=== PATIENT | female | born 1930 | race Hispanic/Latino ===

== ENCOUNTER 2016-11-15 12:41 | Inpatient (IN) | payer MEDICARE ==
[2016-11-15] MEDS ORDERED: Sodium Chloride 0.9% 1,000 ML IV STA ×2 (13:02→15:45)
--- NOTE | 2016-11-15 13:20 | RAD ---
HISTORY: Abd pain, syncope COMPARISON: None FINDINGS: LUNGS: The lungs are clear. PLEURA: No significant pleural effusion identified, no pneumothorax apparent. CARDIOVASCULAR: Normal. OSSEOUS STRUCTURES: No significant abnormalities. VISUALIZED UPPER ABDOMEN: Normal. OTHER FINDINGS: None. IMPRESSION: No active pulmonary disease.
[2016-11-15 13:22] LABS: BASO % 0.4 % (0.0-2.0); EOS % 0.1 % (0.0-4.0); HEMATOCRIT 33.5 % (34.0-47.0); LYMPH # 1.9 K/uL (1.0-4.3); LYMPH % 26.3 % (20.0-40.0); MEAN CELL VOLUME 96.3 fl (81.0-99.0); MEAN CORPUSCULAR HEMOGLOBIN 32.6 pg (27.0-31.0); MEAN CORPUSCULAR HGB CONC 33.8 g/dL (33.0-37.0); MEAN PLATELET VOLUME 7.4 fl (7.2-11.7); MONO # 0.1 K/uL (0.0-0.8); MONO % 1.5 % (0.0-10.0); NEUT # 5.3 K/uL (1.8-7.0); NEUT % 71.7 % (50.0-75.0); NRBC % 0.2 % (0.0-0.0); RED CELL DISTRIBUTION WIDTH 18.5 % (11.5-14.5); WHITE BLOOD COUNT 7.3 K/uL (4.8-10.8)
[2016-11-15 13:31] LABS: ALB/GLOB RATIO 1.1 (1.0-2.1); BILIRUBIN,TOTAL 0.8 mg/dl (0.2-1.3); CALCIUM 8.6 mg/dL (8.4-10.2); POTASSIUM 3.5 MMOL/L (3.6-5.0); TOTAL PROTEIN 6.9 G/DL (6.3-8.2)
[2016-11-15 13:33] LABS: PARTIAL THROMBOPLASTIN TIME 22.3 Seconds (25.6-37.1)
[2016-11-15 13:43] LABS: TROPONIN I 0.02 ng/mL (0.00-0.120)
--- NOTE | 2016-11-15 13:43 | ED PDOC ---
HPI: General Adult Time Seen by Provider: 11/15/16 12:51 Chief Complaint (Nursing): Altered Mental Status Chief Complaint (Provider): Weakness, abdominal pain, syncope History Per: Patient Onset/Duration Of Symptoms: Mins Have you had recent travel within the past 21 days to any of the following countries: [place], [place], [place] or [place]?: No Additional History Per: Patient, EMS Additional Complaint(s): The patient is a 86yo female, history of gynecological cancer, brought to the ED by EMS for evaluation of abdominal pain and episodes of syncope. Patient was complaining of abdominal pain earlier today and upon EMS arrival, she was able to ambulate to the ambulance, was AAOx4 and had a syncope episode, lasting approximately 2 minutes. EMS also reports another syncopal episode less than 2 minutes en route to the ED. EMS deny noticing any shaking behaviour. At present , patient is AAOx3 and denies any chest pain, shortness of breath, headache, focal weaknesses now or prior to onset of abdominal pain. No other medical complaints. Past Medical History Reviewed: Historical Data, Nursing Documentation, Vital Signs Vital Signs: Last Vital Signs Temp 99.0 F 11/17/16 12:00 Pulse 129 H 11/17/16 17:00 Resp 26 H 11/17/16 17:00 BP 129/59 L 11/17/16 18:20 Pulse Ox 98 11/17/16 17:00 - Medical History PMH: Malignancy (gynecological) - Surgical History Surgical History: No Surg Hx - Family History Family History: States: No Known Family Hx - Living Arrangements Living Arrangements: With Family - Home Medications Home Medications: Ambulatory Orders Medication Instructions Recorded Aspirin [Ecotrin] 81 mg PO DAILY 11/15/16 Atorvastatin [Lipitor] 20 mg PO DAILY 11/15/16 Cholecalciferol [Vitamin D 1000 IU] 1 tab PO DAILY 11/15/16 Losartan [Cozaar] 25 mg PO DAILY 11/15/16 Magnesium Oxide [Magox 400] 400 mg PO DAILY 11/15/16 Prochlorperazine [Compazine] 10 mg PO Q4H PRN 11/15/16 traMADol [Ultram] 50 mg PO Q6H PRN 11/15/16 - Allergies Allergies/Adverse Reactions: Allergies Allergy/AdvReac Type Severity Reaction Status Date / Time No Known Allergies Allergy Verified 11/16/16 05:57 Review of Systems Constitutional: Negative for: Fever, Chills Cardiovascular: Negative for: Chest Pain Respiratory: Negative for: Shortness of Breath Gastrointestinal: Positive for: Abdominal Pain Neurological: Positive for: Other (2 x syncopal episods). Negative for: Weakness Physical Exam - Reviewed Nursing Documentation Reviewed: Yes Vital Signs Reviewed: Yes - Physical Exam Appears: Positive for: Non-toxic, In Acute Distress (moderate painful distress) Head Exam: Positive for: ATRAUMATIC Skin: Positive for: Warm, Dry Neck: Positive for: Supple Cardiovascular/Chest: Positive for: Regular Rate, Rhythm Respiratory: Positive for: Normal Breath Sounds. Negative for: Respiratory Distress Gastrointestinal/Abdominal: Positive for: Soft, Tenderness (generalized abdominal tenderness) Neurologic/Psych: Positive for: Alert, Oriented (x 3) - Laboratory Results Result Diagrams: 11/17/16 05:30 11/17/16 05:30 - ECG O2 Sat by Pulse Oximetry: 91 Medical Decision Making Medical Decision Making: Time: 1250 Impression: Abdominal pain and syncopal episodes Plan: -- CT Head -- CT Abdomen w/ IV contrast -- IV Fluids -- Labs Reassess Time: 1325 CT Abdomen Impression: 1. Encasement of the duodenum by tumor. proximal gastric distension or fastric outflow obstruction. 2. Abnormalities in the peritoneum and likely omental disease rather than an infection or inflammatory process. 3. Trace right upper quadrant fluid as well as fluid in the pelvis. 4. No evidence of tumor above the diaphragms. Findings consistent with bronchiextasis bilaterally. CT Head Impression: No acute intracranial abnormality. Moderate chronic microangiopathic changes and moderate age-related global parenchymal volume loss. 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 Chest x-ray impression: No active pulmonary disease. Time: 1520 Spoke with patient's daughter, who provided contact information for patient's oncologist. Time: 1530 Case discussed with patient's oncologist Dr. Aviles who is aware of imaging findings today. He states if patient needs to be transferred, provider to call hospitalist at [place]. 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 Time: 1540 Case disucssed with patient's PCP who recommends transfer to [place]. Patient informed of PCP's request to transfer, patient is requesting to stay at this facility for further care. Call placed to Dr. Taylor, medicine semiconductor dies loader. Time: [address] Oro, surgeon semiconductor dies loader. Dr. Oro requesting surgical manager semiconductor dies loader be informed of case as well. Time: 1603 Cased discussed with surgical manager semiconductor dies loader who is aware. Resident to come evaluate patient at bedside. Scribe Attestation: Documented by Ariela Knott acting as a scribe for Oralia Goldstein MD. Provider Attestation: All medical record entries made by the Scribe were at my direction and personally dictated by me. I have reviewed the chart and agree that the record accurately reflects my personal performance of the history, physical exam, medical decision making, and the department course for this patient. I have also personally directed, reviewed, and agree with the discharge instructions and disposition. Disposition - Clinical Impression Clinical Impression: Gastric outlet obstruction, Syncope - Patient ED Disposition Is Patient to be Admitted: Yes - Disposition Disposition Time: 16:03 Condition: GUARDED - Pt Status Changed To: Hospital Disposition Of: Inpatient - Admit Certification Admit to Inpatient:: After my assessment, the patient will require hospitalization for at least two midnights. This is because of the severity of symptoms shown, intensity of services needed, and/or the medical risk in this patient being treated as an outpatient. - POA Present On Arrival: None
[2016-11-15] MEDS ORDERED: Sodium Chloride 0.9% 50 ML IV ONE (13:51)
[2016-11-15] MEDS ORDERED: Iohexol 300 100 ML IJ ONE (13:51)
--- NOTE | 2016-11-15 14:39 | CT ---
PROCEDURE: CT HEAD WITHOUT CONTRAST. HISTORY: Syncope COMPARISON: None available. TECHNIQUE: Axial computed tomography images were obtained through the head/brain without intravenous contrast. Radiation dose: Total exam DLP = 881.73 he MGy-cm. This CT exam was performed using one or more of the following dose reduction techniques: Automated exposure control, adjustment of the mA and/or kV according to patient size, and/or use of iterative reconstruction technique. FINDINGS: HEMORRHAGE: No intracranial hemorrhage. BRAIN: There are moderate chronic microangiopathic changes. There is an old infarction in the left periatrial white matter. There is no mass, mass effect or abnormal extra-axial fluid collection. VENTRICLES: There is moderate age-related global parenchymal volume loss and proportionate enlargement of the ventricles and cortical sulci. CALVARIUM: The skullbase and calvarium are normal. PARANASAL SINUSES: Predominantly clear. MASTOID AIR CELLS: Predominantly clear. OTHER FINDINGS: None. IMPRESSION: No acute intracranial abnormality. Moderate chronic microangiopathic changes and moderate age-related global parenchymal volume loss. 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
--- NOTE | 2016-11-15 15:07 | CT ---
PROCEDURE: CT Chest, Abdomen and Pelvis with intravenous contrast HISTORY: Abd pain, syncope Relevant surgical history: Bilateral oophorectomy. Currently undergoing chemotherapy. Primary tumor is unknown with certainty. COMPARISON: None. TECHNIQUE: IV dose administered: [place] located yes lymph neither is Radiation dose: Total exam DLP = mGy-cm. This CT exam was performed using one or more of the following dose reduction techniques: Automated exposure control, adjustment of the mA and/or kV according to patient size, and/or use of iterative reconstruction technique. FINDINGS: CT CHEST WITH CONTRAST: LUNGS: Bronchiectatic changes bilaterally primarily lower lobe distribution. The upper lobes are involved to lesser degree. Calcified granuloma identified left upper lobe. No suspicious pulmonary nodules or discrete masses. MEDIASTINUM: Unremarkable. Normal caliber aorta and pulmonary arterial trunk. No aortic dissection. Normal size heart. LYMPH NODES: Unremarkable. PLEURA: Unremarkable. No pneumothorax. No pleural fluid. BONES: Thoracolumbar scoliosis, otherwise unremarkable OTHER FINDINGS: None. CT ABDOMEN AND PELVIS: LIVER: Hepatic steatosis. No focal masses. No intrahepatic bile duct dilatation or perihepatic ascites. GALLBLADDER AND BILE DUCTS: Unremarkable. PANCREAS: Unremarkable. No gross lesion or ductal dilatation. SPLEEN: Unremarkable. ADRENALS: Unremarkable. No mass. KIDNEYS AND URETERS: Unremarkable. No hydronephrosis. No solid mass. Incidental finding(s): Bilateral simple renal cysts VASCULATURE: Unremarkable. No aortic aneurysm. BOWEL: Distended stomach and pylorus. Markedly abnormal duodenum including thickening of the wall of the duodenum, contrast enhancement of the wall of the duodenum and fluid in the right upper quadrant. The differential considerations would infiltrative tumor. Less likely would be duodenitis and duodenal stricture. Fourth portion of the duodenum is unremarkable. Diverticulosis without an acute inflammatory component or other associated pathologic process. APPENDIX: No abnormalities to suggest acute appendicitis. No right lower quadrant inflammatory processes identified. PERITONEUM: Trace fluid right upper quadrant primarily about the liver extending to the right flank and lateral to the ascending colon. There is streaking of the omentum and mesenteries in the right eric abdomen. The findings are either infectious/ inflammatory or tumor/omental caking and likely related to the process in the right upper quadrant affecting the duodenum. Trace fluid in the. LYMPH NODES: Unremarkable. No enlarged lymph nodes. BLADDER: Unremarkable. REPRODUCTIVE: Atrophic uterus. BONES: No acute fracture. OTHER FINDINGS: None. IMPRESSION: 1. Encasement of the duodenum by tumor. Proximal gastric distension, of gastric outflow obstruction. 2. Abnormalities in the peritoneum and likely omental disease rather than an infectious or inflammatory process. 3. Trace right upper quadrant fluid as well as fluid in the pelvis. 4. No evidence of tumor above the diaphragms. Findings consistent with bronchiectasis bilaterally. Additional benign and/or incidental findings described above.
[2016-11-15] MEDS ORDERED: Iohexol 240 (10 ml) PO ONE (18:11)
[2016-11-15] MEDS ORDERED: Iohexol 240 (50 ml) ONE (18:14)
[2016-11-15] MEDS ORDERED: Sodium Chloride 0.9% 1,000 ML IV ONE (18:15)
[2016-11-15] MEDS ORDERED: Sodium Chloride 0.9% 1,000 ML IV SCH (18:15)
[2016-11-15] MEDS: Iohexol 240 (50 ml) PO ONE ×2 (18:16→18:29)
--- NOTE | 2016-11-15 18:28 | CP.PCM.CON ---
History of Present Illness - History of Present Illness History of Present Illness: General Surgery note for Dr. Oro Consulted for: abdominal pain Patient is an 86F with PMH of vulvar cancer undergoing chemotherapy and pelvic radiation who presents to the ED with severe abdominal pain that started this AM. Patient states that he pain is cramping in nature, worst in the RUQ but also in the lower abdomen BL not associated with nausea or vomiting. Pain is associated with lower back pain. Patient states that taking deep breaths makes it worse and lying on her right side makes it better. Patient reports some decreased appetite in PO intake for the past several days. Patient also reports heart burn but denies any other chest pain or radiation to her arms or neck. Patient denies fevers, chills, dysuria, hematuria, hematochezia, melena. Last bowel movmenet was yesterday and described as normal color and consistency. Has not passed gas all day. EMT's were called when patient had the abdominal pain and witnessed patient having a syncopal episode. Patient was found to be severely hypotensive but resuscitated after [address] scan showed a very distended stomach and very thickened duodenum wall and duodenal compression.Free fluid in the RUQ and the pelvis. Omental fat streaking PMH: vulvar cancer with chemotherapy and pelvic radiation, HTN, HLD PSH: hysterectomy ALL: NKDA Social: lives with sister, denies any ETOH, tobacco, or drug use Review of Systems - Review of Systems All systems: reviewed and no additional remarkable complaints except (as per HPI ) - Constitutional Constitutional: Anorexia. absent: Chills, Fever - Respiratory Respiratory: absent: Cough, Dyspnea, Chest Congestion - Gastrointestinal Gastrointestinal: As Per HPI, Abdominal Pain. absent: Hematochezia, Melena, Nausea, Vomiting - Genitourinary Genitourinary: Difficulty Urinating. absent: Dysuria, Hematuria - Menstruation Menstruation: absent: Abnormal Vaginal Bleeding, Dysmenorrhea - Musculoskeletal Musculoskeletal: Back Pain. absent: Numbness, Radiating Pain into Limb, Tingling - Neurological Neurological: absent: Confusion, Numbness, Tingling Past Patient History - Past Medical History & Family History Past Medical History?: Yes - Past Social History Smoking Status: Never Smoked - CARDIAC Hx Cardiac Disorders: Yes - PULMONARY Hx Respiratory Disorders: No - NEUROLOGICAL Hx Neurological Disorder: No - HEENT Hx HEENT Problems: No - RENAL Hx Chronic Kidney Disease: No - ENDOCRINE/METABOLIC Hx Endocrine Disorders: No - HEMATOLOGICAL/ONCOLOGICAL Hx Blood Disorders: No - INTEGUMENTARY Hx Dermatological Problems: No - MUSCULOSKELETAL/RHEUMATOLOGICAL Hx Musculoskeletal Disorders: No - GENITOURINARY/GYNECOLOGICAL Hx Genitourinary Disorders: Yes - PSYCHIATRIC Hx Psychophysiologic Disorder: No - SURGICAL HISTORY Hx Surgeries: Yes - ANESTHESIA Hx Anesthesia: Yes Hx Anesthesia Reactions: No Meds Allergies/Adverse Reactions: Allergies Allergy/AdvReac Type Severity Reaction Status Date / Time No Known Allergies Allergy Verified 11/15/16 12:43 - Medications Medications: Current Medications Lactated Ringer's (Lactated Ringer's) 1,000 mls @ 100 mls/hr IV .Q10H MARGE Last Admin: 11/15/16 18:16 Dose: 100 mls/hr Sodium Chloride (Sodium Chloride 0.9%) 1,000 mls @ 1,000 mls/hr IV .Q1H ONE Stop: 11/15/16 19:14 Physical Exam - Constitutional Appears: In Acute Distress - Head Exam Head Exam: ATRAUMATIC, NORMOCEPHALIC - Eye Exam Eye Exam: Normal appearance. absent: Conjunctival injection, Scleral icterus - ENT Exam ENT Exam: Mucous Membranes Dry, Normal Oropharynx - Neck Exam Neck exam: Positive for: Normal Inspection - Respiratory Exam Respiratory Exam: NORMAL BREATHING PATTERN. absent: Accessory Muscle Use, Respiratory Distress - Cardiovascular Exam Cardiovascular Exam: RRR - GI/Abdominal Exam GI & Abdominal Exam: Distended, Soft, Tenderness (RUQ>RLQ=LLQ). absent: Mass, Rebound Additional comments: Tenderness to percussion - Extremities Exam Extremities exam: Positive for: pedal pulses present. Negative for: calf tenderness, pedal edema - Back Exam Back exam: absent: CVA tenderness (L), CVA tenderness (R), rash noted - Neurological Exam Neurological exam: Alert, Oriented x3 - Psychiatric Exam Psychiatric exam: Normal Affect, Normal Mood - Skin Skin Exam: Dry, Intact, Normal Color, Warm Results - Vital Signs Recent Vital Signs: Last Vital Signs Temp 97.6 F 11/15/16 13:05 Pulse 93 H 11/15/16 16:54 Resp 23 11/15/16 16:54 BP 100/66 11/15/16 16:54 Pulse Ox 100 11/15/16 16:27 - Labs Result Diagrams: 11/15/16 13:05 11/15/16 13:05 Labs: Laboratory Results - last 24 hr 11/15/16 11/15/16 11/15/16 13:05 13:05 13:05 WBC 7.3 RBC 3.48 L Hgb 11.3 L Hct 33.5 L MCV 96.3 MCH 32.6 H MCHC 33.8 RDW 18.5 H Plt Count 248 MPV 7.4 Neut % (Auto) 71.7 Lymph % (Auto) 26.3 [place] % (Auto) 1.5 Eos % (Auto) 0.1 Baso % (Auto) 0.4 Neut # 5.3 Lymph # 1.9 [place] # 0.1 Eos # 0.0 Baso # 0.0 PT 10.5 INR 1.0 APTT 22.3 L Sodium 139 Potassium 3.5 L Chloride 101 Carbon Dioxide 23 Anion Gap 19 BUN 27 H Creatinine 1.4 H Est GFR ( Amer) 43 Est GFR (Non-Af Amer) 36 Random Glucose 183 H Calcium 8.6 Total Bilirubin 0.8 AST 29 ALT 24 Alkaline Phosphatase 104 Troponin I 0.0200 Total Protein 6.9 Albumin 3.6 Globulin 3.3 Albumin/Globulin Ratio 1.1 Lipase 390 H Assessment & Plan - Assessment and Plan (Free Text) Assessment: 86F with PMH of vulvar cancer currently receiving chemotherapy and radiation treatment who presents with severe acute abdominal pain. Duodenal mass vs. duodenitis vs. duodenal stricture WBC wnl. lipase 390, t bili and LFT's wnl CT chest/abdomen/pelvis with IV contrast: Grossly distended stomach containing large amount of fluid, thickened duodenal wall, free fluid in the RUQ and pelvis , omental fat stranding Placed and NGT and had immediate >700 cc's of clear dark red-brown with brown particulate fluid output Plan: Repeat CT with PO contrast through the NGT after gastric decompression Follow up serum lactic acid and UA Trend daily CBC/CMP Continue NGT to intermittent continuous wall suction NPO protonix IV zosyn Continue fluid resuscitation PRN pain and nausea regimen Strict I&O's Closely monitor vitals Recommend GI consult for possible endoscopy and elevated lipase Hold DVT prophylaxis at this time Discussed with Dr. Oro, further recs per him Dannielle Mayer, PGY2
[2016-11-15] MEDS ORDERED: Lactated Ringer's 1,000 ML IV SCH (18:30)
[2016-11-15 20:08] LABS: RBC URINE 3 /hpf (0-3); URINE BILIRUBIN NEGATIVE (NEGATIVE); URINE BLOOD NEGATIVE (NEGATIVE); URINE COLOR YELLOW (YELLOW); URINE GLUCOSE (UA) NEG (Normal); URINE KETONE NEGATIVE (NEGATIVE); URINE LEUKOCYTE ESTERASE NEG Leu/uL (Negative); URINE PROTEIN 100 mg/dL (NEGATIVE); URINE UROBILINOGEN 0.2-1.0 mg/dL (0.2-1.0); WBC URINE 1 /hpf (0-5)
[2016-11-15] MEDS ORDERED: Acetaminophen 650mg/20.3ml solution UD PO PRN (20:27)
[2016-11-15] MEDS: Lactated Ringer's 1,000 ML IV SCH (21:48)
[2016-11-15] MEDS: Piperacillin/Tazobact 3.375 GM in Sodium Chloride 0.9% 100 ML IVPB SCH (23:00)
[2016-11-16] MEDS: Piperacillin/Tazobact 3.375 GM in Sodium Chloride 0.9% 100 ML IVPB SCH ×4 (05:21→23:27)
[2016-11-16 05:38] LABS: ALB/GLOB RATIO 0.9 (1.0-2.1); BILIRUBIN,TOTAL 0.8 mg/dl (0.2-1.3); CALCIUM 7.8 mg/dL (8.4-10.2); TOTAL PROTEIN 5.8 G/DL (6.3-8.2)
[2016-11-16 06:05] LABS: THYROID STIMULATING HORMONE 0.48 mIU/ML (0.46-4.68)
[2016-11-16 06:25] LABS: POTASSIUM 5.4 MMOL/L (3.6-5.0)
[2016-11-16 06:26] LABS: BASO % 0.1 % (0.0-2.0); EOS % 1.2 % (0.0-4.0); HEMATOCRIT 33.7 % (34.0-47.0); LYMPH # 0.3 K/uL (1.0-4.3); LYMPH % 31.8 % (20.0-40.0); MEAN CELL VOLUME 97.1 fl (81.0-99.0); MEAN CORPUSCULAR HEMOGLOBIN 32.9 pg (27.0-31.0); MEAN CORPUSCULAR HGB CONC 33.9 g/dL (33.0-37.0); MEAN PLATELET VOLUME 7.7 fl (7.2-11.7); MONO # 0.1 K/uL (0.0-0.8); MONO % 10.6 % (0.0-10.0); NEUT # 0.5 K/uL (1.8-7.0); NEUT % 56.3 % (50.0-75.0); NRBC % 0.9 % (0.0-0.0); RED CELL DISTRIBUTION WIDTH 18.2 % (11.5-14.5)
[2016-11-16] MEDS ORDERED: Benzocaine/Menthol (Cepacol) Lozenge PO PRN (07:55)
--- NOTE | 2016-11-16 08:38 | CARD ---
APPROVED REPORT EKG Measurement Heart [id number] <Conclusion> Normal sinus rhythm Nonspecific ST abnormality Abnormal ECG
--- NOTE | 2016-11-16 08:40 | CARD ---
APPROVED REPORT EKG Measurement Heart [id number] <Conclusion> Sinus rhythm with fusion complexes Otherwise normal ECG
--- NOTE | 2016-11-16 08:44 | CP.PCM.PN ---
Subjective - Date & Time of Evaluation Date of Evaluation: 11/16/16 Time of Evaluation: 07:00 - Subjective Subjective: Patient seen and examined this AM. NAEO. Patient reports persistent but improved abdominal pain, denies nausea, vomiting, fevers, chills, or chest pain. States she passed gas overnight Objective - Vital Signs/Intake and Output Vital Signs (last 24 hours): Temp Pulse Resp BP Pulse Ox 98.2 F 105 H 18 93/62 L 93 L 11/16/16 07:56 11/16/16 07:56 11/16/16 07:56 11/16/16 07:56 11/16/16 07:56 Intake and Output: 11/16/16 11/16/16 06:59 18:59 Intake Total 920 Output Total 1150 Balance -230 - Medications Medications: Current Medications Acetaminophen (Tylenol 650mg/20.3ml Solution Ud) 650 mg PO Q6 PRN PRN Reason: fever >100.4 Benzocaine/Menthol (Cepacol Sore Throat) 1 chantel PO Q2 PRN PRN Reason: Sore Throat Cyanocobalamin (Vitamin B12 1000 Mcg/Ml Inj) 1,000 mcg IM DAILY [facility] Piperacillin Sod/Tazobactam (Sod 3.375 gm/ Sodium Chloride) 100 mls @ 100 mls/ hr IVPB Q6 [facility] Last Admin: 11/16/16 05:21 Dose: 100 mls/hr Lactated Ringer's (Lactated Ringer's) 1,000 mls @ 120 mls/hr IV .Q8H20M [facility] Last Admin: 11/15/16 21:48 Dose: 120 mls/hr Vancomycin HCl 1 gm/ Sodium (Chloride) 250 mls @ 166.667 mls/hr IVPB DAILY [facility] Metoclopramide HCl (Reglan) 10 mg IVP Q6 PRN PRN Reason: Nausea/Vomiting Morphine Sulfate (Morphine) 4 mg IVP Q6 PRN PRN Reason: Pain, severe (8-10) Last Admin: 11/15/16 23:59 Dose: 4 mg Morphine Sulfate (Morphine) 2 mg IVP Q4 PRN PRN Reason: Pain, moderate (4-7) Last Admin: 11/15/16 19:59 Dose: 2 mg Pantoprazole Sodium (Protonix Inj) 40 mg IVP DAILY [facility] Last Admin: 11/16/16 08:41 Dose: 40 mg Silver Sulfadiazine (Silvadene 1% 50 Gm) 1 applic TOP BID MARGE - Labs Labs: 11/16/16 04:15 11/16/16 04:15 PT 10.5 Seconds (9.8-13.1) 11/15/16 13:05 INR 1.0 (0.9-1.2) 11/15/16 13:05 APTT 22.3 Seconds (25.6-37.1) L 11/15/16 13:05 - Constitutional Appears: Non-toxic, No Acute Distress - Head Exam Head Exam: ATRAUMATIC, NORMOCEPHALIC - Eye Exam Eye Exam: Normal appearance. absent: Conjunctival injection, Scleral icterus - ENT Exam ENT Exam: Mucous Membranes Moist, Normal Oropharynx - Respiratory Exam Respiratory Exam: NORMAL BREATHING PATTERN. absent: Accessory Muscle Use, Respiratory Distress - GI/Abdominal Exam GI & Abdominal Exam: Soft, Tenderness (RUQ>RLQ). absent: Distended, Rebound - Exam External exam: Erythema Additional comments: superficial skin excoriation the external labia - Extremities Exam Extremities Exam: absent: Calf Tenderness, Pedal Edema, Tenderness - Neurological Exam Neurological Exam: Alert, Awake, Oriented x3 - Psychiatric Exam Psychiatric exam: Normal Affect, Normal Mood - Skin Skin Exam: Dry, Normal Color, Warm Additional comments: Excoriated skin around the external labia of the vagina and groin Assessment and Plan - Assessment and Plan (Free Text) Assessment: 86F with severe abdominal pain, probable duodenal perforation CT chest/abdomen/pelvis with PO contrast: extravasation of contrast from the duodenum Plan: -OR for exploratory laparotomy to repair duodenal perforation - NPO - IVF - Continue antibiotics, pain medication - Type and cross for 2 units - Hold DVT prophylaxis - Protonix 40mg BID IVP - Transfer patient to the ICU after operation Seen and examined with Dr. Shorty Mayer, PGY2
--- NOTE | 2016-11-16 09:15 | CP.PCM.CON ---
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 Pt states that yesterday she suddenly started having insidious abd pain located in RUQ and lower quad B/L. She states that it peaked to 10 out of 10 pain and she characterized it as crampy. Denies any aggravating or alleviating factors. She states that she then had multiple syncope episodes. EMS and ER noted she had a low BP and received multiple liters of fluid. Upon arrival to the ER, she started experiencing severe nausea and vomiting. An NG tube was place and 700cc was initially suctioned. A CT scan w/o PO contrast revealed possible marked duodenal inflammation and possible obstruction. She was also started on abx of zosyn and vancomycin. She denies any recent travel. Her last dose of chemo was 5 days ago, but does not recall her current regiment. Denies any sick contacts or recent consumption of undercooked meat. Her last BM was 2 days ago and she currently denies flatus. Her NG tube was pulled in the AM and she was started on clear liquid diet. Denies any fever, chills, or diaphoresis. PMH: vulvar cancer with chemotherapy and pelvic radiation, HTN, HLD PSH: hysterectomy ALL: NKDA Social: lives with sister, denies any ETOH, tobacco, or drug use Endoscopy hx: Denies prior EGD and colonoscopy Past Patient History - Past Medical History & Family History Past Medical History?: Yes - Past Social History Smoking Status: Never Smoked - CARDIAC Hx Cardiac Disorders: Yes Hx Hypertension: Yes - PULMONARY Hx Respiratory Disorders: No - NEUROLOGICAL Hx Neurological Disorder: No - HEENT Hx HEENT Problems: No - RENAL Hx Chronic Kidney Disease: No - ENDOCRINE/METABOLIC Hx Endocrine Disorders: No - HEMATOLOGICAL/ONCOLOGICAL Hx Blood Disorders: No - INTEGUMENTARY Hx Dermatological Problems: No - MUSCULOSKELETAL/RHEUMATOLOGICAL Hx Falls: No - GENITOURINARY/GYNECOLOGICAL Hx Genitourinary Disorders: Yes Hx Uterine Cancer: Yes - PSYCHIATRIC Hx Substance Use: No - SURGICAL HISTORY Hx Surgeries: Yes Hx Hysterectomy: Yes - ANESTHESIA Hx Anesthesia: Yes Hx Anesthesia Reactions: No Meds Allergies/Adverse Reactions: Allergies Allergy/AdvReac Type Severity Reaction Status Date / Time No Known Allergies Allergy Verified 11/16/16 05:57 - Medications Medications: Current Medications Acetaminophen (Tylenol 650mg/20.3ml Solution Ud) 650 mg PO Q6 PRN PRN Reason: fever >100.4 Benzocaine/Menthol (Cepacol Sore Throat) 1 chantel PO Q2 PRN PRN Reason: Sore Throat Cyanocobalamin (Vitamin B12 1000 Mcg/Ml Inj) 1,000 mcg IM DAILY [facility] Piperacillin Sod/Tazobactam (Sod 3.375 gm/ Sodium Chloride) 100 mls @ 100 mls/ hr IVPB Q6 [facility] Last Admin: 11/16/16 05:21 Dose: 100 mls/hr Lactated Ringer's (Lactated Ringer's) 1,000 mls @ 120 mls/hr IV .Q8H20M [facility] Last Admin: 11/15/16 21:48 Dose: 120 mls/hr Vancomycin HCl 1 gm/ Sodium (Chloride) 250 mls @ 166.667 mls/hr IVPB DAILY [facility] Metoclopramide HCl (Reglan) 10 mg IVP Q6 PRN PRN Reason: Nausea/Vomiting Morphine Sulfate (Morphine) 4 mg IVP Q6 PRN PRN Reason: Pain, severe (8-10) Last Admin: 11/15/16 23:59 Dose: 4 mg Morphine Sulfate (Morphine) 2 mg IVP Q4 PRN PRN Reason: Pain, moderate (4-7) Last Admin: 11/15/16 19:59 Dose: 2 mg Pantoprazole Sodium (Protonix Inj) 40 mg IVP DAILY [facility] Last Admin: 11/16/16 08:41 Dose: 40 mg Silver Sulfadiazine (Silvadene 1% 50 Gm) 1 applic TOP BID [facility] Physical Exam - Constitutional Appears: Well, No Acute Distress - Head Exam Head Exam: ATRAUMATIC, NORMOCEPHALIC - ENT Exam ENT Exam: Mucous Membranes Moist - Respiratory Exam Respiratory Exam: Clear to Auscultation Bilateral, NORMAL BREATHING PATTERN. absent: Rales, Rhonchi, Wheezes, Respiratory Distress - Cardiovascular Exam Cardiovascular Exam: REGULAR RHYTHM, +S1, +S2 - GI/Abdominal Exam GI & Abdominal Exam: Hypoactive Bowel Sounds, Tenderness. absent: Guarding, Hernia, Organomegaly, Rebound, Rigid Additional comments: diffuse - Extremities Exam Extremities exam: Negative for: joint swelling, pedal edema, tenderness - Neurological Exam Neurological exam: Alert, Oriented x3 - Psychiatric Exam Psychiatric exam: Normal Affect, Normal Mood - Skin Skin Exam: Dry, Intact, Normal Color, Warm Results - Vital Signs Recent Vital Signs: Last Vital Signs Temp 98.2 F 11/16/16 07:56 Pulse 105 H 11/16/16 07:56 Resp 18 11/16/16 07:56 BP 93/62 L 11/16/16 07:56 Pulse Ox 93 L 11/16/16 07:56 - Labs Result Diagrams: 11/16/16 04:15 11/16/16 04:15 Labs: Laboratory Results - last 24 hr 11/15/16 11/15/16 11/15/16 13:05 13:05 13:05 WBC 7.3 RBC 3.48 L Hgb 11.3 L Hct 33.5 L MCV 96.3 MCH 32.6 H MCHC 33.8 RDW 18.5 H Plt Count 248 MPV 7.4 Neut % (Auto) 71.7 Lymph % (Auto) 26.3 [place] % (Auto) 1.5 Eos % (Auto) 0.1 Baso % (Auto) 0.4 Neut # 5.3 Lymph # 1.9 [place] # 0.1 Eos # 0.0 Baso # 0.0 PT 10.5 INR 1.0 APTT 22.3 L Sodium 139 Potassium 3.5 L Chloride 101 Carbon Dioxide 23 Anion Gap 19 BUN 27 H Creatinine 1.4 H Est GFR ( Amer) 43 Est GFR (Non-Af Amer) 36 Random Glucose 183 H Lactic Acid Calcium 8.6 Total Bilirubin 0.8 AST 29 ALT 24 Alkaline Phosphatase 104 Troponin I 0.0200 Total Protein 6.9 Albumin 3.6 Globulin 3.3 Albumin/Globulin Ratio 1.1 Triglycerides Cholesterol LDL Cholesterol Direct HDL Cholesterol Lipase 390 H Vitamin B12 TSH 3rd Generation Urine Color Urine Clarity Urine pH Ur Specific [place] Urine Protein Urine Glucose (UA) Urine Ketones Urine Blood Urine Nitrate Urine Bilirubin Urine Urobilinogen Ur Leukocyte Esterase Urine RBC (Auto) Urine Microscopic WBC 11/15/16 11/15/16 11/16/16 19:39 20:10 04:15 WBC RBC Hgb Hct MCV MCH MCHC RDW Plt Count MPV Neut % (Auto) Lymph % (Auto) [place] % (Auto) Eos % (Auto) Baso % (Auto) Neut # Lymph # [place] # Eos # Baso # PT INR APTT Sodium 140 Potassium 5.4 H Chloride 104 Carbon Dioxide 23 Anion Gap 18 BUN 33 H Creatinine 1.4 H Est GFR ( Amer) 43 Est GFR (Non-Af Amer) 36 Random Glucose 138 H Lactic Acid 5.9 H* Calcium 7.8 L Total Bilirubin 0.8 AST 26 ALT 24 Alkaline Phosphatase 61 Troponin I Total Protein 5.8 L Albumin 2.8 L D Globulin 3.0 Albumin/Globulin Ratio 0.9 L Triglycerides 149 Cholesterol 136 LDL Cholesterol Direct 46 HDL Cholesterol 55 Lipase 73 Vitamin B12 269 TSH 3rd Generation 0.48 Urine Color Yellow Urine Clarity Clear Urine pH 6.0 Ur Specific [place] 1.005 Urine Protein 100 Urine Glucose (UA) Neg Urine Ketones Negative Urine Blood Negative Urine Nitrate Negative Urine Bilirubin Negative Urine Urobilinogen 0.2-1.0 Ur Leukocyte Esterase Neg Urine RBC (Auto) 3 Urine Microscopic WBC 1 11/16/16 11/16/16 04:15 04:15 WBC 1.0 L* D RBC 3.47 L Hgb 11.4 L Hct 33.7 L MCV 97.1 MCH 32.9 H MCHC 33.9 RDW 18.2 H Plt Count 165 MPV 7.7 Neut % (Auto) 56.3 Lymph % (Auto) 31.8 [place] % (Auto) 10.6 H Eos % (Auto) 1.2 Baso % (Auto) 0.1 Neut # 0.5 L Lymph # 0.3 L [place] # 0.1 Eos # 0.0 Baso # 0.0 PT INR APTT Sodium Potassium Chloride Carbon Dioxide Anion Gap BUN Creatinine Est GFR ( Amer) Est GFR (Non-Af Amer) Random Glucose Lactic Acid 3.9 H Calcium Total Bilirubin AST ALT Alkaline Phosphatase Troponin I Total Protein Albumin Globulin Albumin/Globulin Ratio Triglycerides Cholesterol LDL Cholesterol Direct HDL Cholesterol Lipase Vitamin B12 TSH 3rd Generation Urine Color Urine Clarity Urine pH Ur Specific [place] Urine Protein Urine Glucose (UA) Urine Ketones Urine Blood Urine Nitrate Urine Bilirubin Urine Urobilinogen Ur Leukocyte Esterase Urine RBC (Auto) Urine Microscopic WBC Assessment & Plan - Assessment and Plan (Free Text) Assessment: Dia Chinchilla is a 86F w/ 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 DDx: gastroenteritis, transient obstruction, duodenal obstruction due stricture vs malignancy, referred pain from radiation 1. Abd pain, DDx etiology as above 2. Gastric Outlet Obstruction, resolved 3. Duodenal inflammation 4. Neutropenia, on chemo 5. Vulvar Ca Plan: -advance diet as tolerated -denies any diarrhea, doubt active GI infection -continue abx as per primary team -recommend hem/onc consult -will not recommend endoscopy at this time -continue conservative management as per surgery -recommend NG placement if symptomatic DRenéW Dr. Campos <Daniel Campos MD - Last Filed: 11/16/16 14:18> Meds - Medications Medications: Current Medications Acetaminophen (Tylenol 650mg/20.3ml Solution Ud) 650 mg PO Q6 PRN PRN Reason: fever >100.4 Benzocaine/Menthol (Cepacol Sore Throat) 1 chantel PO Q2 PRN PRN Reason: Sore Throat Cyanocobalamin (Vitamin B12 1000 Mcg/Ml Inj) 1,000 mcg IM DAILY [facility] Last Admin: 11/16/16 10:00 Dose: 1,000 mcg Heparin Sodium (Porcine) (Heparin) 5,000 units SC Q12 [facility] PRN Reason: Protocol Piperacillin Sod/Tazobactam (Sod 3.375 gm/ Sodium Chloride) 100 mls @ 100 mls/ hr IVPB Q6 [facility] Last Admin: 11/16/16 10:55 Dose: 100 mls/hr Lactated Ringer's (Lactated Ringer's) 1,000 mls @ 120 mls/hr IV .Q8H20M [facility] Last Admin: 11/15/16 21:48 Dose: 120 mls/hr Vancomycin HCl 1 gm/ Sodium (Chloride) 250 mls @ 166.667 mls/hr IVPB DAILY [facility] Last Admin: 11/16/16 10:00 Dose: 166.667 mls/hr Metoclopramide HCl (Reglan) 10 mg IVP Q6 PRN PRN Reason: Nausea/Vomiting Morphine Sulfate (Morphine) 4 mg IVP Q6 PRN PRN Reason: Pain, severe (8-10) Last Admin: 11/15/16 23:59 Dose: 4 mg Morphine Sulfate (Morphine) 2 mg IVP Q4 PRN PRN Reason: Pain, moderate (4-7) Last Admin: 11/15/16 19:59 Dose: 2 mg Pantoprazole Sodium (Protonix Inj) 40 mg IVP DAILY [facility] Last Admin: 11/16/16 08:41 Dose: 40 mg Silver Sulfadiazine (Silvadene 1% 50 Gm) 1 applic TOP BID [facility] Last Admin: 11/16/16 10:00 Dose: 1 applic Results - Vital Signs Recent Vital Signs: Last Vital Signs Temp 98.2 F 11/16/16 12:00 Pulse 98 H 11/16/16 12:00 Resp 18 11/16/16 12:00 BP 116/72 11/16/16 12:00 Pulse Ox 96 11/16/16 12:00 - Labs Result Diagrams: 11/16/16 04:15 11/16/16 04:15 Labs: Laboratory Results - last 24 hr 11/15/16 11/15/16 11/16/16 19:39 20:10 04:15 WBC RBC Hgb Hct MCV MCH MCHC RDW Plt Count MPV Neut % (Auto) Lymph % (Auto) [place] % (Auto) Eos % (Auto) Baso % (Auto) Neut # Lymph # [place] # Eos # Baso # Sodium 140 Potassium 5.4 H Chloride 104 Carbon Dioxide 23 Anion Gap 18 BUN 33 H Creatinine 1.4 H Est GFR ( Amer) 43 Est GFR (Non-Af Amer) 36 Random Glucose 138 H Lactic Acid 5.9 H* Calcium 7.8 L Total Bilirubin 0.8 AST 26 ALT 24 Alkaline Phosphatase 61 Total Protein 5.8 L Albumin 2.8 L D Globulin 3.0 Albumin/Globulin Ratio 0.9 L Triglycerides 149 Cholesterol 136 LDL Cholesterol Direct 46 HDL Cholesterol 55 Lipase 73 Vitamin B12 269 TSH 3rd Generation 0.48 Urine Color Yellow Urine Clarity Clear Urine pH 6.0 Ur Specific [place] 1.005 Urine Protein 100 Urine Glucose (UA) Neg Urine Ketones Negative Urine Blood Negative Urine Nitrate Negative Urine Bilirubin Negative Urine Urobilinogen 0.2-1.0 Ur Leukocyte Esterase Neg Urine RBC (Auto) 3 Urine Microscopic WBC 1 11/16/16 11/16/16 04:15 04:15 WBC 1.0 L* D RBC 3.47 L Hgb 11.4 L Hct 33.7 L MCV 97.1 MCH 32.9 H MCHC 33.9 RDW 18.2 H Plt Count 165 MPV 7.7 Neut % (Auto) 56.3 Lymph % (Auto) 31.8 [place] % (Auto) 10.6 H Eos % (Auto) 1.2 Baso % (Auto) 0.1 Neut # 0.5 L Lymph # 0.3 L [place] # 0.1 Eos # 0.0 Baso # 0.0 Sodium Potassium Chloride Carbon Dioxide Anion Gap BUN Creatinine Est GFR ( Amer) Est GFR (Non-Af Amer) Random Glucose Lactic Acid 3.9 H Calcium Total Bilirubin AST ALT Alkaline Phosphatase Total Protein Albumin Globulin Albumin/Globulin Ratio Triglycerides Cholesterol LDL Cholesterol Direct HDL Cholesterol Lipase Vitamin B12 TSH 3rd Generation Urine Color Urine Clarity Urine pH Ur Specific [place] Urine Protein Urine Glucose (UA) Urine Ketones Urine Blood Urine Nitrate Urine Bilirubin Urine Urobilinogen Ur Leukocyte Esterase Urine RBC (Auto) Urine Microscopic WBC Attending/Attestation - Attestation I have personally seen and examined this patient.: Yes I have fully participated in the care of the patient.: Yes I have reviewed all pertinent clinical information: Yes Notes (Text): 11/16/16 14:13 Patient seen and examined at bedside with Gi fellow on rounds this am. This is a 86 yr old F with vulvar CA s/p chemo radiation last saturday admitted with obstructive symptoms of nausea, vomiting and abdominal pain. Physical exam demonstrated sluggish bowel sounds without guarding or rigidity. Biochemical evidence of leukopenia. Elevated lactate and FERMIN. On antibiotics. CT abdomen with po contrast shows thickened duodenum with ? pneumoperitoneum. Patient tolerated clear liquid diet this morning. NGT with 700 cc output overnight which was discontinued this morning - Diet as per surgical service - Plan as per surgery - No past EGD/ colonoscopy - Will benefit from neupogen - Trend daily wbc and fever curve - Agree with antibiotics - Oncology consult appreciated - DVT and GI prophylaxis - Monitor s/s of obstruction - Frequent abdominal exam - Will follow patient closely with you
[2016-11-16] MEDS: Silver Sulfadiazine 1% CREAM (50 gm) TOP SCH ×2 (10:00→17:02)
--- NOTE | 2016-11-16 10:06 | CP.PCM.CON ---
History of Present Illness - History of Present Illness History of Present Illness: 86 year old female with a history of HTN, DM, vulvar cancer s/p 6 weeks of chemoradiation, admitted with abdominal pain. The patient reports to her oncologic care and [facility]. She is being treated with chemoradiation. She just received a dose of unknown chemotherapy this week and notes she receives this once weekly. She notes to tolerating her treatments well overall but has been having progressive lower abdominal pain. She denies fevers and chills. A CT C/A/P revealed encasement of the duodenum by tumor and evidence of peritoneal disease. There is a concern for perforated viscus and the patient is to undergo an exploratory laparotomy. Past medical history: HTN, DM, vulvar cancer Past surgical history: Hysterectomy Family history: Denies hematologic and oncologic problems Social history: Denies tobacco, alcohol, and illicit drug use. Allergies: NKA Review of systems: All remaining review of systems including HEENT, cardiovasular, respiratory, gastrointestinal, genitourinary, musculoskeletal, dermatologic, neurologic, and psychiatric are negative unless mentioned in the HPI. Past Patient History - Past Medical History & Family History Past Medical History?: Yes - Past Social History Smoking Status: Never Smoked - CARDIAC Hx Cardiac Disorders: Yes Hx Hypertension: Yes - PULMONARY Hx Respiratory Disorders: No - NEUROLOGICAL Hx Neurological Disorder: No - HEENT Hx HEENT Problems: No - RENAL Hx Chronic Kidney Disease: No - ENDOCRINE/METABOLIC Hx Endocrine Disorders: No - HEMATOLOGICAL/ONCOLOGICAL Hx Blood Disorders: No - INTEGUMENTARY Hx Dermatological Problems: No - MUSCULOSKELETAL/RHEUMATOLOGICAL Hx Falls: No - GENITOURINARY/GYNECOLOGICAL Hx Genitourinary Disorders: Yes Hx Uterine Cancer: Yes - PSYCHIATRIC Hx Substance Use: No - SURGICAL HISTORY Hx Surgeries: Yes Hx Hysterectomy: Yes - ANESTHESIA Hx Anesthesia: Yes Hx Anesthesia Reactions: No Meds Allergies/Adverse Reactions: Allergies Allergy/AdvReac Type Severity Reaction Status Date / Time No Known Allergies Allergy Verified 11/16/16 05:57 - Medications Medications: Current Medications Acetaminophen (Tylenol 650mg/20.3ml Solution Ud) 650 mg PO Q6 PRN PRN Reason: fever >100.4 Benzocaine/Menthol (Cepacol Sore Throat) 1 chantel PO Q2 PRN PRN Reason: Sore Throat Cyanocobalamin (Vitamin B12 1000 Mcg/Ml Inj) 1,000 mcg IM DAILY [facility] Piperacillin Sod/Tazobactam (Sod 3.375 gm/ Sodium Chloride) 100 mls @ 100 mls/ hr IVPB Q6 [facility] Last Admin: 11/16/16 05:21 Dose: 100 mls/hr Lactated Ringer's (Lactated Ringer's) 1,000 mls @ 120 mls/hr IV .Q8H20M [facility] Last Admin: 11/15/16 21:48 Dose: 120 mls/hr Vancomycin HCl 1 gm/ Sodium (Chloride) 250 mls @ 166.667 mls/hr IVPB DAILY [facility] Metoclopramide HCl (Reglan) 10 mg IVP Q6 PRN PRN Reason: Nausea/Vomiting Morphine Sulfate (Morphine) 4 mg IVP Q6 PRN PRN Reason: Pain, severe (8-10) Last Admin: 11/15/16 23:59 Dose: 4 mg Morphine Sulfate (Morphine) 2 mg IVP Q4 PRN PRN Reason: Pain, moderate (4-7) Last Admin: 11/15/16 19:59 Dose: 2 mg Pantoprazole Sodium (Protonix Inj) 40 mg IVP DAILY [facility] Last Admin: 11/16/16 08:41 Dose: 40 mg Silver Sulfadiazine (Silvadene 1% 50 Gm) 1 applic TOP BID [facility] Physical Exam - Head Exam Head Exam: ATRAUMATIC - Eye Exam Eye Exam: Normal appearance - ENT Exam ENT Exam: Mucous Membranes Dry - Respiratory Exam Respiratory Exam: NORMAL BREATHING PATTERN - Cardiovascular Exam Cardiovascular Exam: +S1, +S2 - GI/Abdominal Exam GI & Abdominal Exam: Tenderness - Extremities Exam Extremities exam: Positive for: normal inspection - Neurological Exam Neurological exam: Oriented x3 - Psychiatric Exam Psychiatric exam: Normal Affect, Normal Mood - Skin Skin Exam: Warm Results - Vital Signs Recent Vital Signs: Last Vital Signs Temp 98.2 F 11/16/16 07:56 Pulse 105 H 11/16/16 07:56 Resp 18 11/16/16 07:56 BP 93/62 L 11/16/16 07:56 Pulse Ox 93 L 11/16/16 07:56 - Labs Result Diagrams: 11/18/16 05:30 11/18/16 05:30 Labs: Laboratory Results - last 24 hr 11/15/16 11/15/16 11/15/16 13:05 13:05 13:05 WBC 7.3 RBC 3.48 L Hgb 11.3 L Hct 33.5 L MCV 96.3 MCH 32.6 H MCHC 33.8 RDW 18.5 H Plt Count 248 MPV 7.4 Neut % (Auto) 71.7 Lymph % (Auto) 26.3 [place] % (Auto) 1.5 Eos % (Auto) 0.1 Baso % (Auto) 0.4 Neut # 5.3 Lymph # 1.9 [place] # 0.1 Eos # 0.0 Baso # 0.0 PT 10.5 INR 1.0 APTT 22.3 L Sodium 139 Potassium 3.5 L Chloride 101 Carbon Dioxide 23 Anion Gap 19 BUN 27 H Creatinine 1.4 H Est GFR ( Amer) 43 Est GFR (Non-Af Amer) 36 Random Glucose 183 H Lactic Acid Calcium 8.6 Total Bilirubin 0.8 AST 29 ALT 24 Alkaline Phosphatase 104 Troponin I 0.0200 Total Protein 6.9 Albumin 3.6 Globulin 3.3 Albumin/Globulin Ratio 1.1 Triglycerides Cholesterol LDL Cholesterol Direct HDL Cholesterol Lipase 390 H Vitamin B12 TSH 3rd Generation Urine Color Urine Clarity Urine pH Ur Specific [place] Urine Protein Urine Glucose (UA) Urine Ketones Urine Blood Urine Nitrate Urine Bilirubin Urine Urobilinogen Ur Leukocyte Esterase Urine RBC (Auto) Urine Microscopic WBC 11/15/16 11/15/16 11/16/16 19:39 20:10 04:15 WBC RBC Hgb Hct MCV MCH MCHC RDW Plt Count MPV Neut % (Auto) Lymph % (Auto) [place] % (Auto) Eos % (Auto) Baso % (Auto) Neut # Lymph # [place] # Eos # Baso # PT INR APTT Sodium 140 Potassium 5.4 H Chloride 104 Carbon Dioxide 23 Anion Gap 18 BUN 33 H Creatinine 1.4 H Est GFR ( Amer) 43 Est GFR (Non-Af Amer) 36 Random Glucose 138 H Lactic Acid 5.9 H* Calcium 7.8 L Total Bilirubin 0.8 AST 26 ALT 24 Alkaline Phosphatase 61 Troponin I Total Protein 5.8 L Albumin 2.8 L D Globulin 3.0 Albumin/Globulin Ratio 0.9 L Triglycerides 149 Cholesterol 136 LDL Cholesterol Direct 46 HDL Cholesterol 55 Lipase 73 Vitamin B12 269 TSH 3rd Generation 0.48 Urine Color Yellow Urine Clarity Clear Urine pH 6.0 Ur Specific [place] 1.005 Urine Protein 100 Urine Glucose (UA) Neg Urine Ketones Negative Urine Blood Negative Urine Nitrate Negative Urine Bilirubin Negative Urine Urobilinogen 0.2-1.0 Ur Leukocyte Esterase Neg Urine RBC (Auto) 3 Urine Microscopic WBC 1 11/16/16 11/16/16 04:15 04:15 WBC 1.0 L* D RBC 3.47 L Hgb 11.4 L Hct 33.7 L MCV 97.1 MCH 32.9 H MCHC 33.9 RDW 18.2 H Plt Count 165 MPV 7.7 Neut % (Auto) 56.3 Lymph % (Auto) 31.8 [place] % (Auto) 10.6 H Eos % (Auto) 1.2 Baso % (Auto) 0.1 Neut # 0.5 L Lymph # 0.3 L [place] # 0.1 Eos # 0.0 Baso # 0.0 PT INR APTT Sodium Potassium Chloride Carbon Dioxide Anion Gap BUN Creatinine Est GFR ( Amer) Est GFR (Non-Af Amer) Random Glucose Lactic Acid 3.9 H Calcium Total Bilirubin AST ALT Alkaline Phosphatase Troponin I Total Protein Albumin Globulin Albumin/Globulin Ratio Triglycerides Cholesterol LDL Cholesterol Direct HDL Cholesterol Lipase Vitamin B12 TSH 3rd Generation Urine Color Urine Clarity Urine pH Ur Specific [place] Urine Protein Urine Glucose (UA) Urine Ketones Urine Blood Urine Nitrate Urine Bilirubin Urine Urobilinogen Ur Leukocyte Esterase Urine RBC (Auto) Urine Microscopic WBC Assessment & Plan (1) Neutropenia Assessment and Plan: secondary to recent chemotherapy will add Granix for goal ANC > 500 on empiric antibiotics Status: Acute (2) Anemia Assessment and Plan: secondary to chemotherapy will check iron, b12, folate stores Status: Acute (3) Vulvar cancer Assessment and Plan: on chemoradiation outpatient f/u with her primary oncologic team (Dr. Aviles) Thank you for this interesting consult. Status: Chronic
--- NOTE | 2016-11-16 10:28 | CT ---
PROCEDURE: CT Abdomen and Pelvis without intravenous contrast HISTORY: Possible duodenal mass/stenosis COMPARISON: 11/15/2016 at 2:12 p.m. TECHNIQUE: Without contrast.. Contrast Dose: 0 Radiation dose: Total exam DLP = 883.67 mGy-cm. This CT exam was performed using one or more of the following dose reduction techniques: Automated exposure control, adjustment of the mA and/or kV according to patient size, and/or use of iterative reconstruction technique. FINDINGS: LOWER THORAX: There is consolidation in the right lower lobe with some associated bronchiectasis. This may be due in part to atelectasis but the possibility of a chronic process with associated atelectasis must be considered. There is a small right pleural effusion. There is minimal subsegmental atelectasis at the medial left lung base. Small hiatal hernia noted. Circumferential mural thickening of the distal thoracic esophagus, nonspecific. Possible esophagitis. LIVER: Normal size, contour and attenuation. Smooth contour. No mass. No biliary ductal dilatation. GALLBLADDER AND BILE DUCTS: Gallbladder wall appears grossly thickened. Nonspecific. No calcified gallstones identified. PANCREAS: No mass. There is mild dilatation of the pancreatic duct in the pancreatic head up to 6 mm common nonspecific. There is no generalized pancreatic ductal dilatation appreciated. On earlier examination of the same date, the contrast enhanced study showed mild pancreatic ductal dilatation also in the body of the pancreas at that time. SPLEEN: Unremarkable. ADRENALS: Mild bilateral adrenal hypertrophy. No discrete mass appreciated. KIDNEYS AND URETERS: Multiple bilateral rounded low-density masses likely renal cysts. Largest upper pole left kidney, 2.2 cm. Lower pole cysts, 10 mm and 14 mm. Additional 14 mm cyst upper pole left kidney. Tiny additional cysts bilaterally. No calculus. No hydronephrosis. VASCULATURE: Unremarkable. No aortic aneurysm. BOWEL: Marked mural thickening of the pylorus and 1st and 2nd duodenum. Irregular mural thickening may reflect duodenitis, duodenal ulcer disease or neoplasm such as duodenal adenocarcinoma or lymphoma. There is extensive sigmoid diverticulosis. There is no evidence of diverticulitis. Scattered diverticulae are seen elsewhere throughout the colon. There is mural thickening of the sigmoid colon consistent with chronic muscular hypertrophy. There is no bowel obstruction. APPENDIX: Unremarkable. Normal appendix. PERITONEUM: Mild generalized ascites. Please note that the ascites fluid is of relatively high attenuation compared to the earlier examination of the same date. At that time, the ascites fluid measured approximately 25 Hounsfield units. At this time, the fluid measures approximately 45 Hounsfield units. This is due either to bowel perforation with mixing of oral contrast with ascites fluid or hemorrhage into the peritoneal cavity. Note is also made of minimal pneumoperitoneum. A few bubbles of gas are seen within the fissure for the ligamentum there no some. On earlier examination, there are several bubbles of gas seen free within the peritoneal cavity. These findings indicate likely bowel perforation. The likely candidate is the inflamed duodenum. The duodenum there is streaky increased density in the region of the greater omentum on the right side. This is nonspecific and likely reflecting the generalized ascites and inflammation extending from the right upper quadrant of the abdomen. LYMPH NODES: No retroperitoneal or pelvic lymphadenopathy. BLADDER: Poorly distended. Grossly normal. REPRODUCTIVE: Unremarkable prostate BONES: No acute fracture OTHER FINDINGS: None. IMPRESSION: Trace pneumoperitoneum. Either mixing of oral contrast with ascites fluid to elevate the attenuation of the ascites fluid versus hemoperitoneum. Marked inflammation and mural thickening of the proximal duodenum, nonspecific. See above. Small hiatal hernia. Mural thickening of the distal thoracic esophagus, nonspecific. Mild ascites. Thickening of the gallbladder wall, nonspecific. This may be related to the adjacent inflammation of the duodenum. Cannot rule out cholecystitis on the basis of this examination. No calcified gallstones identified. Bibasilar subsegmental atelectasis with some associated bronchiectasis in the right lower lobe indicating possible chronic atelectasis/fibrosis. Mild dilatation of the pancreatic duct in the body and head of the pancreas, nonspecific. No evidence pancreatitis. Sigmoid diverticulosis without evidence of diverticulitis. Additional minor findings as above. Preliminary interpretation of this examination was reported by [facility] at 8:03 p.m. on 11/15/2016. There is discordance of this report with the preliminary interpretation. The trace pneumoperitoneum was not described in the preliminary report of this examination. The ascites fluid is of increased attenuation as noted in the body of this report. This was not noted in the preliminary report of this examination. No other significant discrepancy with the preliminary report is evident. The findings in report were discussed, by telephone, with Dr. Ramos at 10:25 a.m. on 11/16/2016
--- NOTE | 2016-11-16 10:52 | RAD ---
PROCEDURE: CHEST RADIOGRAPH, 1 VIEW HISTORY: s/p NGT placement COMPARISON: Portable chest 11/07/2016. FINDINGS: LUNGS: No left-sided infiltrate is appreciated limited residual potential airspace disease seen the medial right base with remainder the right chest clear. PLEURA: No pneumothorax or pleural fluid seen. CARDIOVASCULAR: Cardiomegaly remains. No pulmonary vascular derangement. OSSEOUS STRUCTURES: No significant abnormalities. VISUALIZED UPPER ABDOMEN: A nasogastric tube is in place with tip appearing to terminate at the left upper quadrant abdomen. The tube is quite faint. OTHER FINDINGS: None. IMPRESSION: Improved aeration of both bases with no definite residual infiltrate on the left base. Limited residual airspace disease may be present the right medial base. Elevation the right hemidiaphragm is appreciated of uncertain etiology. Cardiomegaly appears stable. Status post nasogastric tube placement as discussed above.
--- NOTE | 2016-11-16 12:34 | CP.PCM.HP ---
<Parminder Ramos - Last Filed: 11/16/16 14:29> History of Present Illness - History of Present Illness History of Present Illness: 86 y/o female with PMHx remarkale for HTN, HLD, and vulvar cancer presented to [facility] ED with a complaint of abrupt onset abdominal pain in the morning and syncopal episode. As per pt, the pain is located in the RUQ, radiates to her lower abdomen. It is crampy in character, constant, 9/10, w/o alleviating factors and exacerbated by movement. Associated with lower back pain but not nausea or vomiting. Pt reports loss of appetite for the past several days. The syncopal episode occurred once EMS arrived. Pt lost consciousness gradually, was out for approx. 2 minutes and gradually came to. The pt then suffered another syncopal episode in the ambulance, same as prior episode. According to EMS, there was no associated shaking or bladder/bowel incontinence. At the present moment, pt has no other complaints. PMD: Dr. Aviles (hem/onc) PMHx: HTN, HLD, Vulvar cancer Meds: as per med rec PsurgHx: hysterectomy ALL: NKDA SocialHx: denies ETOH, tobacco, drug abuse, lives with sister FamilyHx: noncontributory ROS: 12 pts reviewed, found to be negative ED COURSE: Vitals on presentation: T: 96.4, HR 81, BP 58/32, RR 14, POX 99% RA Labs: CBC: 7.3>11.3/33.5<248 CMP: hypokalemia Lactic acid: 5.9 Lipase: 390 Coags: APTT: 22.3, PT/INR WNL UA: neg for infection/dehydration Imaging: EKG CXR Noncontrast Head CT abd/pelvic CT Admitted to tele Present on Admission - Present on Admission Any Indicators Present on Admission: No Past Patient History - Past Medical History & Family History Past Medical History?: Yes - Past Social History Smoking Status: Never Smoked - CARDIAC Hx Cardiac Disorders: Yes Hx Hypertension: Yes - PULMONARY Hx Respiratory Disorders: No - NEUROLOGICAL Hx Neurological Disorder: No - HEENT Hx HEENT Problems: No - RENAL Hx Chronic Kidney Disease: No - ENDOCRINE/METABOLIC Hx Endocrine Disorders: No - HEMATOLOGICAL/ONCOLOGICAL Hx Blood Disorders: No - INTEGUMENTARY Hx Dermatological Problems: No - MUSCULOSKELETAL/RHEUMATOLOGICAL Hx Falls: No - GENITOURINARY/GYNECOLOGICAL Hx Genitourinary Disorders: Yes Hx Uterine Cancer: Yes - PSYCHIATRIC Hx Substance Use: No - SURGICAL HISTORY Hx Surgeries: Yes Hx Hysterectomy: Yes - ANESTHESIA Hx Anesthesia: Yes Hx Anesthesia Reactions: No Meds Allergies/Adverse Reactions: Allergies Allergy/AdvReac Type Severity Reaction Status Date / Time No Known Allergies Allergy Verified 11/16/16 05:57 Results - Vital Signs Recent Vital Signs: Last Vital Signs Temp 98.2 F 11/16/16 12:00 Pulse 98 H 11/16/16 12:00 Resp 18 11/16/16 12:00 BP 116/72 11/16/16 12:00 Pulse Ox 96 11/16/16 12:00 - Labs Result Diagrams: 11/16/16 04:15 11/16/16 04:15 Labs: Laboratory Results - last 24 hr 11/15/16 11/15/16 11/15/16 13:05 13:05 13:05 WBC 7.3 RBC 3.48 L Hgb 11.3 L Hct 33.5 L MCV 96.3 MCH 32.6 H MCHC 33.8 RDW 18.5 H Plt Count 248 MPV 7.4 Neut % (Auto) 71.7 Lymph % (Auto) 26.3 Colbert % (Auto) 1.5 Eos % (Auto) 0.1 Baso % (Auto) 0.4 Neut # 5.3 Lymph # 1.9 Colbert # 0.1 Eos # 0.0 Baso # 0.0 PT 10.5 INR 1.0 APTT 22.3 L Sodium 139 Potassium 3.5 L Chloride 101 Carbon Dioxide 23 Anion Gap 19 BUN 27 H Creatinine 1.4 H Est GFR ( Amer) 43 Est GFR (Non-Af Amer) 36 Random Glucose 183 H Lactic Acid Calcium 8.6 Total Bilirubin 0.8 AST 29 ALT 24 Alkaline Phosphatase 104 Troponin I 0.0200 Total Protein 6.9 Albumin 3.6 Globulin 3.3 Albumin/Globulin Ratio 1.1 Triglycerides Cholesterol LDL Cholesterol Direct HDL Cholesterol Lipase 390 H Vitamin B12 TSH 3rd Generation Urine Color Urine Clarity Urine pH Ur Specific Gilchrist Urine Protein Urine Glucose (UA) Urine Ketones Urine Blood Urine Nitrate Urine Bilirubin Urine Urobilinogen Ur Leukocyte Esterase Urine RBC (Auto) Urine Microscopic WBC 11/15/16 11/15/16 11/16/16 19:39 20:10 04:15 WBC RBC Hgb Hct MCV MCH MCHC RDW Plt Count MPV Neut % (Auto) Lymph % (Auto) Colbert % (Auto) Eos % (Auto) Baso % (Auto) Neut # Lymph # Colbert # Eos # Baso # PT INR APTT Sodium 140 Potassium 5.4 H Chloride 104 Carbon Dioxide 23 Anion Gap 18 BUN 33 H Creatinine 1.4 H Est GFR ( Amer) 43 Est GFR (Non-Af Amer) 36 Random Glucose 138 H Lactic Acid 5.9 H* Calcium 7.8 L Total Bilirubin 0.8 AST 26 ALT 24 Alkaline Phosphatase 61 Troponin I Total Protein 5.8 L Albumin 2.8 L D Globulin 3.0 Albumin/Globulin Ratio 0.9 L Triglycerides 149 Cholesterol 136 LDL Cholesterol Direct 46 HDL Cholesterol 55 Lipase 73 Vitamin B12 269 TSH 3rd Generation 0.48 Urine Color Yellow Urine Clarity Clear Urine pH 6.0 Ur Specific Gilchrist 1.005 Urine Protein 100 Urine Glucose (UA) Neg Urine Ketones Negative Urine Blood Negative Urine Nitrate Negative Urine Bilirubin Negative Urine Urobilinogen 0.2-1.0 Ur Leukocyte Esterase Neg Urine RBC (Auto) 3 Urine Microscopic WBC 1 11/16/16 11/16/16 04:15 04:15 WBC 1.0 L* D RBC 3.47 L Hgb 11.4 L Hct 33.7 L MCV 97.1 MCH 32.9 H MCHC 33.9 RDW 18.2 H Plt Count 165 MPV 7.7 Neut % (Auto) 56.3 Lymph % (Auto) 31.8 Colbert % (Auto) 10.6 H Eos % (Auto) 1.2 Baso % (Auto) 0.1 Neut # 0.5 L Lymph # 0.3 L Colbert # 0.1 Eos # 0.0 Baso # 0.0 PT INR APTT Sodium Potassium Chloride Carbon Dioxide Anion Gap BUN Creatinine Est GFR ( Amer) Est GFR (Non-Af Amer) Random Glucose Lactic Acid 3.9 H Calcium Total Bilirubin AST ALT Alkaline Phosphatase Troponin I Total Protein Albumin Globulin Albumin/Globulin Ratio Triglycerides Cholesterol LDL Cholesterol Direct HDL Cholesterol Lipase Vitamin B12 TSH 3rd Generation Urine Color Urine Clarity Urine pH Ur Specific Gilchrist Urine Protein Urine Glucose (UA) Urine Ketones Urine Blood Urine Nitrate Urine Bilirubin Urine Urobilinogen Ur Leukocyte Esterase Urine RBC (Auto) Urine Microscopic WBC Assessment & Plan (1) Severe sepsis Assessment and Plan: Afebrile currently WBC: 1.0 Lactic acid trending down: 3.9 currently on IV Abx IV fluid hydration Monitor vitals/CBC Status: Acute (2) Gastric out let obstruction Assessment and Plan: as per general surgery team Status: Acute (3) Pneumoperitoneum Assessment and Plan: finding on reported CT, with possible leak of contrast or blood into ascitic fluid general surgery on board, will f/u recommendations Status: Acute (4) Acute kidney failure Assessment and Plan: fei prerenal azotemia from hypovolemia Cr: 1.4, pt denies hx of renal problems Iv fluids hydration f/u CMPs Status: Acute (5) Hyperkalemia Assessment and Plan: monitor CMPs Status: Acute (6) Leukopenia Assessment and Plan: likley secondary to chemotherapy Hem/onc onboard neutropenic precautions monitor serial cbcs Status: Acute (7) Vulvar cancer Status: Chronic (8) Hypertension Assessment and Plan: home meds held as pt was hypotensive Status: Chronic (9) Hyperlipidemia Assessment and Plan: c/w home meds Status: Chronic <Taylor,Russ K - Last Filed: 11/16/16 16:31> Results - Vital Signs Recent Vital Signs: Last Vital Signs Temp 98.3 F 11/16/16 16:11 Pulse 95 H 11/16/16 16:11 Resp 18 11/16/16 16:11 BP 107/66 11/16/16 16:11 Pulse Ox 93 L 11/16/16 16:11 - Labs Result Diagrams: 11/16/16 04:15 11/16/16 04:15 Labs: Laboratory Results - last 24 hr 11/15/16 11/15/16 11/16/16 19:39 20:10 04:15 WBC RBC Hgb Hct MCV MCH MCHC RDW Plt Count MPV Neut % (Auto) Lymph % (Auto) Colbert % (Auto) Eos % (Auto) Baso % (Auto) Neut # Lymph # Colbert # Eos # Baso # Sodium 140 Potassium 5.4 H Chloride 104 Carbon Dioxide 23 Anion Gap 18 BUN 33 H Creatinine 1.4 H Est GFR ( Amer) 43 Est GFR (Non-Af Amer) 36 Random Glucose 138 H Lactic Acid 5.9 H* Calcium 7.8 L Total Bilirubin 0.8 AST 26 ALT 24 Alkaline Phosphatase 61 Total Protein 5.8 L Albumin 2.8 L D Globulin 3.0 Albumin/Globulin Ratio 0.9 L Triglycerides 149 Cholesterol 136 LDL Cholesterol Direct 46 HDL Cholesterol 55 Lipase 73 Vitamin B12 269 TSH 3rd Generation 0.48 Urine Color Yellow Urine Clarity Clear Urine pH 6.0 Ur Specific Gilchrist 1.005 Urine Protein 100 Urine Glucose (UA) Neg Urine Ketones Negative Urine Blood Negative Urine Nitrate Negative Urine Bilirubin Negative Urine Urobilinogen 0.2-1.0 Ur Leukocyte Esterase Neg Urine RBC (Auto) 3 Urine Microscopic WBC 1 Blood Type Blood Type Confirm Antibody Screen Crossmatch BBK History Checked 11/16/16 11/16/16 11/16/16 04:15 04:15 13:45 WBC 1.0 L* D RBC 3.47 L Hgb 11.4 L Hct 33.7 L MCV 97.1 MCH 32.9 H MCHC 33.9 RDW 18.2 H Plt Count 165 MPV 7.7 Neut % (Auto) 56.3 Lymph % (Auto) 31.8 Colbert % (Auto) 10.6 H Eos % (Auto) 1.2 Baso % (Auto) 0.1 Neut # 0.5 L Lymph # 0.3 L Colbert # 0.1 Eos # 0.0 Baso # 0.0 Sodium Potassium Chloride Carbon Dioxide Anion Gap BUN Creatinine Est GFR ( Amer) Est GFR (Non-Af Amer) Random Glucose Lactic Acid 3.9 H Calcium Total Bilirubin AST ALT Alkaline Phosphatase Total Protein Albumin Globulin Albumin/Globulin Ratio Triglycerides Cholesterol LDL Cholesterol Direct HDL Cholesterol Lipase Vitamin B12 TSH 3rd Generation Urine Color Urine Clarity Urine pH Ur Specific Gilchrist Urine Protein Urine Glucose (UA) Urine Ketones Urine Blood Urine Nitrate Urine Bilirubin Urine Urobilinogen Ur Leukocyte Esterase Urine RBC (Auto) Urine Microscopic WBC Blood Type O POSITIVE Blood Type Confirm Antibody Screen Negative Crossmatch See Detail BBK History Checked No verified bt 11/16/16 14:14 WBC RBC Hgb Hct MCV MCH MCHC RDW Plt Count MPV Neut % (Auto) Lymph % (Auto) Colbert % (Auto) Eos % (Auto) Baso % (Auto) Neut # Lymph # Colbert # Eos # Baso # Sodium Potassium Chloride Carbon Dioxide Anion Gap BUN Creatinine Est GFR ( Amer) Est GFR (Non-Af Amer) Random Glucose Lactic Acid Calcium Total Bilirubin AST ALT Alkaline Phosphatase Total Protein Albumin Globulin Albumin/Globulin Ratio Triglycerides Cholesterol LDL Cholesterol Direct HDL Cholesterol Lipase Vitamin B12 TSH 3rd Generation Urine Color Urine Clarity Urine pH Ur Specific Gilchrist Urine Protein Urine Glucose (UA) Urine Ketones Urine Blood Urine Nitrate Urine Bilirubin Urine Urobilinogen Ur Leukocyte Esterase Urine RBC (Auto) Urine Microscopic WBC Blood Type Blood Type Confirm O POSITIVE Antibody Screen Crossmatch BBK History Checked Assessment & Plan - Assessment and Plan (Free Text) Assessment: Patient was personally seen and examined by me in rounds with residents. Available labs and diagnostic data reviewed. Case, Patient's condition and management plan Discussed with residents in rounds. Agree with resident's progress note. Plan: As ordered.
[2016-11-16] MEDS: Lactated Ringer's 1,000 ML IV SCH (15:15)
--- NOTE | 2016-11-16 15:29 | PQF GENQUE ---
Dr. Taylor 4 (four) :queries as follows: Sepsis is documented: 1. Please document suspected or confirmed localized infection 2. Please document suspected or confirmed causative organism: after the work up is completed and if known 3. Please clarify if sepsis is related to a device 4. Please clarify the organ failure: Severe Sepsis is documented and FERMIN is documented: fei prerenal azotemia from hypovolemia OR:Clinically unable to determine OR:Unknown This form is a permanent part of the medical record Clarification of your documentation is requested to better reflect the severity of illness and intensity of treatment of your patient. Indicators present [] Specify: [] [] Specify: [] [] Specify: [] [] Specify: [] Location in the medical record that reflects the above clinical findings: [] Treatment Provided: [] PHYSICIAN'S RESPONSE Based on your medical judgment of the clinical indicators outlined above please clarify the following: [] Practitioner response [] If unable to determine, please check the box, sign and date. Present On Admission (POA) Indicator: [] Present at the time of admission [] Not present at the time of admission [] Clinically Undetermined In responding to this query, please exercise your independent professional judgment. The fact that a question is asked does not imply that any particular answer is desired or expected. Thank you for your clarification on this documentation. If you have any questions please call. * Thank you, Marva López RN ext. [phone]: Milvia Nichols RN MTDD
[2016-11-16] MEDS ORDERED: Etomidate 20 mg/10ml Inj IV ONE (16:35)
[2016-11-16] MEDS ORDERED: Phenylephrine 10 mg/ml Inj ONE (16:37)
[2016-11-16] MEDS ORDERED: Rocuronium 10 mg/ml (5 ml) ONE ×2 (16:38→18:56)
[2016-11-16] MEDS ORDERED: Bupivacaine 0.5% Inj(30mL) ONE (16:57)
[2016-11-16] MEDS ORDERED: Lidocaine 1% Inj (20ml) ONE (16:57)
[2016-11-16] MEDS ORDERED: Ropivacaine 0.5% 30ML IV ONE (16:59)
[2016-11-16] MEDS ORDERED: Piperacillin/Tazobact 3.375 gm Inj IVPB ONE ×2 (17:00→17:53)
[2016-11-16] MEDS ORDERED: Sodium Chloride 0.9% 500 ML IV ONE ×3 (17:08)
[2016-11-16] MEDS ORDERED: Lactated Ringer's 1,000 ML IV ONE (17:08)
[2016-11-16] MEDS ORDERED: Sodium Chloride 0.9% 1,000 ML IV ONE ×2 (17:30→18:40)
[2016-11-16] MEDS ORDERED: Dakin's Topical 0.25%-Half Strength (480 ml) TOP ONE ×2 (17:47→18:00)
[2016-11-16] MEDS ORDERED: Neostigmine Methylsulfate 2 MG/2 ML ML IV ONE (18:42)
[2016-11-16] MEDS ORDERED: ePHEDrine 50 mg/ml Inj ONE (18:54)
--- NOTE | 2016-11-16 19:13 | CP.CCUPN ---
CCU Subjective - Physician Review Subjective (Free Text): Post op ICU admission and consultation: [id number] admitted yesterday with syncopal episode due to severe abdominal pain and found to have possible perforated bowel underwent Ex lap today. Elevated lactate levels to as high as 5.9 noted with a repeat level of 3.9 this AM. After recovery from Syncopal episode, denies any focal weakness, headaches, visual changes, neck pain, nausea/ vomiting, CP or SOB, palpitations, dizziness. Currently pre-op , on LR 125 ml/hr. In ER, recd 3 liters of NSS for hypotension with SBP 58 on presentation. Initial labs showed Neutropenia of 1000WBC and given a dose of GM-CSF, and empiric doses of Zosyn and Vanco. Other vitals and I/O's reviewed. No fever spikes noted since admission. Otherwise besides a sinus tachycardia, systolic BP levels have been near- borderline. ALLERGIES: NKDA Home meds: ASA, Lipitor, Cozaar, Ultram, Compazine, Magoxide, Vit D3 ROS: No other pertinent negs or positives on 10+ system review. 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 All Nursing and physician documentation reviewed to date; no new pertinent info noted relevant to current medical problems. MAJOR PROBLEMS: 1. S/p Ex Lap for perforated Duodenum / Omental Patch Repair 2. Sepsis 2 Bowel perforation 3. Azotemia / Dehydration 4. Vasovagal Syncope 2 severe abd pain. 5. Chemotherapy induced Neutropenia 6. Chronic Disease Anemia PLAN: 1. IVF hydration. 2. Empiric abx coverage, consider add Flagyl. 3. Serial lactates till normalized. 4. Hold Cozaar. 5. Repeat EKG in AM. ECHO for LV Fx. 6. Continue DVT prx with SCDs. 7. May need repeat dosing GM-CSF. Await repeat CBC. 8. MV weans in AM. CCU Objective - Vital Signs / Intake & Output Vital Signs (Last 4 hours): Vital Signs Temp Pulse Resp BP Pulse Ox 11/16/16 16:11 98.3 F 95 H 18 107/66 93 L Intake and Output (Last 8hrs): Intake & Output 11/16/16 11/16/16 11/16/16 06:59 14:59 22:59 Intake Total 920 1500 Output Total 1150 Balance -230 1500 Intake: IV 720 1000 Intake, Piggyback 200 250 Oral 250 Output: Gastric Amount 700 Right Nares 700 Urine 450 Urine, Voided 300 Other: # Voids Urine, Voided 950 - Medications Active Medications: Active Medications Generic Name Dose Route Start Last Admin Trade Name Freq PRN Reason Stop Dose Admin Acetaminophen 650 mg 11/15/16 20:27 Tylenol 650mg/20.3ml Solution Ud PO Q6 PRN fever >100.4 Benzocaine/Menthol 1 chantel 11/16/16 07:55 Cepacol Sore Throat PO Q2 PRN Sore Throat Cyanocobalamin 1,000 mcg 11/16/16 09:00 11/16/16 10:00 Vitamin B12 1000 Mcg/Ml Inj IM 1,000 mcg DAILY [facility] Administration Heparin Sodium (Porcine) 5,000 units 11/16/16 21:00 Heparin SC Q12 [facility] Protocol Hydromorphone HCl 1 mg 11/16/16 18:53 Dilaudid IVP Q4 PRN Pain, severe (8-10) Hydromorphone HCl 0.5 mg 11/16/16 18:53 Dilaudid IVP Q3 PRN Pain, moderate (4-7) Piperacillin Sod/Tazobactam 100 mls @ 100 mls/hr 11/15/16 22:00 11/16/16 16: 58 Sod 3.375 gm/ Sodium Chloride IVPB Not Given Q6 [facility] Lactated Ringer's 1,000 mls @ 120 mls/hr 11/15/16 21:37 11/16/16 15:15 Lactated Ringer's IV Not Given .Q8H20M [facility] Vancomycin HCl 1 gm/ Sodium 250 mls @ 166.667 mls/hr 11/16/16 09:00 11/16/16 10:00 Chloride IVPB 166.667 mls/hr DAILY [facility] Administration Metoclopramide HCl 10 mg 11/15/16 18:50 Reglan IVP Q6 PRN Nausea/Vomiting Pantoprazole Sodium 40 mg 11/17/16 09:00 Protonix Inj IVP BID [facility] Silver Sulfadiazine 1 applic 11/16/16 09:00 11/16/16 17:02 Silvadene 1% 50 Gm TOP Not Given BID [facility] - Patient Studies Lab Studies: Microbiology Studies 11/15/16 13:20 Blood Culture - Preliminary Blood NO GROWTH AFTER 24 HOURS 11/15/16 13:05 Blood Culture - Preliminary Blood NO GROWTH AFTER 24 HOURS Lab Studies 11/16/16 11/16/16 11/16/16 Range/Units 14:14 13:45 04:15 WBC (4.8-10.8) K/uL RBC (3.80-5.20) Mil/uL Hgb (12.0-16.0) g/dL Hct (34.0-47.0) % MCV (81.0-99.0) fl MCH (27.0-31.0) pg MCHC (33.0-37.0) g/dL RDW (11.5-14.5) % Plt Count (130-400) K/uL MPV (7.2-11.7) fl Neut % (Auto) (50.0-75.0) % Lymph % (Auto) (20.0-40.0) % [place] % (Auto) (0.0-10.0) % Eos % (Auto) (0.0-4.0) % Baso % (Auto) (0.0-2.0) % Neut # (1.8-7.0) K/uL Lymph # (1.0-4.3) K/uL [place]ett # (0.0-0.8) K/uL Eos # (0.0-0.7) K/uL Baso # (0.0-0.2) K/uL Sodium (132-148) mmol/l Potassium (3.6-5.0) MMOL/L Chloride (98-107) mmol/L Carbon Dioxide (22-30) mmol/L Anion Gap (10-20) BUN (7-17) mg/dl Creatinine (0.7-1.2) mg/dL Est GFR ( Amer) Est GFR (Non-Af Amer) Random Glucose (65-105) mg/dL Lactic Acid 3.9 H (0.7-2.1) MMOL/L Calcium (8.4-10.2) mg/dL Total Bilirubin (0.2-1.3) mg/dl AST (14-36) U/L ALT (9-52) U/L Alkaline Phosphatase (38-126) U/L Total Protein (6.3-8.2) G/DL Albumin (3.5-5.0) g/dL Globulin (2.2-3.9) gm/dL Albumin/Globulin Ratio (1.0-2.1) Triglycerides (0-149) mg/DL Cholesterol (0-199) mg/dL LDL Cholesterol Direct (0-129) mg/dL HDL Cholesterol (30-70) MG/DL Lipase (23-300) U/L Vitamin B12 (239-931) pg/mL TSH 3rd Generation (0.46-4.68) mIU/ML Urine Color (YELLOW) Urine Clarity (Clear) Urine pH (5.0-8.0) Ur Specific Temple (1.003-1.030) Urine Protein (NEGATIVE) mg/dL Urine Glucose (UA) (Normal) mg/dL Urine Ketones (NEGATIVE) mg/dL Urine Blood (NEGATIVE) Urine Nitrate (NEGATIVE) Urine Bilirubin (NEGATIVE) Urine Urobilinogen (0.2-1.0) mg/dL Ur Leukocyte Esterase (Negative) Emmanuel/uL Urine RBC (Auto) (0-3) /hpf Urine Microscopic WBC (0-5) /hpf Blood Type O POSITIVE Blood Type Confirm O POSITIVE Antibody Screen Negative Crossmatch See Detail BBK History Checked No verified bt 11/16/16 11/16/16 11/15/16 Range/Units 04:15 04:15 20:10 WBC 1.0 L* D (4.8-10.8) K/uL RBC 3.47 L (3.80-5.20) Mil/uL Hgb 11.4 L (12.0-16.0) g/dL Hct 33.7 L (34.0-47.0) % MCV 97.1 (81.0-99.0) fl MCH 32.9 H (27.0-31.0) pg MCHC 33.9 (33.0-37.0) g/dL RDW 18.2 H (11.5-14.5) % Plt Count 165 (130-400) K/uL MPV 7.7 (7.2-11.7) fl Neut % (Auto) 56.3 (50.0-75.0) % Lymph % (Auto) 31.8 (20.0-40.0) % Harnett % (Auto) 10.6 H (0.0-10.0) % Eos % (Auto) 1.2 (0.0-4.0) % Baso % (Auto) 0.1 (0.0-2.0) % Neut # 0.5 L (1.8-7.0) K/uL Lymph # 0.3 L (1.0-4.3) K/uL H[place]ett # 0.1 (0.0-0.8) K/uL Eos # 0.0 (0.0-0.7) K/uL Baso # 0.0 (0.0-0.2) K/uL Sodium 140 (132-148) mmol/l Potassium 5.4 H (3.6-5.0) MMOL/L Chloride 104 (98-107) mmol/L Carbon Dioxide 23 (22-30) mmol/L Anion Gap 18 (10-20) BUN 33 H (7-17) mg/dl Creatinine 1.4 H (0.7-1.2) mg/dL Est GFR ( Amer) 43 Est GFR (Non-Af Amer) 36 Random Glucose 138 H (65-105) mg/dL Lactic Acid 5.9 H* (0.7-2.1) MMOL/L Calcium 7.8 L (8.4-10.2) mg/dL Total Bilirubin 0.8 (0.2-1.3) mg/dl AST 26 (14-36) U/L ALT 24 (9-52) U/L Alkaline Phosphatase 61 (38-126) U/L Total Protein 5.8 L (6.3-8.2) G/DL Albumin 2.8 L D (3.5-5.0) g/dL Globulin 3.0 (2.2-3.9) gm/dL Albumin/Globulin Ratio 0.9 L (1.0-2.1) Triglycerides 149 (0-149) mg/DL Cholesterol 136 (0-199) mg/dL LDL Cholesterol Direct 46 (0-129) mg/dL HDL Cholesterol 55 (30-70) MG/DL Lipase 73 (23-300) U/L Vitamin B12 269 (239-931) pg/mL TSH 3rd Generation 0.48 (0.46-4.68) mIU/ML Urine Color (YELLOW) Urine Clarity (Clear) Urine pH (5.0-8.0) Ur Specific Temple (1.003-1.030) Urine Protein (NEGATIVE) mg/dL Urine Glucose (UA) (Normal) mg/dL Urine Ketones (NEGATIVE) mg/dL Urine Blood (NEGATIVE) Urine Nitrate (NEGATIVE) Urine Bilirubin (NEGATIVE) Urine Urobilinogen (0.2-1.0) mg/dL Ur Leukocyte Esterase (Negative) Emmanuel/uL Urine RBC (Auto) (0-3) /hpf Urine Microscopic WBC (0-5) /hpf Blood Type Blood Type Confirm Antibody Screen Crossmatch BBK History Checked 11/15/16 Range/Units 19:39 WBC (4.8-10.8) K/uL RBC (3.80-5.20) Mil/uL Hgb (12.0-16.0) g/dL Hct (34.0-47.0) % MCV (81.0-99.0) fl MCH (27.0-31.0) pg MCHC (33.0-37.0) g/dL RDW (11.5-14.5) % Plt Count (130-400) K/uL MPV (7.2-11.7) fl Neut % (Auto) (50.0-75.0) % Lymph % (Auto) (20.0-40.0) % H[place]ett % (Auto) (0.0-10.0) % Eos % (Auto) (0.0-4.0) % Baso % (Auto) (0.0-2.0) % Neut # (1.8-7.0) K/uL Lymph # (1.0-4.3) K/uL H[place]ett # (0.0-0.8) K/uL Eos # (0.0-0.7) K/uL Baso # (0.0-0.2) K/uL Sodium (132-148) mmol/l Potassium (3.6-5.0) MMOL/L Chloride (98-107) mmol/L Carbon Dioxide (22-30) mmol/L Anion Gap (10-20) BUN (7-17) mg/dl Creatinine (0.7-1.2) mg/dL Est GFR ( Amer) Est GFR (Non-Af Amer) Random Glucose (65-105) mg/dL Lactic Acid (0.7-2.1) MMOL/L Calcium (8.4-10.2) mg/dL Total Bilirubin (0.2-1.3) mg/dl AST (14-36) U/L ALT (9-52) U/L Alkaline Phosphatase (38-126) U/L Total Protein (6.3-8.2) G/DL Albumin (3.5-5.0) g/dL Globulin (2.2-3.9) gm/dL Albumin/Globulin Ratio (1.0-2.1) Triglycerides (0-149) mg/DL Cholesterol (0-199) mg/dL LDL Cholesterol Direct (0-129) mg/dL HDL Cholesterol (30-70) MG/DL Lipase (23-300) U/L Vitamin B12 (239-931) pg/mL TSH 3rd Generation (0.46-4.68) mIU/ML Urine Color Yellow (YELLOW) Urine Clarity Clear (Clear) Urine pH 6.0 (5.0-8.0) Ur Specific Temple 1.005 (1.003-1.030) Urine Protein 100 (NEGATIVE) mg/dL Urine Glucose (UA) Neg (Normal) mg/dL Urine Ketones Negative (NEGATIVE) mg/dL Urine Blood Negative (NEGATIVE) Urine Nitrate Negative (NEGATIVE) Urine Bilirubin Negative (NEGATIVE) Urine Urobilinogen 0.2-1.0 (0.2-1.0) mg/dL Ur Leukocyte Esterase Neg (Negative) Emmanuel/uL Urine RBC (Auto) 3 (0-3) /hpf Urine Microscopic WBC 1 (0-5) /hpf Blood Type Blood Type Confirm Antibody Screen Crossmatch BBK History Checked Laboratory Results - last 24 hr 11/15/16 11/15/16 11/16/16 19:39 20:10 04:15 WBC RBC Hgb Hct MCV MCH MCHC RDW Plt Count MPV Neut % (Auto) Lymph % (Auto) H[place]ett % (Auto) Eos % (Auto) Baso % (Auto) Neut # Lymph # Harnett # Eos # Baso # Sodium 140 Potassium 5.4 H Chloride 104 Carbon Dioxide 23 Anion Gap 18 BUN 33 H Creatinine 1.4 H Est GFR ( Amer) 43 Est GFR (Non-Af Amer) 36 Random Glucose 138 H Lactic Acid 5.9 H* Calcium 7.8 L Total Bilirubin 0.8 AST 26 ALT 24 Alkaline Phosphatase 61 Total Protein 5.8 L Albumin 2.8 L D Globulin 3.0 Albumin/Globulin Ratio 0.9 L Triglycerides 149 Cholesterol 136 LDL Cholesterol Direct 46 HDL Cholesterol 55 Lipase 73 Vitamin B12 269 TSH 3rd Generation 0.48 Urine Color Yellow Urine Clarity Clear Urine pH 6.0 Ur Specific Temple 1.005 Urine Protein 100 Urine Glucose (UA) Neg Urine Ketones Negative Urine Blood Negative Urine Nitrate Negative Urine Bilirubin Negative Urine Urobilinogen 0.2-1.0 Ur Leukocyte Esterase Neg Urine RBC (Auto) 3 Urine Microscopic WBC 1 Blood Type Blood Type Confirm Antibody Screen Crossmatch BBK History Checked 11/16/16 11/16/16 11/16/16 04:15 04:15 13:45 WBC 1.0 L* D RBC 3.47 L Hgb 11.4 L Hct 33.7 L MCV 97.1 MCH 32.9 H MCHC 33.9 RDW 18.2 H Plt Count 165 MPV 7.7 Neut % (Auto) 56.3 Lymph % (Auto) 31.8 Harnett % (Auto) 10.6 H Eos % (Auto) 1.2 Baso % (Auto) 0.1 Neut # 0.5 L Lymph # 0.3 L Harnett # 0.1 Eos # 0.0 Baso # 0.0 Sodium Potassium Chloride Carbon Dioxide Anion Gap BUN Creatinine Est GFR ( Amer) Est GFR (Non-Af Amer) Random Glucose Lactic Acid 3.9 H Calcium Total Bilirubin AST ALT Alkaline Phosphatase Total Protein Albumin Globulin Albumin/Globulin Ratio Triglycerides Cholesterol LDL Cholesterol Direct HDL Cholesterol Lipase Vitamin B12 TSH 3rd Generation Urine Color Urine Clarity Urine pH Ur Specific Temple Urine Protein Urine Glucose (UA) Urine Ketones Urine Blood Urine Nitrate Urine Bilirubin Urine Urobilinogen Ur Leukocyte Esterase Urine RBC (Auto) Urine Microscopic WBC Blood Type O POSITIVE Blood Type Confirm Antibody Screen Negative Crossmatch See Detail BBK History Checked No verified bt 11/16/16 14:14 WBC RBC Hgb Hct MCV MCH MCHC RDW Plt Count MPV Neut % (Auto) Lymph % (Auto) H[place]ett % (Auto) Eos % (Auto) Baso % (Auto) Neut # Lymph # Harnett # Eos # Baso # Sodium Potassium Chloride Carbon Dioxide Anion Gap BUN Creatinine Est GFR ( Amer) Est GFR (Non-Af Amer) Random Glucose Lactic Acid Calcium Total Bilirubin AST ALT Alkaline Phosphatase Total Protein Albumin Globulin Albumin/Globulin Ratio Triglycerides Cholesterol LDL Cholesterol Direct HDL Cholesterol Lipase Vitamin B12 TSH 3rd Generation Urine Color Urine Clarity Urine pH Ur Specific Temple Urine Protein Urine Glucose (UA) Urine Ketones Urine Blood Urine Nitrate Urine Bilirubin Urine Urobilinogen Ur Leukocyte Esterase Urine RBC (Auto) Urine Microscopic WBC Blood Type Blood Type Confirm O POSITIVE Antibody Screen Crossmatch BBK History Checked Fingerstick Blood Sugar Results: 203 Review of Systems - Review of Systems Systems not reviewed;Unavailable: Intubated Critical Care Progress Note - Ventilator Checklist Head of Bed 30 Degrees: Yes Daily Sedation Vacation: Yes Daily Assessment of Readiness to Wean: Yes Daily Spontaneous Breathing Trial: Yes PUD Prophalyxis: Yes Oral Care with Chlorhexidine Gluconate {CHG}: Yes - Vent Settings MODE:: ASSIST CONTROL TIDAL VOLUME:: 400 RESP RATE:: 121 FIO2:: 100 PEEP:: 5 - Extremities/Vascular Does the Patient have a Central Venous Catheter?: Yes Insertion Site: Internal Jugular Vein Does the Patient need a Central Venous Catheter?: Yes Does the Patient have a [place] Catheter?: Yes Does the Patient need a [place] Catheter?: Yes Catheter Insertion Criteria: Need for accurate measurement of output in critically ill patient - Prophylaxis GI Prophylaxis GI: PPI - Prophylaxis DVT Prophylaxis DVT: SCDs - Nutrition Nutrition: Nutrition Category Date Time Status NPO Diet [DIET] Diets 11/16/16 Lunch Active
--- NOTE | 2016-11-16 19:34 | PCM.SURG1 ---
Surgeon's Initial Post Op Note - Surgeon's Notes Surgeon: Dr. Oro [employer] Engineer: Dr. Alonso PGY3, Dr. Mayer PGY2, Dr. Greenwood PGY1 Type of Anesthesia: General Endo Pre-Operative Diagnosis: duodenal perforation, sepsis Operative Findings: perforated duodenum, fibrinous exudate, gastric/biliary fluid content extravasation , ascites, healthy omentum. central line insertion : dark venous blood Post-Operative Diagnosis: same Operation Performed: exploratory laparotomy, Mak Patch. Central line insertion Right IJ, Bar[place] catheter insertion Specimen/Specimens Removed: fluid culture Estimated Blood Loss: EBL {In ML}: 50 Blood Products Given: N/A Drains Used: Maisha Dumont Post-Op Condition: Other (gaurded) Date of Surgery/Procedure: 11/16/16 Time of Surgery/Procedure: 19:35
[2016-11-16] MEDS ORDERED: Fentanyl Citrate 2,500 MCG in Dextrose 5% In Water 200 ML IV SCH (20:30)
[2016-11-16] MEDS: HYDROmorphone 0.5 mg/0.5 ml ISec IVP PRN (20:37)
[2016-11-16 22:07] LABS: ABG ALLEN TEST YES; ABG MECHANICAL RATE 12; ARTERIAL BLOOD GAS HCO3 21.8 mmol/L (21-28); ARTERIAL BLOOD GAS MODE PRVC(AC; ARTERIAL BLOOD GAS O2 CAPACITY 13.2 mL/dL (16-24); ARTERIAL BLOOD GAS PH 7.37 (7.35-7.45); ARTERIAL BLOOD GAS PO2 114 mm/Hg (80-100); ARTERIAL BLOOD HGB O2 SAT 96.4 % (95.0-98.0); ATERIAL BLOOD GAS PEEP 5; CARBOXYHEMOGLOBIN 0.6 % (0.5-1.5); HHB 1.7 % (0.0-5.0); METHEMOGLOBIN 1.3 % (0.0-3.0)
[2016-11-16] MEDS ORDERED: Propofol 10 mg/ml 1,000 MG/100 ML VIAL ONE (23:57)
[2016-11-17] MEDS: HYDROmorphone 0.5 mg/0.5 ml ISec IVP PRN ×4 (00:03→20:01)
[2016-11-17] MEDS ORDERED: Propofol 10 mg/ml 1,000 MG/100 ML VIAL IV SCH (00:15)
[2016-11-17] MEDS: Sodium Chloride 0.9% 1,000 ML IV SCH ×3 (01:00→20:00)
[2016-11-17] MEDS ORDERED: Sodium Chloride 0.9% 500 ML IV ONE (03:55)
[2016-11-17] MEDS: Piperacillin/Tazobact 3.375 GM in Sodium Chloride 0.9% 100 ML IVPB SCH ×2 (04:28→10:53)
[2016-11-17 05:34] LABS: ABG ALLEN TEST YES; ABG MECHANICAL RATE 12; ARTERIAL BLOOD GAS HCO3 21.5 mmol/L (21-28); ARTERIAL BLOOD GAS O2 CAPACITY 12.3 mL/dL (16-24); ARTERIAL BLOOD GAS O2 CONTENT 12.2 ML/dL (15-23); ARTERIAL BLOOD GAS PH 7.41 (7.35-7.45); ARTERIAL BLOOD GAS PO2 143 mm/Hg (80-100); ARTERIAL BLOOD HGB O2 SAT 96.9 % (95.0-98.0); ATERIAL BLOOD GAS PEEP 5; CARBOXYHEMOGLOBIN 0.3 % (0.5-1.5); HHB 1.2 % (0.0-5.0); METHEMOGLOBIN 1.6 % (0.0-3.0)
[2016-11-17 06:17] LABS: EOS % 2.9 % (0.0-4.0); HEMATOCRIT 24.7 % (34.0-47.0); LYMPH # 0.2 K/uL (1.0-4.3); LYMPH % 46.3 % (20.0-40.0); MEAN CELL VOLUME 95.9 fl (81.0-99.0); MEAN CORPUSCULAR HEMOGLOBIN 32.6 pg (27.0-31.0); MEAN PLATELET VOLUME 7.6 fl (7.2-11.7); NEUT # 0.1 K/uL (1.8-7.0); NEUT % 37.8 % (50.0-75.0); RED CELL DISTRIBUTION WIDTH 18.8 % (11.5-14.5)
[2016-11-17 06:22] LABS: ALB/GLOB RATIO 0.8 (1.0-2.1); BILIRUBIN,TOTAL 0.7 mg/dl (0.2-1.3); CALCIUM 7.1 mg/dL (8.4-10.2); POTASSIUM 4.3 MMOL/L (3.6-5.0); TOTAL PROTEIN 4.9 G/DL (6.3-8.2)
[2016-11-17 07:02] LABS: WHITE BLOOD COUNT 0.4 K/uL (4.8-10.8)
[2016-11-17] MEDS: Silver Sulfadiazine 1% CREAM (50 gm) TOP SCH ×2 (08:26→16:26)
--- NOTE | 2016-11-17 10:00 | RAD ---
PROCEDURE: CHEST RADIOGRAPH, 1 VIEW HISTORY: Central line placement COMPARISON: Portable chest 11/07/2016. FINDINGS: In the interval, right internal jugular central venous lines and placed entering the right atrium. Endotracheal tube is in place terminating at the inferior trachea just below the level of clavicles with nasogastric tube placed terminating at the right upper quadrant abdomen. LUNGS: Limited left perihilar and right infrahilar airspace disease is questioned but not definite. PLEURA: No pneumothorax or pleural fluid seen. CARDIOVASCULAR: Mild cardiomegaly. No pulmonary derangement. OSSEOUS STRUCTURES: No significant abnormalities. VISUALIZED UPPER ABDOMEN: Normal. OTHER FINDINGS: None. IMPRESSION: 1. Limited left perihilar right infrahilar airspace disease is questioned in the interval. 2. See above regarding tubes and catheter deployment.
--- NOTE | 2016-11-17 10:47 | RAD ---
HISTORY: intubated COMPARISON: Portable chest 11/16/2016. FINDINGS: Endotracheal tube, nasogastric tube and right central venous line are unchanged in position. LUNGS: Medial left basilar airspace disease now identified and is rather small with right infrahilar patchy density not excluded. PLEURA: Trace left pleural effusions now present. None is clearly evident on the right. CARDIOVASCULAR: Prominent cardiac silhouette is unchanged. No definite pulmonary vascular derangement. OSSEOUS STRUCTURES: No significant abnormalities. VISUALIZED UPPER ABDOMEN: Normal. OTHER FINDINGS: None. IMPRESSION: Trace of pleural effusion now present with medial left basilar airspace disease and minimal right infrahilar patchy density again evident. Stable cardiomegaly.
--- NOTE | 2016-11-17 12:37 | CP.PCM.CON ---
History of Present Illness - History of Present Illness History of Present Illness: Infectious Disease Consult Note- Asked to see this patient at the request of for sepsis. HPI- patient is a 86 year old female with PMH of HTN, HLD, vulvar cancer undergoing chemo and radiation , last chemo was few days ago who developed sharp sudden abdominal pain yesterday along with nausea and on admission was found to have high lactate level and underwent ex lap and as found to have ? perforated ulcer as per instructor adjunct surgical technician and per family's report and omental patch was placed and samy drain was plced and pt. is now in ICU. Pt. is awake adn alert and her family is at her bedisde. She denies any fever or chills adn denies anyh cough or sob, denies any nausea or vomiting, denies any diarrhea, states she always has dysurea ever since her radiation and is not new symptom. as per pt's daughter she has completed the first 6 weeks of hre chemo cycle and few days ago she had the granix patch by her oncologist. pt. is now leukopenic and i'm asked to evaluate and herlp with abx management. PMD: Dr. Aviles (hem/onc) PMHx: HTN, HLD, Vulvar cancer Meds: as per med rec PsurgHx: hysterectomy ALL: NKDA SocialHx: denies ETOH, tobacco, drug abuse, lives with sister FamilyHx: noncontributory Review of Systems - Review of Systems Review of Systems: ROS- denies any fever or chills, denies any cough, denies any sob, denies any chest pain, denies any GOULD, had severe abd pain yesterday but denies any pain now, denies any nausea or vomiting, denies any diarrhea, chronic dysurea s/p radiation does not have a port and she states she gets her chemo through peripheral IVL each time. Past Patient History - Past Medical History & Family History Past Medical History?: Yes - Past Social History Smoking Status: Never Smoked - CARDIAC Hx Cardiac Disorders: Yes Hx Hypertension: Yes - PULMONARY Hx Respiratory Disorders: No - NEUROLOGICAL Hx Neurological Disorder: No - HEENT Hx HEENT Problems: No - RENAL Hx Chronic Kidney Disease: No - ENDOCRINE/METABOLIC Hx Endocrine Disorders: No - HEMATOLOGICAL/ONCOLOGICAL Hx Blood Disorders: No - INTEGUMENTARY Hx Dermatological Problems: No - MUSCULOSKELETAL/RHEUMATOLOGICAL Hx Falls: No - GENITOURINARY/GYNECOLOGICAL Hx Genitourinary Disorders: Yes Hx Uterine Cancer: Yes - PSYCHIATRIC Hx Substance Use: No - SURGICAL HISTORY Hx Surgeries: Yes Hx Hysterectomy: Yes - ANESTHESIA Hx Anesthesia: Yes Hx Anesthesia Reactions: No Meds Allergies/Adverse Reactions: Allergies Allergy/AdvReac Type Severity Reaction Status Date / Time No Known Allergies Allergy Verified 11/16/16 05:57 - Medications Medications: Current Medications Acetaminophen (Tylenol 650mg/20.3ml Solution Ud) 650 mg PO Q6 PRN PRN Reason: fever >100.4 Benzocaine/Menthol (Cepacol Sore Throat) 1 chantel PO Q2 PRN PRN Reason: Sore Throat Cyanocobalamin (Vitamin B12 1000 Mcg/Ml Inj) 1,000 mcg IM DAILY MARGE Last Admin: 11/17/16 08:25 Dose: 1,000 mcg Heparin Sodium (Porcine) (Heparin) 5,000 units SC Q12 MARGE PRN Reason: Protocol Last Admin: 11/17/16 08:23 Dose: 5,000 units Hydromorphone HCl (Dilaudid) 1 mg IVP Q4 PRN PRN Reason: Pain, severe (8-10) Last Admin: 11/16/16 20:37 Dose: 1 mg Hydromorphone HCl (Dilaudid) 0.5 mg IVP Q3 PRN PRN Reason: Pain, moderate (4-7) Last Admin: 11/17/16 11:40 Dose: 0.5 mg Piperacillin Sod/Tazobactam (Sod 3.375 gm/ Sodium Chloride) 100 mls @ 100 mls/ hr IVPB Q6 MARGE Last Admin: 11/17/16 10:53 Dose: 100 mls/hr Vancomycin HCl 1 gm/ Sodium (Chloride) 250 mls @ 166.667 mls/hr IVPB DAILY MARGE Last Admin: 11/17/16 08:24 Dose: 166.667 mls/hr Propofol (Diprivan) 1,000 mg in 100 mls @ 2.041 mls/hr IV .Q24H MARGE; 5 MCG/KG/ MIN PRN Reason: Protocol Stop: 11/18/16 00:10 Last Titration: 11/17/16 01:35 Dose: 5 mcg/kg/min, 2.041 mls/hr Sodium Chloride (Sodium Chloride 0.9%) 1,000 mls @ 150 mls/hr IV .Q6H40M MARGE Stop: 11/18/16 00:50 Last Admin: 11/17/16 10:54 Dose: 150 mls/hr Norepinephrine Bitartrate 4 mg (/ Dextrose) 254 mls @ 38.1 mls/hr IV .Q6H40M MARGE; 10 MCG/MIN PRN Reason: Protocol Last Titration: 11/17/16 10:55 Dose: 2.5 mcg/min, 9.52 mls/hr Metoclopramide HCl (Reglan) 10 mg IVP Q6 PRN PRN Reason: Nausea/Vomiting Pantoprazole Sodium (Protonix Inj) 40 mg IVP BID [facility] Last Admin: 11/17/16 08:24 Dose: 40 mg Silver Sulfadiazine (Silvadene 1% 50 Gm) 1 applic TOP BID [facility] Last Admin: 11/17/16 08:26 Dose: 1 applic Physical Exam - Constitutional Appears: No Acute Distress - Head Exam Head Exam: ATRAUMATIC - Eye Exam Eye Exam: EOMI, PERRL - ENT Exam ENT Exam: Normal Oropharynx - Neck Exam Neck exam: Positive for: Full Rom - Respiratory Exam Respiratory Exam: Clear to Auscultation Bilateral, NORMAL BREATHING PATTERN - Cardiovascular Exam Cardiovascular Exam: RRR, +S1, +S2 - GI/Abdominal Exam Additional comments: mid-abdominal surgical site in post-surgical gauze and dressing soft surrounding region, NT no erythema samy drain in place draining bilious fluid Results - Vital Signs Recent Vital Signs: Last Vital Signs Temp 98.7 F 11/17/16 08:00 Pulse 91 H 11/17/16 08:00 Resp 21 11/17/16 08:00 BP 107/64 11/17/16 08:00 Pulse Ox 100 11/17/16 08:00 - Labs Result Diagrams: 11/17/16 05:30 11/17/16 05:30 Labs: Laboratory Results - last 24 hr 11/15/16 11/16/16 11/16/16 12:51 13:45 14:14 WBC RBC Hgb Hct MCV MCH MCHC RDW Plt Count MPV Neut % (Auto) Lymph % (Auto) [place] % (Auto) Eos % (Auto) Baso % (Auto) Neut # Lymph # [place] # Eos # Baso # pCO2 pO2 HCO3 ABG pH ABG Total CO2 ABG O2 Saturation ABG O2 Content ABG Base Excess ABG Hemoglobin ABG Carboxyhemoglobin POC ABG HHb (Measured) ABG Methemoglobin ABG O2 Capacity [place] Test A-a O2 Difference Hgb O2 Saturation Vent Mode Mechanical Rate FiO2 Tidal Volume PEEP Sodium Potassium Chloride Carbon Dioxide Anion Gap BUN Creatinine Est GFR ( Amer) Est GFR (Non-Af Amer) POC Glucose (mg/dL) 203 H Random Glucose Lactic Acid Calcium Total Bilirubin AST ALT Alkaline Phosphatase Total Protein Albumin Globulin Albumin/Globulin Ratio Blood Type O POSITIVE Blood Type Confirm O POSITIVE Antibody Screen Negative Crossmatch See Detail BBK History Checked No verified bt 11/16/16 11/17/16 11/17/16 22:04 05:00 05:30 WBC 0.4 L* D RBC 2.57 L Hgb 8.4 L D Hct 24.7 L MCV 95.9 MCH 32.6 H MCHC 34.0 RDW 18.8 H Plt Count 112 L D MPV 7.6 Neut % (Auto) 37.8 L Lymph % (Auto) 46.3 H [place] % (Auto) 13.0 H Eos % (Auto) 2.9 Baso % (Auto) 0.0 Neut # 0.1 L Lymph # 0.2 L [place] # 0.0 Eos # 0.0 Baso # 0.0 pCO2 36 31 L pO2 114 H 143 H HCO3 21.8 21.5 ABG pH 7.37 7.41 ABG Total CO2 21.9 L 20.6 L ABG O2 Saturation 98.3 H 98.8 H ABG O2 Content 13.0 L 12.2 L ABG Base Excess -4.0 L -4.4 L ABG Hemoglobin 9.4 L 8.7 L ABG Carboxyhemoglobin 0.6 0.3 L POC ABG HHb (Measured) 1.7 1.2 ABG Methemoglobin 1.3 1.6 ABG O2 Capacity 13.2 L 12.3 L Heriberto Test Yes Yes A-a O2 Difference 554.0 531.0 Hgb O2 Saturation 96.4 96.9 Vent Mode Prvc(ac Mechanical Rate 12 12 FiO2 100.0 100.0 Tidal Volume 400 400 PEEP 5 5 Sodium Potassium Chloride Carbon Dioxide Anion Gap BUN Creatinine Est GFR ( Amer) Est GFR (Non-Af Amer) POC Glucose (mg/dL) Random Glucose Lactic Acid Calcium Total Bilirubin AST ALT Alkaline Phosphatase Total Protein Albumin Globulin Albumin/Globulin Ratio Blood Type Blood Type Confirm Antibody Screen Crossmatch BBK History Checked 11/17/16 11/17/16 05:30 08:30 WBC RBC Hgb Hct MCV MCH MCHC RDW Plt Count MPV Neut % (Auto) Lymph % (Auto) [place] % (Auto) Eos % (Auto) Baso % (Auto) Neut # Lymph # [place] # Eos # Baso # pCO2 pO2 HCO3 ABG pH ABG Total CO2 ABG O2 Saturation ABG O2 Content ABG Base Excess ABG Hemoglobin ABG Carboxyhemoglobin POC ABG HHb (Measured) ABG Methemoglobin ABG O2 Capacity Her[place] Test A-a O2 Difference Hgb O2 Saturation Vent Mode Mechanical Rate FiO2 Tidal Volume PEEP Sodium 139 Potassium 4.3 Chloride 109 H Carbon Dioxide 20 L Anion Gap 14 BUN 29 H Creatinine 1.6 H Est GFR ( Amer) 37 Est GFR (Non-Af Amer) 31 POC Glucose (mg/dL) Random Glucose 126 H Lactic Acid 1.4 Calcium 7.1 L Total Bilirubin 0.7 AST 56 H D ALT 46 Alkaline Phosphatase 49 Total Protein 4.9 L Albumin 2.1 L D Globulin 2.7 Albumin/Globulin Ratio 0.8 L Blood Type Blood Type Confirm Antibody Screen Crossmatch BBK History Checked Laboratory Results - last 72 hr 11/15/16 11/15/16 11/15/16 12:51 13:05 13:05 WBC 7.3 RBC 3.48 L Hgb 11.3 L Hct 33.5 L MCV 96.3 MCH 32.6 H MCHC 33.8 RDW 18.5 H Plt Count 248 MPV 7.4 Neut % (Auto) 71.7 Lymph % (Auto) 26.3 [place] % (Auto) 1.5 Eos % (Auto) 0.1 Baso % (Auto) 0.4 Neut # 5.3 Lymph # 1.9 [place] # 0.1 Eos # 0.0 Baso # 0.0 PT INR APTT pCO2 pO2 HCO3 ABG pH ABG Total CO2 ABG O2 Saturation ABG O2 Content ABG Base Excess ABG Hemoglobin ABG Carboxyhemoglobin POC ABG HHb (Measured) ABG Methemoglobin ABG O2 Capacity Her[place] Test A-a O2 Difference Hgb O2 Saturation Vent Mode Mechanical Rate FiO2 Tidal Volume PEEP Sodium 139 Potassium 3.5 L Chloride 101 Carbon Dioxide 23 Anion Gap 19 BUN 27 H Creatinine 1.4 H Est GFR ( Amer) 43 Est GFR (Non-Af Amer) 36 POC Glucose (mg/dL) 203 H Random Glucose 183 H Lactic Acid Calcium 8.6 Total Bilirubin 0.8 AST 29 ALT 24 Alkaline Phosphatase 104 Troponin I 0.0200 Total Protein 6.9 Albumin 3.6 Globulin 3.3 Albumin/Globulin Ratio 1.1 Triglycerides Cholesterol LDL Cholesterol Direct HDL Cholesterol Lipase 390 H Vitamin B12 TSH 3rd Generation Urine Color Urine Clarity Urine pH Ur Specific [place] Urine Protein Urine Glucose (UA) Urine Ketones Urine Blood Urine Nitrate Urine Bilirubin Urine Urobilinogen Ur Leukocyte Esterase Urine RBC (Auto) Urine Microscopic WBC Blood Type Blood Type Confirm Antibody Screen Crossmatch BBK History Checked 11/15/16 11/15/16 11/15/16 13:05 19:39 20:10 WBC RBC Hgb Hct MCV MCH MCHC RDW Plt Count MPV Neut % (Auto) Lymph % (Auto) [place] % (Auto) Eos % (Auto) Baso % (Auto) Neut # Lymph # [place] # Eos # Baso # PT 10.5 INR 1.0 APTT 22.3 L pCO2 pO2 HCO3 ABG pH ABG Total CO2 ABG O2 Saturation ABG O2 Content ABG Base Excess ABG Hemoglobin ABG Carboxyhemoglobin POC ABG HHb (Measured) ABG Methemoglobin ABG O2 Capacity Her[place] Test A-a O2 Difference Hgb O2 Saturation Vent Mode Mechanical Rate FiO2 Tidal Volume PEEP Sodium Potassium Chloride Carbon Dioxide Anion Gap BUN Creatinine Est GFR ( Amer) Est GFR (Non-Af Amer) POC Glucose (mg/dL) Random Glucose Lactic Acid 5.9 H* Calcium Total Bilirubin AST ALT Alkaline Phosphatase Troponin I Total Protein Albumin Globulin Albumin/Globulin Ratio Triglycerides Cholesterol LDL Cholesterol Direct HDL Cholesterol Lipase Vitamin B12 TSH 3rd Generation Urine Color Yellow Urine Clarity Clear Urine pH 6.0 Ur Specific [place] 1.005 Urine Protein 100 Urine Glucose (UA) Neg Urine Ketones Negative Urine Blood Negative Urine Nitrate Negative Urine Bilirubin Negative Urine Urobilinogen 0.2-1.0 Ur Leukocyte Esterase Neg Urine RBC (Auto) 3 Urine Microscopic WBC 1 Blood Type Blood Type Confirm Antibody Screen Crossmatch BBK History Checked 11/16/16 11/16/16 11/16/16 04:15 04:15 04:15 WBC 1.0 L* D RBC 3.47 L Hgb 11.4 L Hct 33.7 L MCV 97.1 MCH 32.9 H MCHC 33.9 RDW 18.2 H Plt Count 165 MPV 7.7 Neut % (Auto) 56.3 Lymph % (Auto) 31.8 [place] % (Auto) 10.6 H Eos % (Auto) 1.2 Baso % (Auto) 0.1 Neut # 0.5 L Lymph # 0.3 L [place] # 0.1 Eos # 0.0 Baso # 0.0 PT INR APTT pCO2 pO2 HCO3 ABG pH ABG Total CO2 ABG O2 Saturation ABG O2 Content ABG Base Excess ABG Hemoglobin ABG Carboxyhemoglobin POC ABG HHb (Measured) ABG Methemoglobin ABG O2 Capacity Her[place] Test A-a O2 Difference Hgb O2 Saturation Vent Mode Mechanical Rate FiO2 Tidal Volume PEEP Sodium 140 Potassium 5.4 H Chloride 104 Carbon Dioxide 23 Anion Gap 18 BUN 33 H Creatinine 1.4 H Est GFR ( Amer) 43 Est GFR (Non-Af Amer) 36 POC Glucose (mg/dL) Random Glucose 138 H Lactic Acid 3.9 H Calcium 7.8 L Total Bilirubin 0.8 AST 26 ALT 24 Alkaline Phosphatase 61 Troponin I Total Protein 5.8 L Albumin 2.8 L D Globulin 3.0 Albumin/Globulin Ratio 0.9 L Triglycerides 149 Cholesterol 136 LDL Cholesterol Direct 46 HDL Cholesterol 55 Lipase 73 Vitamin B12 269 TSH 3rd Generation 0.48 Urine Color Urine Clarity Urine pH Ur Specific [place] Urine Protein Urine Glucose (UA) Urine Ketones Urine Blood Urine Nitrate Urine Bilirubin Urine Urobilinogen Ur Leukocyte Esterase Urine RBC (Auto) Urine Microscopic WBC Blood Type Blood Type Confirm Antibody Screen Crossmatch BBK History Checked 11/16/16 11/16/16 11/16/16 13:45 14:14 22:04 WBC RBC Hgb Hct MCV MCH MCHC RDW Plt Count MPV Neut % (Auto) Lymph % (Auto) [place] % (Auto) Eos % (Auto) Baso % (Auto) Neut # Lymph # [place] # Eos # Baso # PT INR APTT pCO2 36 pO2 114 H HCO3 21.8 ABG pH 7.37 ABG Total CO2 21.9 L ABG O2 Saturation 98.3 H ABG O2 Content 13.0 L ABG Base Excess -4.0 L ABG Hemoglobin 9.4 L ABG Carboxyhemoglobin 0.6 POC ABG HHb (Measured) 1.7 ABG Methemoglobin 1.3 ABG O2 Capacity 13.2 L Heriberto Test Yes A-a O2 Difference 554.0 Hgb O2 Saturation 96.4 Vent Mode Prvc(ac Mechanical Rate 12 FiO2 100.0 Tidal Volume 400 PEEP 5 Sodium Potassium Chloride Carbon Dioxide Anion Gap BUN Creatinine Est GFR ( Amer) Est GFR (Non-Af Amer) POC Glucose (mg/dL) Random Glucose Lactic Acid Calcium Total Bilirubin AST ALT Alkaline Phosphatase Troponin I Total Protein Albumin Globulin Albumin/Globulin Ratio Triglycerides Cholesterol LDL Cholesterol Direct HDL Cholesterol Lipase Vitamin B12 TSH 3rd Generation Urine Color Urine Clarity Urine pH Ur Specific [place] Urine Protein Urine Glucose (UA) Urine Ketones Urine Blood Urine Nitrate Urine Bilirubin Urine Urobilinogen Ur Leukocyte Esterase Urine RBC (Auto) Urine Microscopic WBC Blood Type O POSITIVE Blood Type Confirm O POSITIVE Antibody Screen Negative Crossmatch See Detail BBK History Checked No verified bt 11/17/16 11/17/16 11/17/16 05:00 05:30 05:30 WBC 0.4 L* D RBC 2.57 L Hgb 8.4 L D Hct 24.7 L MCV 95.9 MCH 32.6 H MCHC 34.0 RDW 18.8 H Plt Count 112 L D MPV 7.6 Neut % (Auto) 37.8 L Lymph % (Auto) 46.3 H [place] % (Auto) 13.0 H Eos % (Auto) 2.9 Baso % (Auto) 0.0 Neut # 0.1 L Lymph # 0.2 L [place] # 0.0 Eos # 0.0 Baso # 0.0 PT INR APTT pCO2 31 L pO2 143 H HCO3 21.5 ABG pH 7.41 ABG Total CO2 20.6 L ABG O2 Saturation 98.8 H ABG O2 Content 12.2 L ABG Base Excess -4.4 L ABG Hemoglobin 8.7 L ABG Carboxyhemoglobin 0.3 L POC ABG HHb (Measured) 1.2 ABG Methemoglobin 1.6 ABG O2 Capacity 12.3 L Heriberto Test Yes A-a O2 Difference 531.0 Hgb O2 Saturation 96.9 Vent Mode Mechanical Rate 12 FiO2 100.0 Tidal Volume 400 PEEP 5 Sodium 139 Potassium 4.3 Chloride 109 H Carbon Dioxide 20 L Anion Gap 14 BUN 29 H Creatinine 1.6 H Est GFR ( Amer) 37 Est GFR (Non-Af Amer) 31 POC Glucose (mg/dL) Random Glucose 126 H Lactic Acid Calcium 7.1 L Total Bilirubin 0.7 AST 56 H D ALT 46 Alkaline Phosphatase 49 Troponin I Total Protein 4.9 L Albumin 2.1 L D Globulin 2.7 Albumin/Globulin Ratio 0.8 L Triglycerides Cholesterol LDL Cholesterol Direct HDL Cholesterol Lipase Vitamin B12 TSH 3rd Generation Urine Color Urine Clarity Urine pH Ur Specific [place] Urine Protein Urine Glucose (UA) Urine Ketones Urine Blood Urine Nitrate Urine Bilirubin Urine Urobilinogen Ur Leukocyte Esterase Urine RBC (Auto) Urine Microscopic WBC Blood Type Blood Type Confirm Antibody Screen Crossmatch BBK History Checked 11/17/16 08:30 WBC RBC Hgb Hct MCV MCH MCHC RDW Plt Count MPV Neut % (Auto) Lymph % (Auto) [place] % (Auto) Eos % (Auto) Baso % (Auto) Neut # Lymph # [place] # Eos # Baso # PT INR APTT pCO2 pO2 HCO3 ABG pH ABG Total CO2 ABG O2 Saturation ABG O2 Content ABG Base Excess ABG Hemoglobin ABG Carboxyhemoglobin POC ABG HHb (Measured) ABG Methemoglobin ABG O2 Capacity [place] Test A-a O2 Difference Hgb O2 Saturation Vent Mode Mechanical Rate FiO2 Tidal Volume PEEP Sodium Potassium Chloride Carbon Dioxide Anion Gap BUN Creatinine Est GFR ( Amer) Est GFR (Non-Af Amer) POC Glucose (mg/dL) Random Glucose Lactic Acid 1.4 Calcium Total Bilirubin AST ALT Alkaline Phosphatase Troponin I Total Protein Albumin Globulin Albumin/Globulin Ratio Triglycerides Cholesterol LDL Cholesterol Direct HDL Cholesterol Lipase Vitamin B12 TSH 3rd Generation Urine Color Urine Clarity Urine pH Ur Specific [place] Urine Protein Urine Glucose (UA) Urine Ketones Urine Blood Urine Nitrate Urine Bilirubin Urine Urobilinogen Ur Leukocyte Esterase Urine RBC (Auto) Urine Microscopic WBC Blood Type Blood Type Confirm Antibody Screen Crossmatch BBK History Checked Microbiology 11/15/16 13:20 Blood Blood Culture - Preliminary NO GROWTH AFTER 48 HOURS 11/15/16 13:05 Blood Blood Culture - Preliminary NO GROWTH AFTER 48 HOURS ccession No. : [id number] Patient Name / ID : MYLENE BRENNAN / [id number] Exam Date : 11/17/2016 06:57:35 ( Approved ) Study Comment : Sex / Age : F / [id number] Creator : Emanuel Armijo MD Dictator : Emanuel Armijo MD Pipe Fitter Helper : Production Pattern Maker : Emanuel Armijo MD Approver2 : Report Date : 11/17/2016 10:41:33 My Comment : HISTORY: intubated COMPARISON: Portable chest 11/16/2016. FINDINGS: Endotracheal tube, nasogastric tube and right central venous line are unchanged in position. LUNGS: Medial left basilar airspace disease now identified and is rather small with right infrahilar patchy density not excluded. PLEURA: Trace left pleural effusions now present. None is clearly evident on the right. CARDIOVASCULAR: Prominent cardiac silhouette is unchanged. No definite pulmonary vascular derangement. OSSEOUS STRUCTURES: No significant abnormalities. VISUALIZED UPPER ABDOMEN: Normal. OTHER FINDINGS: None. IMPRESSION: Trace of pleural effusion now present with medial left basilar airspace disease and minimal right infrahilar patchy density again evident. Stable cardiomegaly. Assessment & Plan (1) Gastric out let obstruction Status: Acute (2) Leukopenia Status: Acute (3) Pneumoperitoneum Status: Acute (4) Severe sepsis Status: Acute (5) Vulvar cancer Status: Chronic - Assessment and Plan (Free Text) Assessment: A/P- 86 year old female with vulcar cancer undergoing chemo and radiation was admitted with sudden sharp abdominal pain , found to have high lactate underwent ex-lap and found to have perforated duodenal ulcer is s/p duodenal patch and samy drain in ICU. pt. is netrtopenic most likely from the recent chemo. she must be on neutropenic precautions and will place on broad-spectrum antibiotics for gram neg/anerobes nad gram positives aand antifungal specially in light of perforation and her immunesuppressed status. plan- check blood cx x 2 check UA adn urine cx. advise to d/c zosyn. start pt. on IV meropenem for broader gram neg /anerobic coverage. advise to also continue with IV vancomyin for staph coverage. advise to start antifungals empirically. monitor wbc closely. advise to get heme /onc consult here . may need another granix injection. All the imaging and labs work and chart was reviewed. all above d/w patient and her family at length and all their questions were answered. thank you for allowing me to take part in the care oft his patient. ICU time 75 minutes. All above also d/w Fuel Distribution System Operator .
--- NOTE | 2016-11-17 12:54 | PCM.PROC ---
Procedures Attestation:: I certify that I have explained the specified Operation(s) or Procedure(s), risks, benefits and reasonable alternatives to the Patient and/or other person responsible. The opportunity was given to ask questions and all questions answered - Extubation RSBI Score: 56 Clinical Parameters: Hemodynamically Stable, Intact Cough/Gag Reflex, Spontaneous Respirations, Acceptable Vent Settings (FIO2<50%, PEEP<8, PaO2>75, pH>7.25) Weaning Criteria Met: Yes General Weaning Approaches: Pressure Support Ventilation (PSV) Weaning Patient Condition: Patient has been successfully extubated and assessed Oxygen Therapy: O2 via Venti Mask Patient Tolerated Procedure: Well
--- NOTE | 2016-11-17 12:58 | CP.CCUPN ---
CCU Subjective - Physician Review Subjective (Free Text): Overnight sedation and present MV support events reviewed. Despite low dose Sedation with Propofol, she is awake and alert, and appropriately responsive, and following commands, after an appropriate SBT with excellent tolerance, she was extubated and placed onto 50% VM with SPo2 at 98%. Levophed has been weaned off as well almost immediately after extubation. NGT kept in place. She denies any increase in abd discomfort, nausea, dizziness, headaches, diaphoresis, chills fevers/incr warmth, CP or palpitations. Other vitals and I/O's reviewed. No fever spikes noted since admission. ROS: No other pertinent negs or positives on 10+ system review. 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 All Nursing and physician documentation reviewed to date; no new pertinent info noted relevant to current medical problems. MAJOR PROBLEMS: 1. S/p Ex Lap for Duodenal ef and Omental Patch Repair. 2. Neutropenic Sepsis 2 Bowel perforation 3. Azotemia / Dehydration 4. Vasovagal Syncope 2 severe abd pain. 5. Thromobocytopenia 6. Chemotherapy induced Neutropenia 7. Chronic Disease Anemia, r/o Acute anemia 2 dilutional volume effects versus GI loss. PLAN: 1. IVF hydration. 2. Incentive Spirometry post-extubation, try to get OOB if OK with GenSurg. 3. Empiric abx coverage noted, ID to change or choose further coverage. 4. Serial lactates have normalized. 5. Watch platelets post-surgery, doubt DIC, Coags normal. 6. Repeat EKG in AM. ECHO for LV Fx. 7. Continue DVT prx with SCDs. 8. May need repeat dosing of GM-CSF, notify Tile Mason of new WBC. CCU Objective - Vital Signs / Intake & Output Intake and Output (Last 8hrs): Intake & Output 11/16/16 11/17/16 11/17/16 22:59 06:59 14:59 Intake Total 4500 1744 0 Output Total 600 675 Balance 3900 1069 0 Intake: IV 4000 810 0 Intake, Piggyback 250 934 Oral 250 Output: Gastric Amount 275 Right Stomach 275 Drainage 100 Urine 500 400 Urethral (Barakat) 400 Other: # Voids Urine, Voided 950 - Physical Exam Head: Positive for: Normocephalic Pupils: Positive for: PERRL Extroacular Muscles: Positive for: EOMI Conjunctiva: Positive for: Normal. Negative for: Icteric Mouth: Positive for: Moist Mucous Membranes Neck: Positive for: Normal Range of Motion. Negative for: Meningeal Signs, JVD Respiratory/Chest: Positive for: Clear to Auscultation, Rhonchi (few). Negative for: Accessory Muscle Use, Rales Cardiovascular: Positive for: Regular Rate and Rhythm. Negative for: Murmurs, Rub Abdomen: Positive for: Distention. Negative for: Tenderness, Normal Bowel Sounds (not audible) Neurological: Positive for: GCS=15, CN II-XII Intact, Motor Func Grossly Intact , Normal Sensory Function Skin: Positive for: Warm. Negative for: Rashes Psychiatric: Positive for: Alert, Oriented x 3, Normal Concentration, Normal Affect - Medications Active Medications: Active Medications Generic Name Dose Route Start Last Admin Trade Name Freq PRN Reason Stop Dose Admin Acetaminophen 650 mg 11/15/16 20:27 Tylenol 650mg/20.3ml Solution Ud PO Q6 PRN fever >100.4 Benzocaine/Menthol 1 chantel 11/16/16 07:55 Cepacol Sore Throat PO Q2 PRN Sore Throat Cyanocobalamin 1,000 mcg 11/16/16 09:00 11/17/16 08:25 Vitamin B12 1000 Mcg/Ml Inj IM 1,000 mcg DAILY MARGE Administration Heparin Sodium (Porcine) 5,000 units 11/16/16 21:00 11/17/16 08:23 Heparin SC 5,000 units Q12 MARGE Administration Protocol Hydromorphone HCl 1 mg 11/16/16 18:53 11/16/16 20:37 Dilaudid IVP 1 mg Q4 PRN Administration Pain, severe (8-10) Hydromorphone HCl 0.5 mg 11/16/16 18:53 11/17/16 11:40 Dilaudid IVP 0.5 mg Q3 PRN Administration Pain, moderate (4-7) Piperacillin Sod/Tazobactam 100 mls @ 100 mls/hr 11/15/16 22:00 11/17/16 10: 53 Sod 3.375 gm/ Sodium Chloride IVPB 100 mls/hr Q6 MARGE Administration Vancomycin HCl 1 gm/ Sodium 250 mls @ 166.667 mls/hr 11/16/16 09:00 11/17/16 08:24 Chloride IVPB 166.667 mls/hr DAILY MARGE Administration Sodium Chloride 1,000 mls @ 150 mls/hr 11/17/16 01:00 11/17/16 10:54 Sodium Chloride 0.9% IV 11/18/16 00:50 150 mls/hr .[id number] MARGE Administration Metoclopramide HCl 10 mg 11/15/16 18:50 Reglan IVP Q6 PRN Nausea/Vomiting Pantoprazole Sodium 40 mg 11/17/16 09:00 11/17/16 08:24 Protonix Inj IVP 40 mg BID MARGE Administration Silver Sulfadiazine 1 applic 11/16/16 09:00 11/17/16 08:26 Silvadene 1% 50 Gm TOP 1 applic BID MARGE Administration - Patient Studies Lab Studies: Microbiology Studies 11/15/16 13:20 Blood Culture - Preliminary Blood NO GROWTH AFTER 24 HOURS 11/15/16 13:05 Blood Culture - Preliminary Blood NO GROWTH AFTER 24 HOURS Lab Studies 11/17/16 11/17/16 11/17/16 Range/Units 08:30 05:30 05:30 WBC 0.4 L* D (4.8-10.8) K/uL RBC 2.57 L (3.80-5.20) Mil/uL Hgb 8.4 L D (12.0-16.0) g/dL Hct 24.7 L (34.0-47.0) % MCV 95.9 (81.0-99.0) fl MCH 32.6 H (27.0-31.0) pg MCHC 34.0 (33.0-37.0) g/dL RDW 18.8 H (11.5-14.5) % Plt Count 112 L D (130-400) K/uL MPV 7.6 (7.2-11.7) fl Neut % (Auto) 37.8 L (50.0-75.0) % Lymph % (Auto) 46.3 H (20.0-40.0) % Kay % (Auto) 13.0 H (0.0-10.0) % Eos % (Auto) 2.9 (0.0-4.0) % Baso % (Auto) 0.0 (0.0-2.0) % Neut # 0.1 L (1.8-7.0) K/uL Lymph # 0.2 L (1.0-4.3) K/uL Kay # 0.0 (0.0-0.8) K/uL Eos # 0.0 (0.0-0.7) K/uL Baso # 0.0 (0.0-0.2) K/uL pCO2 (35-45) mm/Hg pO2 (80-100) mm/Hg HCO3 (21-28) mmol/L ABG pH (7.35-7.45) ABG Total CO2 (22-28) mmol/L ABG O2 Saturation (95-98) % ABG O2 Content (15-23) ML/dL ABG Base Excess (-2.0-3.0) mmol/L ABG Hemoglobin (11.7-17.4) g/dL ABG Carboxyhemoglobin (0.5-1.5) % POC ABG HHb (Measured) (0.0-5.0) % ABG Methemoglobin (0.0-3.0) % ABG O2 Capacity (16-24) mL/dL Heriberto Test A-a O2 Difference mm/Hg Hgb O2 Saturation (95.0-98.0) % Vent Mode Mechanical Rate FiO2 % Tidal Volume PEEP Sodium 139 (132-148) mmol/l Potassium 4.3 (3.6-5.0) MMOL/L Chloride 109 H (98-107) mmol/L Carbon Dioxide 20 L (22-30) mmol/L Anion Gap 14 (10-20) BUN 29 H (7-17) mg/dl Creatinine 1.6 H (0.7-1.2) mg/dL Est GFR ( Amer) 37 Est GFR (Non-Af Amer) 31 POC Glucose (mg/dL) (65-110) mg/dL Random Glucose 126 H (65-105) mg/dL Lactic Acid 1.4 (0.7-2.1) MMOL/L Calcium 7.1 L (8.4-10.2) mg/dL Total Bilirubin 0.7 (0.2-1.3) mg/dl AST 56 H D (14-36) U/L ALT 46 (9-52) U/L Alkaline Phosphatase 49 (38-126) U/L Total Protein 4.9 L (6.3-8.2) G/DL Albumin 2.1 L D (3.5-5.0) g/dL Globulin 2.7 (2.2-3.9) gm/dL Albumin/Globulin Ratio 0.8 L (1.0-2.1) Blood Type Blood Type Confirm Antibody Screen Crossmatch BBK History Checked 11/17/16 11/16/16 11/16/16 Range/Units 05:00 22:04 14:14 WBC (4.8-10.8) K/uL RBC (3.80-5.20) Mil/uL Hgb (12.0-16.0) g/dL Hct (34.0-47.0) % MCV (81.0-99.0) fl MCH (27.0-31.0) pg MCHC (33.0-37.0) g/dL RDW (11.5-14.5) % Plt Count (130-400) K/uL MPV (7.2-11.7) fl Neut % (Auto) (50.0-75.0) % Lymph % (Auto) (20.0-40.0) % Kay % (Auto) (0.0-10.0) % Eos % (Auto) (0.0-4.0) % Baso % (Auto) (0.0-2.0) % Neut # (1.8-7.0) K/uL Lymph # (1.0-4.3) K/uL Kay # (0.0-0.8) K/uL Eos # (0.0-0.7) K/uL Baso # (0.0-0.2) K/uL pCO2 31 L 36 (35-45) mm/Hg pO2 143 H 114 H (80-100) mm/Hg HCO3 21.5 21.8 (21-28) mmol/L ABG pH 7.41 7.37 (7.35-7.45) ABG Total CO2 20.6 L 21.9 L (22-28) mmol/L ABG O2 Saturation 98.8 H 98.3 H (95-98) % ABG O2 Content 12.2 L 13.0 L (15-23) ML/dL ABG Base Excess -4.4 L -4.0 L (-2.0-3.0) mmol/L ABG Hemoglobin 8.7 L 9.4 L (11.7-17.4) g/dL ABG Carboxyhemoglobin 0.3 L 0.6 (0.5-1.5) % POC ABG HHb (Measured) 1.2 1.7 (0.0-5.0) % ABG Methemoglobin 1.6 1.3 (0.0-3.0) % ABG O2 Capacity 12.3 L 13.2 L (16-24) mL/dL Heriberto Test Yes Yes A-a O2 Difference 531.0 554.0 mm/Hg Hgb O2 Saturation 96.9 96.4 (95.0-98.0) % Vent Mode Prvc(ac Mechanical Rate 12 12 FiO2 100.0 100.0 % Tidal Volume 400 400 PEEP 5 5 Sodium (132-148) mmol/l Potassium (3.6-5.0) MMOL/L Chloride (98-107) mmol/L Carbon Dioxide (22-30) mmol/L Anion Gap (10-20) BUN (7-17) mg/dl Creatinine (0.7-1.2) mg/dL Est GFR ( Amer) Est GFR (Non-Af Amer) POC Glucose (mg/dL) (65-110) mg/dL Random Glucose (65-105) mg/dL Lactic Acid (0.7-2.1) MMOL/L Calcium (8.4-10.2) mg/dL Total Bilirubin (0.2-1.3) mg/dl AST (14-36) U/L ALT (9-52) U/L Alkaline Phosphatase (38-126) U/L Total Protein (6.3-8.2) G/DL Albumin (3.5-5.0) g/dL Globulin (2.2-3.9) gm/dL Albumin/Globulin Ratio (1.0-2.1) Blood Type Blood Type Confirm O POSITIVE Antibody Screen Crossmatch BBK History Checked 11/16/16 11/15/16 Range/Units 13:45 12:51 WBC (4.8-10.8) K/uL RBC (3.80-5.20) Mil/uL Hgb (12.0-16.0) g/dL Hct (34.0-47.0) % MCV (81.0-99.0) fl MCH (27.0-31.0) pg MCHC (33.0-37.0) g/dL RDW (11.5-14.5) % Plt Count (130-400) K/uL MPV (7.2-11.7) fl Neut % (Auto) (50.0-75.0) % Lymph % (Auto) (20.0-40.0) % Kay % (Auto) (0.0-10.0) % Eos % (Auto) (0.0-4.0) % Baso % (Auto) (0.0-2.0) % Neut # (1.8-7.0) K/uL Lymph # (1.0-4.3) K/uL Kay # (0.0-0.8) K/uL Eos # (0.0-0.7) K/uL Baso # (0.0-0.2) K/uL pCO2 (35-45) mm/Hg pO2 (80-100) mm/Hg HCO3 (21-28) mmol/L ABG pH (7.35-7.45) ABG Total CO2 (22-28) mmol/L ABG O2 Saturation (95-98) % ABG O2 Content (15-23) ML/dL ABG Base Excess (-2.0-3.0) mmol/L ABG Hemoglobin (11.7-17.4) g/dL ABG Carboxyhemoglobin (0.5-1.5) % POC ABG HHb (Measured) (0.0-5.0) % ABG Methemoglobin (0.0-3.0) % ABG O2 Capacity (16-24) mL/dL Heriberto Test A-a O2 Difference mm/Hg Hgb O2 Saturation (95.0-98.0) % Vent Mode Mechanical Rate FiO2 % Tidal Volume PEEP Sodium (132-148) mmol/l Potassium (3.6-5.0) MMOL/L Chloride (98-107) mmol/L Carbon Dioxide (22-30) mmol/L Anion Gap (10-20) BUN (7-17) mg/dl Creatinine (0.7-1.2) mg/dL Est GFR ( Amer) Est GFR (Non-Af Amer) POC Glucose (mg/dL) 203 H (65-110) mg/dL Random Glucose (65-105) mg/dL Lactic Acid (0.7-2.1) MMOL/L Calcium (8.4-10.2) mg/dL Total Bilirubin (0.2-1.3) mg/dl AST (14-36) U/L ALT (9-52) U/L Alkaline Phosphatase (38-126) U/L Total Protein (6.3-8.2) G/DL Albumin (3.5-5.0) g/dL Globulin (2.2-3.9) gm/dL Albumin/Globulin Ratio (1.0-2.1) Blood Type O POSITIVE Blood Type Confirm Antibody Screen Negative Crossmatch See Detail BBK History Checked No verified bt Laboratory Results - last 24 hr 11/15/16 11/16/16 11/16/16 12:51 13:45 14:14 WBC RBC Hgb Hct MCV MCH MCHC RDW Plt Count MPV Neut % (Auto) Lymph % (Auto) Kay % (Auto) Eos % (Auto) Baso % (Auto) Neut # Lymph # Kay # Eos # Baso # pCO2 pO2 HCO3 ABG pH ABG Total CO2 ABG O2 Saturation ABG O2 Content ABG Base Excess ABG Hemoglobin ABG Carboxyhemoglobin POC ABG HHb (Measured) ABG Methemoglobin ABG O2 Capacity Heriberto Test A-a O2 Difference Hgb O2 Saturation Vent Mode Mechanical Rate FiO2 Tidal Volume PEEP Sodium Potassium Chloride Carbon Dioxide Anion Gap BUN Creatinine Est GFR ( Amer) Est GFR (Non-Af Amer) POC Glucose (mg/dL) 203 H Random Glucose Lactic Acid Calcium Total Bilirubin AST ALT Alkaline Phosphatase Total Protein Albumin Globulin Albumin/Globulin Ratio Blood Type O POSITIVE Blood Type Confirm O POSITIVE Antibody Screen Negative Crossmatch See Detail BBK History Checked No verified bt 11/16/16 11/17/16 11/17/16 22:04 05:00 05:30 WBC 0.4 L* D RBC 2.57 L Hgb 8.4 L D Hct 24.7 L MCV 95.9 MCH 32.6 H MCHC 34.0 RDW 18.8 H Plt Count 112 L D MPV 7.6 Neut % (Auto) 37.8 L Lymph % (Auto) 46.3 H Kay % (Auto) 13.0 H Eos % (Auto) 2.9 Baso % (Auto) 0.0 Neut # 0.1 L Lymph # 0.2 L Kay # 0.0 Eos # 0.0 Baso # 0.0 pCO2 36 31 L pO2 114 H 143 H HCO3 21.8 21.5 ABG pH 7.37 7.41 ABG Total CO2 21.9 L 20.6 L ABG O2 Saturation 98.3 H 98.8 H ABG O2 Content 13.0 L 12.2 L ABG Base Excess -4.0 L -4.4 L ABG Hemoglobin 9.4 L 8.7 L ABG Carboxyhemoglobin 0.6 0.3 L POC ABG HHb (Measured) 1.7 1.2 ABG Methemoglobin 1.3 1.6 ABG O2 Capacity 13.2 L 12.3 L Heriberto Test Yes Yes A-a O2 Difference 554.0 531.0 Hgb O2 Saturation 96.4 96.9 Vent Mode Prvc(ac Mechanical Rate 12 12 FiO2 100.0 100.0 Tidal Volume 400 400 PEEP 5 5 Sodium Potassium Chloride Carbon Dioxide Anion Gap BUN Creatinine Est GFR ( Amer) Est GFR (Non-Af Amer) POC Glucose (mg/dL) Random Glucose Lactic Acid Calcium Total Bilirubin AST ALT Alkaline Phosphatase Total Protein Albumin Globulin Albumin/Globulin Ratio Blood Type Blood Type Confirm Antibody Screen Crossmatch BBK History Checked 11/17/16 11/17/16 05:30 08:30 WBC RBC Hgb Hct MCV MCH MCHC RDW Plt Count MPV Neut % (Auto) Lymph % (Auto) Kay % (Auto) Eos % (Auto) Baso % (Auto) Neut # Lymph # Kay # Eos # Baso # pCO2 pO2 HCO3 ABG pH ABG Total CO2 ABG O2 Saturation ABG O2 Content ABG Base Excess ABG Hemoglobin ABG Carboxyhemoglobin POC ABG HHb (Measured) ABG Methemoglobin ABG O2 Capacity Heriberto Test A-a O2 Difference Hgb O2 Saturation Vent Mode Mechanical Rate FiO2 Tidal Volume PEEP Sodium 139 Potassium 4.3 Chloride 109 H Carbon Dioxide 20 L Anion Gap 14 BUN 29 H Creatinine 1.6 H Est GFR ( Amer) 37 Est GFR (Non-Af Amer) 31 POC Glucose (mg/dL) Random Glucose 126 H Lactic Acid 1.4 Calcium 7.1 L Total Bilirubin 0.7 AST 56 H D ALT 46 Alkaline Phosphatase 49 Total Protein 4.9 L Albumin 2.1 L D Globulin 2.7 Albumin/Globulin Ratio 0.8 L Blood Type Blood Type Confirm Antibody Screen Crossmatch BBK History Checked Fingerstick Blood Sugar Results: 203 Review of Systems - Review of Systems All systems: reviewed and no additional remarkable complaints except (as above) Critical Care Progress Note - Ventilator Checklist Head of Bed 30 Degrees: Yes Daily Sedation Vacation: Yes Daily Assessment of Readiness to Wean: Yes Daily Spontaneous Breathing Trial: Yes PUD Prophalyxis: Yes DVT Prophylaxis: Yes Oral Care with Chlorhexidine Gluconate {CHG}: Yes - Vent Settings MODE:: ASSIST CONTROL TIDAL VOLUME:: 400 RESP RATE:: 12 FIO2:: 100 PEEP:: 5 - Extremities/Vascular Does the Patient have a Central Venous Catheter?: Yes Does the Patient need a Central Venous Catheter?: Yes Does the Patient have a [place] Catheter?: Yes Does the Patient need a [place] Catheter?: Yes Catheter Insertion Criteria: Need for accurate measurement of output in critically ill patient - Prophylaxis GI Prophylaxis GI: PPI - Prophylaxis DVT Prophylaxis DVT: SCDs - Nutrition Nutrition: Nutrition Category Date Time Status NPO Diet [DIET] Diets 11/16/16 Lunch Active
--- NOTE | 2016-11-17 14:18 | CP.PCM.PN ---
Subjective - Date & Time of Evaluation Date of Evaluation: 11/17/16 Time of Evaluation: 06:15 - Subjective Subjective: General Surgery- Dr. Oro Pt S&E at bedside this AM. Pt intubated, on 7.5mu of norepi, and on propofol drip. Pt agitated overnight. Currently responds to verbal stimuli. Tim drain serosang&bilious output. NGT in place on suction. Objective - Vital Signs/Intake and Output Vital Signs (last 24 hours): Temp Pulse Resp BP Pulse Ox 99.0 F 101 H 22 103/59 L 95 11/17/16 12:00 11/17/16 12:00 11/17/16 12:00 11/17/16 12:00 11/17/16 12:00 Intake and Output: 11/17/16 11/17/16 06:59 18:59 Intake Total 1744 0 Output Total 775 Balance 969 0 - Medications Medications: Current Medications Acetaminophen (Tylenol 650mg/20.3ml Solution Ud) 650 mg PO Q6 PRN PRN Reason: fever >100.4 Benzocaine/Menthol (Cepacol Sore Throat) 1 chantel PO Q2 PRN PRN Reason: Sore Throat Cyanocobalamin (Vitamin B12 1000 Mcg/Ml Inj) 1,000 mcg IM DAILY [facility] Last Admin: 11/17/16 08:25 Dose: 1,000 mcg Heparin Sodium (Porcine) (Heparin) 5,000 units SC Q12 MARGE PRN Reason: Protocol Last Admin: 11/17/16 08:23 Dose: 5,000 units Hydromorphone HCl (Dilaudid) 1 mg IVP Q4 PRN PRN Reason: Pain, severe (8-10) Last Admin: 11/16/16 20:37 Dose: 1 mg Hydromorphone HCl (Dilaudid) 0.5 mg IVP Q3 PRN PRN Reason: Pain, moderate (4-7) Last Admin: 11/17/16 11:40 Dose: 0.5 mg Piperacillin Sod/Tazobactam (Sod 3.375 gm/ Sodium Chloride) 100 mls @ 100 mls/ hr IVPB Q6 [facility] Last Admin: 11/17/16 10:53 Dose: 100 mls/hr Vancomycin HCl 1 gm/ Sodium (Chloride) 250 mls @ 166.667 mls/hr IVPB DAILY [facility] Last Admin: 11/17/16 08:24 Dose: 166.667 mls/hr Sodium Chloride (Sodium Chloride 0.9%) 1,000 mls @ 150 mls/hr IV .Q6H40M [facility] Stop: 11/18/16 00:50 Last Admin: 11/17/16 10:54 Dose: 150 mls/hr Metoclopramide HCl (Reglan) 10 mg IVP Q6 PRN PRN Reason: Nausea/Vomiting Pantoprazole Sodium (Protonix Inj) 40 mg IVP BID [facility] Last Admin: 11/17/16 08:24 Dose: 40 mg Silver Sulfadiazine (Silvadene 1% 50 Gm) 1 applic TOP BID [facility] Last Admin: 11/17/16 08:26 Dose: 1 applic - Labs Labs: 11/17/16 05:30 11/17/16 05:30 PT 10.5 Seconds (9.8-13.1) 11/15/16 13:05 INR 1.0 (0.9-1.2) 11/15/16 13:05 APTT 22.3 Seconds (25.6-37.1) L 11/15/16 13:05 - Constitutional Appears: No Acute Distress - Head Exam Head Exam: ATRAUMATIC - Eye Exam Eye Exam: absent: Scleral icterus - ENT Exam ENT Exam: Mucous Membranes Moist - Respiratory Exam Additional comments: Intubated on Vent - Cardiovascular Exam Cardiovascular Exam: +S1, +S2. absent: Bradycardia - GI/Abdominal Exam GI & Abdominal Exam: Soft. absent: Guarding, Rigid, Tenderness Additional comments: Dressing C/D/I Tim Drain- bilious output - Neurological Exam Neurological Exam: Alert, Awake - Skin Skin Exam: Normal Color Assessment and Plan - Assessment and Plan (Free Text) Assessment: 84F perforated duodenal ulcer s/p ex-lap w/ Mak Patch POD#1 Plan: - Keep NGT in place on low continuous suction - monitor drain output - strict I/O - plan for extubation today - medical management per ICU team - Abx recommendations per ID D/W Surgical attending Jose Greenwood PGY1
--- NOTE | 2016-11-17 14:35 | OP ---
PROCEDURE DATE: 11/16/2016 PREOPERATIVE DIAGNOSIS: Perforated duodenal ulcer. POSTOPERATIVE DIAGNOSIS: Perforated duodenal ulcer. OPERATION PERFORMED: Exploratory laparotomy, omental flap and Mak closure. SURGEON: Leodan Oro MD MARKER ASSEMBLER: Dr. Alonso. DRAINS: One large Tim. SPECIMEN: C and S and some vegetable fiber. ESTIMATED BLOOD LOSS: Minimal. COMPLICATIONS: Hypotension. DESCRIPTION OF PROCEDURE: In the operating room, the patient was identified by name, name of the procedure, laterality, my name, her name, number on wristband and my consent. An NG tube and Barakat were placed and the operation proceeded after intubation. The abdomen being prepped and draped, an upper midline incision was made through the skin and subcutaneous tissues, the abdomen entered. There was free fluid and a lot of muddy fluid in the right upper quadrant. Laps were placed and these were debrided as much as possible. The free perforation was found in the duodenum, second portion looks like superolateral. The area was cleaned, irrigated with Dakin solution half-strength and dried very nicely. The omental flap was then generated by stripping and off the omentum, placing it into the tube and eventually putting it into the right upper quadrant by the hole. The hole was cleaned. Vegetable material was removed from the duodenum. It was then approximated with silk, the hole was between a quarter and a dime; it was large and friable; would not take sutures really. The wounds were irrigated and dried. Approximately, 6 sutures of silk were placed. The omentum was placed over it and these sutures were tied to give a good seal. A Tim was placed laterally and sutured in place. It was trimmed and the tip was placed in the right upper quadrant. There was nothing else untoward; the liver was unremarkable. The pelvis was unremarkable. I could not feel adenopathy. There was stool in the colon. Incision was closed with running #1 PDS above and below and tied in the middle. The midline was closed over a [place] drain with arvind. At the end of the procedure, it was noted that the blood pressure was about 50, bolus of fluid and pressors were begun. Plan was to take the patient to the ICU if they would accept the patient, otherwise to recovery. Leodan Oro MD [facility] # [id number]
--- NOTE | 2016-11-17 14:49 | CP.PCM.PN ---
<Esperanza Lu - Last Filed: 11/17/16 14:47> Subjective - Date & Time of Evaluation Date of Evaluation: 11/17/16 Time of Evaluation: 12:00 - Subjective Subjective: Patient seen and examined bedside. Denies any new complaints. Labs and diagnostics reviewed. 10 point ROS negative Objective - Vital Signs/Intake and Output Vital Signs (last 24 hours): Temp Pulse Resp BP Pulse Ox 99.0 F 101 H 22 103/59 L 95 11/17/16 12:00 11/17/16 12:00 11/17/16 12:00 11/17/16 12:00 11/17/16 12:00 Intake and Output: 11/17/16 11/17/16 06:59 18:59 Intake Total 1744 0 Output Total 775 Balance 969 0 - Medications Medications: Current Medications Acetaminophen (Tylenol 650mg/20.3ml Solution Ud) 650 mg PO Q6 PRN PRN Reason: fever >100.4 Benzocaine/Menthol (Cepacol Sore Throat) 1 chantel PO Q2 PRN PRN Reason: Sore Throat Cyanocobalamin (Vitamin B12 1000 Mcg/Ml Inj) 1,000 mcg IM DAILY [facility] Last Admin: 11/17/16 08:25 Dose: 1,000 mcg Heparin Sodium (Porcine) (Heparin) 5,000 units SC Q12 [facility]GE PRN Reason: Protocol Last Admin: 11/17/16 08:23 Dose: 5,000 units Hydromorphone HCl (Dilaudid) 1 mg IVP Q4 PRN PRN Reason: Pain, severe (8-10) Last Admin: 11/16/16 20:37 Dose: 1 mg Hydromorphone HCl (Dilaudid) 0.5 mg IVP Q3 PRN PRN Reason: Pain, moderate (4-7) Last Admin: 11/17/16 11:40 Dose: 0.5 mg Vancomycin HCl 1 gm/ Sodium (Chloride) 250 mls @ 166.667 mls/hr IVPB DAILY [facility] Last Admin: 11/17/16 08:24 Dose: 166.667 mls/hr Sodium Chloride (Sodium Chloride 0.9%) 1,000 mls @ 150 mls/hr IV .Q6H40M [facility] Stop: 11/18/16 00:50 Last Admin: 11/17/16 10:54 Dose: 150 mls/hr Fluconazole (Diflucan Iv 100 Mg/50 Ml Ns) 50 mls @ 50 mls/hr IVPB DAILY [facility] Meropenem 500 mg/ Sodium (Chloride) 100 mls @ 100 mls/hr IVPB Q8 [facility] Metoclopramide HCl (Reglan) 10 mg IVP Q6 PRN PRN Reason: Nausea/Vomiting Pantoprazole Sodium (Protonix Inj) 40 mg IVP BID [facility] Last Admin: 11/17/16 08:24 Dose: 40 mg Silver Sulfadiazine (Silvadene 1% 50 Gm) 1 applic TOP BID [facility] Last Admin: 11/17/16 08:26 Dose: 1 applic - Labs Labs: 11/17/16 05:30 11/17/16 05:30 PT 10.5 Seconds (9.8-13.1) 11/15/16 13:05 INR 1.0 (0.9-1.2) 11/15/16 13:05 APTT 22.3 Seconds (25.6-37.1) L 11/15/16 13:05 - Constitutional Appears: Well, No Acute Distress - Head Exam Head Exam: ATRAUMATIC, NORMOCEPHALIC - Eye Exam Eye Exam: Normal appearance - ENT Exam ENT Exam: Mucous Membranes Moist, Normal Exam - Respiratory Exam Respiratory Exam: Clear to Ausculation Bilateral, NORMAL BREATHING PATTERN. absent: Rales, Rhonchi, Wheezes, Respiratory Distress - Cardiovascular Exam Cardiovascular Exam: REGULAR RHYTHM, +S1, +S2 - GI/Abdominal Exam GI & Abdominal Exam: Soft, Normal Bowel Sounds. 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 Patient found to have duodenal perforation s/p ex lap with wendy patch 1. Duodenal perforation s/p ex lap with wendy patch 2. Gastric Outlet Obstruction, resolved 3. Duodenal inflammation 4. Neutropenia, on chemo 5. Vulvar Ca Plan: -advance diet as tolerated as per surgery -continue abx as per primary team -hem/onc consulted -will not recommend endoscopy at this time -continue management as per surgery -will sign off for now -reconsult if needed Augusta Campos <Beth CEDEÑO,Daniel - Last Filed: 11/17/16 18:00> Objective - Vital Signs/Intake and Output Vital Signs (last 24 hours): Temp Pulse Resp BP Pulse Ox 99.0 F 129 H 26 H 126/75 98 11/17/16 12:00 11/17/16 17:00 11/17/16 17:00 11/17/16 17:00 11/17/16 17:00 Intake and Output: 11/17/16 11/17/16 06:59 18:59 Intake Total 1744 650 Output Total 775 850 Balance 969 -200 - Medications Medications: Current Medications Acetaminophen (Tylenol 650mg/20.3ml Solution Ud) 650 mg PO Q6 PRN PRN Reason: fever >100.4 Benzocaine/Menthol (Cepacol Sore Throat) 1 chantel PO Q2 PRN PRN Reason: Sore Throat Cyanocobalamin (Vitamin B12 1000 Mcg/Ml Inj) 1,000 mcg IM DAILY [facility] Last Admin: 11/17/16 08:25 Dose: 1,000 mcg Heparin Sodium (Porcine) (Heparin) 5,000 units SC Q12 [facility]GE PRN Reason: Protocol Last Admin: 11/17/16 08:23 Dose: 5,000 units Hydromorphone HCl (Dilaudid) 1 mg IVP Q4 PRN PRN Reason: Pain, severe (8-10) Last Admin: 11/16/16 20:37 Dose: 1 mg Hydromorphone HCl (Dilaudid) 0.5 mg IVP Q3 PRN PRN Reason: Pain, moderate (4-7) Last Admin: 11/17/16 14:51 Dose: 0.5 mg Vancomycin HCl 1 gm/ Sodium (Chloride) 250 mls @ 166.667 mls/hr IVPB DAILY [facility] Last Admin: 11/17/16 08:24 Dose: 166.667 mls/hr Sodium Chloride (Sodium Chloride 0.9%) 1,000 mls @ 150 mls/hr IV .Q6H40M [facility] Stop: 11/18/16 00:50 Last Admin: 11/17/16 10:54 Dose: 150 mls/hr Fluconazole (Diflucan Iv 100 Mg/50 Ml Ns) 50 mls @ 50 mls/hr IVPB DAILY [facility] Last Admin: 11/17/16 16:35 Dose: 50 mls/hr Meropenem 500 mg/ Sodium (Chloride) 100 mls @ 100 mls/hr IVPB Q8 [facility] Last Admin: 11/17/16 16:34 Dose: 100 mls/hr Metoclopramide HCl (Reglan) 10 mg IVP Q6 PRN PRN Reason: Nausea/Vomiting Pantoprazole Sodium (Protonix Inj) 40 mg IVP BID [facility] Last Admin: 11/17/16 16:38 Dose: 40 mg Silver Sulfadiazine (Silvadene 1% 50 Gm) 1 applic TOP BID [facility] Last Admin: 11/17/16 16:26 Dose: 1 applic - Labs Labs: 11/17/16 05:30 11/17/16 05:30 PT 10.5 Seconds (9.8-13.1) 11/15/16 13:05 INR 1.0 (0.9-1.2) 11/15/16 13:05 APTT 22.3 Seconds (25.6-37.1) L 11/15/16 13:05 Attending/Attestation - Attestation I have personally seen and examined this patient.: Yes I have fully participated in the care of the patient.: Yes I have reviewed all pertinent clinical information, including history, physical exam and plan: Yes Notes (Text): 11/17/16 17:58 Patient seen and examined with GI fellow on rounds. 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 Neutropenia on precautions and neupogen. Diet as per surgery. No further GI work up required. Continue antibiotics. Will sign off for now. Thank you for letting us participate in the care of your patient
--- NOTE | 2016-11-17 15:21 | PN ---
DATE: 11/17/2016 SUBJECTIVE: The patient is seen and examined. Interim events noted. Consults noted and appreciated. Surgery and gastroenterology followup and intervention noted and appreciated. Case was discussed with executive pastry chef yesterday. The patient underwent exploratory laparotomy. The patient remains in intensive care unit, on mechanical ventilation, in SIRS isolation. The patient is awake and responsive. The patient complains of abdominal pain and discomfort from ventilator and restraints, but no chest pain, no shortness of breath. REVIEW OF SYSTEMS: Otherwise is unremarkable. PHYSICAL EXAMINATION: GENERAL: The patient is orally intubated, on mechanical ventilation via endotracheal tube, tolerating current vent setting without any acute respiratory distress. VITAL SIGNS: Temperature 98, pulse 102, respiration 18, blood pressure 127/71, saturations 100%. HEENT: Endotracheal tube is in good position. HEART: S1, S2, normal and regular. LUNGS: Good bilateral air exchange. Occasional transmitted ventilator sound. ABDOMEN: Status post surgery. No sign of acute complication. EXTREMITIES: No edema, no calf swelling, no tenderness, no acute ischemia. HUMAN SERVICES MANAGER: Essentially unchanged. LABORATORY DATA: Available diagnostic data reviewed. Telemetry shows occasional sinus tachycardia. WBC 0.4, hemoglobin 8.4., hematocrit 24.7, platelet 112. ABG shows pH 7.41, pCO2 of 20.6, pO2 of 98, saturation 98%, 143. Sodium 139, potassium 4.3, chloride 109, bicarbonate 20, BUN 29, creatinine 0.6. SMA-12 is unremarkable except for albumin of 2.1. Blood cultures remain negative. Chest x-ray today morning, official report is pending, poor AP view. ET tube seems to be in good position. No active infiltrates identified. ASSESSMENT AND PLAN: Overall, the patient's general medical condition is critically sick, but hemodynamically stable. Plan as ordered. Case and plan discussed with the patient. Russ Taylor MD
[2016-11-17] MEDS: Meropenem 500 MG in Sodium Chloride 0.9% 100 ML IVPB SCH (16:34)
[2016-11-17] MEDS: Fluconazole IV 100mg/50 ml NS 50 ML IVPB SCH (16:35)
[2016-11-18] MEDS: Meropenem 500 MG in Sodium Chloride 0.9% 100 ML IVPB SCH ×3 (01:44→16:56)
[2016-11-18] MEDS: HYDROmorphone 0.5 mg/0.5 ml ISec IVP PRN (06:00)
[2016-11-18 06:52] LABS: BASO % 0.2 % (0.0-2.0); EOS % 1.2 % (0.0-4.0); HEMATOCRIT 23.3 % (34.0-47.0); LYMPH # 0.2 K/uL (1.0-4.3); LYMPH % 35.3 % (20.0-40.0); MEAN CELL VOLUME 96.5 fl (81.0-99.0); MEAN CORPUSCULAR HEMOGLOBIN 31.9 pg (27.0-31.0); MEAN CORPUSCULAR HGB CONC 33.1 g/dL (33.0-37.0); MEAN PLATELET VOLUME 8.3 fl (7.2-11.7); MONO # 0.1 K/uL (0.0-0.8); MONO % 17.4 % (0.0-10.0); NEUT # 0.2 K/uL (1.8-7.0); NEUT % 45.9 % (50.0-75.0); NRBC % 0.1 % (0.0-0.0); RED CELL DISTRIBUTION WIDTH 19.5 % (11.5-14.5)
[2016-11-18 07:08] LABS: ALB/GLOB RATIO 0.8 (1.0-2.1); BILIRUBIN,TOTAL 0.6 mg/dl (0.2-1.3); CALCIUM 7.4 mg/dL (8.4-10.2); POTASSIUM 3.8 MMOL/L (3.6-5.0); TOTAL PROTEIN 5.4 G/DL (6.3-8.2)
[2016-11-18 08:01] LABS: WHITE BLOOD COUNT 0.5 K/uL (4.8-10.8)
--- NOTE | 2016-11-18 08:24 | CP.CCUPN ---
CCU Subjective - Physician Review Events Since Last Encounter (Free Text): 11/18/16 08:17 Patient awake, on O2 supplement, no distress, no fever, follow commands, events reviewed CCU Objective - Vital Signs / Intake & Output Vital Signs (Last 4 hours): Vital Signs Pulse Resp BP Pulse Ox 11/18/16 06:00 111 H 14 138/79 97 Intake and Output (Last 8hrs): Intake & Output 11/17/16 11/18/16 11/18/16 22:59 06:59 14:59 Intake Total 150 100 Output Total 925 1880 Balance -775 -1780 Intake: IV 150 Intake, Piggyback 100 Output: Gastric Amount 50 Right Nares 50 Drainage 75 30 Right Upper Abdomen 75 30 Urine 850 1800 Urethral ([place]) 850 1800 - Physical Exam Head: Positive for: Normocephalic Pupils: Positive for: PERRL Extroacular Muscles: Positive for: EOMI Conjunctiva: Positive for: Normal. Negative for: Icteric Mouth: Positive for: Moist Mucous Membranes Neck: Positive for: Normal Range of Motion. Negative for: Meningeal Signs, JVD Respiratory/Chest: Positive for: Clear to Auscultation, Rhonchi (few). Negative for: Accessory Muscle Use, Rales Cardiovascular: Positive for: Regular Rate and Rhythm. Negative for: Murmurs, Rub Abdomen: Positive for: Distention. Negative for: Tenderness, Normal Bowel Sounds (not audible) Neurological: Positive for: GCS=15, CN II-XII Intact, Motor Func Grossly Intact , Normal Sensory Function Skin: Positive for: Warm. Negative for: Rashes Psychiatric: Positive for: Alert, Oriented x 3, Normal Concentration, Normal Affect - Medications Active Medications: Active Medications Generic Name Dose Route Start Last Admin Trade Name Freq PRN Reason Stop Dose Admin Acetaminophen 650 mg 11/15/16 20:27 Tylenol 650mg/20.3ml Solution Ud PO Q6 PRN fever >100.4 Benzocaine/Menthol 1 chantel 11/16/16 07:55 Cepacol Sore Throat PO Q2 PRN Sore Throat Cyanocobalamin 1,000 mcg 11/16/16 09:00 11/17/16 08:25 Vitamin B12 1000 Mcg/Ml Inj IM 1,000 mcg DAILY [facility] Administration Heparin Sodium (Porcine) 5,000 units 11/16/16 21:00 11/17/16 20:01 Heparin SC 5,000 units Q12 MARGE Administration Protocol Hydromorphone HCl 0.5 mg 11/16/16 18:53 11/17/16 14:51 Dilaudid IVP 0.5 mg Q3 PRN Administration Pain, moderate (4-7) Hydromorphone HCl 1 mg 11/18/16 06:00 Dilaudid IVP Q4 PRN Pain, severe (8-10) Vancomycin HCl 1 gm/ Sodium 250 mls @ 166.667 mls/hr 11/16/16 09:00 11/17/16 08:24 Chloride IVPB 166.667 mls/hr DAILY [facility] Administration Fluconazole 50 mls @ 50 mls/hr 11/17/16 14:30 11/17/16 16:35 Diflucan Iv 100 Mg/50 Ml Ns IVPB 50 mls/hr DAILY [facility] Administration Meropenem 500 mg/ Sodium 100 mls @ 100 mls/hr 11/17/16 17:00 11/18/16 01:44 Chloride IVPB 100 mls/hr Q8 [facility] Administration Metoclopramide HCl 10 mg 11/15/16 18:50 Reglan IVP Q6 PRN Nausea/Vomiting Pantoprazole Sodium 40 mg 11/17/16 09:00 11/17/16 16:38 Protonix Inj IVP 40 mg BID [facility] Administration Silver Sulfadiazine 1 applic 11/16/16 09:00 11/17/16 16:26 Silvadene 1% 50 Gm TOP 1 applic BID [facility]GE Administration - Patient Studies Lab Studies: Microbiology Studies 11/16/16 20:00 Gram Stain - Final Other: Please Indicate Wound Culture - Preliminary Gram Negative Alvin 11/16/16 20:00 Gram Stain - Final Other: Please Indicate Wound Culture - Preliminary Gram Negative Alvin 11/15/16 23:30 Urine Culture - Final Urine,Catheterized No Growth (<1,000 CFU/ML) 11/15/16 13:20 Blood Culture - Preliminary Blood NO GROWTH AFTER 48 HOURS 11/15/16 13:05 Blood Culture - Preliminary Blood NO GROWTH AFTER 48 HOURS Lab Studies 11/18/16 11/18/16 11/17/16 Range/Units 05:30 05:30 08:30 WBC 0.5 L* (4.8-10.8) K/uL RBC 2.41 L (3.80-5.20) Mil/uL Hgb 7.7 L (12.0-16.0) g/dL Hct 23.3 L (34.0-47.0) % MCV 96.5 (81.0-99.0) fl MCH 31.9 H (27.0-31.0) pg MCHC 33.1 (33.0-37.0) g/dL RDW 19.5 H (11.5-14.5) % Plt Count 87 L D (130-400) K/uL MPV 8.3 (7.2-11.7) fl Neut % (Auto) 45.9 L (50.0-75.0) % Lymph % (Auto) 35.3 (20.0-40.0) % Rusk % (Auto) 17.4 H (0.0-10.0) % Eos % (Auto) 1.2 (0.0-4.0) % Baso % (Auto) 0.2 (0.0-2.0) % Neut # 0.2 L (1.8-7.0) K/uL Lymph # 0.2 L (1.0-4.3) K/uL Rusk # 0.1 (0.0-0.8) K/uL Eos # 0.0 (0.0-0.7) K/uL Baso # 0.0 (0.0-0.2) K/uL Sodium 145 (132-148) mmol/l Potassium 3.8 (3.6-5.0) MMOL/L Chloride 111 H (98-107) mmol/L Carbon Dioxide 20 L (22-30) mmol/L Anion Gap 18 (10-20) BUN 26 H (7-17) mg/dl Creatinine 1.7 H (0.7-1.2) mg/dL Est GFR ( Amer) 35 Est GFR (Non-Af Amer) 29 Random Glucose 88 (65-105) mg/dL Lactic Acid 1.4 (0.7-2.1) MMOL/L Calcium 7.4 L (8.4-10.2) mg/dL Total Bilirubin 0.6 (0.2-1.3) mg/dl AST 32 (14-36) U/L ALT 44 (9-52) U/L Alkaline Phosphatase 66 (38-126) U/L Total Protein 5.4 L (6.3-8.2) G/DL Albumin 2.4 L (3.5-5.0) g/dL Globulin 3.0 (2.2-3.9) gm/dL Albumin/Globulin Ratio 0.8 L (1.0-2.1) Laboratory Results - last 24 hr 11/17/16 11/18/16 11/18/16 08:30 05:30 05:30 WBC 0.5 L* RBC 2.41 L Hgb 7.7 L Hct 23.3 L MCV 96.5 MCH 31.9 H MCHC 33.1 RDW 19.5 H Plt Count 87 L D MPV 8.3 Neut % (Auto) 45.9 L Lymph % (Auto) 35.3 Rusk % (Auto) 17.4 H Eos % (Auto) 1.2 Baso % (Auto) 0.2 Neut # 0.2 L Lymph # 0.2 L Rusk # 0.1 Eos # 0.0 Baso # 0.0 Sodium 145 Potassium 3.8 Chloride 111 H Carbon Dioxide 20 L Anion Gap 18 BUN 26 H Creatinine 1.7 H Est GFR ( Amer) 35 Est GFR (Non-Af Amer) 29 Random Glucose 88 Lactic Acid 1.4 Calcium 7.4 L Total Bilirubin 0.6 AST 32 ALT 44 Alkaline Phosphatase 66 Total Protein 5.4 L Albumin 2.4 L Globulin 3.0 Albumin/Globulin Ratio 0.8 L Fingerstick Blood Sugar Results: 203 Critical Care Progress Note - Nutrition Nutrition: Nutrition Category Date Time Status NPO Diet [DIET] Diets 11/16/16 Lunch Active Assessment/Plan - Assessment and Plan (Free Text) Assessment: A/P S/P ex lap, perforated ulcer, neutropenic sepsis, ?vasovagal syncopy, vulvular ca s/p chemotherapy/radiation, throbocytopenia, anemia, FERMIN - Continue meds - surgery follow up - Hematology follow up - Follow up cultures - O2 supplement
[2016-11-18] MEDS: Silver Sulfadiazine 1% CREAM (50 gm) TOP SCH ×2 (08:50→16:54)
[2016-11-18] MEDS: Fluconazole IV 100mg/50 ml NS 50 ML IVPB SCH (09:33)
--- NOTE | 2016-11-18 09:57 | CP.PCM.PN ---
Subjective - Date & Time of Evaluation Date of Evaluation: 11/17/16 Time of Evaluation: 20:00 - Subjective Subjective: Vented s/p ex lap, found to have duodenal ulcer perforation s/p Mak closure Objective - Vital Signs/Intake and Output Vital Signs (last 24 hours): Temp Pulse Resp BP Pulse Ox 97.7 F 103 H 12 137/69 97 11/18/16 08:00 11/18/16 08:00 11/18/16 08:00 11/18/16 08:00 11/18/16 08:00 Intake and Output: 11/18/16 11/18/16 06:59 18:59 Intake Total 100 Output Total 1955 Balance -1855 - Medications Medications: Current Medications Acetaminophen (Tylenol 650mg/20.3ml Solution Ud) 650 mg PO Q6 PRN PRN Reason: fever >100.4 Benzocaine/Menthol (Cepacol Sore Throat) 1 chantel PO Q2 PRN PRN Reason: Sore Throat Cyanocobalamin (Vitamin B12 1000 Mcg/Ml Inj) 1,000 mcg IM DAILY [facility] Last Admin: 11/18/16 08:46 Dose: 1,000 mcg Heparin Sodium (Porcine) (Heparin) 5,000 units SC Q12 MARGE PRN Reason: Protocol Last Admin: 11/18/16 08:43 Dose: 5,000 units Hydromorphone HCl (Dilaudid) 0.5 mg IVP Q3 PRN PRN Reason: Pain, moderate (4-7) Last Admin: 11/17/16 14:51 Dose: 0.5 mg Hydromorphone HCl (Dilaudid) 1 mg IVP Q4 PRN PRN Reason: Pain, severe (8-10) Vancomycin HCl 1 gm/ Sodium (Chloride) 250 mls @ 166.667 mls/hr IVPB DAILY [facility] Last Admin: 11/17/16 08:24 Dose: 166.667 mls/hr Fluconazole (Diflucan Iv 100 Mg/50 Ml Ns) 50 mls @ 50 mls/hr IVPB DAILY [facility] Last Admin: 11/18/16 09:33 Dose: 50 mls/hr Meropenem 500 mg/ Sodium (Chloride) 100 mls @ 100 mls/hr IVPB Q8 [facility] Last Admin: 11/18/16 08:41 Dose: 100 mls/hr Metoclopramide HCl (Reglan) 10 mg IVP Q6 PRN PRN Reason: Nausea/Vomiting Pantoprazole Sodium (Protonix Inj) 40 mg IVP BID [facility] Last Admin: 11/18/16 08:40 Dose: 40 mg Silver Sulfadiazine (Silvadene 1% 50 Gm) 1 applic TOP BID [facility] Last Admin: 11/18/16 08:50 Dose: 1 applic - Labs Labs: 11/18/16 05:30 11/18/16 05:30 PT 10.5 Seconds (9.8-13.1) 11/15/16 13:05 INR 1.0 (0.9-1.2) 11/15/16 13:05 APTT 22.3 Seconds (25.6-37.1) L 11/15/16 13:05 - Head Exam Head Exam: ATRAUMATIC - Eye Exam Eye Exam: Normal appearance - ENT Exam ENT Exam: Mucous Membranes Dry - Respiratory Exam Respiratory Exam: NORMAL BREATHING PATTERN - Cardiovascular Exam Cardiovascular Exam: +S1, +S2 - GI/Abdominal Exam GI & Abdominal Exam: Normal Bowel Sounds Assessment and Plan (1) Pancytopenia Assessment & Plan: secondary to chemotherapy on daily Granix for severe neutropenia; goal ANC > 500 transfusion support PRN antibiotics per ID Status: Acute (2) Vulvar cancer Assessment & Plan: outpatient treatment with primary oncologic team Status: Chronic
--- NOTE | 2016-11-18 13:02 | CP.PCM.PN ---
Subjective - Date & Time of Evaluation Date of Evaluation: 11/18/16 Time of Evaluation: 11:00 - Subjective Subjective: General Surgery- Dr. Oro Pt S&E at bedside. No acute events overnight. Pt extubated yesterday. NGT in place on suction, minimal output. On sips & chips. AAO to person and place. Tim drain bilious and serous fluid. Denies N/V/D F/C and pt is hungry. Objective - Vital Signs/Intake and Output Vital Signs (last 24 hours): Temp Pulse Resp BP Pulse Ox 97.5 F L 88 19 169/87 H 99 11/18/16 12:00 11/18/16 12:00 11/18/16 12:00 11/18/16 12:00 11/18/16 12:00 Intake and Output: 11/18/16 11/18/16 06:59 18:59 Intake Total 100 350 Output Total 1955 Balance -1855 350 - Medications Medications: Current Medications Acetaminophen (Tylenol 650mg/20.3ml Solution Ud) 650 mg PO Q6 PRN PRN Reason: fever >100.4 Benzocaine/Menthol (Cepacol Sore Throat) 1 chantel PO Q2 PRN PRN Reason: Sore Throat Cyanocobalamin (Vitamin B12 1000 Mcg/Ml Inj) 1,000 mcg IM DAILY [facility] Last Admin: 11/18/16 08:46 Dose: 1,000 mcg Heparin Sodium (Porcine) (Heparin) 5,000 units SC Q12 [facility] PRN Reason: Protocol Last Admin: 11/18/16 08:43 Dose: 5,000 units Hydromorphone HCl (Dilaudid) 0.5 mg IVP Q3 PRN PRN Reason: Pain, moderate (4-7) Last Admin: 11/17/16 14:51 Dose: 0.5 mg Hydromorphone HCl (Dilaudid) 1 mg IVP Q4 PRN PRN Reason: Pain, severe (8-10) Vancomycin HCl 1 gm/ Sodium (Chloride) 250 mls @ 166.667 mls/hr IVPB DAILY [facility] Last Admin: 11/18/16 11:30 Dose: 166.667 mls/hr Fluconazole (Diflucan Iv 100 Mg/50 Ml Ns) 50 mls @ 50 mls/hr IVPB DAILY [facility] Last Admin: 11/18/16 09:33 Dose: 50 mls/hr Meropenem 500 mg/ Sodium (Chloride) 100 mls @ 100 mls/hr IVPB Q8 [facility] Last Admin: 11/18/16 08:41 Dose: 100 mls/hr Metoclopramide HCl (Reglan) 10 mg IVP Q6 PRN PRN Reason: Nausea/Vomiting Pantoprazole Sodium (Protonix Inj) 40 mg IVP BID [facility] Last Admin: 11/18/16 08:40 Dose: 40 mg Silver Sulfadiazine (Silvadene 1% 50 Gm) 1 applic TOP BID [facility] Last Admin: 11/18/16 08:50 Dose: 1 applic - Labs Labs: 11/18/16 05:30 11/18/16 05:30 PT 10.5 Seconds (9.8-13.1) 11/15/16 13:05 INR 1.0 (0.9-1.2) 11/15/16 13:05 APTT 22.3 Seconds (25.6-37.1) L 11/15/16 13:05 - Constitutional Appears: Non-toxic, No Acute Distress - Head Exam Additional comments: resting head tyrese - Eye Exam Eye Exam: EOMI. absent: Scleral icterus - Respiratory Exam Respiratory Exam: NORMAL BREATHING PATTERN. absent: Accessory Muscle Use, Respiratory Distress - Cardiovascular Exam Cardiovascular Exam: absent: Bradycardia, Tachycardia - GI/Abdominal Exam GI & Abdominal Exam: Soft, Tenderness Additional comments: dressing changed at bedside. Incision and dressing C/D/I - Neurological Exam Neurological Exam: Alert, Awake - Skin Skin Exam: Normal Color, Warm Assessment and Plan - Assessment and Plan (Free Text) Assessment: 86F perforated duodenal ulcer s/p ex-lap w/ Mak Patch POD#2 Plan: - NGT in place on low continuous suction - monitor drain output - strict I/O - medical management per ICU team - Abx recommendations per ID D/W Surgical attending Jose Greenwood PGY1
--- NOTE | 2016-11-18 18:40 | PN ---
DATE: 11/18/2016 SUBJECTIVE: The patient is seen and examined. Interim events noted. Consults noted and appreciated. The patient remains in intensive care unit, now extubated, tolerating without any problems. Denies any specific complaint of chest pain or shortness of breath. Complains of much better than the abdominal pain on admission. PHYSICAL EXAMINATION GENERAL: The patient remains in intensive care unit on Ventimask, tolerating current setting without any acute respiratory distress. VITAL SIGNS: Stable. HEART: S1, S2, normal, regular. Occasional extra beat. LUNGS: Good bilateral air exchange. ABDOMEN: Soft, nontender. There is no sign of acute complication on abdomen. No guarding. No rigidity. No rebound. EXTREMITIES: No edema. No calf swelling or tenderness. No acute ischemia. CENTRAL NERVOUS SYSTEM: Essentially unchanged. DIAGNOSTIC DATA: Available diagnostic data reviewed. Telemetry monitoring shows occasional periods of trigeminy and bigeminy. IMPRESSION: Overall, the patient's general medical condition is slowly improving, tolerated extubation very well. PLAN: As ordered. Russ Taylor MD
[2016-11-19] MEDS: Meropenem 500 MG in Sodium Chloride 0.9% 100 ML IVPB SCH ×3 (02:15→17:16)
[2016-11-19 05:13] LABS: BASO % 0.2 % (0.0-2.0); EOS % 1.3 % (0.0-4.0); HEMATOCRIT 21.8 % (34.0-47.0); LYMPH # 0.2 K/uL (1.0-4.3); LYMPH % 21.8 % (20.0-40.0); MEAN CELL VOLUME 95.2 fl (81.0-99.0); MEAN CORPUSCULAR HEMOGLOBIN 31.8 pg (27.0-31.0); MEAN CORPUSCULAR HGB CONC 33.4 g/dL (33.0-37.0); MEAN PLATELET VOLUME 8.3 fl (7.2-11.7); MONO # 0.1 K/uL (0.0-0.8); MONO % 16.2 % (0.0-10.0); NEUT # 0.5 K/uL (1.8-7.0); NEUT % 60.5 % (50.0-75.0); NRBC % 0.1 % (0.0-0.0); RED CELL DISTRIBUTION WIDTH 18.9 % (11.5-14.5)
[2016-11-19 05:20] LABS: WHITE BLOOD COUNT 0.8 K/uL (4.8-10.8)
[2016-11-19 05:27] LABS: ALB/GLOB RATIO 0.9 (1.0-2.1); BILIRUBIN,TOTAL 0.6 mg/dl (0.2-1.3); CALCIUM 7.8 mg/dL (8.4-10.2); POTASSIUM 3.4 MMOL/L (3.6-5.0); TOTAL PROTEIN 5.3 G/DL (6.3-8.2)
[2016-11-19] MEDS: Silver Sulfadiazine 1% CREAM (50 gm) TOP SCH ×2 (08:16→16:23)
--- NOTE | 2016-11-19 09:11 | CP.PCM.PN ---
Subjective - Date & Time of Evaluation Date of Evaluation: 11/19/16 Time of Evaluation: 09:08 - Subjective Subjective: Surgery: Dr. Oro Patient remains in ICU. Appears better today. She is conversant. Denies pain in her abdomen. She reports being OOB to chair yesterday. Per nursing no acute events overnight. Objective - Vital Signs/Intake and Output Vital Signs (last 24 hours): Temp Pulse Resp BP Pulse Ox 97.5 F L 88 18 137/75 97 11/19/16 08:00 11/19/16 08:00 11/19/16 08:00 11/19/16 08:00 11/19/16 08:00 Intake and Output: 11/19/16 11/19/16 06:59 18:59 Intake Total 100 Output Total 860 Balance -760 - Medications Medications: Current Medications Acetaminophen (Tylenol 650mg/20.3ml Solution Ud) 650 mg PO Q6 PRN PRN Reason: fever >100.4 Benzocaine/Menthol (Cepacol Sore Throat) 1 chantel PO Q2 PRN PRN Reason: Sore Throat Cyanocobalamin (Vitamin B12 1000 Mcg/Ml Inj) 1,000 mcg IM DAILY [facility] Last Admin: 11/19/16 08:15 Dose: 1,000 mcg Heparin Sodium (Porcine) (Heparin) 5,000 units SC Q12 [facility] PRN Reason: Protocol Last Admin: 11/18/16 22:17 Dose: 5,000 units Hydromorphone HCl (Dilaudid) 0.5 mg IVP Q3 PRN PRN Reason: Pain, moderate (4-7) Last Admin: 11/17/16 14:51 Dose: 0.5 mg Hydromorphone HCl (Dilaudid) 1 mg IVP Q4 PRN PRN Reason: Pain, severe (8-10) Vancomycin HCl 1 gm/ Sodium (Chloride) 250 mls @ 166.667 mls/hr IVPB DAILY [facility] Last Admin: 11/18/16 11:30 Dose: 166.667 mls/hr Fluconazole (Diflucan Iv 100 Mg/50 Ml Ns) 50 mls @ 50 mls/hr IVPB DAILY [facility] Last Admin: 11/18/16 09:33 Dose: 50 mls/hr Meropenem 500 mg/ Sodium (Chloride) 100 mls @ 100 mls/hr IVPB Q8 [facility] Last Admin: 11/19/16 08:16 Dose: 100 mls/hr Potassium Chloride/Dextrose/Sod Cl (Potassium Chl 20 Meq In D5-1/2ns) 1,000 mls @ 75 mls/hr IV .[id number] [facility] Stop: 11/20/16 07:30 Metoclopramide HCl (Reglan) 10 mg IVP Q6 PRN PRN Reason: Nausea/Vomiting Pantoprazole Sodium (Protonix Inj) 40 mg IVP BID [facility] Last Admin: 11/18/16 16:54 Dose: 40 mg Silver Sulfadiazine (Silvadene 1% 50 Gm) 1 applic TOP BID [facility] Last Admin: 11/19/16 08:16 Dose: 1 applic - Labs Labs: 11/19/16 04:20 11/19/16 04:20 PT 10.5 Seconds (9.8-13.1) 11/15/16 13:05 INR 1.0 (0.9-1.2) 11/15/16 13:05 APTT 22.3 Seconds (25.6-37.1) L 11/15/16 13:05 - Constitutional Appears: Non-toxic, No Acute Distress - Head Exam Head Exam: ATRAUMATIC, NORMOCEPHALIC - Eye Exam Eye Exam: EOMI, Normal appearance - ENT Exam ENT Exam: Mucous Membranes Moist Additional comments: NGT w/ 150cc bilious output overnight - Respiratory Exam Respiratory Exam: NORMAL BREATHING PATTERN. absent: Respiratory Distress - Cardiovascular Exam Cardiovascular Exam: REGULAR RHYTHM. absent: Tachycardia - GI/Abdominal Exam GI & Abdominal Exam: Soft, Tenderness (diffusely mildly tender). absent: Guarding, Rebound Additional comments: midline incision CDI w/ staple closure and samy drain in place Tim drain with bilious output - Neurological Exam Neurological Exam: Alert, Awake - Psychiatric Exam Psychiatric exam: Normal Affect, Normal Mood - Skin Skin Exam: Dry, Normal Color, Warm Assessment and Plan - Assessment and Plan (Free Text) Assessment: 86 y/o male w/ perforated duodenum s/p ex lap w/ Mak patch POD3 Plan: -cont NGT on suction -monitor drain output, if output no longer bilious will consider NGT removal -cont IVFs, rec D51/2NS w/ 20K+ -NPO -pending progression w/ pancytopenia, may consider parental nutrition -encourage OOB and IS use - d/w Dr. Oro and ICU team AKWhite PGY3
--- NOTE | 2016-11-19 09:49 | CP.PCM.PN ---
Subjective - Date & Time of Evaluation Date of Evaluation: 11/19/16 Time of Evaluation: 09:25 - Subjective Subjective: Feeling better on neutropenic precautions Objective - Vital Signs/Intake and Output Vital Signs (last 24 hours): Temp Pulse Resp BP Pulse Ox 97.5 F L 88 18 137/75 97 11/19/16 08:00 11/19/16 08:00 11/19/16 08:00 11/19/16 08:00 11/19/16 08:00 Intake and Output: 11/19/16 11/19/16 06:59 18:59 Intake Total 100 Output Total 860 Balance -760 - Medications Medications: Current Medications Acetaminophen (Tylenol 650mg/20.3ml Solution Ud) 650 mg PO Q6 PRN PRN Reason: fever >100.4 Benzocaine/Menthol (Cepacol Sore Throat) 1 chantel PO Q2 PRN PRN Reason: Sore Throat Cyanocobalamin (Vitamin B12 1000 Mcg/Ml Inj) 1,000 mcg IM DAILY [facility] Last Admin: 11/19/16 08:15 Dose: 1,000 mcg Heparin Sodium (Porcine) (Heparin) 5,000 units SC Q12 [facility] PRN Reason: Protocol Last Admin: 11/18/16 22:17 Dose: 5,000 units Hydromorphone HCl (Dilaudid) 0.5 mg IVP Q3 PRN PRN Reason: Pain, moderate (4-7) Last Admin: 11/17/16 14:51 Dose: 0.5 mg Hydromorphone HCl (Dilaudid) 1 mg IVP Q4 PRN PRN Reason: Pain, severe (8-10) Vancomycin HCl 1 gm/ Sodium (Chloride) 250 mls @ 166.667 mls/hr IVPB DAILY [facility] Last Admin: 11/18/16 11:30 Dose: 166.667 mls/hr Fluconazole (Diflucan Iv 100 Mg/50 Ml Ns) 50 mls @ 50 mls/hr IVPB DAILY [facility] Last Admin: 11/18/16 09:33 Dose: 50 mls/hr Meropenem 500 mg/ Sodium (Chloride) 100 mls @ 100 mls/hr IVPB Q8 [facility] Last Admin: 11/19/16 08:16 Dose: 100 mls/hr Potassium Chloride/Dextrose/Sod Cl (Potassium Chl 20 Meq In D5-1/2ns) 1,000 mls @ 75 mls/hr IV .[id number] [facility] Stop: 11/20/16 07:30 Metoclopramide HCl (Reglan) 10 mg IVP Q6 PRN PRN Reason: Nausea/Vomiting Pantoprazole Sodium (Protonix Inj) 40 mg IVP BID [facility] Last Admin: 11/18/16 16:54 Dose: 40 mg Silver Sulfadiazine (Silvadene 1% 50 Gm) 1 applic TOP BID [facility] Last Admin: 11/19/16 08:16 Dose: 1 applic - Labs Labs: 11/19/16 04:20 11/19/16 04:20 PT 10.5 Seconds (9.8-13.1) 11/15/16 13:05 INR 1.0 (0.9-1.2) 11/15/16 13:05 APTT 22.3 Seconds (25.6-37.1) L 11/15/16 13:05 - Head Exam Head Exam: ATRAUMATIC - Eye Exam Eye Exam: Normal appearance - ENT Exam ENT Exam: Mucous Membranes Dry - Respiratory Exam Respiratory Exam: NORMAL BREATHING PATTERN - Cardiovascular Exam Cardiovascular Exam: +S1, +S2 - GI/Abdominal Exam GI & Abdominal Exam: Normal Bowel Sounds Assessment and Plan (1) Pancytopenia Assessment & Plan: secondary to chemotherapy neutropenia improving with growth factor neutropenic precautions transfusion support PRN Status: Acute (2) Vulvar cancer Assessment & Plan: outpatient tx with primary oncologic team Status: Chronic
[2016-11-19] MEDS: Potassium Ch 20mEq in D5-1/2NS 1,000 ML IV SCH ×2 (10:15→20:50)
[2016-11-19] MEDS: Fluconazole IV 100mg/50 ml NS 50 ML IVPB SCH (10:16)
[2016-11-19] MEDS ORDERED: Magnesium Sulfate 1 gm in D5W 1 GM/100 ML BAG IVPB ONE (10:56)
--- NOTE | 2016-11-19 11:50 | CP.CCUPN ---
CCU Subjective - Physician Review Events Since Last Encounter (Free Text): 11/19/16 The patient was Seen/interviewed and examined by me at the bedside during ICU round, Medical records reviewed and Management issues were discussed and formulated with the house staff. Events reviewed Patient awake, oriented, follow commands. Sitting comfortable in chair No fever/chills, no distress. Pain controlled Adequate saturation on 2L nasal canula Afebrile. Last 24H I&O 450/1700 Remains NPO Barakat discontinued today AM Labs with improved renal function 26/1.726/1.4 and WBC trending up, Plat down to 75 CCU Objective - Vital Signs / Intake & Output Vital Signs (Last 4 hours): Vital Signs Temp Pulse Resp BP Pulse Ox 11/19/16 10:00 85 20 126/73 99 11/19/16 08:00 97.5 F L 88 18 137/75 97 Intake and Output (Last 8hrs): Intake & Output 11/18/16 11/19/16 11/19/16 22:59 06:59 14:59 Intake Total 100 0 460 Output Total 840 860 80 Balance -740 -860 380 Intake: IV 0 Intake, Piggyback 100 460 Output: Gastric Amount 0 150 Right Nares 0 150 Right Stomach 0 Drainage 90 60 80 Right Upper Abdomen 90 60 80 Urine 750 650 Urethral (Barakat) 750 650 Other: # Bowel Movements 0 0 - Physical Exam Head: Positive for: Normocephalic Pupils: Positive for: PERRL Extroacular Muscles: Positive for: EOMI Conjunctiva: Positive for: Normal. Negative for: Icteric Mouth: Positive for: Moist Mucous Membranes Neck: Positive for: Normal Range of Motion. Negative for: Meningeal Signs, JVD Respiratory/Chest: Positive for: Clear to Auscultation, Rhonchi (few). Negative for: Accessory Muscle Use, Rales Cardiovascular: Positive for: Regular Rate and Rhythm. Negative for: Murmurs, Rub Abdomen: Positive for: Distention. Negative for: Tenderness, Normal Bowel Sounds (not audible) Neurological: Positive for: GCS=15, CN II-XII Intact, Motor Func Grossly Intact , Normal Sensory Function Skin: Positive for: Warm. Negative for: Rashes Psychiatric: Positive for: Alert, Oriented x 3, Normal Concentration, Normal Affect - Medications Active Medications: Active Medications Generic Name Dose Route Start Last Admin Trade Name Freq PRN Reason Stop Dose Admin Acetaminophen 650 mg 11/15/16 20:27 Tylenol 650mg/20.3ml Solution Ud PO Q6 PRN fever >100.4 Benzocaine/Menthol 1 chantel 11/16/16 07:55 Cepacol Sore Throat PO Q2 PRN Sore Throat Cyanocobalamin 1,000 mcg 11/16/16 09:00 11/19/16 08:15 Vitamin B12 1000 Mcg/Ml Inj IM 1,000 mcg DAILY [facility] Administration Heparin Sodium (Porcine) 5,000 units 11/16/16 21:00 11/19/16 10:17 Heparin SC Not Given Q12 [facility] Protocol Hydromorphone HCl 0.5 mg 11/16/16 18:53 11/17/16 14:51 Dilaudid IVP 0.5 mg Q3 PRN Administration Pain, moderate (4-7) Hydromorphone HCl 1 mg 11/18/16 06:00 Dilaudid IVP Q4 PRN Pain, severe (8-10) Vancomycin HCl 1 gm/ Sodium 250 mls @ 166.667 mls/hr 11/16/16 09:00 11/19/16 11:27 Chloride IVPB 166.667 mls/hr DAILY [facility] Administration Fluconazole 50 mls @ 50 mls/hr 11/17/16 14:30 11/19/16 10:16 Diflucan Iv 100 Mg/50 Ml Ns IVPB 50 mls/hr DAILY [facility] Administration Meropenem 500 mg/ Sodium 100 mls @ 100 mls/hr 11/17/16 17:00 11/19/16 08:16 Chloride IVPB 100 mls/hr Q8 [facility] Administration Potassium Chloride/Dextrose/Sod Cl 1,000 mls @ 75 mls/hr 11/19/16 07:30 11/19 10:15 Potassium Chl 20 Meq In D5-1/2ns IV 11/20/16 07:30 75 mls/hr .[id number] [facility] Administration Potassium Chloride 50 mls @ 50 mls/hr 11/19/16 11:00 Potassium Cl 10meq/50ml Sterile Water IVPB 11/19/16 13:59 Q1 [facility] Magnesium Sulfate/Dextrose 1 gm in 100 mls @ 100 mls/hr 11/19/16 10:56 Magnesium Sulfate 1 Gm/100 Ml D5w IVPB 11/19/16 11:55 ONCE ONE 1 GM/HR Metoclopramide HCl 10 mg 11/15/16 18:50 Reglan IVP Q6 PRN Nausea/Vomiting Pantoprazole Sodium 40 mg 11/17/16 09:00 11/19/16 10:14 Protonix Inj IVP 40 mg BID [facility] Administration Silver Sulfadiazine 1 applic 11/16/16 09:00 11/19/16 08:16 Silvadene 1% 50 Gm TOP 1 applic BID [facility] Administration - Patient Studies Lab Studies: Microbiology Studies 11/16/16 20:00 Gram Stain - Final Other: Please Indicate Wound Culture - Final Escherichia Coli 11/16/16 20:00 Gram Stain - Final Other: Please Indicate Wound Culture - Final Escherichia Coli 11/16/16 09:40 MRSA Culture (Admit) - Final Naris MRSA NOT DETECTED 11/17/16 17:00 Blood Culture - Preliminary Blood-Venous NO GROWTH AFTER 24 HOURS 11/17/16 17:30 Blood Culture - Preliminary Blood-Venous NO GROWTH AFTER 24 HOURS 11/15/16 13:20 Blood Culture - Preliminary Blood NO GROWTH AFTER 3 DAYS 11/15/16 13:05 Blood Culture - Preliminary Blood NO GROWTH AFTER 3 DAYS Lab Studies 11/19/16 11/19/16 Range/Units 04:20 04:20 WBC 0.8 L* D (4.8-10.8) K/uL RBC 2.29 L (3.80-5.20) Mil/uL Hgb 7.3 L (12.0-16.0) g/dL Hct 21.8 L (34.0-47.0) % MCV 95.2 (81.0-99.0) fl MCH 31.8 H (27.0-31.0) pg MCHC 33.4 (33.0-37.0) g/dL RDW 18.9 H (11.5-14.5) % Plt Count 75 L (130-400) K/uL MPV 8.3 (7.2-11.7) fl Neut % (Auto) 60.5 (50.0-75.0) % Lymph % (Auto) 21.8 (20.0-40.0) % York % (Auto) 16.2 H (0.0-10.0) % Eos % (Auto) 1.3 (0.0-4.0) % Baso % (Auto) 0.2 (0.0-2.0) % Neut # 0.5 L (1.8-7.0) K/uL Lymph # 0.2 L (1.0-4.3) K/uL York # 0.1 (0.0-0.8) K/uL Eos # 0.0 (0.0-0.7) K/uL Baso # 0.0 (0.0-0.2) K/uL Sodium 148 (132-148) mmol/l Potassium 3.4 L (3.6-5.0) MMOL/L Chloride 114 H (98-107) mmol/L Carbon Dioxide 21 L (22-30) mmol/L Anion Gap 16 (10-20) BUN 26 H (7-17) mg/dl Creatinine 1.4 H (0.7-1.2) mg/dL Est GFR ( Amer) 43 Est GFR (Non-Af Amer) 36 Random Glucose 72 (65-105) mg/dL Calcium 7.8 L (8.4-10.2) mg/dL Total Bilirubin 0.6 (0.2-1.3) mg/dl AST 26 (14-36) U/L ALT 33 (9-52) U/L Alkaline Phosphatase 71 (38-126) U/L Total Protein 5.3 L (6.3-8.2) G/DL Albumin 2.5 L (3.5-5.0) g/dL Globulin 2.9 (2.2-3.9) gm/dL Albumin/Globulin Ratio 0.9 L (1.0-2.1) Laboratory Results - last 24 hr 11/19/16 11/19/16 04:20 04:20 WBC 0.8 L* D RBC 2.29 L Hgb 7.3 L Hct 21.8 L MCV 95.2 MCH 31.8 H MCHC 33.4 RDW 18.9 H Plt Count 75 L MPV 8.3 Neut % (Auto) 60.5 Lymph % (Auto) 21.8 York % (Auto) 16.2 H Eos % (Auto) 1.3 Baso % (Auto) 0.2 Neut # 0.5 L Lymph # 0.2 L York # 0.1 Eos # 0.0 Baso # 0.0 Sodium 148 Potassium 3.4 L Chloride 114 H Carbon Dioxide 21 L Anion Gap 16 BUN 26 H Creatinine 1.4 H Est GFR ( Amer) 43 Est GFR (Non-Af Amer) 36 Random Glucose 72 Calcium 7.8 L Total Bilirubin 0.6 AST 26 ALT 33 Alkaline Phosphatase 71 Total Protein 5.3 L Albumin 2.5 L Globulin 2.9 Albumin/Globulin Ratio 0.9 L Fingerstick Blood Sugar Results: 203 Review of Systems - Cardiovascular Cardiovascular: absent: As Per HPI, Acrocyanosis, Chest Pain, Chest Pain at Rest , Chest Pain with Activity, Claudication, Diaphoresis, Dyspnea, Dyspnea on Exertion, Edema, Irregular Heart Rhythm, Pain Radiating to Arm/Neck/Jaw, Leg Edema, Leg Ulcers, Lightheadedness, Orthopnea, Palpitations, Paroxysmal Nocturnal Dyspnea, Pedal Edema, Radiating Pain, Rapid Heart Rate, Slow Heart Rate, Syncope, Other, UNREMARKABLE - Respiratory Respiratory: absent: As Per HPI, Cough, Dyspnea, Hemoptysis, Dyspnea on Exertion , Wheezing, Snoring, Stridor, Pain on Inspiration, Chest Congestion, Excessive Mucous Production, Change in Mucous Color, Pain with Coughing, Other, UNREMARKABLE Critical Care Progress Note - Extremities/Vascular Does the Patient have a Central Venous Catheter?: Yes Does the Patient need a Central Venous Catheter?: Yes Does the Patient have a Barakat Catheter?: Yes Does the Patient need a Barakat Catheter?: No (Barakat discontinued today) - Nutrition Nutrition: Nutrition Category Date Time Status NPO Diet [DIET] Diets 11/16/16 Lunch Active Assessment/Plan (1) Perforated duodenal ulcer Current Visit: Yes Status: Acute Comment: POD #3 S/p Ex lap with Mak patch (2) Pancytopenia Current Visit: Yes Status: Acute (3) Vulvar cancer Current Visit: Yes Status: Chronic - Assessment and Plan (Free Text) Assessment: Continue with SICU care for hemodynamic monitoring Monitor Respiratory status PRN Naloxone for RR<8 IV Hydration with D5 1/2 NS with 20 KCL Antibiotics with IV Meropenem and Diflucan Pain control with MORPHIN IV Q4H PRN NPO NG tube to suction PT/OT OOB chair, fall precautions, aspiration precaution Monitor urine output Barakat to be removed today Restart outpatient meds PRN Ondansetron Wound care Incentive spirometry Aggressive pulmonary toilet GI/DVT PPX with SCDs, PPI, SQ Heparin
--- NOTE | 2016-11-19 13:20 | PN ---
DATE: 11/19/2016 SUBJECTIVE: The patient is seen and examined. Interim events noted. Consults noted and appreciated. Duct Layer Helper, Infectious Disease, Rheumatology, Oncology consults and interventions noted and appreciated. The patient remains in the intensive care unit, placed on NG tube and nasal cannula oxygen. Awake, responsive. Feels okay. Pain is decreasing. No chest pain. No shortness of breath. Tolerating sips of ice chips. No bowel movement or gas passing yet. PHYSICAL EXAMINATION: GENERAL: The patient is in the intensive care unit, in no acute distress. VITAL SIGNS: Stable. HEART: S1 and S2, normal and regular. LUNGS: Good bilateral air exchange. ABDOMEN: The patient is status post surgery. No sign of acute complication. EXTREMITIES: No edema. No calf swelling. No tenderness. No acute ischemia. CENTRAL NERVOUS SYSTEM: Essentially unchanged. DIAGNOSTIC DATA: Available diagnostic data reviewed. Telemetry monitoring does not reveal significant arrhythmias. White count is . ASSESSMENT AND PLAN: Overall, the patient's general medical condition is stable and improving. Plan as ordered. Russ Taylor MD
[2016-11-19] MEDS: Potassium CL 10 MEQ/50 ML 50 ML IVPB SCH ×3 (13:34→15:40)
--- NOTE | 2016-11-19 18:49 | CP.PCM.PN ---
Subjective - Date & Time of Evaluation Date of Evaluation: 11/19/16 Time of Evaluation: 18:49 - Subjective Subjective: ID note- Pt. seen and examined today. pt. good spirit and states she feels much better. denies any fever or chills. Objective - Vital Signs/Intake and Output Vital Signs (last 24 hours): Temp Pulse Resp BP Pulse Ox 98 F 77 22 124/54 L 93 L 11/19/16 16:00 11/19/16 18:00 11/19/16 18:00 11/19/16 18:00 11/19/16 18:00 Intake and Output: 11/19/16 11/19/16 06:59 18:59 Intake Total 100 930 Output Total 860 160 Balance -760 770 - Medications Medications: Current Medications Acetaminophen (Tylenol 650mg/20.3ml Solution Ud) 650 mg PO Q6 PRN PRN Reason: fever >100.4 Benzocaine/Menthol (Cepacol Sore Throat) 1 chantel PO Q2 PRN PRN Reason: Sore Throat Cyanocobalamin (Vitamin B12 1000 Mcg/Ml Inj) 1,000 mcg IM DAILY [facility] Last Admin: 11/19/16 08:15 Dose: 1,000 mcg Heparin Sodium (Porcine) (Heparin) 5,000 units SC Q12 [facility] PRN Reason: Protocol Last Admin: 11/19/16 10:17 Dose: Not Given Hydromorphone HCl (Dilaudid) 1 mg IVP Q4 PRN PRN Reason: Pain, severe (8-10) Hydromorphone HCl (Dilaudid) 0.5 mg IVP Q3 PRN PRN Reason: Pain, moderate (4-7) Last Admin: 11/19/16 17:11 Dose: 0.5 mg Vancomycin HCl 1 gm/ Sodium (Chloride) 250 mls @ 166.667 mls/hr IVPB DAILY [facility] Last Admin: 11/19/16 11:27 Dose: 166.667 mls/hr Fluconazole (Diflucan Iv 100 Mg/50 Ml Ns) 50 mls @ 50 mls/hr IVPB DAILY [facility] Last Admin: 11/19/16 10:16 Dose: 50 mls/hr Meropenem 500 mg/ Sodium (Chloride) 100 mls @ 100 mls/hr IVPB Q8 [facility] Last Admin: 11/19/16 17:16 Dose: 100 mls/hr Potassium Chloride/Dextrose/Sod Cl (Potassium Chl 20 Meq In D5-1/2ns) 1,000 mls @ 75 mls/hr IV .[id number] [facility] Stop: 11/20/16 07:30 Last Admin: 11/19/16 10:15 Dose: 75 mls/hr Metoclopramide HCl (Reglan) 10 mg IVP Q6 PRN PRN Reason: Nausea/Vomiting Pantoprazole Sodium (Protonix Inj) 40 mg IVP BID [facility] Last Admin: 11/19/16 16:23 Dose: 40 mg Silver Sulfadiazine (Silvadene 1% 50 Gm) 1 applic TOP BID [facility] Last Admin: 11/19/16 16:23 Dose: 1 applic - Labs Labs: 1 - Constitutional Appears: No Acute Distress - Head Exam Head Exam: ATRAUMATIC - Eye Exam Eye Exam: EOMI - ENT Exam ENT Exam: Normal Oropharynx - Neck Exam Neck Exam: Full ROM - Respiratory Exam Respiratory Exam: NORMAL BREATHING PATTERN Additional comments: good breath sounds b/l - Cardiovascular Exam Cardiovascular Exam: RRR, +S1, +S2 - GI/Abdominal Exam GI & Abdominal Exam: Soft, Normal Bowel Sounds Additional comments: mid-abdominal surgical site clean, no erythema Drain still in place, draining bilious fluid - Extremities Exam Extremities Exam: Normal Inspection - Neurological Exam Neurological Exam: Alert, Awake, Oriented x3 - Additional Findings Additional findings: Laboratory Results - last 72 hr 11/15/16 11/16/16 11/16/16 12:51 13:45 22:04 WBC RBC Hgb Hct MCV MCH MCHC RDW Plt Count MPV Neut % (Auto) Lymph % (Auto) [place] % (Auto) Eos % (Auto) Baso % (Auto) Neut # Lymph # [place] # Eos # Baso # pCO2 36 pO2 114 H HCO3 21.8 ABG pH 7.37 ABG Total CO2 21.9 L ABG O2 Saturation 98.3 H ABG O2 Content 13.0 L ABG Base Excess -4.0 L ABG Hemoglobin 9.4 L ABG Carboxyhemoglobin 0.6 POC ABG HHb (Measured) 1.7 ABG Methemoglobin 1.3 ABG O2 Capacity 13.2 L Heriberto Test Yes A-a O2 Difference 554.0 Hgb O2 Saturation 96.4 Vent Mode Prvc(ac Mechanical Rate 12 FiO2 100.0 Tidal Volume 400 PEEP 5 Sodium Potassium Chloride Carbon Dioxide Anion Gap BUN Creatinine Est GFR ( Amer) Est GFR (Non-Af Amer) POC Glucose (mg/dL) 203 H Random Glucose Lactic Acid Calcium Total Bilirubin AST ALT Alkaline Phosphatase Total Protein Albumin Globulin Albumin/Globulin Ratio Crossmatch See Detail 11/17/16 11/17/16 11/17/16 05:00 05:30 05:30 WBC 0.4 L* D RBC 2.57 L Hgb 8.4 L D Hct 24.7 L MCV 95.9 MCH 32.6 H MCHC 34.0 RDW 18.8 H Plt Count 112 L D MPV 7.6 Neut % (Auto) 37.8 L Lymph % (Auto) 46.3 H [place] % (Auto) 13.0 H Eos % (Auto) 2.9 Baso % (Auto) 0.0 Neut # 0.1 L Lymph # 0.2 L [place] # 0.0 Eos # 0.0 Baso # 0.0 pCO2 31 L pO2 143 H HCO3 21.5 ABG pH 7.41 ABG Total CO2 20.6 L ABG O2 Saturation 98.8 H ABG O2 Content 12.2 L ABG Base Excess -4.4 L ABG Hemoglobin 8.7 L ABG Carboxyhemoglobin 0.3 L POC ABG HHb (Measured) 1.2 ABG Methemoglobin 1.6 ABG O2 Capacity 12.3 L Heriberto Test Yes A-a O2 Difference 531.0 Hgb O2 Saturation 96.9 Vent Mode Mechanical Rate 12 FiO2 100.0 Tidal Volume 400 PEEP 5 Sodium 139 Potassium 4.3 Chloride 109 H Carbon Dioxide 20 L Anion Gap 14 BUN 29 H Creatinine 1.6 H Est GFR ( Amer) 37 Est GFR (Non-Af Amer) 31 POC Glucose (mg/dL) Random Glucose 126 H Lactic Acid Calcium 7.1 L Total Bilirubin 0.7 AST 56 H D ALT 46 Alkaline Phosphatase 49 Total Protein 4.9 L Albumin 2.1 L D Globulin 2.7 Albumin/Globulin Ratio 0.8 L Crossmatch 11/17/16 11/18/16 11/18/16 08:30 05:30 05:30 WBC 0.5 L* RBC 2.41 L Hgb 7.7 L Hct 23.3 L MCV 96.5 MCH 31.9 H MCHC 33.1 RDW 19.5 H Plt Count 87 L D MPV 8.3 Neut % (Auto) 45.9 L Lymph % (Auto) 35.3 [place] % (Auto) 17.4 H Eos % (Auto) 1.2 Baso % (Auto) 0.2 Neut # 0.2 L Lymph # 0.2 L [place] # 0.1 Eos # 0.0 Baso # 0.0 pCO2 pO2 HCO3 ABG pH ABG Total CO2 ABG O2 Saturation ABG O2 Content ABG Base Excess ABG Hemoglobin ABG Carboxyhemoglobin POC ABG HHb (Measured) ABG Methemoglobin ABG O2 Capacity Heriberto Test A-a O2 Difference Hgb O2 Saturation Vent Mode Mechanical Rate FiO2 Tidal Volume PEEP Sodium 145 Potassium 3.8 Chloride 111 H Carbon Dioxide 20 L Anion Gap 18 BUN 26 H Creatinine 1.7 H Est GFR ( Amer) 35 Est GFR (Non-Af Amer) 29 POC Glucose (mg/dL) Random Glucose 88 Lactic Acid 1.4 Calcium 7.4 L Total Bilirubin 0.6 AST 32 ALT 44 Alkaline Phosphatase 66 Total Protein 5.4 L Albumin 2.4 L Globulin 3.0 Albumin/Globulin Ratio 0.8 L Crossmatch 11/19/16 11/19/16 04:20 04:20 WBC 0.8 L* D RBC 2.29 L Hgb 7.3 L Hct 21.8 L MCV 95.2 MCH 31.8 H MCHC 33.4 RDW 18.9 H Plt Count 75 L MPV 8.3 Neut % (Auto) 60.5 Lymph % (Auto) 21.8 [place] % (Auto) 16.2 H Eos % (Auto) 1.3 Baso % (Auto) 0.2 Neut # 0.5 L Lymph # 0.2 L [place] # 0.1 Eos # 0.0 Baso # 0.0 pCO2 pO2 HCO3 ABG pH ABG Total CO2 ABG O2 Saturation ABG O2 Content ABG Base Excess ABG Hemoglobin ABG Carboxyhemoglobin POC ABG HHb (Measured) ABG Methemoglobin ABG O2 Capacity Heriberot Test A-a O2 Difference Hgb O2 Saturation Vent Mode Mechanical Rate FiO2 Tidal Volume PEEP Sodium 148 Potassium 3.4 L Chloride 114 H Carbon Dioxide 21 L Anion Gap 16 BUN 26 H Creatinine 1.4 H Est GFR ( Amer) 43 Est GFR (Non-Af Amer) 36 POC Glucose (mg/dL) Random Glucose 72 Lactic Acid Calcium 7.8 L Total Bilirubin 0.6 AST 26 ALT 33 Alkaline Phosphatase 71 Total Protein 5.3 L Albumin 2.5 L Globulin 2.9 Albumin/Globulin Ratio 0.9 L Crossmatch Microbiology 11/17/16 17:00 Blood-Venous Blood Culture - Preliminary NO GROWTH AFTER 48 HOURS 11/17/16 17:30 Blood-Venous Blood Culture - Preliminary NO GROWTH AFTER 48 HOURS 11/15/16 13:20 Blood Blood Culture - Preliminary NO GROWTH AFTER 4 DAYS 11/15/16 13:05 Blood Blood Culture - Preliminary NO GROWTH AFTER 4 DAYS 11/16/16 20:00 Other: Please Indicate Gram Stain - Final 11/16/16 20:00 Other: Please Indicate Wound Culture - Final Escherichia Coli 11/16/16 20:00 Other: Please Indicate Gram Stain - Final 11/16/16 20:00 Other: Please Indicate Wound Culture - Final Escherichia Coli 11/16/16 09:40 Naris MRSA Culture (Admit) - Final MRSA NOT DETECTED 11/15/16 23:30 Urine,Catheterized Urine Culture - Final No Growth (<1,000 CFU/ML) Accession No. : [id number] Patient Name / ID : MYLENE BRENNAN I / [id number] Exam Date : 11/17/2016 06:57:35 ( Approved ) Study Comment : Sex / Age : F / 86Y Creator : Emanuel Armijo MD Dictator : Emanuel Armijo MD Manager People : Health Care Recruiter : Emanuel Armijo MD Approver2 : Report Date : 11/17/2016 10:41:33 My Comment : HISTORY: intubated COMPARISON: Portable chest 11/16/2016. FINDINGS: Endotracheal tube, nasogastric tube and right central venous line are unchanged in position. LUNGS: Medial left basilar airspace disease now identified and is rather small with right infrahilar patchy density not excluded. PLEURA: Trace left pleural effusions now present. None is clearly evident on the right. CARDIOVASCULAR: Prominent cardiac silhouette is unchanged. No definite pulmonary vascular derangement. OSSEOUS STRUCTURES: No significant abnormalities. VISUALIZED UPPER ABDOMEN: Normal. OTHER FINDINGS: None. IMPRESSION: Trace of pleural effusion now present with medial left basilar airspace disease and minimal right infrahilar patchy density again evident. Stable cardiomegaly. Assessment and Plan (1) Gastric out let obstruction Status: Acute (2) Leukopenia Status: Acute (3) Pneumoperitoneum Status: Acute (4) Severe sepsis Status: Acute (5) Vulvar cancer Status: Chronic - Assessment and Plan (Free Text) Assessment: A/P- 86 year old female with vulcar cancer undergoing chemo and radiation was admitted with sudden sharp abdominal pain , found to have high lactate underwent ex-lap and found to have perforated duodenal ulcer is s/p duodenal patch and samy drain in ICU. clinically better POD #3 afebrile remains pancytopenic wound cx- E.Coli x 2 (pansensitive) Blood cx- neg x 4 plan- advise to continue with IV meropenem day #3. advise to also continue with IV vancomyin for staph coverage as well. advise to also continue with antifungal day #3 drain management as per surgical team. pancytopenia management as per heme/onc. for now continue with broad spectrum abx and neutropenic precations till wbc increases. ICU time 45 minutes.
[2016-11-20] MEDS: Meropenem 500 MG in Sodium Chloride 0.9% 100 ML IVPB SCH ×3 (01:31→16:37)
[2016-11-20 05:20] LABS: HEMATOCRIT 21.6 % (34.0-47.0); MEAN CELL VOLUME 97.2 fl (81.0-99.0); MEAN CORPUSCULAR HEMOGLOBIN 32.4 pg (27.0-31.0); MEAN CORPUSCULAR HGB CONC 33.3 g/dL (33.0-37.0); RED CELL DISTRIBUTION WIDTH 18.9 % (11.5-14.5); WHITE BLOOD COUNT 2.4 K/uL (4.8-10.8)
[2016-11-20 05:25] LABS: PLATELET COUNT 66 K/uL (130-400)
[2016-11-20 05:28] LABS: ALB/GLOB RATIO 0.8 (1.0-2.1); BILIRUBIN,TOTAL 0.5 mg/dl (0.2-1.3); POTASSIUM 3.6 MMOL/L (3.6-5.0); TOTAL PROTEIN 5.3 G/DL (6.3-8.2)
[2016-11-20] MEDS: Potassium Ch 20mEq in D5-1/2NS 1,000 ML IV SCH (08:49)
[2016-11-20] MEDS: Fluconazole IV 100mg/50 ml NS 50 ML IVPB SCH (08:51)
--- NOTE | 2016-11-20 08:51 | CP.PCM.PN ---
Subjective - Date & Time of Evaluation Date of Evaluation: 11/20/16 Time of Evaluation: 08:49 - Subjective Subjective: Surgery: Dr. Oro Patient feeling much better today. She reports being OOB to chair. She denies abdominal pain, n/v/f/c. Per nursing no acute events overnight. NGT output was scant, tim drain put out 460cc/24hr of bilious, and ortiz 800cc/24hrs. Objective - Vital Signs/Intake and Output Vital Signs (last 24 hours): Temp Pulse Resp BP Pulse Ox 93.3 F L 91 H 19 91/56 L 84 L 11/20/16 08:00 11/20/16 08:00 11/20/16 08:00 11/20/16 08:00 11/20/16 08:00 Intake and Output: 11/20/16 11/20/16 06:59 18:59 Intake Total 925 Output Total 1100 Balance -175 - Medications Medications: Current Medications Acetaminophen (Tylenol 650mg/20.3ml Solution Ud) 650 mg PO Q6 PRN PRN Reason: fever >100.4 Benzocaine/Menthol (Cepacol Sore Throat) 1 chantel PO Q2 PRN PRN Reason: Sore Throat Cyanocobalamin (Vitamin B12 1000 Mcg/Ml Inj) 1,000 mcg IM DAILY [facility] Last Admin: 11/19/16 08:15 Dose: 1,000 mcg Hydromorphone HCl (Dilaudid) 1 mg IVP Q4 PRN PRN Reason: Pain, severe (8-10) Hydromorphone HCl (Dilaudid) 0.5 mg IVP Q3 PRN PRN Reason: Pain, moderate (4-7) Last Admin: 11/19/16 17:11 Dose: 0.5 mg Vancomycin HCl 1 gm/ Sodium (Chloride) 250 mls @ 166.667 mls/hr IVPB DAILY [facility] Last Admin: 11/19/16 11:27 Dose: 166.667 mls/hr Fluconazole (Diflucan Iv 100 Mg/50 Ml Ns) 50 mls @ 50 mls/hr IVPB DAILY [facility] Last Admin: 11/19/16 10:16 Dose: 50 mls/hr Meropenem 500 mg/ Sodium (Chloride) 100 mls @ 100 mls/hr IVPB Q8 [facility] Last Admin: 11/20/16 01:31 Dose: 100 mls/hr Potassium Chloride/Dextrose/Sod Cl (Potassium Chl 20 Meq In D5-1/2ns) 1,000 mls @ 80 mls/hr IV .[id number] [facility] Stop: 11/23/16 08:22 Metoclopramide HCl (Reglan) 10 mg IVP Q6 PRN PRN Reason: Nausea/Vomiting Pantoprazole Sodium (Protonix Inj) 40 mg IVP BID [facility] Last Admin: 11/19/16 16:23 Dose: 40 mg Silver Sulfadiazine (Silvadene 1% 50 Gm) 1 applic TOP BID [facility] Last Admin: 11/19/16 16:23 Dose: 1 applic - Labs Labs: 11/20/16 04:15 11/20/16 04:15 PT 10.5 Seconds (9.8-13.1) 11/15/16 13:05 INR 1.0 (0.9-1.2) 11/15/16 13:05 APTT 22.3 Seconds (25.6-37.1) L 11/15/16 13:05 - Constitutional Appears: Non-toxic, No Acute Distress - Head Exam Head Exam: ATRAUMATIC, NORMOCEPHALIC - Eye Exam Eye Exam: EOMI, Normal appearance - ENT Exam ENT Exam: Mucous Membranes Dry Additional comments: NGT in place - Respiratory Exam Respiratory Exam: absent: Respiratory Distress - Cardiovascular Exam Cardiovascular Exam: REGULAR RHYTHM. absent: Tachycardia - GI/Abdominal Exam GI & Abdominal Exam: Soft. absent: Distended, Guarding, Rigid, Tenderness, Rebound Additional comments: midline incision CDI w/ staple closure, samy removed. Tim in RUQ w/ bilious /serous fluid output. - Extremities Exam Extremities Exam: absent: Calf Tenderness - Neurological Exam Neurological Exam: Alert, Awake - Psychiatric Exam Psychiatric exam: Normal Affect, Normal Mood - Skin Skin Exam: Dry, Normal Color, Warm Assessment and Plan - Assessment and Plan (Free Text) Assessment: 86 y/o female w/ perforated duodenum s/p ex lap w/ Mak patch POD4 Plan: -cont NGT to suction -monitor tim output -cont NPO until drain output decreases -consider PPN/TPN for nutrition -OOB -IS use -cont abx per ID -daily labs -d/w Dr. Shorty APARICIOanival PGY3
[2016-11-20] MEDS: Silver Sulfadiazine 1% CREAM (50 gm) TOP SCH ×2 (08:54→16:50)
--- NOTE | 2016-11-20 09:58 | CP.PCM.PN ---
Subjective - Date & Time of Evaluation Date of Evaluation: 11/20/16 Time of Evaluation: 09:00 - Subjective Subjective: Feeling better WBC improving, awaiting diff Objective - Vital Signs/Intake and Output Vital Signs (last 24 hours): Temp Pulse Resp BP Pulse Ox 97.6 F 91 H 19 91/56 L 84 L 11/20/16 08:00 11/20/16 08:00 11/20/16 08:00 11/20/16 08:00 11/20/16 08:00 Intake and Output: 11/20/16 11/20/16 06:59 18:59 Intake Total 925 Output Total 1100 0 Balance -175 0 - Medications Medications: Current Medications Acetaminophen (Tylenol 650mg/20.3ml Solution Ud) 650 mg PO Q6 PRN PRN Reason: fever >100.4 Benzocaine/Menthol (Cepacol Sore Throat) 1 chantel PO Q2 PRN PRN Reason: Sore Throat Cyanocobalamin (Vitamin B12 1000 Mcg/Ml Inj) 1,000 mcg IM DAILY [facility] Last Admin: 11/20/16 08:52 Dose: 1,000 mcg Hydromorphone HCl (Dilaudid) 1 mg IVP Q4 PRN PRN Reason: Pain, severe (8-10) Hydromorphone HCl (Dilaudid) 0.5 mg IVP Q3 PRN PRN Reason: Pain, moderate (4-7) Last Admin: 11/19/16 17:11 Dose: 0.5 mg Vancomycin HCl 1 gm/ Sodium (Chloride) 250 mls @ 166.667 mls/hr IVPB DAILY [facility] Last Admin: 11/20/16 08:53 Dose: 166.667 mls/hr Fluconazole (Diflucan Iv 100 Mg/50 Ml Ns) 50 mls @ 50 mls/hr IVPB DAILY [facility] Last Admin: 11/20/16 08:51 Dose: 50 mls/hr Meropenem 500 mg/ Sodium (Chloride) 100 mls @ 100 mls/hr IVPB Q8 [facility] Last Admin: 11/20/16 08:50 Dose: 100 mls/hr Potassium Chloride/Dextrose/Sod Cl (Potassium Chl 20 Meq In D5-1/2ns) 1,000 mls @ 80 mls/hr IV .[id number] [facility] Stop: 11/23/16 08:22 Last Admin: 11/20/16 08:49 Dose: 80 mls/hr Metoclopramide HCl (Reglan) 10 mg IVP Q6 PRN PRN Reason: Nausea/Vomiting Pantoprazole Sodium (Protonix Inj) 40 mg IVP BID [facility] Last Admin: 11/20/16 08:57 Dose: 40 mg Silver Sulfadiazine (Silvadene 1% 50 Gm) 1 applic TOP BID [facility] Last Admin: 11/20/16 08:54 Dose: 1 applic - Labs Labs: 11/20/16 04:15 11/20/16 04:15 PT 10.5 Seconds (9.8-13.1) 11/15/16 13:05 INR 1.0 (0.9-1.2) 11/15/16 13:05 APTT 22.3 Seconds (25.6-37.1) L 11/15/16 13:05 - Head Exam Head Exam: ATRAUMATIC - Eye Exam Eye Exam: Normal appearance - ENT Exam ENT Exam: Mucous Membranes Dry - Respiratory Exam Respiratory Exam: NORMAL BREATHING PATTERN - Cardiovascular Exam Cardiovascular Exam: +S1, +S2 - GI/Abdominal Exam GI & Abdominal Exam: Normal Bowel Sounds Assessment and Plan (1) Pancytopenia Assessment & Plan: secondary to chemotherapy WBC improving with growth factor; awaiting todays diff transfusion support PRN Status: Acute (2) Vulvar cancer Assessment & Plan: per primary oncologic team Status: Chronic
--- NOTE | 2016-11-20 10:13 | CP.CCUPN ---
<Julius Dixon - Last Filed: 11/20/16 11:27> CCU Subjective - Physician Review Events Since Last Encounter (Free Text): 11/20/16 10:08 Patient seen this morning. No acute distress, sitting in bed comfortably, AAOx3 , supplemental O2 via nasal cannula. Patient is POD #4 s/p ex lap and repair for perforated duodenal ulcer. Patient remains NPO due to continuous drainage from Tim drain. Patient is OOB to chair and uses incentive spirometer as directed. Patient reports bowel movement this morning. Patient's ortiz MS'ed yesterday and is voiding freely. Critical Care Time Spent (in minutes): 35 CCU Objective - Vital Signs / Intake & Output Vital Signs (Last 4 hours): Vital Signs Temp Pulse Resp BP Pulse Ox 11/20/16 08:00 97.6 F 91 H 19 91/56 L 84 L Intake and Output (Last 8hrs): Intake & Output 11/19/16 11/20/16 11/20/16 22:59 06:59 14:59 Intake Total 720 625 480 Output Total 200 980 0 Balance 520 -355 480 Intake: IV 570 525 80 Intake, Piggyback 150 100 400 Output: Gastric Amount 0 0 Right Nares 0 Right Stomach 0 Drainage 200 180 Right Upper Abdomen 200 180 Urine 800 Urine, Voided 800 Other: # Voids Urine, Voided 1 1 # Bowel Movements 0 1 - Physical Exam Head: Positive for: Normocephalic Pupils: Positive for: PERRL Extroacular Muscles: Positive for: EOMI Conjunctiva: Positive for: Normal. Negative for: Icteric Mouth: Positive for: Moist Mucous Membranes Neck: Positive for: Normal Range of Motion. Negative for: Meningeal Signs, JVD Respiratory/Chest: Positive for: Clear to Auscultation, Rhonchi (few). Negative for: Accessory Muscle Use, Rales Cardiovascular: Positive for: Regular Rate and Rhythm. Negative for: Murmurs, Rub Abdomen: Positive for: Distention. Negative for: Tenderness, Normal Bowel Sounds (not audible) Neurological: Positive for: GCS=15, CN II-XII Intact, Motor Func Grossly Intact , Normal Sensory Function Skin: Positive for: Warm. Negative for: Rashes Psychiatric: Positive for: Alert, Oriented x 3, Normal Concentration, Normal Affect - Medications Active Medications: Active Medications Generic Name Dose Route Start Last Admin Trade Name Freq PRN Reason Stop Dose Admin Acetaminophen 650 mg 11/15/16 20:27 Tylenol 650mg/20.3ml Solution Ud PO Q6 PRN fever >100.4 Benzocaine/Menthol 1 chantel 11/16/16 07:55 Cepacol Sore Throat PO Q2 PRN Sore Throat Cyanocobalamin 1,000 mcg 11/16/16 09:00 11/20/16 08:52 Vitamin B12 1000 Mcg/Ml Inj IM 1,000 mcg DAILY [facility] Administration Hydromorphone HCl 1 mg 11/18/16 06:00 Dilaudid IVP Q4 PRN Pain, severe (8-10) Hydromorphone HCl 0.5 mg 11/19/16 17:00 11/19/16 17:11 Dilaudid IVP 0.5 mg Q3 PRN Administration Pain, moderate (4-7) Vancomycin HCl 1 gm/ Sodium 250 mls @ 166.667 mls/hr 11/16/16 09:00 11/20/16 08:53 Chloride IVPB 166.667 mls/hr DAILY [facility] Administration Fluconazole 50 mls @ 50 mls/hr 11/17/16 14:30 11/20/16 08:51 Diflucan Iv 100 Mg/50 Ml Ns IVPB 50 mls/hr DAILY [facility] Administration Meropenem 500 mg/ Sodium 100 mls @ 100 mls/hr 11/17/16 17:00 11/20/16 08:50 Chloride IVPB 100 mls/hr Q8 [facility] Administration Potassium Chloride/Dextrose/Sod Cl 1,000 mls @ 80 mls/hr 11/20/16 08:30 11/20 08:49 Potassium Chl 20 Meq In D5-1/2ns IV 11/23/16 08:22 80 mls/hr .[id number] [facility] Administration Metoclopramide HCl 10 mg 11/15/16 18:50 Reglan IVP Q6 PRN Nausea/Vomiting Pantoprazole Sodium 40 mg 11/17/16 09:00 11/20/16 08:57 Protonix Inj IVP 40 mg BID [facility] Administration Silver Sulfadiazine 1 applic 11/16/16 09:00 11/20/16 08:54 Silvadene 1% 50 Gm TOP 1 applic BID [facility] Administration - Patient Studies Lab Studies: Microbiology Studies 11/17/16 17:00 Blood Culture - Preliminary Blood-Venous NO GROWTH AFTER 48 HOURS 11/17/16 17:30 Blood Culture - Preliminary Blood-Venous NO GROWTH AFTER 48 HOURS 11/15/16 13:20 Blood Culture - Preliminary Blood NO GROWTH AFTER 4 DAYS 11/15/16 13:05 Blood Culture - Preliminary Blood NO GROWTH AFTER 4 DAYS 11/16/16 20:00 Gram Stain - Final Other: Please Indicate Wound Culture - Final Escherichia Coli 11/16/16 20:00 Gram Stain - Final Other: Please Indicate Wound Culture - Final Escherichia Coli Lab Studies 11/20/16 11/20/16 11/20/16 Range/Units 04:15 04:15 04:15 WBC 2.4 L D (4.8-10.8) K/uL RBC 2.22 L (3.80-5.20) Mil/uL Hgb 7.2 L (12.0-16.0) g/dL Hct 21.6 L (34.0-47.0) % MCV 97.2 D (81.0-99.0) fl MCH 32.4 H (27.0-31.0) pg MCHC 33.3 (33.0-37.0) g/dL RDW 18.9 H (11.5-14.5) % Plt Count 66 L (130-400) K/uL Sodium 151 H (132-148) mmol/l Potassium 3.6 (3.6-5.0) MMOL/L Chloride 118 H (98-107) mmol/L Carbon Dioxide 22 (22-30) mmol/L Anion Gap 15 (10-20) BUN 24 H (7-17) mg/dl Creatinine 1.3 H (0.7-1.2) mg/dL Est GFR ( Amer) 47 Est GFR (Non-Af Amer) 39 Random Glucose 93 (65-105) mg/dL Calcium 8.0 L (8.4-10.2) mg/dL Total Bilirubin 0.5 (0.2-1.3) mg/dl AST 25 (14-36) U/L ALT 23 (9-52) U/L Alkaline Phosphatase 74 (38-126) U/L Total Protein 5.3 L (6.3-8.2) G/DL Albumin 2.4 L (3.5-5.0) g/dL Globulin 2.9 (2.2-3.9) gm/dL Albumin/Globulin Ratio 0.8 L (1.0-2.1) Vancomycin Trough 13.7 H (5.0-10.0) ug/mL Crossmatch 11/16/16 Range/Units 13:45 WBC (4.8-10.8) K/uL RBC (3.80-5.20) Mil/uL Hgb (12.0-16.0) g/dL Hct (34.0-47.0) % MCV (81.0-99.0) fl MCH (27.0-31.0) pg MCHC (33.0-37.0) g/dL RDW (11.5-14.5) % Plt Count (130-400) K/uL Sodium (132-148) mmol/l Potassium (3.6-5.0) MMOL/L Chloride (98-107) mmol/L Carbon Dioxide (22-30) mmol/L Anion Gap (10-20) BUN (7-17) mg/dl Creatinine (0.7-1.2) mg/dL Est GFR ( Amer) Est GFR (Non-Af Amer) Random Glucose (65-105) mg/dL Calcium (8.4-10.2) mg/dL Total Bilirubin (0.2-1.3) mg/dl AST (14-36) U/L ALT (9-52) U/L Alkaline Phosphatase (38-126) U/L Total Protein (6.3-8.2) G/DL Albumin (3.5-5.0) g/dL Globulin (2.2-3.9) gm/dL Albumin/Globulin Ratio (1.0-2.1) Vancomycin Trough (5.0-10.0) ug/mL Crossmatch See Detail Laboratory Results - last 24 hr 11/16/16 11/20/16 11/20/16 13:45 04:15 04:15 WBC 2.4 L D RBC 2.22 L Hgb 7.2 L Hct 21.6 L MCV 97.2 D MCH 32.4 H MCHC 33.3 RDW 18.9 H Plt Count 66 L Sodium 151 H Potassium 3.6 Chloride 118 H Carbon Dioxide 22 Anion Gap 15 BUN 24 H Creatinine 1.3 H Est GFR ( Amer) 47 Est GFR (Non-Af Amer) 39 Random Glucose 93 Calcium 8.0 L Total Bilirubin 0.5 AST 25 ALT 23 Alkaline Phosphatase 74 Total Protein 5.3 L Albumin 2.4 L Globulin 2.9 Albumin/Globulin Ratio 0.8 L Vancomycin Trough Crossmatch See Detail 11/20/16 04:15 WBC RBC Hgb Hct MCV MCH MCHC RDW Plt Count Sodium Potassium Chloride Carbon Dioxide Anion Gap BUN Creatinine Est GFR ( Amer) Est GFR (Non-Af Amer) Random Glucose Calcium Total Bilirubin AST ALT Alkaline Phosphatase Total Protein Albumin Globulin Albumin/Globulin Ratio Vancomycin Trough 13.7 H Crossmatch Fingerstick Blood Sugar Results: 203 Review of Systems - Review of Systems All systems: reviewed and no additional remarkable complaints except - Constitutional Constitutional: absent: Fever, Chills - Cardiovascular Cardiovascular: absent: Chest Pain, Dyspnea, Palpitations - Respiratory Respiratory: absent: Dyspnea, Wheezing, Stridor - Gastrointestinal Gastrointestinal: absent: Nausea, Vomiting Critical Care Progress Note - Nutrition Nutrition: Nutrition Category Date Time Status NPO Diet [DIET] Diets 11/16/16 Lunch Active Assessment/Plan - Assessment and Plan (Free Text) Assessment: 86 y/o woman w/ pmh of HTN, HLD, and vulvar cancer in ICU s/p exploratory laparatomy and repair for perforated duodenal ulcer. Plan: Perforated duodenal ulcer - POD #4 S/p Ex lap with Mak patch - incentive spirometer use as directed - OOB to chair - c/w IV meropenem 500 mg Q8h (day 4) - c/w IV vancomycin 1 g daily (day 5), vanc trough 13.7 - c/w IV fluconazole 100 mg daily - c/w IVF D5 1/2 NS, KCl 20 meq @ 80 mL/hr - c/w tylenol for fever prn - c/w reglan for nausea/vomiting prn - NPO due to continued drainage in Tim drain - surgery recommendations appreciated Pancytopenia - secondary to chemoradiation treatment for vulvar cancer - CBC this morning, 2.4>7.2/21.6<66 - WBC increased from 0.8 to 2.4 - Hb stable - platelets decreased from 75 to 66 - on neutropenic precautions - Heme/onc recommendations appreciated Pain management - IV hydormorphone 0.5 mg Q3h for moderate pain - IV hydormorphone 1.0 mg Q4h for severe pain Vulvar cancer - managed by primary heme/onc Dr. Aviles - was on chemoradiation treatment prior to admission Prophylactic measure - IV protonix 40 mg BID - SCDs - OOB to chair <Maury Zaragoza V - Last Filed: 11/20/16 11:37> CCU Subjective - Physician Review Subjective (Free Text): 11/20/16 11:36 patient is seen and examined at bedside. case discusseed in am ICU rounds, management plans were formulated. Agree with plan of care as detailed in Resident's note. CCU Objective - Vital Signs / Intake & Output Vital Signs (Last 4 hours): Vital Signs Temp Pulse Resp BP Pulse Ox 11/20/16 10:00 76 23 161/82 H 95 11/20/16 08:00 97.6 F 91 H 19 91/56 L 84 L Intake and Output (Last 8hrs): Intake & Output 11/19/16 11/20/16 11/20/16 22:59 06:59 14:59 Intake Total 720 625 480 Output Total 200 980 100 Balance 520 -355 380 Intake: IV 570 525 80 Intake, Piggyback 150 100 400 Output: Gastric Amount 0 0 Right Nares 0 Right Stomach 0 Drainage 200 180 100 Right Upper Abdomen 200 180 100 Urine 800 Urine, Voided 800 Other: # Voids Urine, Voided 1 1 # Bowel Movements 0 1 - Medications Active Medications: Active Medications Generic Name Dose Route Start Last Admin Trade Name Freq PRN Reason Stop Dose Admin Acetaminophen 650 mg 11/15/16 20:27 Tylenol 650mg/20.3ml Solution Ud PO Q6 PRN fever >100.4 Benzocaine/Menthol 1 chantel 11/16/16 07:55 Cepacol Sore Throat PO Q2 PRN Sore Throat Cyanocobalamin 1,000 mcg 11/16/16 09:00 11/20/16 08:52 Vitamin B12 1000 Mcg/Ml Inj IM 1,000 mcg DAILY [facility] Administration Hydromorphone HCl 1 mg 11/18/16 06:00 Dilaudid IVP Q4 PRN Pain, severe (8-10) Hydromorphone HCl 0.5 mg 11/19/16 17:00 11/19/16 17:11 Dilaudid IVP 0.5 mg Q3 PRN Administration Pain, moderate (4-7) Vancomycin HCl 1 gm/ Sodium 250 mls @ 166.667 mls/hr 11/16/16 09:00 11/20/16 08:53 Chloride IVPB 166.667 mls/hr DAILY [facility] Administration Fluconazole 50 mls @ 50 mls/hr 11/17/16 14:30 11/20/16 08:51 Diflucan Iv 100 Mg/50 Ml Ns IVPB 50 mls/hr DAILY [facility] Administration Meropenem 500 mg/ Sodium 100 mls @ 100 mls/hr 11/17/16 17:00 11/20/16 08:50 Chloride IVPB 100 mls/hr Q8 [facility] Administration Potassium Chloride/Dextrose/Sod Cl 1,000 mls @ 80 mls/hr 11/20/16 08:30 11/20 08:49 Potassium Chl 20 Meq In D5-1/2ns IV 11/23/16 08:22 80 mls/hr .[id number] [facility] Administration Metoclopramide HCl 10 mg 11/15/16 18:50 Reglan IVP Q6 PRN Nausea/Vomiting Pantoprazole Sodium 40 mg 11/17/16 09:00 11/20/16 08:57 Protonix Inj IVP 40 mg BID [facility] Administration Silver Sulfadiazine 1 applic 11/16/16 09:00 11/20/16 08:54 Silvadene 1% 50 Gm TOP 1 applic BID [facility] Administration - Patient Studies Lab Studies: Microbiology Studies 11/17/16 17:00 Blood Culture - Preliminary Blood-Venous NO GROWTH AFTER 48 HOURS 11/17/16 17:30 Blood Culture - Preliminary Blood-Venous NO GROWTH AFTER 48 HOURS 11/15/16 13:20 Blood Culture - Preliminary Blood NO GROWTH AFTER 4 DAYS 11/15/16 13:05 Blood Culture - Preliminary Blood NO GROWTH AFTER 4 DAYS 11/16/16 20:00 Gram Stain - Final Other: Please Indicate Wound Culture - Final Escherichia Coli 11/16/16 20:00 Gram Stain - Final Other: Please Indicate Wound Culture - Final Escherichia Coli Lab Studies 11/20/16 11/20/16 11/20/16 Range/Units 04:15 04:15 04:15 WBC 2.4 L D (4.8-10.8) K/uL RBC 2.22 L (3.80-5.20) Mil/uL Hgb 7.2 L (12.0-16.0) g/dL Hct 21.6 L (34.0-47.0) % MCV 97.2 D (81.0-99.0) fl MCH 32.4 H (27.0-31.0) pg MCHC 33.3 (33.0-37.0) g/dL RDW 18.9 H (11.5-14.5) % Plt Count 66 L (130-400) K/uL Neutrophils % (Manual) 74 (42-75) % Lymphocytes % (Manual) 16 L (20-50) % Monocytes % (Manual) 8 (0-10) % Eosinophils % (Manual) 2 (0-7) % Toxic Granulation Present Platelet Estimate Decreased L (NORMAL) Large Platelets Present Hypochromasia (manual) Slight Anisocytosis (manual) Slight Ovalocytes Slight Sodium 151 H (132-148) mmol/l Potassium 3.6 (3.6-5.0) MMOL/L Chloride 118 H (98-107) mmol/L Carbon Dioxide 22 (22-30) mmol/L Anion Gap 15 (10-20) BUN 24 H (7-17) mg/dl Creatinine 1.3 H (0.7-1.2) mg/dL Est GFR ( Amer) 47 Est GFR (Non-Af Amer) 39 Random Glucose 93 (65-105) mg/dL Calcium 8.0 L (8.4-10.2) mg/dL Total Bilirubin 0.5 (0.2-1.3) mg/dl AST 25 (14-36) U/L ALT 23 (9-52) U/L Alkaline Phosphatase 74 (38-126) U/L Total Protein 5.3 L (6.3-8.2) G/DL Albumin 2.4 L (3.5-5.0) g/dL Globulin 2.9 (2.2-3.9) gm/dL Albumin/Globulin Ratio 0.8 L (1.0-2.1) Vancomycin Trough 13.7 H (5.0-10.0) ug/mL Crossmatch 11/16/16 Range/Units 13:45 WBC (4.8-10.8) K/uL RBC (3.80-5.20) Mil/uL Hgb (12.0-16.0) g/dL Hct (34.0-47.0) % MCV (81.0-99.0) fl MCH (27.0-31.0) pg MCHC (33.0-37.0) g/dL RDW (11.5-14.5) % Plt Count (130-400) K/uL Neutrophils % (Manual) (42-75) % Lymphocytes % (Manual) (20-50) % Monocytes % (Manual) (0-10) % Eosinophils % (Manual) (0-7) % Toxic Granulation Platelet Estimate (NORMAL) Large Platelets Hypochromasia (manual) Anisocytosis (manual) Ovalocytes Sodium (132-148) mmol/l Potassium (3.6-5.0) MMOL/L Chloride (98-107) mmol/L Carbon Dioxide (22-30) mmol/L Anion Gap (10-20) BUN (7-17) mg/dl Creatinine (0.7-1.2) mg/dL Est GFR ( Amer) Est GFR (Non-Af Amer) Random Glucose (65-105) mg/dL Calcium (8.4-10.2) mg/dL Total Bilirubin (0.2-1.3) mg/dl AST (14-36) U/L ALT (9-52) U/L Alkaline Phosphatase (38-126) U/L Total Protein (6.3-8.2) G/DL Albumin (3.5-5.0) g/dL Globulin (2.2-3.9) gm/dL Albumin/Globulin Ratio (1.0-2.1) Vancomycin Trough (5.0-10.0) ug/mL Crossmatch See Detail Laboratory Results - last 24 hr 11/16/16 11/20/16 11/20/16 13:45 04:15 04:15 WBC 2.4 L D RBC 2.22 L Hgb 7.2 L Hct 21.6 L MCV 97.2 D MCH 32.4 H MCHC 33.3 RDW 18.9 H Plt Count 66 L Neutrophils % (Manual) 74 Lymphocytes % (Manual) 16 L Monocytes % (Manual) 8 Eosinophils % (Manual) 2 Toxic Granulation Present Platelet Estimate Decreased L Large Platelets Present Hypochromasia (manual) Slight Anisocytosis (manual) Slight Ovalocytes Slight Sodium 151 H Potassium 3.6 Chloride 118 H Carbon Dioxide 22 Anion Gap 15 BUN 24 H Creatinine 1.3 H Est GFR ( Amer) 47 Est GFR (Non-Af Amer) 39 Random Glucose 93 Calcium 8.0 L Total Bilirubin 0.5 AST 25 ALT 23 Alkaline Phosphatase 74 Total Protein 5.3 L Albumin 2.4 L Globulin 2.9 Albumin/Globulin Ratio 0.8 L Vancomycin Trough Crossmatch See Detail 11/20/16 04:15 WBC RBC Hgb Hct MCV MCH MCHC RDW Plt Count Neutrophils % (Manual) Lymphocytes % (Manual) Monocytes % (Manual) Eosinophils % (Manual) Toxic Granulation Platelet Estimate Large Platelets Hypochromasia (manual) Anisocytosis (manual) Ovalocytes Sodium Potassium Chloride Carbon Dioxide Anion Gap BUN Creatinine Est GFR ( Amer) Est GFR (Non-Af Amer) Random Glucose Calcium Total Bilirubin AST ALT Alkaline Phosphatase Total Protein Albumin Globulin Albumin/Globulin Ratio Vancomycin Trough 13.7 H Crossmatch Critical Care Progress Note - Nutrition Nutrition: Nutrition Category Date Time Status NPO Diet [DIET] Diets 11/16/16 Lunch Active
[2016-11-20 11:26] LABS: EOSINOPHIL 2 % (0-7); NEUTROPHIL 74 % (42-75); TOTAL CELLS COUNTED 100
[2016-11-20 11:27] LABS: LARGE PLATELETS PRESENT
--- NOTE | 2016-11-20 11:57 | PCM.PROC ---
Procedures Attestation:: I certify that I have explained the specified Operation(s) or Procedure(s), risks, benefits and reasonable alternatives to the Patient and/or other person responsible. The opportunity was given to ask questions and all questions answered - Extubation Clinical Parameters: Hemodynamically Stable, Intact Cough/Gag Reflex, Spontaneous Respirations, Acceptable Vent Settings (FIO2<50%, PEEP<8, PaO2>75, pH>7.25) Weaning Criteria Met: Yes General Weaning Approaches: Pressure Support Ventilation (PSV) Weaning Patient Condition: Patient has been successfully extubated and assessed Oxygen Therapy: O2 via Venti Mask Patient Tolerated Procedure: Well, No Complications
--- NOTE | 2016-11-20 17:21 | CP.PCM.PN ---
<Anirudh Diggs - Last Filed: 11/20/16 17:30> Subjective - Date & Time of Evaluation Date of Evaluation: 11/20/16 Time of Evaluation: 08:25 - Subjective Subjective: Pt seen and examined at bedside with Dr. Taylor. Patient is in NAD. Denies any overnight events. - POD #4 s/p ex lap and repair for duodenal ulcer - Patient has been encouraged to ambulate and sit in chair and use insentive spirometer Objective - Vital Signs/Intake and Output Vital Signs (last 24 hours): Temp Pulse Resp BP Pulse Ox 97.6 F 79 15 132/60 95 11/20/16 16:00 11/20/16 16:00 11/20/16 16:00 11/20/16 16:00 11/20/16 16:00 Intake and Output: 11/20/16 11/20/16 06:59 18:59 Intake Total 925 960 Output Total 1100 515 Balance -175 445 - Medications Medications: Current Medications Acetaminophen (Tylenol 650mg/20.3ml Solution Ud) 650 mg PO Q6 PRN PRN Reason: fever >100.4 Benzocaine/Menthol (Cepacol Sore Throat) 1 chantel PO Q2 PRN PRN Reason: Sore Throat Cyanocobalamin (Vitamin B12 1000 Mcg/Ml Inj) 1,000 mcg IM DAILY [facility] Last Admin: 11/20/16 08:52 Dose: 1,000 mcg Hydromorphone HCl (Dilaudid) 0.5 mg IVP Q3 PRN PRN Reason: Pain, moderate (4-7) Last Admin: 11/20/16 14:45 Dose: 0.5 mg Vancomycin HCl 1 gm/ Sodium (Chloride) 250 mls @ 166.667 mls/hr IVPB DAILY [facility] Last Admin: 11/20/16 08:53 Dose: 166.667 mls/hr Fluconazole (Diflucan Iv 100 Mg/50 Ml Ns) 50 mls @ 50 mls/hr IVPB DAILY [facility] Last Admin: 11/20/16 08:51 Dose: 50 mls/hr Meropenem 500 mg/ Sodium (Chloride) 100 mls @ 100 mls/hr IVPB Q8 [facility] Last Admin: 11/20/16 16:37 Dose: 100 mls/hr Potassium Chloride/Dextrose/Sod Cl (Potassium Chl 20 Meq In D5-1/2ns) 1,000 mls @ 80 mls/hr IV .[id number] [facility] Stop: 11/23/16 08:22 Last Admin: 11/20/16 08:49 Dose: 80 mls/hr Metoclopramide HCl (Reglan) 10 mg IVP Q6 PRN PRN Reason: Nausea/Vomiting Pantoprazole Sodium (Protonix Inj) 40 mg IVP BID [facility] Last Admin: 11/20/16 16:50 Dose: 40 mg Silver Sulfadiazine (Silvadene 1% 50 Gm) 1 applic TOP BID [facility] Last Admin: 11/20/16 16:50 Dose: 1 applic - Labs Labs: 11/20/16 04:15 11/20/16 04:15 PT 10.5 Seconds (9.8-13.1) 11/15/16 13:05 INR 1.0 (0.9-1.2) 11/15/16 13:05 APTT 22.3 Seconds (25.6-37.1) L 11/15/16 13:05 - Constitutional Appears: No Acute Distress - Head Exam Head Exam: ATRAUMATIC - Eye Exam Eye Exam: EOMI - Neck Exam Neck Exam: Full ROM - Respiratory Exam Respiratory Exam: Clear to Ausculation Bilateral - Cardiovascular Exam Cardiovascular Exam: REGULAR RHYTHM, +S1, +S2 - GI/Abdominal Exam GI & Abdominal Exam: Distended. absent: Normal Bowel Sounds Assessment and Plan - Assessment and Plan (Free Text) Assessment: 1) Perforated duodenal ulcer POD #4 s/p ex lap NPO Continue IV fluids encouraged ambulation and sitting in yudy Continue with Meropenem, vancomycin and fluconazole pain is controlled with hydromorphone 2) Pancytopenia - secondary to chemo for vulvar cancer - CBC this morning, 2.4>7.2/21.6<66 - WBC increased from 0.8 to 2.4 - heme onc on board 3)Prophylactic measures IV protonix SCD Encourage ambulation <Russ Taylor K - Last Filed: 11/22/16 16:38> Objective - Vital Signs/Intake and Output Vital Signs (last 24 hours): Temp Pulse Resp BP Pulse Ox 97.9 F 73 14 136/91 H 99 11/22/16 16:00 11/22/16 16:00 11/22/16 16:00 11/22/16 16:00 11/22/16 16:00 Intake and Output: 11/22/16 11/22/16 06:59 18:59 Intake Total 1030 1230 Output Total 1090 750 Balance -60 480 - Medications Medications: Current Medications Acetaminophen (Tylenol 650mg/20.3ml Solution Ud) 650 mg PO Q6 PRN PRN Reason: fever >100.4 Benzocaine/Menthol (Cepacol Sore Throat) 1 chantel PO Q2 PRN PRN Reason: Sore Throat Cyanocobalamin (Vitamin B12 1000 Mcg/Ml Inj) 1,000 mcg IM DAILY [facility] Last Admin: 11/22/16 10:24 Dose: 1,000 mcg Hydromorphone HCl (Dilaudid) 0.5 mg IVP Q3 PRN PRN Reason: Pain, moderate (4-7) Last Admin: 11/20/16 14:45 Dose: 0.5 mg Vancomycin HCl 1 gm/ Sodium (Chloride) 250 mls @ 166.667 mls/hr IVPB DAILY [facility] Last Admin: 11/22/16 10:05 Dose: 166.667 mls/hr Fluconazole (Diflucan Iv 100 Mg/50 Ml Ns) 50 mls @ 50 mls/hr IVPB DAILY [facility] Last Admin: 11/22/16 10:04 Dose: 50 mls/hr Meropenem 500 mg/ Sodium (Chloride) 100 mls @ 100 mls/hr IVPB Q8 [facility] Last Admin: 11/22/16 10:04 Dose: 100 mls/hr Potassium Chloride/Dextrose (Potassium Chl 20 Meq In D5w) 1,000 mls @ 50 mls/ hr IV .Q20H [facility] Stop: 11/23/16 07:36 Last Admin: 11/22/16 10:36 Dose: 50 mls/hr Multivitamins/Vitamin C 10 ml/Chromium/Copper/Manganese/Zinc 3 ml/ Amino Acids/ Electrolytes/Dextrose 1,013 mls @ 42 mls/hr IV .Q24H ONE Stop: 11/23/16 08:44 Last Admin: 11/22/16 10:06 Dose: 42 mls/hr Pantoprazole Sodium (Protonix Inj) 40 mg IVP BID [facility] Last Admin: 11/22/16 10:03 Dose: 40 mg Silver Sulfadiazine (Silvadene 1% 50 Gm) 1 applic TOP BID [facility] Last Admin: 11/22/16 10:24 Dose: 1 applic - Labs Labs: 11/22/16 04:15 11/22/16 04:15 PT 10.5 Seconds (9.8-13.1) 11/15/16 13:05 INR 1.0 (0.9-1.2) 11/15/16 13:05 APTT 22.3 Seconds (25.6-37.1) L 11/15/16 13:05 Assessment and Plan - Assessment and Plan (Free Text) Assessment: Patient was personally seen and examined by me in rounds with residents. Available labs and diagnostic data reviewed. Case, Patient's condition and management plan Discussed with residents in rounds. Agree with resident's progress note. Plan: As ordered.
[2016-11-21] MEDS: Potassium Ch 20mEq in D5-1/2NS 1,000 ML IV SCH (00:04)
[2016-11-21] MEDS: Meropenem 500 MG in Sodium Chloride 0.9% 100 ML IVPB SCH ×3 (00:05→16:12)
[2016-11-21 05:26] LABS: ALB/GLOB RATIO 0.8 (1.0-2.1); BILIRUBIN,TOTAL 0.4 mg/dl (0.2-1.3); CALCIUM 8.1 mg/dL (8.4-10.2); POTASSIUM 3.4 MMOL/L (3.6-5.0); TOTAL PROTEIN 5.6 G/DL (6.3-8.2)
[2016-11-21 06:26] LABS: BASO % 0.3 % (0.0-2.0); EOS % 0.2 % (0.0-4.0); HEMATOCRIT 23.5 % (34.0-47.0); LYMPH % 12.5 % (20.0-40.0); MEAN CELL VOLUME 96.3 fl (81.0-99.0); MEAN CORPUSCULAR HEMOGLOBIN 32.5 pg (27.0-31.0); MEAN CORPUSCULAR HGB CONC 33.7 g/dL (33.0-37.0); MEAN PLATELET VOLUME 9.5 fl (7.2-11.7); MONO # 0.4 K/uL (0.0-0.8); NEUT # 6.3 K/uL (1.8-7.0); NRBC % 0.7 % (0.0-0.0); RED CELL DISTRIBUTION WIDTH 19.2 % (11.5-14.5); WHITE BLOOD COUNT 7.6 K/uL (4.8-10.8)
[2016-11-21] MEDS: Silver Sulfadiazine 1% CREAM (50 gm) TOP SCH ×2 (08:40→16:13)
[2016-11-21] MEDS: Fluconazole IV 100mg/50 ml NS 50 ML IVPB SCH (08:58)
--- NOTE | 2016-11-21 09:33 | CP.PCM.PN ---
Subjective - Date & Time of Evaluation Date of Evaluation: 11/21/16 Time of Evaluation: 09:31 - Subjective Subjective: Surgery: Dr. Oro Patient doing well today. Denies pain to the abdomen, n/v/f/c. Per nursing patient removed NGT last night. Barakat removed yesterday and patient voiding freely. + BM yesterday. Patient had some confusion overnight but was easily redirected. Objective - Vital Signs/Intake and Output Vital Signs (last 24 hours): Temp Pulse Resp BP Pulse Ox 98.1 F 77 20 146/90 96 11/21/16 08:00 11/21/16 08:00 11/21/16 08:00 11/21/16 08:00 11/21/16 08:00 Intake and Output: 11/21/16 11/21/16 06:59 18:59 Intake Total 900 80 Output Total 670 100 Balance 230 -20 - Medications Medications: Current Medications Acetaminophen (Tylenol 650mg/20.3ml Solution Ud) 650 mg PO Q6 PRN PRN Reason: fever >100.4 Benzocaine/Menthol (Cepacol Sore Throat) 1 chantel PO Q2 PRN PRN Reason: Sore Throat Cyanocobalamin (Vitamin B12 1000 Mcg/Ml Inj) 1,000 mcg IM DAILY [facility] Last Admin: 11/21/16 08:58 Dose: 1,000 mcg Hydromorphone HCl (Dilaudid) 0.5 mg IVP Q3 PRN PRN Reason: Pain, moderate (4-7) Last Admin: 11/20/16 14:45 Dose: 0.5 mg Vancomycin HCl 1 gm/ Sodium (Chloride) 250 mls @ 166.667 mls/hr IVPB DAILY [facility] Last Admin: 11/21/16 08:59 Dose: 166.667 mls/hr Fluconazole (Diflucan Iv 100 Mg/50 Ml Ns) 50 mls @ 50 mls/hr IVPB DAILY [facility] Last Admin: 11/21/16 08:58 Dose: 50 mls/hr Meropenem 500 mg/ Sodium (Chloride) 100 mls @ 100 mls/hr IVPB Q8 [facility] Last Admin: 11/21/16 08:59 Dose: 100 mls/hr Pantoprazole Sodium (Protonix Inj) 40 mg IVP BID [facility] Last Admin: 11/21/16 08:58 Dose: 40 mg Silver Sulfadiazine (Silvadene 1% 50 Gm) 1 applic TOP BID [facility] Last Admin: 11/20/16 16:50 Dose: 1 applic - Labs Labs: 11/21/16 04:30 11/21/16 04:30 PT 10.5 Seconds (9.8-13.1) 11/15/16 13:05 INR 1.0 (0.9-1.2) 11/15/16 13:05 APTT 22.3 Seconds (25.6-37.1) L 11/15/16 13:05 - Constitutional Appears: Non-toxic - Eye Exam Eye Exam: EOMI, Normal appearance - ENT Exam ENT Exam: Mucous Membranes Moist - Respiratory Exam Respiratory Exam: NORMAL BREATHING PATTERN. absent: Respiratory Distress - Cardiovascular Exam Cardiovascular Exam: REGULAR RHYTHM. absent: Tachycardia - GI/Abdominal Exam GI & Abdominal Exam: Soft. absent: Distended, Guarding, Tenderness, Rebound Additional comments: incisions CDI w/ staple closure. R side herbert drain w/ 135cc/12hr of bilious fluid. - Neurological Exam Neurological Exam: Alert - Psychiatric Exam Psychiatric exam: Normal Affect, Normal Mood - Skin Skin Exam: Dry, Normal Color, Warm Assessment and Plan - Assessment and Plan (Free Text) Assessment: 86 y/o female w/ perforated duodenum s/p ex lap w/ Mak patch POD5 Plan: -do not replace NGT -monitor herbert output -cont NPO until drain output decreases or becomes less bilious -consider PPN/TPN for nutrition -OOB, IS use, and PT -cont abx per ID -daily labs -d/w Dr. Shorty Arenas PGY3
--- NOTE | 2016-11-21 10:48 | CP.CCUPN ---
<Julius Dixon - Last Filed: 11/21/16 13:20> CCU Subjective - Physician Review Events Since Last Encounter (Free Text): 11/21/16 10:46 Patient seen this morning. No acute distress, sitting in bed comfortably, AAOx3 , supplemental O2 via nasal cannula. Patient is POD #5 s/p ex lap and repair for perforated duodenal ulcer. Patient reports gas and able to belch. Patient reports momentary confusion upon moving to another room last night but was reoriented and is at baseline. Patient remains NPO due to continuous drainage from Tim drain. Patient is OOB to chair and uses incentive spirometer as directed. Patient reports bowel movement this morning. Patient's ortiz GA'ed 11/19/2016 and is voiding freely. Critical Care Time Spent (in minutes): 35 CCU Objective - Vital Signs / Intake & Output Vital Signs (Last 4 hours): Vital Signs Temp Pulse Resp BP Pulse Ox 11/21/16 08:00 98.1 F 77 20 146/90 96 Intake and Output (Last 8hrs): Intake & Output 11/20/16 11/21/16 11/21/16 22:59 06:59 14:59 Intake Total 660 660 480 Output Total 375 620 350 Balance 285 40 130 Intake: IV 560 560 80 Intake, Piggyback 100 100 400 Oral 0 Output: Gastric Amount 275 50 Right Stomach 275 50 Drainage 100 70 100 Right Upper Abdomen 100 70 100 Urine 500 250 Urine, Voided 500 250 Other: # Voids Urine, Voided 1 1 # Bowel Movements 1 - Physical Exam Head: Positive for: Normocephalic Pupils: Positive for: PERRL Extroacular Muscles: Positive for: EOMI Conjunctiva: Positive for: Normal. Negative for: Icteric Mouth: Positive for: Moist Mucous Membranes Neck: Positive for: Normal Range of Motion. Negative for: Meningeal Signs, JVD Respiratory/Chest: Positive for: Clear to Auscultation, Rhonchi (few). Negative for: Accessory Muscle Use, Rales Cardiovascular: Positive for: Regular Rate and Rhythm. Negative for: Murmurs, Rub Abdomen: Positive for: Distention. Negative for: Tenderness, Normal Bowel Sounds (not audible) Neurological: Positive for: GCS=15, CN II-XII Intact, Motor Func Grossly Intact , Normal Sensory Function Skin: Positive for: Warm. Negative for: Rashes Psychiatric: Positive for: Alert, Oriented x 3, Normal Concentration, Normal Affect - Medications Active Medications: Active Medications Generic Name Dose Route Start Last Admin Trade Name Freq PRN Reason Stop Dose Admin Acetaminophen 650 mg 11/15/16 20:27 Tylenol 650mg/20.3ml Solution Ud PO Q6 PRN fever >100.4 Benzocaine/Menthol 1 chantel 11/16/16 07:55 Cepacol Sore Throat PO Q2 PRN Sore Throat Cyanocobalamin 1,000 mcg 11/16/16 09:00 11/21/16 08:58 Vitamin B12 1000 Mcg/Ml Inj IM 1,000 mcg DAILY [facility] Administration Hydromorphone HCl 0.5 mg 11/19/16 17:00 11/20/16 14:45 Dilaudid IVP 0.5 mg Q3 PRN Administration Pain, moderate (4-7) Vancomycin HCl 1 gm/ Sodium 250 mls @ 166.667 mls/hr 11/16/16 09:00 11/21/16 08:59 Chloride IVPB 166.667 mls/hr DAILY [facility] Administration Fluconazole 50 mls @ 50 mls/hr 11/17/16 14:30 11/21/16 08:58 Diflucan Iv 100 Mg/50 Ml Ns IVPB 50 mls/hr DAILY [facility] Administration Meropenem 500 mg/ Sodium 100 mls @ 100 mls/hr 11/17/16 17:00 11/21/16 08:59 Chloride IVPB 100 mls/hr Q8 [facility] Administration Pantoprazole Sodium 40 mg 11/17/16 09:00 11/21/16 08:58 Protonix Inj IVP 40 mg BID [facility] Administration Silver Sulfadiazine 1 applic 11/16/16 09:00 11/20/16 16:50 Silvadene 1% 50 Gm TOP 1 applic BID [facility] Administration - Patient Studies Lab Studies: Microbiology Studies 11/17/16 17:00 Blood Culture - Preliminary Blood-Venous NO GROWTH AFTER 3 DAYS 11/17/16 17:30 Blood Culture - Preliminary Blood-Venous NO GROWTH AFTER 3 DAYS 11/15/16 13:20 Blood Culture - Final Blood NO GROWTH AFTER 5 DAYS Gram Stain - Final TEST NOT PERFORMED 11/15/16 13:05 Blood Culture - Final Blood NO GROWTH AFTER 5 DAYS Gram Stain - Final TEST NOT PERFORMED Lab Studies 11/21/16 11/21/16 11/20/16 Range/Units 04:30 04:30 04:15 WBC 7.6 D (4.8-10.8) K/uL RBC 2.44 L (3.80-5.20) Mil/uL Hgb 7.9 L (12.0-16.0) g/dL Hct 23.5 L (34.0-47.0) % MCV 96.3 (81.0-99.0) fl MCH 32.5 H (27.0-31.0) pg MCHC 33.7 (33.0-37.0) g/dL RDW 19.2 H (11.5-14.5) % Plt Count 67 L (130-400) K/uL MPV 9.5 (7.2-11.7) fl Neut % (Auto) 82.0 H (50.0-75.0) % Lymph % (Auto) 12.5 L (20.0-40.0) % [place] % (Auto) 5.0 (0.0-10.0) % Eos % (Auto) 0.2 (0.0-4.0) % Baso % (Auto) 0.3 (0.0-2.0) % Neut # 6.3 (1.8-7.0) K/uL Lymph # 1.0 (1.0-4.3) K/uL [place] # 0.4 (0.0-0.8) K/uL Eos # 0.0 (0.0-0.7) K/uL Baso # 0.0 (0.0-0.2) K/uL Neutrophils % (Manual) 74 (42-75) % Lymphocytes % (Manual) 16 L (20-50) % Monocytes % (Manual) 8 (0-10) % Eosinophils % (Manual) 2 (0-7) % Toxic Granulation Present Platelet Estimate Decreased L (NORMAL) Large Platelets Present Hypochromasia (manual) Slight Anisocytosis (manual) Slight Ovalocytes Slight Sodium 153 H (132-148) mmol/l Potassium 3.4 L (3.6-5.0) MMOL/L Chloride 119 H (98-107) mmol/L Carbon Dioxide 22 (22-30) mmol/L Anion Gap 15 (10-20) BUN 20 H (7-17) mg/dl Creatinine 1.2 (0.7-1.2) mg/dL Est GFR ( Amer) 52 Est GFR (Non-Af Amer) 43 Random Glucose 111 H (65-105) mg/dL Calcium 8.1 L (8.4-10.2) mg/dL Total Bilirubin 0.4 (0.2-1.3) mg/dl AST 27 (14-36) U/L ALT 28 (9-52) U/L Alkaline Phosphatase 102 (38-126) U/L Total Protein 5.6 L (6.3-8.2) G/DL Albumin 2.6 L (3.5-5.0) g/dL Globulin 3.1 (2.2-3.9) gm/dL Albumin/Globulin Ratio 0.8 L (1.0-2.1) Laboratory Results - last 24 hr 11/20/16 11/21/16 11/21/16 04:15 04:30 04:30 WBC 7.6 D RBC 2.44 L Hgb 7.9 L Hct 23.5 L MCV 96.3 MCH 32.5 H MCHC 33.7 RDW 19.2 H Plt Count 67 L MPV 9.5 Neut % (Auto) 82.0 H Lymph % (Auto) 12.5 L [place] % (Auto) 5.0 Eos % (Auto) 0.2 Baso % (Auto) 0.3 Neut # 6.3 Lymph # 1.0 [place] # 0.4 Eos # 0.0 Baso # 0.0 Neutrophils % (Manual) 74 Lymphocytes % (Manual) 16 L Monocytes % (Manual) 8 Eosinophils % (Manual) 2 Toxic Granulation Present Platelet Estimate Decreased L Large Platelets Present Hypochromasia (manual) Slight Anisocytosis (manual) Slight Ovalocytes Slight Sodium 153 H Potassium 3.4 L Chloride 119 H Carbon Dioxide 22 Anion Gap 15 BUN 20 H Creatinine 1.2 Est GFR ( Amer) 52 Est GFR (Non-Af Amer) 43 Random Glucose 111 H Calcium 8.1 L Total Bilirubin 0.4 AST 27 ALT 28 Alkaline Phosphatase 102 Total Protein 5.6 L Albumin 2.6 L Globulin 3.1 Albumin/Globulin Ratio 0.8 L Fingerstick Blood Sugar Results: 203 Review of Systems - Review of Systems All systems: reviewed and no additional remarkable complaints except - Constitutional Constitutional: absent: Fever, Chills - Cardiovascular Cardiovascular: absent: Chest Pain - Respiratory Respiratory: absent: Dyspnea - Gastrointestinal Gastrointestinal: absent: Nausea, Vomiting - Genitourinary Genitourinary: absent: Dysuria - Neurological Neurological: absent: Headaches Critical Care Progress Note - Nutrition Nutrition: Nutrition Category Date Time Status NPO Diet [DIET] Diets 11/16/16 Lunch Active Assessment/Plan - Assessment and Plan (Free Text) Assessment: 86 y/o woman w/ pmh of HTN, HLD, and vulvar cancer in ICU s/p exploratory laparatomy and repair for perforated duodenal ulcer. Plan: Perforated duodenal ulcer - POD #5 S/p Ex lap with Mak patch - incentive spirometer use as directed - OOB to chair - c/w IV meropenem 500 mg Q8h (day 5) - c/w IV vancomycin 1 g daily (day 6), vanc trough 13.7 - c/w IV fluconazole 100 mg daily (day 5) - DC'ed IVF D5 1/2 NS, KCl 20 meq @ 80 mL/hr - c/w tylenol for fever prn - c/w reglan for nausea/vomiting prn - NPO due to continued drainage in Tim drain - TPN via central line at surgery's discretion - surgery recommendations appreciated Pancytopenia - secondary to chemoradiation treatment for vulvar cancer - CBC this morning, 7.6>7.9/23.5<67 - WBC increased from 2.4 to 7.6 - Hb stable - platelets increased from 66 to 67 - DC'ed neutropenic precautions - Heme/onc recommendations appreciated Pain management - IV hydormorphone 0.5 mg Q3h for moderate pain - IV hydormorphone 1.0 mg Q4h for severe pain Vulvar cancer - managed by primary heme/onc Dr. Aviles - was on chemoradiation treatment prior to admission Prophylactic measure - IV protonix 40 mg BID - incentrive spirometer use - SCDs - OOB to chair <Samson Rader - Last Filed: 11/21/16 13:37> Assessment/Plan - Assessment and Plan (Free Text) Plan: Attestation: Patient seen and examined at the bedside with Resident Dr. Tawny Dixon; and I agree with his outline of plans and management documented below as discussed on AM rounds reflecting my review of all applicable clinical data, and participation in the care of the patient throughout the day in ICU; today, November 21, 2016.
--- NOTE | 2016-11-21 11:48 | CP.PCM.PN ---
Subjective - Date & Time of Evaluation Date of Evaluation: 11/21/16 Time of Evaluation: 12:20 - Subjective Subjective: ID Note- pt. seen and examined today in ICU. pt. awake and in good spirits. she just had BM , not diarrhea. she denies any fever or chills, denies any cough. Objective - Vital Signs/Intake and Output Vital Signs (last 24 hours): Temp Pulse Resp BP Pulse Ox 98.1 F 77 20 146/90 96 11/21/16 08:00 11/21/16 08:00 11/21/16 08:00 11/21/16 08:00 11/21/16 08:00 Intake and Output: 11/21/16 11/21/16 06:59 18:59 Intake Total 900 480 Output Total 670 350 Balance 230 130 - Medications Medications: Current Medications Acetaminophen (Tylenol 650mg/20.3ml Solution Ud) 650 mg PO Q6 PRN PRN Reason: fever >100.4 Benzocaine/Menthol (Cepacol Sore Throat) 1 chantel PO Q2 PRN PRN Reason: Sore Throat Cyanocobalamin (Vitamin B12 1000 Mcg/Ml Inj) 1,000 mcg IM DAILY [facility] Last Admin: 11/21/16 08:58 Dose: 1,000 mcg Hydromorphone HCl (Dilaudid) 0.5 mg IVP Q3 PRN PRN Reason: Pain, moderate (4-7) Last Admin: 11/20/16 14:45 Dose: 0.5 mg Vancomycin HCl 1 gm/ Sodium (Chloride) 250 mls @ 166.667 mls/hr IVPB DAILY [facility] Last Admin: 11/21/16 08:59 Dose: 166.667 mls/hr Fluconazole (Diflucan Iv 100 Mg/50 Ml Ns) 50 mls @ 50 mls/hr IVPB DAILY [facility] Last Admin: 11/21/16 08:58 Dose: 50 mls/hr Meropenem 500 mg/ Sodium (Chloride) 100 mls @ 100 mls/hr IVPB Q8 [facility] Last Admin: 11/21/16 08:59 Dose: 100 mls/hr Pantoprazole Sodium (Protonix Inj) 40 mg IVP BID [facility] Last Admin: 11/21/16 08:58 Dose: 40 mg Silver Sulfadiazine (Silvadene 1% 50 Gm) 1 applic TOP BID [facility] Last Admin: 11/20/16 16:50 Dose: 1 applic - Labs Labs: - Additional Findings Additional findings: - Constitutional Appears: No Acute Distress - Head Exam Head Exam: ATRAUMATIC - Eye Exam Eye Exam: EOMI - ENT Exam ENT Exam: Normal Oropharynx - Neck Exam Neck Exam: Full ROM - Respiratory Exam Respiratory Exam: NORMAL BREATHING PATTERN Additional comments: good breath sounds b/l - Cardiovascular Exam Cardiovascular Exam: RRR, +S1, +S2 - GI/Abdominal Exam GI & Abdominal Exam: Soft, Normal Bowel Sounds Additional comments: mid-abdominal surgical site clean, no erythema Drain still in place, draining slightly less bilious and more brownish fluid - Extremities Exam Extremities Exam: Normal Inspection - Neurological Exam Neurological Exam: Alert, Awake, Oriented x 3 Laboratory Results - last 72 hr 11/16/16 11/19/16 11/19/16 13:45 04:20 04:20 WBC 0.8 L* D RBC 2.29 L Hgb 7.3 L Hct 21.8 L MCV 95.2 MCH 31.8 H MCHC 33.4 RDW 18.9 H Plt Count 75 L MPV 8.3 Neut % (Auto) 60.5 Lymph % (Auto) 21.8 [place] % (Auto) 16.2 H Eos % (Auto) 1.3 Baso % (Auto) 0.2 Neut # 0.5 L Lymph # 0.2 L [place] # 0.1 Eos # 0.0 Baso # 0.0 Neutrophils % (Manual) Lymphocytes % (Manual) Monocytes % (Manual) Eosinophils % (Manual) Toxic Granulation Platelet Estimate Large Platelets Hypochromasia (manual) Anisocytosis (manual) Ovalocytes Sodium 148 Potassium 3.4 L Chloride 114 H Carbon Dioxide 21 L Anion Gap 16 BUN 26 H Creatinine 1.4 H Est GFR ( Amer) 43 Est GFR (Non-Af Amer) 36 Random Glucose 72 Calcium 7.8 L Total Bilirubin 0.6 AST 26 ALT 33 Alkaline Phosphatase 71 Total Protein 5.3 L Albumin 2.5 L Globulin 2.9 Albumin/Globulin Ratio 0.9 L Vancomycin Trough Crossmatch See Detail 11/20/16 11/20/16 11/20/16 04:15 04:15 04:15 WBC 2.4 L D RBC 2.22 L Hgb 7.2 L Hct 21.6 L MCV 97.2 D MCH 32.4 H MCHC 33.3 RDW 18.9 H Plt Count 66 L MPV Neut % (Auto) Lymph % (Auto) [place] % (Auto) Eos % (Auto) Baso % (Auto) Neut # Lymph # [place] # Eos # Baso # Neutrophils % (Manual) 74 Lymphocytes % (Manual) 16 L Monocytes % (Manual) 8 Eosinophils % (Manual) 2 Toxic Granulation Present Platelet Estimate Decreased L Large Platelets Present Hypochromasia (manual) Slight Anisocytosis (manual) Slight Ovalocytes Slight Sodium 151 H Potassium 3.6 Chloride 118 H Carbon Dioxide 22 Anion Gap 15 BUN 24 H Creatinine 1.3 H Est GFR ( Amer) 47 Est GFR (Non-Af Amer) 39 Random Glucose 93 Calcium 8.0 L Total Bilirubin 0.5 AST 25 ALT 23 Alkaline Phosphatase 74 Total Protein 5.3 L Albumin 2.4 L Globulin 2.9 Albumin/Globulin Ratio 0.8 L Vancomycin Trough 13.7 H Crossmatch 11/21/16 11/21/16 04:30 04:30 WBC 7.6 D RBC 2.44 L Hgb 7.9 L Hct 23.5 L MCV 96.3 MCH 32.5 H MCHC 33.7 RDW 19.2 H Plt Count 67 L MPV 9.5 Neut % (Auto) 82.0 H Lymph % (Auto) 12.5 L [place] % (Auto) 5.0 Eos % (Auto) 0.2 Baso % (Auto) 0.3 Neut # 6.3 Lymph # 1.0 [place] # 0.4 Eos # 0.0 Baso # 0.0 Neutrophils % (Manual) Lymphocytes % (Manual) Monocytes % (Manual) Eosinophils % (Manual) Toxic Granulation Platelet Estimate Large Platelets Hypochromasia (manual) Anisocytosis (manual) Ovalocytes Sodium 153 H Potassium 3.4 L Chloride 119 H Carbon Dioxide 22 Anion Gap 15 BUN 20 H Creatinine 1.2 Est GFR ( Amer) 52 Est GFR (Non-Af Amer) 43 Random Glucose 111 H Calcium 8.1 L Total Bilirubin 0.4 AST 27 ALT 28 Alkaline Phosphatase 102 Total Protein 5.6 L Albumin 2.6 L Globulin 3.1 Albumin/Globulin Ratio 0.8 L Vancomycin Trough Crossmatch Microbiology 11/17/16 17:00 Blood-Venous Blood Culture - Preliminary NO GROWTH AFTER 3 DAYS 11/17/16 17:30 Blood-Venous Blood Culture - Preliminary NO GROWTH AFTER 3 DAYS 11/15/16 13:20 Blood Blood Culture - Final NO GROWTH AFTER 5 DAYS 11/15/16 13:20 Blood Gram Stain - Final TEST NOT PERFORMED 11/15/16 13:05 Blood Blood Culture - Final NO GROWTH AFTER 5 DAYS 11/15/16 13:05 Blood Gram Stain - Final TEST NOT PERFORMED 11/16/16 20:00 Other: Please Indicate Gram Stain - Final 11/16/16 20:00 Other: Please Indicate Wound Culture - Final Escherichia Coli 11/16/16 20:00 Other: Please Indicate Gram Stain - Final 11/16/16 20:00 Other: Please Indicate Wound Culture - Final Escherichia Coli 11/16/16 09:40 Naris MRSA Culture (Admit) - Final MRSA NOT DETECTED 11/15/16 23:30 Urine,Catheterized Urine Culture - Final No Growth (<1,000 CFU/ML) Assessment and Plan (1) Gastric out let obstruction Status: Acute (2) Leukopenia Status: Acute (3) Pneumoperitoneum Status: Acute (4) Severe sepsis Status: Acute (5) Vulvar cancer Status: Chronic - Assessment and Plan (Free Text) Assessment: A/P- 86 year old female with vulcar cancer undergoing chemo and radiation was admitted with sudden sharp abdominal pain , found to have high lactate underwent ex-lap and found to have perforated duodenal ulcer is s/p duodenal patch and samy drain in ICU. clinically better POD #5 afebrile no longer neutropenic wound cx- E.Coli x 2 (pansensitive) Blood cx- neg x 4 plan- advise to continue with IV meropenem day #5. advise to also continue with IV vancomyin for staph coverage as well. day #5. keep trough <15. advise to also continue with antifungal day #5. drain management as per surgical team. all above d/w [employer] ICU time 45 minutes.
--- NOTE | 2016-11-21 16:41 | CP.PCM.PN ---
<Anirudh Diggs - Last Filed: 11/21/16 16:47> Subjective - Date & Time of Evaluation Date of Evaluation: 11/21/16 Time of Evaluation: 08:00 - Subjective Subjective: POD # 5 - Patient seen and examined with Dr. Taylor at bedside. Patient appears under no acute distress. - Patient appeared confused this morning since she had moved out of neutropenic precausions. - Patient had a bowl movement this morning and is voiding freely Objective - Vital Signs/Intake and Output Vital Signs (last 24 hours): Temp Pulse Resp BP Pulse Ox 97.5 F L 73 19 137/67 96 11/21/16 16:00 11/21/16 16:00 11/21/16 16:00 11/21/16 16:00 11/21/16 14:00 Intake and Output: 11/21/16 11/21/16 06:59 18:59 Intake Total 900 800 Output Total 670 351 Balance 230 449 - Medications Medications: Current Medications Acetaminophen (Tylenol 650mg/20.3ml Solution Ud) 650 mg PO Q6 PRN PRN Reason: fever >100.4 Benzocaine/Menthol (Cepacol Sore Throat) 1 chantel PO Q2 PRN PRN Reason: Sore Throat Cyanocobalamin (Vitamin B12 1000 Mcg/Ml Inj) 1,000 mcg IM DAILY [facility] Last Admin: 11/21/16 08:58 Dose: 1,000 mcg Hydromorphone HCl (Dilaudid) 0.5 mg IVP Q3 PRN PRN Reason: Pain, moderate (4-7) Last Admin: 11/20/16 14:45 Dose: 0.5 mg Vancomycin HCl 1 gm/ Sodium (Chloride) 250 mls @ 166.667 mls/hr IVPB DAILY [facility] Last Admin: 11/21/16 08:59 Dose: 166.667 mls/hr Fluconazole (Diflucan Iv 100 Mg/50 Ml Ns) 50 mls @ 50 mls/hr IVPB DAILY [facility] Last Admin: 11/21/16 08:58 Dose: 50 mls/hr Meropenem 500 mg/ Sodium (Chloride) 100 mls @ 100 mls/hr IVPB Q8 [facility] Last Admin: 11/21/16 16:12 Dose: 100 mls/hr Pantoprazole Sodium (Protonix Inj) 40 mg IVP BID [facility] Last Admin: 11/21/16 16:13 Dose: 40 mg Silver Sulfadiazine (Silvadene 1% 50 Gm) 1 applic TOP BID [facility] Last Admin: 11/21/16 16:13 Dose: 1 applic - Labs Labs: 11/21/16 04:30 11/21/16 04:30 PT 10.5 Seconds (9.8-13.1) 11/15/16 13:05 INR 1.0 (0.9-1.2) 11/15/16 13:05 APTT 22.3 Seconds (25.6-37.1) L 11/15/16 13:05 - Constitutional Appears: No Acute Distress (Slightly confused since switching rooms but is reoriented easily) - Head Exam Head Exam: NORMAL INSPECTION - Eye Exam Eye Exam: Normal appearance Pupil Exam: NORMAL ACCOMODATION - Respiratory Exam Respiratory Exam: Clear to Ausculation Bilateral - Cardiovascular Exam Cardiovascular Exam: REGULAR RHYTHM, +S1, +S2 - Rectal Exam Additional comments: Wound appears C/D/I . Randolph visualized. No discharge noted - Extremities Exam Extremities Exam: absent: Tenderness - Neurological Exam Neurological Exam: Alert, Awake, CN II-XII Intact Assessment and Plan - Assessment and Plan (Free Text) Assessment: 1) Perforated duodenal ulcer POD #5 s/p ex lap w/ Mak patch NPO Continue IV fluids encouraged ambulation and sitting in yudy Continue with Meropenem, vancomycin and fluconazole pain is controlled with hydromorphone - TPN may possibly started as per surg 2) Pancytopenia - secondary to chemo for vulvar cancer - CBC this morning, 7.6>7.9/23.5<67 - WBC increased from 2.4 to 7.6 - Patient is no longer under neutropenic precautions - heme onc on board - ID on board : Follow recommendations and continue antibiotics 3)Prophylactic measures IV protonix SCD Encourage patient to get out of bed to chair with assistance <Russ Taylor - Last Filed: 11/22/16 16:42> Objective - Vital Signs/Intake and Output Vital Signs (last 24 hours): Temp Pulse Resp BP Pulse Ox 97.9 F 73 14 136/91 H 99 11/22/16 16:00 11/22/16 16:00 11/22/16 16:00 11/22/16 16:00 11/22/16 16:00 Intake and Output: 11/22/16 11/22/16 06:59 18:59 Intake Total 1030 1230 Output Total 1090 750 Balance -60 480 - Medications Medications: Current Medications Acetaminophen (Tylenol 650mg/20.3ml Solution Ud) 650 mg PO Q6 PRN PRN Reason: fever >100.4 Benzocaine/Menthol (Cepacol Sore Throat) 1 chantel PO Q2 PRN PRN Reason: Sore Throat Cyanocobalamin (Vitamin B12 1000 Mcg/Ml Inj) 1,000 mcg IM DAILY [facility] Last Admin: 11/22/16 10:24 Dose: 1,000 mcg Hydromorphone HCl (Dilaudid) 0.5 mg IVP Q3 PRN PRN Reason: Pain, moderate (4-7) Last Admin: 11/20/16 14:45 Dose: 0.5 mg Vancomycin HCl 1 gm/ Sodium (Chloride) 250 mls @ 166.667 mls/hr IVPB DAILY [facility] Last Admin: 11/22/16 10:05 Dose: 166.667 mls/hr Fluconazole (Diflucan Iv 100 Mg/50 Ml Ns) 50 mls @ 50 mls/hr IVPB DAILY [facility] Last Admin: 11/22/16 10:04 Dose: 50 mls/hr Meropenem 500 mg/ Sodium (Chloride) 100 mls @ 100 mls/hr IVPB Q8 [facility] Last Admin: 11/22/16 10:04 Dose: 100 mls/hr Potassium Chloride/Dextrose (Potassium Chl 20 Meq In D5w) 1,000 mls @ 50 mls/ hr IV .Q20H [facility] Stop: 11/23/16 07:36 Last Admin: 11/22/16 10:36 Dose: 50 mls/hr Multivitamins/Vitamin C 10 ml/Chromium/Copper/Manganese/Zinc 3 ml/ Amino Acids/ Electrolytes/Dextrose 1,013 mls @ 42 mls/hr IV .Q24H [facility] Stop: 11/23/16 08:44 Last Admin: 11/22/16 10:06 Dose: 42 mls/hr Pantoprazole Sodium (Protonix Inj) 40 mg IVP BID [facility] Last Admin: 11/22/16 10:03 Dose: 40 mg Silver Sulfadiazine (Silvadene 1% 50 Gm) 1 applic TOP BID [facility] Last Admin: 11/22/16 10:24 Dose: 1 applic - Labs Labs: 11/22/16 04:15 11/22/16 04:15 PT 10.5 Seconds (9.8-13.1) 11/15/16 13:05 INR 1.0 (0.9-1.2) 11/15/16 13:05 APTT 22.3 Seconds (25.6-37.1) L 11/15/16 13:05 Assessment and Plan - Assessment and Plan (Free Text) Assessment: Patient was personally seen and examined by me in rounds with residents. Available labs and diagnostic data reviewed. Case, Patient's condition and management plan Discussed with residents in rounds. Agree with resident's progress note. Plan: As ordered.
[2016-11-22] MEDS ORDERED: Potassium Ch 20mEq in D5-1/2NS 1,000 ML IV SCH (00:15)
[2016-11-22] MEDS: Meropenem 500 MG in Sodium Chloride 0.9% 100 ML IVPB SCH ×3 (00:17→16:44)
[2016-11-22 05:37] LABS: ALB/GLOB RATIO 0.8 (1.0-2.1); BILIRUBIN,TOTAL 0.5 mg/dl (0.2-1.3); CALCIUM 7.5 mg/dL (8.4-10.2); POTASSIUM 3.4 MMOL/L (3.6-5.0); TOTAL PROTEIN 5.1 G/DL (6.3-8.2)
[2016-11-22 06:26] LABS: BASO % 0.2 % (0.0-2.0); EOS % 0.3 % (0.0-4.0); HEMATOCRIT 22.2 % (34.0-47.0); LYMPH # 0.6 K/uL (1.0-4.3); LYMPH % 6.4 % (20.0-40.0); MEAN CELL VOLUME 96.6 fl (81.0-99.0); MEAN CORPUSCULAR HEMOGLOBIN 32.2 pg (27.0-31.0); MEAN CORPUSCULAR HGB CONC 33.3 g/dL (33.0-37.0); MEAN PLATELET VOLUME 9.5 fl (7.2-11.7); MONO # 0.5 K/uL (0.0-0.8); MONO % 5.3 % (0.0-10.0); NEUT # 8.9 K/uL (1.8-7.0); NEUT % 87.8 % (50.0-75.0); NRBC % 0.3 % (0.0-0.0); RED CELL DISTRIBUTION WIDTH 19.8 % (11.5-14.5); WHITE BLOOD COUNT 10.1 K/uL (4.8-10.8)
--- NOTE | 2016-11-22 07:39 | CP.CCUPN ---
<Julius Dixon - Last Filed: 11/22/16 10:33> CCU Subjective - Physician Review Events Since Last Encounter (Free Text): 11/22/16 07:37 Patient seen this morning. No acute distress, sitting in bed comfortably, AAOx3 , supplemental O2 via nasal cannula. Patient is POD #6 s/p ex lap and repair for perforated duodenal ulcer. Patient reports gas and able to belch. Patient remains NPO due to continuous drainage from Tim drain but will have TPN started today. Patient seen by physical therapy yesterday, patient tolerated therapy. Patient is OOB to chair and uses incentive spirometer as directed. Patient reports 2 soft bowel movement this morning. Patient's ortiz MN'ed 11/19 and is voiding freely. Patient has no complaints, denies headaches, chest pain, SOB, nausea, vomiting, and dysuria. Critical Care Time Spent (in minutes): 35 CCU Objective - Vital Signs / Intake & Output Vital Signs (Last 4 hours): Vital Signs Temp Pulse Resp BP Pulse Ox 11/22/16 06:00 69 18 147/78 97 11/22/16 04:00 98.1 F 71 16 148/72 97 Intake and Output (Last 8hrs): Intake & Output 11/21/16 11/22/16 11/22/16 22:59 06:59 14:59 Intake Total 650 720 Output Total 700 810 Balance -50 -90 Intake: IV 500 720 Intake, Piggyback 100 Oral 50 0 Output: Drainage 250 110 Right Upper Abdomen 250 110 Urine 450 700 Urine, Voided 450 700 Other: # Voids Urine, Voided 1 1 # Bowel Movements 1 1 - Physical Exam Head: Positive for: Normocephalic Pupils: Positive for: PERRL Extroacular Muscles: Positive for: EOMI Conjunctiva: Positive for: Normal. Negative for: Icteric Mouth: Positive for: Moist Mucous Membranes Neck: Positive for: Normal Range of Motion. Negative for: Meningeal Signs, JVD Respiratory/Chest: Positive for: Clear to Auscultation, Rhonchi (few). Negative for: Accessory Muscle Use, Rales Cardiovascular: Positive for: Regular Rate and Rhythm. Negative for: Murmurs, Rub Abdomen: Positive for: Distention. Negative for: Tenderness, Normal Bowel Sounds (not audible) Neurological: Positive for: GCS=15, CN II-XII Intact, Motor Func Grossly Intact , Normal Sensory Function Skin: Positive for: Warm. Negative for: Rashes Psychiatric: Positive for: Alert, Oriented x 3, Normal Concentration, Normal Affect - Medications Active Medications: Active Medications Generic Name Dose Route Start Last Admin Trade Name Freq PRN Reason Stop Dose Admin Acetaminophen 650 mg 11/15/16 20:27 Tylenol 650mg/20.3ml Solution Ud PO Q6 PRN fever >100.4 Benzocaine/Menthol 1 chantel 11/16/16 07:55 Cepacol Sore Throat PO Q2 PRN Sore Throat Cyanocobalamin 1,000 mcg 11/16/16 09:00 11/21/16 08:58 Vitamin B12 1000 Mcg/Ml Inj IM 1,000 mcg DAILY [facility] Administration Hydromorphone HCl 0.5 mg 11/19/16 17:00 11/20/16 14:45 Dilaudid IVP 0.5 mg Q3 PRN Administration Pain, moderate (4-7) Vancomycin HCl 1 gm/ Sodium 250 mls @ 166.667 mls/hr 11/16/16 09:00 11/21/16 08:59 Chloride IVPB 166.667 mls/hr DAILY [facility] Administration Fluconazole 50 mls @ 50 mls/hr 11/17/16 14:30 11/21/16 08:58 Diflucan Iv 100 Mg/50 Ml Ns IVPB 50 mls/hr DAILY [facility] Administration Meropenem 500 mg/ Sodium 100 mls @ 100 mls/hr 11/17/16 17:00 11/22/16 00:17 Chloride IVPB 100 mls/hr Q8 [facility] Administration Pantoprazole Sodium 40 mg 11/17/16 09:00 11/21/16 16:13 Protonix Inj IVP 40 mg BID [facility] Administration Silver Sulfadiazine 1 applic 11/16/16 09:00 11/21/16 16:13 Silvadene 1% 50 Gm TOP 1 applic BID [facility] Administration - Patient Studies Lab Studies: Microbiology Studies 11/17/16 17:00 Blood Culture - Preliminary Blood-Venous NO GROWTH AFTER 4 DAYS 11/17/16 17:30 Blood Culture - Preliminary Blood-Venous NO GROWTH AFTER 4 DAYS Lab Studies 11/22/16 11/22/16 Range/Units 04:15 04:15 WBC 10.1 (4.8-10.8) K/uL RBC 2.30 L (3.80-5.20) Mil/uL Hgb 7.4 L (12.0-16.0) g/dL Hct 22.2 L (34.0-47.0) % MCV 96.6 (81.0-99.0) fl MCH 32.2 H (27.0-31.0) pg MCHC 33.3 (33.0-37.0) g/dL RDW 19.8 H (11.5-14.5) % Plt Count 55 L (130-400) K/uL MPV 9.5 (7.2-11.7) fl Neut % (Auto) 87.8 H (50.0-75.0) % Lymph % (Auto) 6.4 L (20.0-40.0) % Camas % (Auto) 5.3 (0.0-10.0) % Eos % (Auto) 0.3 (0.0-4.0) % Baso % (Auto) 0.2 (0.0-2.0) % Neut # 8.9 H (1.8-7.0) K/uL Lymph # 0.6 L (1.0-4.3) K/uL Camas # 0.5 (0.0-0.8) K/uL Eos # 0.0 (0.0-0.7) K/uL Baso # 0.0 (0.0-0.2) K/uL Sodium 151 H (132-148) mmol/l Potassium 3.4 L (3.6-5.0) MMOL/L Chloride 120 H (98-107) mmol/L Carbon Dioxide 21 L (22-30) mmol/L Anion Gap 13 (10-20) BUN 15 (7-17) mg/dl Creatinine 1.1 (0.7-1.2) mg/dL Est GFR ( Amer) 57 Est GFR (Non-Af Amer) 47 Random Glucose 89 (65-105) mg/dL Calcium 7.5 L (8.4-10.2) mg/dL Total Bilirubin 0.5 (0.2-1.3) mg/dl AST 30 (14-36) U/L ALT 31 (9-52) U/L Alkaline Phosphatase 116 (38-126) U/L Total Protein 5.1 L (6.3-8.2) G/DL Albumin 2.3 L (3.5-5.0) g/dL Globulin 2.9 (2.2-3.9) gm/dL Albumin/Globulin Ratio 0.8 L (1.0-2.1) Laboratory Results - last 24 hr 11/22/16 11/22/16 04:15 04:15 WBC 10.1 RBC 2.30 L Hgb 7.4 L Hct 22.2 L MCV 96.6 MCH 32.2 H MCHC 33.3 RDW 19.8 H Plt Count 55 L MPV 9.5 Neut % (Auto) 87.8 H Lymph % (Auto) 6.4 L Camas % (Auto) 5.3 Eos % (Auto) 0.3 Baso % (Auto) 0.2 Neut # 8.9 H Lymph # 0.6 L Camas # 0.5 Eos # 0.0 Baso # 0.0 Sodium 151 H Potassium 3.4 L Chloride 120 H Carbon Dioxide 21 L Anion Gap 13 BUN 15 Creatinine 1.1 Est GFR ( Amer) 57 Est GFR (Non-Af Amer) 47 Random Glucose 89 Calcium 7.5 L Total Bilirubin 0.5 AST 30 ALT 31 Alkaline Phosphatase 116 Total Protein 5.1 L Albumin 2.3 L Globulin 2.9 Albumin/Globulin Ratio 0.8 L Fingerstick Blood Sugar Results: 203 Review of Systems - Review of Systems All systems: reviewed and no additional remarkable complaints except - Constitutional Constitutional: absent: Fever, Chills, Sweats - Cardiovascular Cardiovascular: absent: Chest Pain, Dyspnea - Respiratory Respiratory: absent: Dyspnea, Wheezing - Gastrointestinal Gastrointestinal: absent: Diarrhea, Nausea, Vomiting - Genitourinary Genitourinary: absent: Dysuria - Neurological Neurological: absent: Dizziness, Headaches Critical Care Progress Note - Nutrition Nutrition: Nutrition Category Date Time Status NPO Diet [DIET] Diets 11/16/16 Lunch Active Assessment/Plan - Assessment and Plan (Free Text) Assessment: 86 y/o woman w/ pmh of HTN, HLD, and vulvar cancer in ICU s/p exploratory laparatomy and repair for perforated duodenal ulcer. Plan: Perforated duodenal ulcer - POD #6 S/p Ex lap with Mak patch - incentive spirometer use as directed - OOB to chair - c/w IV meropenem 500 mg Q8h (day 6) - c/w IV vancomycin 1 g daily (day 7), vanc trough 13.7 - vanc trough ordered for tomorrow - c/w IV fluconazole 100 mg daily (day 6) - DC'ed IVF D5 1/2 NS, KCl 20 meq @ 80 mL/hr - start D5 w/ K+ 20 hazel @ 50 mL/hr - c/w tylenol for fever prn - c/w reglan for nausea/vomiting prn - NPO due to continued drainage in Tim drain - TPN via central line to be started today - surgery recommendations appreciated - [facility] ordered Pancytopenia - secondary to chemoradiation treatment for vulvar cancer - CBC this morning, 10.1>7.4/22.2<55 - WBC increased from 7.6 to 10.1 - Hb stable - platelets decreased from 67 to 55 - DC'ed neutropenic precautions - Heme/onc recommendations appreciated Pain management - IV hydormorphone 0.5 mg Q3h for moderate pain - IV hydormorphone 1.0 mg Q4h for severe pain Vulvar cancer - managed by primary heme/onc Dr. Aviles - was on chemoradiation treatment prior to admission Prophylactic measure - IV protonix 40 mg BID - incentrive spirometer use - SCDs - OOB to chair <Samson Rader - Last Filed: 11/22/16 23:19> CCU Objective - Medications Active Medications: Active Medications Generic Name Dose Route Start Last Admin Trade Name Freq PRN Reason Stop Dose Admin Acetaminophen 650 mg 11/15/16 20:27 Tylenol 650mg/20.3ml Solution Ud PO Q6 PRN fever >100.4 Benzocaine/Menthol 1 chantel 11/16/16 07:55 Cepacol Sore Throat PO Q2 PRN Sore Throat Cyanocobalamin 1,000 mcg 11/16/16 09:00 11/22/16 10:24 Vitamin B12 1000 Mcg/Ml Inj IM 1,000 mcg DAILY [facility] Administration Hydromorphone HCl 0.5 mg 11/19/16 17:00 11/20/16 14:45 Dilaudid IVP 0.5 mg Q3 PRN Administration Pain, moderate (4-7) Vancomycin HCl 1 gm/ Sodium 250 mls @ 166.667 mls/hr 11/16/16 09:00 11/22/16 10:05 Chloride IVPB 166.667 mls/hr DAILY [facility] Administration Fluconazole 50 mls @ 50 mls/hr 11/17/16 14:30 11/22/16 10:04 Diflucan Iv 100 Mg/50 Ml Ns IVPB 50 mls/hr DAILY [facility] Administration Potassium Chloride/Dextrose 1,000 mls @ 50 mls/hr 11/22/16 07:45 11/22/16 10: 36 Potassium Chl 20 Meq In D5w IV 11/23/16 07:36 50 mls/hr .Q20H [facility] Administration Multivitamins/Vitamin C 10 ml/ 1,013 mls @ 42 mls/hr 11/22/16 08:45 11/22/16 10:06 Chromium/Copper/Manganese/ IV 11/23/16 08:44 42 mls/hr Zinc 3 ml/ Amino Acids/ .Q24H ONE Administration Electrolytes/Dextrose Pantoprazole Sodium 40 mg 11/17/16 09:00 11/22/16 16:43 Protonix Inj IVP 40 mg BID [facility] Administration Silver Sulfadiazine 1 applic 11/16/16 09:00 11/22/16 10:24 Silvadene 1% 50 Gm TOP 1 applic BID [facility] Administration - Patient Studies Lab Studies: Microbiology Studies 11/17/16 17:00 Blood Culture - Final Blood-Venous NO GROWTH AFTER 5 DAYS Gram Stain - Final TEST NOT PERFORMED 11/17/16 17:30 Blood Culture - Final Blood-Venous NO GROWTH AFTER 5 DAYS Gram Stain - Final TEST NOT PERFORMED Lab Studies 11/22/16 11/22/16 11/22/16 Range/Units 19:24 16:07 11:39 WBC (4.8-10.8) K/uL RBC (3.80-5.20) Mil/uL Hgb (12.0-16.0) g/dL Hct (34.0-47.0) % MCV (81.0-99.0) fl MCH (27.0-31.0) pg MCHC (33.0-37.0) g/dL RDW (11.5-14.5) % Plt Count (130-400) K/uL MPV (7.2-11.7) fl Neut % (Auto) (50.0-75.0) % Lymph % (Auto) (20.0-40.0) % Camas % (Auto) (0.0-10.0) % Eos % (Auto) (0.0-4.0) % Baso % (Auto) (0.0-2.0) % Neut # (1.8-7.0) K/uL Lymph # (1.0-4.3) K/uL Camas # (0.0-0.8) K/uL Eos # (0.0-0.7) K/uL Baso # (0.0-0.2) K/uL Sodium (132-148) mmol/l Potassium (3.6-5.0) MMOL/L Chloride (98-107) mmol/L Carbon Dioxide (22-30) mmol/L Anion Gap (10-20) BUN (7-17) mg/dl Creatinine (0.7-1.2) mg/dL Est GFR ( Amer) Est GFR (Non-Af Amer) POC Glucose (mg/dL) 126 H 128 H 154 H (65-110) mg/dL Random Glucose (65-105) mg/dL Calcium (8.4-10.2) mg/dL Total Bilirubin (0.2-1.3) mg/dl AST (14-36) U/L ALT (9-52) U/L Alkaline Phosphatase (38-126) U/L Total Protein (6.3-8.2) G/DL Albumin (3.5-5.0) g/dL Globulin (2.2-3.9) gm/dL Albumin/Globulin Ratio (1.0-2.1) 11/22/16 11/22/16 Range/Units 04:15 04:15 WBC 10.1 (4.8-10.8) K/uL RBC 2.30 L (3.80-5.20) Mil/uL Hgb 7.4 L (12.0-16.0) g/dL Hct 22.2 L (34.0-47.0) % MCV 96.6 (81.0-99.0) fl MCH 32.2 H (27.0-31.0) pg MCHC 33.3 (33.0-37.0) g/dL RDW 19.8 H (11.5-14.5) % Plt Count 55 L (130-400) K/uL MPV 9.5 (7.2-11.7) fl Neut % (Auto) 87.8 H (50.0-75.0) % Lymph % (Auto) 6.4 L (20.0-40.0) % Cam[place] % (Auto) 5.3 (0.0-10.0) % Eos % (Auto) 0.3 (0.0-4.0) % Baso % (Auto) 0.2 (0.0-2.0) % Neut # 8.9 H (1.8-7.0) K/uL Lymph # 0.6 L (1.0-4.3) K/uL Camas # 0.5 (0.0-0.8) K/uL Eos # 0.0 (0.0-0.7) K/uL Baso # 0.0 (0.0-0.2) K/uL Sodium 151 H (132-148) mmol/l Potassium 3.4 L (3.6-5.0) MMOL/L Chloride 120 H (98-107) mmol/L Carbon Dioxide 21 L (22-30) mmol/L Anion Gap 13 (10-20) BUN 15 (7-17) mg/dl Creatinine 1.1 (0.7-1.2) mg/dL Est GFR ( Amer) 57 Est GFR (Non-Af Amer) 47 POC Glucose (mg/dL) (65-110) mg/dL Random Glucose 89 (65-105) mg/dL Calcium 7.5 L (8.4-10.2) mg/dL Total Bilirubin 0.5 (0.2-1.3) mg/dl AST 30 (14-36) U/L ALT 31 (9-52) U/L Alkaline Phosphatase 116 (38-126) U/L Total Protein 5.1 L (6.3-8.2) G/DL Albumin 2.3 L (3.5-5.0) g/dL Globulin 2.9 (2.2-3.9) gm/dL Albumin/Globulin Ratio 0.8 L (1.0-2.1) Laboratory Results - last 24 hr 1011/22/16 11/22/16 04:15 04:15 11:39 WBC 10.1 RBC 2.30 L Hgb 7.4 L Hct 22.2 L MCV 96.6 MCH 32.2 H MCHC 33.3 RDW 19.8 H Plt Count 55 L MPV 9.5 Neut % (Auto) 87.8 H Lymph % (Auto) 6.4 L Cam[place] % (Auto) 5.3 Eos % (Auto) 0.3 Baso % (Auto) 0.2 Neut # 8.9 H Lymph # 0.6 L Camas # 0.5 Eos # 0.0 Baso # 0.0 Sodium 151 H Potassium 3.4 L Chloride 120 H Carbon Dioxide 21 L Anion Gap 13 BUN 15 Creatinine 1.1 Est GFR ( Amer) 57 Est GFR (Non-Af Amer) 47 POC Glucose (mg/dL) 154 H Random Glucose 89 Calcium 7.5 L Total Bilirubin 0.5 AST 30 ALT 31 Alkaline Phosphatase 116 Total Protein 5.1 L Albumin 2.3 L Globulin 2.9 Albumin/Globulin Ratio 0.8 L 11/22/16 11/22/16 16:07 19:24 WBC RBC Hgb Hct MCV MCH MCHC RDW Plt Count MPV Neut % (Auto) Lymph % (Auto) Camas % (Auto) Eos % (Auto) Baso % (Auto) Neut # Lymph # Camas # Eos # Baso # Sodium Potassium Chloride Carbon Dioxide Anion Gap BUN Creatinine Est GFR ( Amer) Est GFR (Non-Af Amer) POC Glucose (mg/dL) 128 H 126 H Random Glucose Calcium Total Bilirubin AST ALT Alkaline Phosphatase Total Protein Albumin Globulin Albumin/Globulin Ratio Assessment/Plan - Assessment and Plan (Free Text) Plan: Attestation: Patient seen and examined at the bedside with Resident Dr. Tawny Dixon; and I agree with his outline of plans and management documented below as discussed on AM rounds reflecting my review of all applicable clinical data, and participation in the care of the patient throughout the day in ICU; today, November 22, 2016.
[2016-11-22] MEDS ORDERED: AMINO IV ONE (08:30)
[2016-11-22] MEDS ORDERED: DEX E IV ONE (08:30)
[2016-11-22] MEDS ORDERED: Multivitamin (MVI) 10 ML, Chromium/Copper/Manganese/Zinc 3 ML in Amino/Dex E 4.25/25 10... IV ONE (08:45)
[2016-11-22] MEDS: Fluconazole IV 100mg/50 ml NS 50 ML IVPB SCH (10:04)
[2016-11-22] MEDS: Silver Sulfadiazine 1% CREAM (50 gm) TOP SCH (10:24)
[2016-11-22] MEDS: Potassium Chl 20mEq & D5W 1,000 ML IV SCH (10:36)
--- NOTE | 2016-11-22 11:43 | CP.PCM.PN ---
Subjective - Date & Time of Evaluation Date of Evaluation: 11/22/16 Time of Evaluation: 09:50 - Subjective Subjective: General Surgery Pt S&E, NAEO. Denies abd pain, n/v/f/c. + BM. Drain output becoming more serous. No complaints. Objective - Vital Signs/Intake and Output Vital Signs (last 24 hours): Temp Pulse Resp BP Pulse Ox 97.8 F 71 23 140/70 97 11/22/16 08:00 11/22/16 08:00 11/22/16 08:00 11/22/16 08:00 11/22/16 08:00 Intake and Output: 11/22/16 11/22/16 06:59 18:59 Intake Total 1030 80 Output Total 1090 280 Balance -60 -200 - Medications Medications: Current Medications Acetaminophen (Tylenol 650mg/20.3ml Solution Ud) 650 mg PO Q6 PRN PRN Reason: fever >100.4 Benzocaine/Menthol (Cepacol Sore Throat) 1 chantel PO Q2 PRN PRN Reason: Sore Throat Cyanocobalamin (Vitamin B12 1000 Mcg/Ml Inj) 1,000 mcg IM DAILY [facility] Last Admin: 11/22/16 10:24 Dose: 1,000 mcg Hydromorphone HCl (Dilaudid) 0.5 mg IVP Q3 PRN PRN Reason: Pain, moderate (4-7) Last Admin: 11/20/16 14:45 Dose: 0.5 mg Vancomycin HCl 1 gm/ Sodium (Chloride) 250 mls @ 166.667 mls/hr IVPB DAILY [facility] Last Admin: 11/22/16 10:05 Dose: 166.667 mls/hr Fluconazole (Diflucan Iv 100 Mg/50 Ml Ns) 50 mls @ 50 mls/hr IVPB DAILY [facility] Last Admin: 11/22/16 10:04 Dose: 50 mls/hr Meropenem 500 mg/ Sodium (Chloride) 100 mls @ 100 mls/hr IVPB Q8 [facility] Last Admin: 11/22/16 10:04 Dose: 100 mls/hr Potassium Chloride/Dextrose (Potassium Chl 20 Meq In D5w) 1,000 mls @ 50 mls/ hr IV .Q20H [facility] Stop: 11/23/16 07:36 Last Admin: 10/05/17 10:36 Dose: 50 mls/hr Multivitamins/Vitamin C 10 ml/Chromium/Copper/Manganese/Zinc 3 ml/ Amino Acids/ Electrolytes/Dextrose 1,013 mls @ 42 mls/hr IV .Q24H [facility] Stop: 11/23/16 08:44 Last Admin: 11/22/16 10:06 Dose: 42 mls/hr Pantoprazole Sodium (Protonix Inj) 40 mg IVP BID [facility] Last Admin: 11/22/16 10:03 Dose: 40 mg Silver Sulfadiazine (Silvadene 1% 50 Gm) 1 applic TOP BID [facility] Last Admin: 11/22/16 10:24 Dose: 1 applic - Labs Labs: 11/22/16 04:15 11/22/16 04:15 PT 10.5 Seconds (9.8-13.1) 11/15/16 13:05 INR 1.0 (0.9-1.2) 11/15/16 13:05 APTT 22.3 Seconds (25.6-37.1) L 11/15/16 13:05 - Constitutional Appears: Non-toxic, No Acute Distress - Head Exam Head Exam: ATRAUMATIC, NORMOCEPHALIC - Eye Exam Eye Exam: EOMI. absent: Scleral icterus - Respiratory Exam Respiratory Exam: NORMAL BREATHING PATTERN. absent: Respiratory Distress - Cardiovascular Exam Cardiovascular Exam: RRR, +S1, +S2 - GI/Abdominal Exam GI & Abdominal Exam: Soft. absent: Distended, Tenderness Additional comments: drain in place. Incision C/D/I, arvind in place - Neurological Exam Neurological Exam: Alert, Awake - Skin Skin Exam: Dry, Warm Assessment and Plan - Assessment and Plan (Free Text) Assessment: 86F w/ perforated duodenum s/p ex lap w/ Mak patch POD#6 Plan: Monitor herbert output, cont NPO until drain output decreases and becomes less bilious TPN for nutrition ordered OOB, IS use, and PT Cont abx per ID Ok for transfusion if needed CT with PO contrast to re-evaluate abdomen D/W Dr. Shorty Monroe [id number]
[2016-11-22] MEDS ORDERED: Iohexol 240 (50 ml) PO ONE (12:21)
--- NOTE | 2016-11-22 14:10 | CP.PCM.PN ---
<Anirudh Diggs - Last Filed: 11/22/16 14:14> Subjective - Date & Time of Evaluation Date of Evaluation: 11/22/16 Time of Evaluation: 07:00 - Subjective Subjective: Patient seen and examined w/ Dr. Taylor at bedside POD # 6 . Patient seen doing, well sitting on the chair in the morning. No acute distress. EDUARDO are draining bilious fluid. Denies any overnight events. - TPN is being started today. - Patient has been tolerating physiotherapy. - Patient had a bowl movement this morning. Voiding freely Objective - Vital Signs/Intake and Output Vital Signs (last 24 hours): Temp Pulse Resp BP Pulse Ox 97.8 F 71 19 117/83 100 11/22/16 12:00 11/22/16 12:00 11/22/16 12:00 11/22/16 12:00 11/22/16 12:00 Intake and Output: 11/22/16 11/22/16 06:59 18:59 Intake Total 1030 80 Output Total 1090 280 Balance -60 -200 - Medications Medications: Current Medications Acetaminophen (Tylenol 650mg/20.3ml Solution Ud) 650 mg PO Q6 PRN PRN Reason: fever >100.4 Benzocaine/Menthol (Cepacol Sore Throat) 1 chantel PO Q2 PRN PRN Reason: Sore Throat Cyanocobalamin (Vitamin B12 1000 Mcg/Ml Inj) 1,000 mcg IM DAILY [facility] Last Admin: 11/22/16 10:24 Dose: 1,000 mcg Hydromorphone HCl (Dilaudid) 0.5 mg IVP Q3 PRN PRN Reason: Pain, moderate (4-7) Last Admin: 11/20/16 14:45 Dose: 0.5 mg Vancomycin HCl 1 gm/ Sodium (Chloride) 250 mls @ 166.667 mls/hr IVPB DAILY [facility] Last Admin: 11/22/16 10:05 Dose: 166.667 mls/hr Fluconazole (Diflucan Iv 100 Mg/50 Ml Ns) 50 mls @ 50 mls/hr IVPB DAILY [facility] Last Admin: 11/22/16 10:04 Dose: 50 mls/hr Meropenem 500 mg/ Sodium (Chloride) 100 mls @ 100 mls/hr IVPB Q8 [facility] Last Admin: 10/05/17 10:04 Dose: 100 mls/hr Potassium Chloride/Dextrose (Potassium Chl 20 Meq In D5w) 1,000 mls @ 50 mls/ hr IV .Q20H [facility] Stop: 11/23/16 07:36 Last Admin: 11/22/16 10:36 Dose: 50 mls/hr Multivitamins/Vitamin C 10 ml/Chromium/Copper/Manganese/Zinc 3 ml/ Amino Acids/ Electrolytes/Dextrose 1,013 mls @ 42 mls/hr IV .Q24H ONE Stop: 11/23/16 08:44 Last Admin: 11/22/16 10:06 Dose: 42 mls/hr Pantoprazole Sodium (Protonix Inj) 40 mg IVP BID [facility] Last Admin: 11/22/16 10:03 Dose: 40 mg Silver Sulfadiazine (Silvadene 1% 50 Gm) 1 applic TOP BID [facility] Last Admin: 11/22/16 10:24 Dose: 1 applic - Labs Labs: 11/22/16 04:15 11/22/16 04:15 PT 10.5 Seconds (9.8-13.1) 11/15/16 13:05 INR 1.0 (0.9-1.2) 11/15/16 13:05 APTT 22.3 Seconds (25.6-37.1) L 11/15/16 13:05 - Constitutional Appears: No Acute Distress - Head Exam Head Exam: NORMAL INSPECTION - Eye Exam Eye Exam: EOMI - Neck Exam Neck Exam: Full ROM - Respiratory Exam Respiratory Exam: Clear to Ausculation Bilateral, NORMAL BREATHING PATTERN - Cardiovascular Exam Cardiovascular Exam: REGULAR RHYTHM, +S1, +S2 - GI/Abdominal Exam GI & Abdominal Exam: Distended - Extremities Exam Extremities Exam: Normal Inspection. absent: Calf Tenderness - Neurological Exam Neurological Exam: Alert, Awake, CN II-XII Intact - Skin Skin Exam: Normal Color, Warm Assessment and Plan - Assessment and Plan (Free Text) Assessment: 1) Perforated duodenal ulcer POD #6 s/p ex lap w/ Mak patch TPN started today Continue IV fluids encouraged ambulation and sitting in yudy Continue with Meropenem, vancomycin and fluconazole pain is controlled with hydromorphone - TPN may possibly started as per surg 2) Pancytopenia - secondary to chemo for vulvar cancer - CBC this morning, 10.1>7.4/22.2<55 - WBC increased from 7.6 to 10.1 - Patient is no longer under neutropenic precautions - heme onc on board - ID on board : Follow recommendations and continue antibiotics 3)Prophylactic measures IV protonix SCD Encourage patient to get out of bed to chair with assistance - Patient is being transferd to Med Surg today <Russ Taylor - Last Filed: 11/22/16 16:49> Objective - Vital Signs/Intake and Output Vital Signs (last 24 hours): Temp Pulse Resp BP Pulse Ox 97.9 F 73 14 136/91 H 99 11/22/16 16:00 11/22/16 16:00 11/22/16 16:00 11/22/16 16:00 11/22/16 16:00 Intake and Output: 11/22/16 11/22/16 06:59 18:59 Intake Total 1030 1230 Output Total 1090 750 Balance -60 480 - Medications Medications: Current Medications Acetaminophen (Tylenol 650mg/20.3ml Solution Ud) 650 mg PO Q6 PRN PRN Reason: fever >100.4 Benzocaine/Menthol (Cepacol Sore Throat) 1 chantel PO Q2 PRN PRN Reason: Sore Throat Cyanocobalamin (Vitamin B12 1000 Mcg/Ml Inj) 1,000 mcg IM DAILY [facility] Last Admin: 11/22/16 10:24 Dose: 1,000 mcg Hydromorphone HCl (Dilaudid) 0.5 mg IVP Q3 PRN PRN Reason: Pain, moderate (4-7) Last Admin: 11/20/16 14:45 Dose: 0.5 mg Vancomycin HCl 1 gm/ Sodium (Chloride) 250 mls @ 166.667 mls/hr IVPB DAILY [facility] Last Admin: 11/22/16 10:05 Dose: 166.667 mls/hr Fluconazole (Diflucan Iv 100 Mg/50 Ml Ns) 50 mls @ 50 mls/hr IVPB DAILY [facility] Last Admin: 11/22/16 10:04 Dose: 50 mls/hr Meropenem 500 mg/ Sodium (Chloride) 100 mls @ 100 mls/hr IVPB Q8 [facility] Last Admin: 11/22/16 16:44 Dose: 100 mls/hr Potassium Chloride/Dextrose (Potassium Chl 20 Meq In D5w) 1,000 mls @ 50 mls/ hr IV .Q20H [facility] Stop: 11/23/16 07:36 Last Admin: 11/22/16 10:36 Dose: 50 mls/hr Multivitamins/Vitamin C 10 ml/Chromium/Copper/Manganese/Zinc 3 ml/ Amino Acids/ Electrolytes/Dextrose 1,013 mls @ 42 mls/hr IV .Q24H ONE Stop: 11/23/16 08:44 Last Admin: 11/22/16 10:06 Dose: 42 mls/hr Pantoprazole Sodium (Protonix Inj) 40 mg IVP BID [facility] Last Admin: 11/22/16 16:43 Dose: 40 mg Silver Sulfadiazine (Silvadene 1% 50 Gm) 1 applic TOP BID [facility] Last Admin: 11/22/16 10:24 Dose: 1 applic - Labs Labs: 11/22/16 04:15 11/22/16 04:15 PT 10.5 Seconds (9.8-13.1) 11/15/16 13:05 INR 1.0 (0.9-1.2) 11/15/16 13:05 APTT 22.3 Seconds (25.6-37.1) L 11/15/16 13:05 Assessment and Plan - Assessment and Plan (Free Text) Assessment: Patient was personally seen and examined by me in rounds with residents. Available labs and diagnostic data reviewed. Case, Patient's condition and management plan Discussed with residents in rounds. Agree with resident's progress note. Plan: As ordered.
--- NOTE | 2016-11-22 18:22 | CT ---
PROCEDURE: CT Abdomen and Pelvis with contrast HISTORY: duodenal perforation s/p wendy patch COMPARISON: Preoperative examination 11/15/2016 TECHNIQUE: Oral contrast only. Radiation dose: Total exam DLP = 953.74 mGy-cm. This CT exam was performed using one or more of the following dose reduction techniques: Automated exposure control, adjustment of the mA and/or kV according to patient size, and/or use of iterative reconstruction technique. FINDINGS: LOWER THORAX: Trace pleural effusions and presumed postoperative atelectasis. LIVER: Unremarkable. No gross lesion or ductal dilatation. GALLBLADDER AND BILE DUCTS: Surgical drain courses through the right upper quadrant adjacent to the gallbladder/gallbladder fossa region. PANCREAS: Unremarkable. No gross lesion or ductal dilatation. SPLEEN: Unremarkable. ADRENALS: Unremarkable. No mass. KIDNEYS AND URETERS: Unremarkable. No hydronephrosis. No solid mass. Incidental finding(s): Bilateral renal cysts better visualized on the prior study. VASCULATURE: Unremarkable. No aortic aneurysm. BOWEL: Diverticulosis without an acute inflammatory component or other associated pathologic process. APPENDIX: Normal appendix. PERITONEUM: Trace free air noted consistent with recent surgery. LYMPH NODES: Unremarkable. No enlarged lymph nodes. BLADDER: Unremarkable. REPRODUCTIVE: Atrophic, postmenopausal uterus. BONES: No acute fracture. OTHER FINDINGS: None. IMPRESSION: Satisfactory postoperative status. Expected findings in the right upper quadrant status post wendy patch procedure (omental overlay) perforated duodenum. Trace postoperative free air identified. Additional benign and/or incidental findings described above.
[2016-11-23] MEDS: Potassium Chl 20mEq & D5W 1,000 ML IV SCH ×2 (06:16→07:45)
[2016-11-23 06:25] LABS: BASO % 0.3 % (0.0-2.0); EOS # 0.1 K/uL (0.0-0.7); EOS % 0.6 % (0.0-4.0); HEMATOCRIT 23.4 % (34.0-47.0); LYMPH # 0.7 K/uL (1.0-4.3); LYMPH % 7.6 % (20.0-40.0); MEAN CELL VOLUME 99.3 fl (81.0-99.0); MEAN CORPUSCULAR HEMOGLOBIN 32.1 pg (27.0-31.0); MEAN CORPUSCULAR HGB CONC 32.3 g/dL (33.0-37.0); MEAN PLATELET VOLUME 9.8 fl (7.2-11.7); MONO # 0.4 K/uL (0.0-0.8); MONO % 4.9 % (0.0-10.0); NEUT # 7.9 K/uL (1.8-7.0); NEUT % 86.6 % (50.0-75.0); NRBC % 0.6 % (0.0-0.0); PLATELET COUNT 50 K/uL (130-400); RED CELL DISTRIBUTION WIDTH 19.7 % (11.5-14.5); WHITE BLOOD COUNT 9.1 K/uL (4.8-10.8)
[2016-11-23 06:41] LABS: ALKALINE PHOSPHATASE 99 U/L (38-126); ALT/SGPT 17 U/L (9-52); AST/SGOT 23 U/L (14-36); BILIRUBIN,TOTAL 0.4 mg/dl (0.2-1.3); BLOOD UREA NITROGEN 14 mg/dl (7-17); CALCIUM 7.5 mg/dL (8.4-10.2); CARBON DIOXIDE 18 mmol/L (22-30); CHLORIDE 118 mmol/L (98-107); CHOLESTEROL 92 mg/dL (0-199); GFR AFRICAN-AMERICAN > 60; GLUCOSE,RANDOM 134 mg/dL (65-105); MAGNESIUM 1.7 MG/DL (1.6-2.3); PHOSPHOROUS 2.4 mg/dl (2.5-4.5); POTASSIUM 3.7 MMOL/L (3.6-5.0); SODIUM 148 mmol/l (132-148); TOTAL PROTEIN 4.7 G/DL (6.3-8.2)
[2016-11-23 07:45] LABS: NEUTROPHIL 85 % (42-75); REACTIVE LYMPHOCYTES 1 % (0-0); TOTAL CELLS COUNTED 100
--- NOTE | 2016-11-23 09:10 | CP.PCM.PN ---
Subjective - Date & Time of Evaluation Date of Evaluation: 11/23/16 Time of Evaluation: 07:00 - Subjective Subjective: Patient seen and examined this AM. ALANO. Patient states that she continues to have BM's, denies any pain, nausea, vomiting, or any other symptoms. Objective - Vital Signs/Intake and Output Vital Signs (last 24 hours): Temp Pulse Resp BP Pulse Ox 97.7 F 70 20 131/75 97 11/23/16 07:59 11/23/16 07:59 11/23/16 07:59 11/23/16 07:59 11/23/16 07:59 Intake and Output: 11/23/16 11/23/16 06:59 18:59 Intake Total 1288 Output Total 500 Balance 788 - Medications Medications: Current Medications Acetaminophen (Tylenol 650mg/20.3ml Solution Ud) 650 mg PO Q6 PRN PRN Reason: fever >100.4 Benzocaine/Menthol (Cepacol Sore Throat) 1 chantel PO Q2 PRN PRN Reason: Sore Throat Cyanocobalamin (Vitamin B12 1000 Mcg/Ml Inj) 1,000 mcg IM DAILY [facility] Last Admin: 11/22/16 10:24 Dose: 1,000 mcg Hydromorphone HCl (Dilaudid) 0.5 mg IVP Q3 PRN PRN Reason: Pain, moderate (4-7) Last Admin: 11/20/16 14:45 Dose: 0.5 mg Vancomycin HCl 1 gm/ Sodium (Chloride) 250 mls @ 166.667 mls/hr IVPB DAILY [facility] Last Admin: 11/22/16 10:05 Dose: 166.667 mls/hr Fluconazole (Diflucan Iv 100 Mg/50 Ml Ns) 50 mls @ 50 mls/hr IVPB DAILY [facility] Last Admin: 11/22/16 10:04 Dose: 50 mls/hr Pantoprazole Sodium (Protonix Inj) 40 mg IVP BID [facility] Last Admin: 11/22/16 16:43 Dose: 40 mg Silver Sulfadiazine (Silvadene 1% 50 Gm) 1 applic TOP BID [facility] Last Admin: 11/22/16 10:24 Dose: 1 applic - Labs Labs: 11/23/16 06:10 11/23/16 06:10 PT 10.5 Seconds (9.8-13.1) 11/15/16 13:05 INR 1.0 (0.9-1.2) 11/15/16 13:05 APTT 22.3 Seconds (25.6-37.1) L 11/15/16 13:05 - Constitutional Appears: Non-toxic, No Acute Distress - Head Exam Head Exam: ATRAUMATIC, NORMOCEPHALIC - Eye Exam Eye Exam: Normal appearance. absent: Conjunctival injection, Scleral icterus - ENT Exam ENT Exam: Mucous Membranes Moist, Normal Oropharynx - Respiratory Exam Respiratory Exam: NORMAL BREATHING PATTERN. absent: Accessory Muscle Use, Respiratory Distress - GI/Abdominal Exam GI & Abdominal Exam: Soft. absent: Distended, Tenderness Additional comments: midline incision well approximated by arvind with no bleeding, drainage, or erythema. Tim drain with moderate clear yellow/green bilious output - Extremities Exam Extremities Exam: absent: Calf Tenderness, Pedal Edema, Tenderness - Neurological Exam Neurological Exam: Alert, Awake, Oriented x3 - Psychiatric Exam Psychiatric exam: Normal Affect, Normal Mood - Skin Skin Exam: Dry, Normal Color, Warm Assessment and Plan - Assessment and Plan (Free Text) Assessment: 86F w/ perforated duodenum POD#7 s/p ex lap w/ Mak patch Plan: Monitor tim output, cont NPO until drain output decreases and becomes less bilious. May give the patient small amount of ice chips TPN for nutrition ordered--follow up daily CMP, lipids, and other electrolytes OOB, IS use, and PT Cont abx per ID Hgb is low but stable at this time. Transfuse as needed CT with PO contrast showed post operative changes and no sign of contrast extravasation D/W Dr. Shorty Mayer, PGY2
[2016-11-23] MEDS: Silver Sulfadiazine 1% CREAM (50 gm) TOP SCH ×2 (09:16→17:05)
--- NOTE | 2016-11-23 09:46 | CP.PCM.PN ---
<Anirudh Diggs - Last Filed: 11/23/16 09:54> Subjective - Date & Time of Evaluation Date of Evaluation: 11/23/16 Time of Evaluation: 09:43 - Subjective Subjective: POD 7 Patient seen and examined at bedside with Dr. Taylor. Patient is doing well. States she slept well last night and is enjoying her new room. - Denies Chest pain, SOB, N/V/D Drainage noted in the herbert drain Objective - Vital Signs/Intake and Output Vital Signs (last 24 hours): Temp Pulse Resp BP Pulse Ox 97.7 F 70 20 131/75 97 11/23/16 07:59 11/23/16 07:59 11/23/16 07:59 11/23/16 07:59 11/23/16 07:59 Intake and Output: 11/23/16 11/23/16 06:59 18:59 Intake Total 1288 Output Total 500 Balance 788 - Medications Medications: Current Medications Acetaminophen (Tylenol 650mg/20.3ml Solution Ud) 650 mg PO Q6 PRN PRN Reason: fever >100.4 Benzocaine/Menthol (Cepacol Sore Throat) 1 chantel PO Q2 PRN PRN Reason: Sore Throat Cyanocobalamin (Vitamin B12 1000 Mcg/Ml Inj) 1,000 mcg IM DAILY [facility] Last Admin: 11/23/16 09:16 Dose: 1,000 mcg Hydromorphone HCl (Dilaudid) 0.5 mg IVP Q3 PRN PRN Reason: Pain, moderate (4-7) Last Admin: 11/20/16 14:45 Dose: 0.5 mg Vancomycin HCl 1 gm/ Sodium (Chloride) 250 mls @ 166.667 mls/hr IVPB DAILY [facility] Last Admin: 11/22/16 10:05 Dose: 166.667 mls/hr Fluconazole (Diflucan Iv 100 Mg/50 Ml Ns) 50 mls @ 50 mls/hr IVPB DAILY [facility] Last Admin: 11/22/16 10:04 Dose: 50 mls/hr Pantoprazole Sodium (Protonix Inj) 40 mg IVP BID [facility] Last Admin: 11/23/16 09:15 Dose: 40 mg Silver Sulfadiazine (Silvadene 1% 50 Gm) 1 applic TOP BID [facility] Last Admin: 11/23/16 09:16 Dose: 1 applic - Labs Labs: 11/23/16 06:10 11/23/16 06:10 PT 10.5 Seconds (9.8-13.1) 11/15/16 13:05 INR 1.0 (0.9-1.2) 11/15/16 13:05 APTT 22.3 Seconds (25.6-37.1) L 11/15/16 13:05 - Constitutional Appears: No Acute Distress - Head Exam Head Exam: NORMAL INSPECTION - Eye Exam Eye Exam: Normal appearance Pupil Exam: NORMAL ACCOMODATION - Neck Exam Neck Exam: Full ROM - Respiratory Exam Respiratory Exam: Clear to Ausculation Bilateral, NORMAL BREATHING PATTERN - GI/Abdominal Exam GI & Abdominal Exam: Distended - Extremities Exam Extremities Exam: Normal Inspection. absent: Calf Tenderness - Back Exam Back Exam: NORMAL INSPECTION - Neurological Exam Neurological Exam: Alert, Awake, CN II-XII Intact, Oriented x3 - Skin Skin Exam: Normal Color, Warm Assessment and Plan - Assessment and Plan (Free Text) Assessment: 1) Perforated duodenal ulcer POD #7 s/p ex lap w/ Mak patch Continue TPN Continue IV fluids encouraged ambulation and sitting in chair Continue with Meropenem, vancomycin and fluconazole pain is controlled with hydromorphone 2) Pancytopenia - secondary to chemo for vulvar cancer - CBC this morning, 9.1>7.5/23.4<50 - heme onc on board - ID on board : Follow recommendations and continue antibiotics 3)Prophylactic measures IV protonix SCD Encourage patient to get out of bed to chair with assistance <Russ Taylor K - Last Filed: 11/29/16 15:40> Objective - Vital Signs/Intake and Output Vital Signs (last 24 hours): Temp Pulse Resp BP Pulse Ox 97.7 F 72 22 123/65 100 11/29/16 08:07 11/29/16 08:07 11/29/16 08:07 11/29/16 08:07 11/29/16 08:07 Intake and Output: 11/29/16 11/29/16 06:59 18:59 Intake Total 300 Output Total 310 Balance -10 - Medications Medications: Current Medications Acetaminophen (Tylenol 650mg/20.3ml Solution Ud) 650 mg PO Q6 PRN PRN Reason: fever >100.4 Acetaminophen (Tylenol 325mg Tab) 650 mg PO Q6 PRN PRN Reason: Pain, moderate (4-7) Last Admin: 11/28/16 22:03 Dose: 650 mg Bacitracin (Bacitracin) 1 ea TOP TID [facility] Last Admin: 11/29/16 13:29 Dose: 1 ea Benzocaine/Menthol (Cepacol Sore Throat) 1 chantel PO Q2 PRN PRN Reason: Sore Throat Cyanocobalamin (Vitamin B12 1000 Mcg/Ml Inj) 1,000 mcg IM DAILY [facility] Last Admin: 11/29/16 08:34 Dose: 1,000 mcg Fluconazole (Diflucan Iv 100 Mg/50 Ml Ns) 50 mls @ 50 mls/hr IVPB DAILY [facility] Last Admin: 11/29/16 13:26 Dose: 50 mls/hr Meropenem 500 mg/ Sodium (Chloride) 100 mls @ 100 mls/hr IVPB Q12 [facility] PRN Reason: Protocol Sodium Chloride 35 meq/ Sodium Acetate 70 meq/ Potassium Chloride 40 meq/ Potassium Phosphate 20 mmole/ Magnesium Sulfate 5 meq/ Calcium Gluconate 4.5 meq /Multivitamins/Vitamin C 10 ml/Chromium/Copper/Manganese/Zinc 3 ml/ Amino Acids 1,094.3256 mls @ 42 mls/hr IV .Q24H ONE Stop: 11/30/16 13:44 Pantoprazole Sodium (Protonix Inj) 40 mg IVP BID [facility] Last Admin: 11/29/16 08:30 Dose: 40 mg Silver Sulfadiazine (Silvadene 1% 50 Gm) 1 applic TOP BID [facility] Last Admin: 11/28/16 17:05 Dose: 1 applic - Labs Labs: 11/29/16 05:45 11/29/16 05:45 PT 10.5 Seconds (9.8-13.1) 11/15/16 13:05 INR 1.0 (0.9-1.2) 11/15/16 13:05 APTT 22.3 Seconds (25.6-37.1) L 11/15/16 13:05 Assessment and Plan - Assessment and Plan (Free Text) Assessment: Patient was personally seen and examined by me in rounds with residents. Available labs and diagnostic data reviewed. Case, Patients's condition and management plan discussed with residents in rounds. Agree with residents's progress note. Plan: As ordered.
[2016-11-23] MEDS ORDERED: Multivitamin (MVI) 10 ML, Chromium/Copper/Manganese/Zinc 3 ML in Amino/Dex E 4.25/25 10... IV ONE (11:30)
--- NOTE | 2016-11-23 13:12 | CP.PCM.PN ---
Subjective - Date & Time of Evaluation Date of Evaluation: 11/21/16 Time of Evaluation: 18:15 - Subjective Subjective: Feeling better Objective - Vital Signs/Intake and Output Vital Signs (last 24 hours): Temp Pulse Resp BP Pulse Ox 97.7 F 70 20 131/75 97 11/23/16 07:59 11/23/16 07:59 11/23/16 07:59 11/23/16 07:59 11/23/16 07:59 Intake and Output: 11/23/16 11/23/16 06:59 18:59 Intake Total 1288 Output Total 500 Balance 788 - Medications Medications: Current Medications Acetaminophen (Tylenol 650mg/20.3ml Solution Ud) 650 mg PO Q6 PRN PRN Reason: fever >100.4 Benzocaine/Menthol (Cepacol Sore Throat) 1 chantel PO Q2 PRN PRN Reason: Sore Throat Cyanocobalamin (Vitamin B12 1000 Mcg/Ml Inj) 1,000 mcg IM DAILY [facility] Last Admin: 11/23/16 09:16 Dose: 1,000 mcg Hydromorphone HCl (Dilaudid) 0.5 mg IVP Q3 PRN PRN Reason: Pain, moderate (4-7) Last Admin: 11/20/16 14:45 Dose: 0.5 mg Vancomycin HCl 1 gm/ Sodium (Chloride) 250 mls @ 166.667 mls/hr IVPB DAILY [facility] Last Admin: 11/22/16 10:05 Dose: 166.667 mls/hr Fluconazole (Diflucan Iv 100 Mg/50 Ml Ns) 50 mls @ 50 mls/hr IVPB DAILY [facility] Last Admin: 11/22/16 10:04 Dose: 50 mls/hr Multivitamins/Vitamin C 10 ml/Chromium/Copper/Manganese/Zinc 3 ml/ Amino Acids/ Electrolytes/Dextrose 1,013 mls @ 42 mls/hr IV .Q24H ONE Stop: 11/24/16 11:29 Last Admin: 11/23/16 12:30 Dose: 42 mls/hr Pantoprazole Sodium (Protonix Inj) 40 mg IVP BID [facility] Last Admin: 11/23/16 09:15 Dose: 40 mg Silver Sulfadiazine (Silvadene 1% 50 Gm) 1 applic TOP BID [facility] Last Admin: 11/23/16 09:16 Dose: 1 applic - Labs Labs: 10/06/17 06:10 11/23/16 06:10 PT 10.5 Seconds (9.8-13.1) 11/15/16 13:05 INR 1.0 (0.9-1.2) 11/15/16 13:05 APTT 22.3 Seconds (25.6-37.1) L 11/15/16 13:05 - Head Exam Head Exam: ATRAUMATIC - Eye Exam Eye Exam: Normal appearance - ENT Exam ENT Exam: Mucous Membranes Dry - Respiratory Exam Respiratory Exam: NORMAL BREATHING PATTERN - Cardiovascular Exam Cardiovascular Exam: +S1, +S2 - GI/Abdominal Exam GI & Abdominal Exam: Normal Bowel Sounds - Extremities Exam Extremities Exam: Normal Inspection Assessment and Plan (1) Anemia Assessment & Plan: chronic disease, surgical blood loss, recent chemotherapy transfusion support PRN Status: Acute (2) Thrombocytopenia Assessment & Plan: secondary to recent chemotherapy Status: Acute (3) Vulvar cancer Assessment & Plan: outpatient treatment with primary oncologist Status: Chronic
--- NOTE | 2016-11-23 13:14 | CP.PCM.PN ---
Subjective - Date & Time of Evaluation Date of Evaluation: 11/22/16 Time of Evaluation: 12:00 - Subjective Subjective: No complaints. Objective - Vital Signs/Intake and Output Vital Signs (last 24 hours): Temp Pulse Resp BP Pulse Ox 97.7 F 70 20 131/75 97 11/23/16 07:59 11/23/16 07:59 11/23/16 07:59 11/23/16 07:59 11/23/16 07:59 Intake and Output: 11/23/16 11/23/16 06:59 18:59 Intake Total 1288 Output Total 500 Balance 788 - Medications Medications: Current Medications Acetaminophen (Tylenol 650mg/20.3ml Solution Ud) 650 mg PO Q6 PRN PRN Reason: fever >100.4 Benzocaine/Menthol (Cepacol Sore Throat) 1 chantel PO Q2 PRN PRN Reason: Sore Throat Cyanocobalamin (Vitamin B12 1000 Mcg/Ml Inj) 1,000 mcg IM DAILY [facility] Last Admin: 11/23/16 09:16 Dose: 1,000 mcg Hydromorphone HCl (Dilaudid) 0.5 mg IVP Q3 PRN PRN Reason: Pain, moderate (4-7) Last Admin: 11/20/16 14:45 Dose: 0.5 mg Vancomycin HCl 1 gm/ Sodium (Chloride) 250 mls @ 166.667 mls/hr IVPB DAILY [facility] Last Admin: 11/22/16 10:05 Dose: 166.667 mls/hr Fluconazole (Diflucan Iv 100 Mg/50 Ml Ns) 50 mls @ 50 mls/hr IVPB DAILY [facility] Last Admin: 11/22/16 10:04 Dose: 50 mls/hr Multivitamins/Vitamin C 10 ml/Chromium/Copper/Manganese/Zinc 3 ml/ Amino Acids/ Electrolytes/Dextrose 1,013 mls @ 42 mls/hr IV .Q24H ONE Stop: 11/24/16 11:29 Last Admin: 11/23/16 12:30 Dose: 42 mls/hr Pantoprazole Sodium (Protonix Inj) 40 mg IVP BID [facility] Last Admin: 11/23/16 09:15 Dose: 40 mg Silver Sulfadiazine (Silvadene 1% 50 Gm) 1 applic TOP BID [facility] Last Admin: 11/23/16 09:16 Dose: 1 applic - Labs Labs: 11/23/16 06:10 11/23/16 06:10 PT 10.5 Seconds (9.8-13.1) 11/15/16 13:05 INR 1.0 (0.9-1.2) 11/15/16 13:05 APTT 22.3 Seconds (25.6-37.1) L 11/15/16 13:05 - Head Exam Head Exam: ATRAUMATIC - Eye Exam Eye Exam: Normal appearance - ENT Exam ENT Exam: Mucous Membranes Dry - Respiratory Exam Respiratory Exam: NORMAL BREATHING PATTERN - Cardiovascular Exam Cardiovascular Exam: +S1, +S2 - GI/Abdominal Exam GI & Abdominal Exam: Normal Bowel Sounds Assessment and Plan (1) Anemia Assessment & Plan: H/H stable recent chemotherapy Status: Acute (2) Thrombocytopenia Assessment & Plan: downtrending secondary to recent chemotherapy Status: Acute (3) Vulvar cancer Assessment & Plan: outpatient f/u with primary oncologist Status: Chronic
--- NOTE | 2016-11-23 13:16 | CP.PCM.PN ---
Subjective - Date & Time of Evaluation Date of Evaluation: 11/23/16 Time of Evaluation: 13:00 - Subjective Subjective: Feeling better, family at bedside Objective - Vital Signs/Intake and Output Vital Signs (last 24 hours): Temp Pulse Resp BP Pulse Ox 97.7 F 70 20 131/75 97 11/23/16 07:59 11/23/16 07:59 11/23/16 07:59 11/23/16 07:59 11/23/16 07:59 Intake and Output: 11/23/16 11/23/16 06:59 18:59 Intake Total 1288 Output Total 500 Balance 788 - Medications Medications: Current Medications Acetaminophen (Tylenol 650mg/20.3ml Solution Ud) 650 mg PO Q6 PRN PRN Reason: fever >100.4 Benzocaine/Menthol (Cepacol Sore Throat) 1 chantel PO Q2 PRN PRN Reason: Sore Throat Cyanocobalamin (Vitamin B12 1000 Mcg/Ml Inj) 1,000 mcg IM DAILY [facility] Last Admin: 11/23/16 09:16 Dose: 1,000 mcg Hydromorphone HCl (Dilaudid) 0.5 mg IVP Q3 PRN PRN Reason: Pain, moderate (4-7) Last Admin: 11/20/16 14:45 Dose: 0.5 mg Vancomycin HCl 1 gm/ Sodium (Chloride) 250 mls @ 166.667 mls/hr IVPB DAILY [facility] Last Admin: 11/22/16 10:05 Dose: 166.667 mls/hr Fluconazole (Diflucan Iv 100 Mg/50 Ml Ns) 50 mls @ 50 mls/hr IVPB DAILY [facility] Last Admin: 11/22/16 10:04 Dose: 50 mls/hr Multivitamins/Vitamin C 10 ml/Chromium/Copper/Manganese/Zinc 3 ml/ Amino Acids/ Electrolytes/Dextrose 1,013 mls @ 42 mls/hr IV .Q24H ONE Stop: 11/24/16 11:29 Last Admin: 11/23/16 12:30 Dose: 42 mls/hr Pantoprazole Sodium (Protonix Inj) 40 mg IVP BID [facility] Last Admin: 11/23/16 09:15 Dose: 40 mg Silver Sulfadiazine (Silvadene 1% 50 Gm) 1 applic TOP BID [facility] Last Admin: 11/23/16 09:16 Dose: 1 applic - Labs Labs: 11/23/16 06:10 11/23/16 06:10 PT 10.5 Seconds (9.8-13.1) 11/15/16 13:05 INR 1.0 (0.9-1.2) 11/15/16 13:05 APTT 22.3 Seconds (25.6-37.1) L 11/15/16 13:05 - Head Exam Head Exam: ATRAUMATIC - Eye Exam Eye Exam: Normal appearance - ENT Exam ENT Exam: Mucous Membranes Dry - Respiratory Exam Respiratory Exam: NORMAL BREATHING PATTERN - Cardiovascular Exam Cardiovascular Exam: +S1, +S2 - GI/Abdominal Exam GI & Abdominal Exam: Normal Bowel Sounds - Extremities Exam Extremities Exam: Normal Inspection Assessment and Plan (1) Anemia Assessment & Plan: H/H stable secondary to recent chemotherapy, surgical blood loss Status: Acute (2) Thrombocytopenia Assessment & Plan: downtrending secondary to chemotherapy Status: Acute (3) Vulvar cancer Assessment & Plan: outpatient f/u with primary oncologist Status: Chronic
[2016-11-23] MEDS: Fluconazole IV 100mg/50 ml NS 50 ML IVPB SCH (15:37)
--- NOTE | 2016-11-24 06:19 | CP.PCM.PN ---
Subjective - Date & Time of Evaluation Date of Evaluation: 11/24/16 Time of Evaluation: 05:15 - Subjective Subjective: General Surgery Pt S&E, NAEO. +BM/flatus, denies any pain, nausea, vomiting, or any other symptoms. New drain bulb working well. Objective - Vital Signs/Intake and Output Vital Signs (last 24 hours): Temp Pulse Resp BP Pulse Ox 97.8 F 73 20 147/78 98 11/24/16 00:52 11/24/16 00:52 11/24/16 00:52 11/24/16 00:52 11/24/16 00:52 Intake and Output: 11/23/16 11/24/16 18:59 06:59 Output Total 215 Balance -215 - Medications Medications: Current Medications Acetaminophen (Tylenol 650mg/20.3ml Solution Ud) 650 mg PO Q6 PRN PRN Reason: fever >100.4 Benzocaine/Menthol (Cepacol Sore Throat) 1 chantel PO Q2 PRN PRN Reason: Sore Throat Cyanocobalamin (Vitamin B12 1000 Mcg/Ml Inj) 1,000 mcg IM DAILY [facility] Last Admin: 11/23/16 09:16 Dose: 1,000 mcg Hydromorphone HCl (Dilaudid) 0.5 mg IVP Q3 PRN PRN Reason: Pain, moderate (4-7) Last Admin: 11/20/16 14:45 Dose: 0.5 mg Vancomycin HCl 1 gm/ Sodium (Chloride) 250 mls @ 166.667 mls/hr IVPB DAILY [facility] Last Admin: 11/23/16 15:36 Dose: 166.667 mls/hr Fluconazole (Diflucan Iv 100 Mg/50 Ml Ns) 50 mls @ 50 mls/hr IVPB DAILY [facility] Last Admin: 11/23/16 15:37 Dose: 50 mls/hr Multivitamins/Vitamin C 10 ml/Chromium/Copper/Manganese/Zinc 3 ml/ Amino Acids/ Electrolytes/Dextrose 1,013 mls @ 42 mls/hr IV .Q24H ONE Stop: 11/24/16 11:29 Last Admin: 11/23/16 12:30 Dose: 42 mls/hr Pantoprazole Sodium (Protonix Inj) 40 mg IVP BID [facility] Last Admin: 11/23/16 17:05 Dose: 40 mg Silver Sulfadiazine (Silvadene 1% 50 Gm) 1 applic TOP BID [facility] Last Admin: 11/23/16 17:05 Dose: 1 applic - Labs Labs: 11/23/16 06:10 11/23/16 06:10 PT 10.5 Seconds (9.8-13.1) 11/15/16 13:05 INR 1.0 (0.9-1.2) 11/15/16 13:05 APTT 22.3 Seconds (25.6-37.1) L 11/15/16 13:05 - Constitutional Appears: Non-toxic, No Acute Distress - Head Exam Head Exam: ATRAUMATIC, NORMOCEPHALIC - Eye Exam Eye Exam: EOMI. absent: Scleral icterus - Respiratory Exam Respiratory Exam: NORMAL BREATHING PATTERN. absent: Respiratory Distress - GI/Abdominal Exam GI & Abdominal Exam: Soft. absent: Distended, Tenderness Additional comments: drain with serobilious fluid, ~280cc in 24hrs - Neurological Exam Neurological Exam: Alert, Awake - Skin Skin Exam: Dry, Warm Assessment and Plan - Assessment and Plan (Free Text) Assessment: 86F w/ perforated duodenum POD#8 s/p ex lap w/ Mak patch Plan: Monitor herbert output, decreasing slowly May give the patient small amount of ice chips TPN for nutrition ordered--follow up daily CMP, lipids, and other electrolytes OOB, IS use, and PT Cont abx per ID Transfuse PRN Will D/W Dr. Shorty Monroe PGY4
[2016-11-24] MEDS: Fluconazole IV 100mg/50 ml NS 50 ML IVPB SCH (08:27)
[2016-11-24] MEDS: Silver Sulfadiazine 1% CREAM (50 gm) TOP SCH ×2 (08:38→16:44)
[2016-11-24] MEDS ORDERED: Multivitamin (MVI) 10 ML, Trace Elements-Cr/Cu/Mn/Zn 3 ML in Amino/Dex E 4.25/10 1000 M... IV ONE (12:00)
[2016-11-24 13:26] LABS: HEMATOCRIT 22.2 % (34.0-47.0); MEAN CORPUSCULAR HEMOGLOBIN 31.8 pg (27.0-31.0); MEAN CORPUSCULAR HGB CONC 32.4 g/dL (33.0-37.0); RED CELL DISTRIBUTION WIDTH 19.9 % (11.5-14.5); WHITE BLOOD COUNT 6.6 K/uL (4.8-10.8)
[2016-11-24 13:40] LABS: ALB/GLOB RATIO 0.8 (1.0-2.1); ALKALINE PHOSPHATASE 102 U/L (38-126); ALT/SGPT 26 U/L (9-52); AST/SGOT 28 U/L (14-36); BILIRUBIN,TOTAL 0.2 mg/dl (0.2-1.3); BLOOD UREA NITROGEN 14 mg/dl (7-17); CALCIUM 7.8 mg/dL (8.4-10.2); CARBON DIOXIDE 23 mmol/L (22-30); CHLORIDE 113 mmol/L (98-107); CHOLESTEROL 99 mg/dL (0-199); GFR AFRICAN-AMERICAN > 60; GLUCOSE,RANDOM 116 mg/dL (65-105); MAGNESIUM 1.6 MG/DL (1.6-2.3); PHOSPHOROUS 2.5 mg/dl (2.5-4.5); POTASSIUM 3.5 MMOL/L (3.6-5.0); SODIUM 146 mmol/l (132-148); TOTAL PROTEIN 5.3 G/DL (6.3-8.2)
--- NOTE | 2016-11-24 14:09 | PN ---
DATE: 11/24/2016 SUBJECTIVE: The patient is seen and examined. Interim events noted. Consults noted and appreciated. The patient remains in regular medical floor on TPN. The patient feels okay. Pain is adequately controlled. No chest pain. No shortness of breath. PHYSICAL EXAMINATION GENERAL: The patient is in no acute distress. VITAL SIGNS: Stable. HEART: S1 and S2, normal and regular. LUNGS: Good bilateral air exchange. ABDOMEN: Soft and nontender. EXTREMITIES: No edema. No calf swelling. No tenderness. No acute ischemia. CENTRAL NERVOUS SYSTEM: Essentially unchanged. DIAGNOSTIC DATA: Available diagnostic data reviewed. ASSESSMENT AND PLAN: Overall, the patient is slowly improving. The patient still has no significant discharge, but the patient's medical condition is slowly improving. Plan as ordered. Russ Taylor MD
[2016-11-24] MEDS: Potassium Ch 20mEq in D5W 1,000 ML IV SCH (16:34)
[2016-11-25 07:10] LABS: HEMATOCRIT 21.8 % (34.0-47.0); MEAN CELL VOLUME 97.2 fl (81.0-99.0); MEAN CORPUSCULAR HEMOGLOBIN 31.8 pg (27.0-31.0); MEAN CORPUSCULAR HGB CONC 32.7 g/dL (33.0-37.0); RED CELL DISTRIBUTION WIDTH 19.9 % (11.5-14.5); WHITE BLOOD COUNT 5.7 K/uL (4.8-10.8)
[2016-11-25 07:23] LABS: ALB/GLOB RATIO 0.8 (1.0-2.1); ALKALINE PHOSPHATASE 106 U/L (38-126); ALT/SGPT 29 U/L (9-52); AST/SGOT 24 U/L (14-36); BILIRUBIN,TOTAL 0.3 mg/dl (0.2-1.3); BLOOD UREA NITROGEN 13 mg/dl (7-17); CALCIUM 7.9 mg/dL (8.4-10.2); CARBON DIOXIDE 21 mmol/L (22-30); CHLORIDE 113 mmol/L (98-107); GFR AFRICAN-AMERICAN > 60; GLUCOSE,RANDOM 119 mg/dL (65-105); MAGNESIUM 1.6 MG/DL (1.6-2.3); PHOSPHOROUS 2.8 mg/dl (2.5-4.5); POTASSIUM 3.6 MMOL/L (3.6-5.0); SODIUM 144 mmol/l (132-148); TOTAL PROTEIN 5.4 G/DL (6.3-8.2)
[2016-11-25 07:41] LABS: CHOLESTEROL 100 mg/dL (0-199)
[2016-11-25] MEDS ORDERED: Oxycodone/Acetaminophen 5/325 mg Tab PO PRN (08:21)
--- NOTE | 2016-11-25 08:23 | CP.PCM.PN ---
Subjective - Date & Time of Evaluation Date of Evaluation: 11/25/16 Time of Evaluation: 07:00 - Subjective Subjective: Patient seen and examined this AM. NAEO. Patient denies any pain, nausea, or vomiting. 340cc's of yellow, clear, slightly bilious fluid output from the tim drain. Reports a BM last night. Tolerating sips and ice chips Objective - Vital Signs/Intake and Output Vital Signs (last 24 hours): Temp Pulse Resp BP Pulse Ox 98.1 F 80 20 146/79 98 11/25/16 00:15 11/25/16 00:15 11/25/16 00:15 11/25/16 00:15 11/25/16 00:15 Intake and Output: 11/25/16 11/25/16 06:59 18:59 Intake Total 804 Output Total 140 Balance 664 - Medications Medications: Current Medications Acetaminophen (Tylenol 650mg/20.3ml Solution Ud) 650 mg PO Q6 PRN PRN Reason: fever >100.4 Benzocaine/Menthol (Cepacol Sore Throat) 1 chantel PO Q2 PRN PRN Reason: Sore Throat Cyanocobalamin (Vitamin B12 1000 Mcg/Ml Inj) 1,000 mcg IM DAILY [facility] Last Admin: 11/24/16 08:31 Dose: 1,000 mcg Vancomycin HCl 1 gm/ Sodium (Chloride) 250 mls @ 166.667 mls/hr IVPB DAILY [facility] Last Admin: 11/24/16 08:26 Dose: 166.667 mls/hr Fluconazole (Diflucan Iv 100 Mg/50 Ml Ns) 50 mls @ 50 mls/hr IVPB DAILY [facility] Last Admin: 11/24/16 08:27 Dose: 50 mls/hr Multivitamins/Vitamin C 10 ml/Chromium/Copper/Manganese/Zinc 3 ml/ Amino Acids/ Electrolytes/Dextrose 1,013 mls @ 42 mls/hr IV .Q24H ONE Stop: 11/25/16 11:59 Last Admin: 11/24/16 12:28 Dose: 42 mls/hr Potassium Chloride/Dextrose (Potassium Chl 20 Meq In D5w) 1,000 mls @ 50 mls/ hr IV .Q20H [facility] Stop: 11/25/16 12:58 Last Admin: 11/24/16 16:34 Dose: 50 mls/hr Oxycodone/Acetaminophen (Percocet 5/325 Mg Tab) 1 tab PO Q6 PRN PRN Reason: Pain, severe (8-10) Stop: 11/28/16 08:22 Pantoprazole Sodium (Protonix Inj) 40 mg IVP BID [facility] Last Admin: 11/24/16 16:34 Dose: 40 mg Silver Sulfadiazine (Silvadene 1% 50 Gm) 1 applic TOP BID [facility] Last Admin: 11/24/16 16:44 Dose: 1 applic - Labs Labs: 11/25/16 05:30 11/25/16 05:30 PT 10.5 Seconds (9.8-13.1) 11/15/16 13:05 INR 1.0 (0.9-1.2) 11/15/16 13:05 APTT 22.3 Seconds (25.6-37.1) L 11/15/16 13:05 - Constitutional Appears: Non-toxic, No Acute Distress - Head Exam Head Exam: ATRAUMATIC, NORMOCEPHALIC - Eye Exam Eye Exam: Normal appearance. absent: Conjunctival injection, Scleral icterus - ENT Exam ENT Exam: Mucous Membranes Moist, Normal Oropharynx - Respiratory Exam Respiratory Exam: NORMAL BREATHING PATTERN. absent: Accessory Muscle Use, Respiratory Distress - GI/Abdominal Exam GI & Abdominal Exam: Soft, Tenderness (mild tenderness LUQ). absent: Distended Additional comments: midline incision well approximated with arvind, no erythema, bleeding, or drainage. Tim drain with minimal clear yellow, slightly bilious output - Extremities Exam Extremities Exam: absent: Calf Tenderness, Pedal Edema, Tenderness - Neurological Exam Neurological Exam: Alert, Awake, Oriented x3 - Psychiatric Exam Psychiatric exam: Normal Affect, Normal Mood - Skin Skin Exam: Dry, Normal Color, Warm Assessment and Plan - Assessment and Plan (Free Text) Assessment: 86F w/ perforated duodenum POD#9 s/p ex lap w/ Mak patch Plan: Continue to monitor tim output, decreasing slowly. May consider duodenal stent if output continues at a high rate. Continue to trend HGB. No sign of active bleeding but continues to trend down. Transfuse PRN per primary team. May give the patient small amount of ice chips TPN for nutrition ordered--follow up daily CMP, lipids, and other electrolytes Patient will need PICC--will place IR consult OOB, IS use, and PT Cont abx per ID D/W Dr. Shorty Mayer, PGY2
[2016-11-25] MEDS: Silver Sulfadiazine 1% CREAM (50 gm) TOP SCH ×2 (09:20→17:12)
[2016-11-25] MEDS: Potassium Ch 20mEq in D5W 1,000 ML IV SCH (09:21)
[2016-11-25] MEDS: Fluconazole IV 100mg/50 ml NS 50 ML IVPB SCH (09:23)
[2016-11-25] MEDS ORDERED: Potassium Chl 20mEq & D5W 1,000 ML IV SCH ×2 (11:30→23:00)
[2016-11-25] MEDS ORDERED: Multivitamin (MVI) 10 ML, Trace Elements-Cr/Cu/Mn/Zn 3 ML in Amino/Dex E 4.25/10 1000 M... IV ONE (13:00)
--- NOTE | 2016-11-25 13:25 | PN ---
DATE: 11/25/2016 SUBJECTIVE: The patient is seen and examined. Interim events noted. Consults noted and appreciated. The patient remains on TPN. The patient is awake, responsive, feels okay. Pain is adequately controlled. Was able to tolerate ice chips without any problem. PHYSICAL EXAMINATION GENERAL: The patient is in no acute distress. VITAL SIGNS: Stable. HEART: S1 and S2, normal and regular. LUNGS: Good bilateral air exchange. ABDOMEN: Soft, nontender. No sign of acute abdomen. EDUARDO tube is draining adequately. Bowel sounds are present and normal. EXTREMITIES: No edema. No calf swelling. No tenderness. No acute ischemia. CENTRAL NERVOUS SYSTEM: Essentially unchanged. DIAGNOSTIC DATA: Available diagnostic data reviewed. ASSESSMENT AND PLAN: Overall, the patient's general medical condition is slowly improving. Plan as ordered. Russ Taylor MD
--- NOTE | 2016-11-25 13:36 | CP.PCM.PN ---
Subjective - Date & Time of Evaluation Date of Evaluation: 11/24/16 Time of Evaluation: 15:00 - Subjective Subjective: Feeling better but getting cold easily Objective - Vital Signs/Intake and Output Vital Signs (last 24 hours): Temp Pulse Resp BP Pulse Ox 98.4 F 70 20 134/66 97 11/25/16 08:40 11/25/16 08:40 11/25/16 08:40 11/25/16 08:40 11/25/16 08:40 Intake and Output: 11/25/16 11/25/16 06:59 18:59 Intake Total 804 Output Total 140 Balance 664 - Medications Medications: Current Medications Acetaminophen (Tylenol 650mg/20.3ml Solution Ud) 650 mg PO Q6 PRN PRN Reason: fever >100.4 Benzocaine/Menthol (Cepacol Sore Throat) 1 chantel PO Q2 PRN PRN Reason: Sore Throat Cyanocobalamin (Vitamin B12 1000 Mcg/Ml Inj) 1,000 mcg IM DAILY [facility] Last Admin: 11/25/16 09:27 Dose: 1,000 mcg Fat Emulsion Intravenous (Intralipid 20%) 250 ml IV ONCE ONE Stop: 11/25/16 14:01 Vancomycin HCl 1 gm/ Sodium (Chloride) 250 mls @ 166.667 mls/hr IVPB DAILY [facility] Last Admin: 11/25/16 09:20 Dose: 166.667 mls/hr Fluconazole (Diflucan Iv 100 Mg/50 Ml Ns) 50 mls @ 50 mls/hr IVPB DAILY [facility] Last Admin: 11/25/16 09:23 Dose: 50 mls/hr Multivitamins/Vitamin C 10 ml/Chromium/Copper/Manganese/Zinc 3 ml/ Amino Acids/ Electrolytes/Dextrose 1,013 mls @ 42 mls/hr IV .Q24H ONE Stop: 11/26/16 12:59 Oxycodone/Acetaminophen (Percocet 5/325 Mg Tab) 1 tab PO Q6 PRN PRN Reason: Pain, severe (8-10) Stop: 11/28/16 08:22 Pantoprazole Sodium (Protonix Inj) 40 mg IVP BID [facility] Last Admin: 11/25/16 09:28 Dose: 40 mg Silver Sulfadiazine (Silvadene 1% 50 Gm) 1 applic TOP BID [facility] Last Admin: 11/25/16 09:20 Dose: 1 applic - Labs Labs: 11/25/16 05:30 11/25/16 05:30 PT 10.5 Seconds (9.8-13.1) 11/15/16 13:05 INR 1.0 (0.9-1.2) 11/15/16 13:05 APTT 22.3 Seconds (25.6-37.1) L 11/15/16 13:05 - Head Exam Head Exam: ATRAUMATIC - Eye Exam Eye Exam: Normal appearance - ENT Exam ENT Exam: Mucous Membranes Dry - Respiratory Exam Respiratory Exam: NORMAL BREATHING PATTERN - Cardiovascular Exam Cardiovascular Exam: +S1, +S2 - GI/Abdominal Exam GI & Abdominal Exam: Normal Bowel Sounds - Extremities Exam Extremities Exam: Normal Inspection Assessment and Plan (1) Anemia Assessment & Plan: will transfuse 2U PRBC tomorrow Status: Acute (2) Thrombocytopenia Assessment & Plan: improving Status: Acute (3) Vulvar cancer Assessment & Plan: outpatient treatment with primary oncologist Status: Chronic
[2016-11-26 06:17] LABS: HEMATOCRIT 20.7 % (34.0-47.0); MEAN CELL VOLUME 96.9 fl (81.0-99.0); MEAN CORPUSCULAR HEMOGLOBIN 32.2 pg (27.0-31.0); MEAN CORPUSCULAR HGB CONC 33.3 g/dL (33.0-37.0); RED CELL DISTRIBUTION WIDTH 19.3 % (11.5-14.5); WHITE BLOOD COUNT 5.1 K/uL (4.8-10.8)
[2016-11-26 06:28] LABS: ALB/GLOB RATIO 0.8 (1.0-2.1); ALKALINE PHOSPHATASE 103 U/L (38-126); ALT/SGPT 25 U/L (9-52); AST/SGOT 24 U/L (14-36); BILIRUBIN,TOTAL 0.4 mg/dl (0.2-1.3); BLOOD UREA NITROGEN 14 mg/dl (7-17); CALCIUM 7.9 mg/dL (8.4-10.2); CARBON DIOXIDE 23 mmol/L (22-30); CHLORIDE 112 mmol/L (98-107); GFR AFRICAN-AMERICAN > 60; GLUCOSE,RANDOM 127 mg/dL (65-105); MAGNESIUM 1.6 MG/DL (1.6-2.3); POTASSIUM 3.7 MMOL/L (3.6-5.0); SODIUM 143 mmol/l (132-148); TOTAL PROTEIN 5.4 G/DL (6.3-8.2)
--- NOTE | 2016-11-26 07:37 | CP.PCM.PN ---
Subjective - Date & Time of Evaluation Date of Evaluation: 11/26/16 Time of Evaluation: 07:34 - Subjective Subjective: Surgery Patient doing well today. She is in good spirits. She has been OOB. Pain controlled. Patient for PICC line today, to receive 2 units PRBC prior to procedure. Per nursing Herbert output 150cc/12hrs serous fluid. Objective - Vital Signs/Intake and Output Vital Signs (last 24 hours): Temp Pulse Resp BP Pulse Ox 97.2 F L 77 20 125/73 100 11/26/16 01:21 11/26/16 01:21 11/26/16 01:21 11/26/16 01:21 11/26/16 01:21 - Medications Medications: Current Medications Acetaminophen (Tylenol 650mg/20.3ml Solution Ud) 650 mg PO Q6 PRN PRN Reason: fever >100.4 Benzocaine/Menthol (Cepacol Sore Throat) 1 chantel PO Q2 PRN PRN Reason: Sore Throat Cyanocobalamin (Vitamin B12 1000 Mcg/Ml Inj) 1,000 mcg IM DAILY [facility] Last Admin: 11/25/16 09:27 Dose: 1,000 mcg Vancomycin HCl 1 gm/ Sodium (Chloride) 250 mls @ 166.667 mls/hr IVPB DAILY [facility] Last Admin: 11/25/16 09:20 Dose: 166.667 mls/hr Fluconazole (Diflucan Iv 100 Mg/50 Ml Ns) 50 mls @ 50 mls/hr IVPB DAILY [facility] Last Admin: 11/25/16 09:23 Dose: 50 mls/hr Multivitamins/Vitamin C 10 ml/Chromium/Copper/Manganese/Zinc 3 ml/ Amino Acids/ Electrolytes/Dextrose 1,013 mls @ 42 mls/hr IV .Q24H ONE Stop: 11/26/16 12:59 Last Admin: 11/25/16 17:14 Dose: 42 mls/hr Potassium Chloride/Dextrose (Potassium Chl 20 Meq In D5w) 1,000 mls @ 50 mls/ hr IV .Q20H [facility] Stop: 11/26/16 22:57 Last Admin: 11/25/16 23:01 Dose: 50 mls/hr Oxycodone/Acetaminophen (Percocet 5/325 Mg Tab) 1 tab PO Q6 PRN PRN Reason: Pain, severe (8-10) Stop: 11/28/16 08:22 Pantoprazole Sodium (Protonix Inj) 40 mg IVP BID [facility] Last Admin: 11/25/16 17:12 Dose: 40 mg Silver Sulfadiazine (Silvadene 1% 50 Gm) 1 applic TOP BID [facility] Last Admin: 11/25/16 17:12 Dose: 1 applic - Labs Labs: 11/26/16 05:35 11/26/16 05:35 PT 10.5 Seconds (9.8-13.1) 11/15/16 13:05 INR 1.0 (0.9-1.2) 11/15/16 13:05 APTT 22.3 Seconds (25.6-37.1) L 11/15/16 13:05 - Constitutional Appears: Non-toxic, No Acute Distress - Head Exam Head Exam: ATRAUMATIC, NORMOCEPHALIC - Eye Exam Eye Exam: EOMI, Normal appearance - ENT Exam ENT Exam: Mucous Membranes Moist - Respiratory Exam Respiratory Exam: NORMAL BREATHING PATTERN. absent: Respiratory Distress - Cardiovascular Exam Cardiovascular Exam: REGULAR RHYTHM. absent: Tachycardia - GI/Abdominal Exam GI & Abdominal Exam: Soft. absent: Distended, Guarding, Tenderness, Rebound Additional comments: Herbert in RUQ w/ serous fluid output. Midline incisions CDI. Assessment and Plan - Assessment and Plan (Free Text) Assessment: 86F w/ perforated duodenum POD#10 s/p ex lap w/ Mak patch Plan: -monitor herbert output -OOB, IS use -PICC line placement today, 2 units PRBC prior to procedure -daily labs -continue TPN, appreciate nutrition's recs -medical management per primary -further recs per attending AKWhite PGY3
[2016-11-26 08:15] LABS: CHOLESTEROL 101 mg/dL (0-199)
[2016-11-26] MEDS: Fluconazole IV 100mg/50 ml NS 50 ML IVPB SCH (08:54)
[2016-11-26] MEDS: Silver Sulfadiazine 1% CREAM (50 gm) TOP SCH ×2 (09:03→16:34)
[2016-11-26] MEDS: Meropenem 500 MG in Sodium Chloride 0.9% 100 ML IVPB SCH ×2 (11:04→21:00)
--- NOTE | 2016-11-26 11:23 | CP.PCM.PN ---
Subjective - Date & Time of Evaluation Date of Evaluation: 11/26/16 Time of Evaluation: 12:30 - Subjective Subjective: ID note- Pt. seen and examined today in med-surg floor. Pt. sitting up in bed and denies any fever or chills. she denies any abdominal pain but states when she sits up or moves feels slight pressure around the surgical site. she still has drain in place. pt. states she is going down for picc line placement today. Objective - Vital Signs/Intake and Output Vital Signs (last 24 hours): Temp Pulse Resp BP Pulse Ox 98.2 F 69 17 125/66 99 11/26/16 09:00 11/26/16 09:00 11/26/16 09:00 11/26/16 09:00 11/26/16 09:00 Intake and Output: 11/26/16 11/26/16 06:59 18:59 Intake Total 1104 Output Total 115 Balance 989 - Medications Medications: Current Medications Acetaminophen (Tylenol 650mg/20.3ml Solution Ud) 650 mg PO Q6 PRN PRN Reason: fever >100.4 Benzocaine/Menthol (Cepacol Sore Throat) 1 chantel PO Q2 PRN PRN Reason: Sore Throat Cyanocobalamin (Vitamin B12 1000 Mcg/Ml Inj) 1,000 mcg IM DAILY [facility] Last Admin: 11/26/16 10:52 Dose: 1,000 mcg Vancomycin HCl 1 gm/ Sodium (Chloride) 250 mls @ 166.667 mls/hr IVPB DAILY [facility] Last Admin: 11/26/16 08:55 Dose: 166.667 mls/hr Fluconazole (Diflucan Iv 100 Mg/50 Ml Ns) 50 mls @ 50 mls/hr IVPB DAILY [facility] Last Admin: 11/26/16 08:54 Dose: 50 mls/hr Multivitamins/Vitamin C 10 ml/Chromium/Copper/Manganese/Zinc 3 ml/ Amino Acids/ Electrolytes/Dextrose 1,013 mls @ 42 mls/hr IV .Q24H ONE Stop: 11/26/16 12:59 Last Admin: 11/25/16 17:14 Dose: 42 mls/hr Potassium Chloride/Dextrose (Potassium Chl 20 Meq In D5w) 1,000 mls @ 50 mls/ hr IV .Q20H [facility] Stop: 11/26/16 22:57 Last Admin: 11/25/16 23:01 Dose: 50 mls/hr Meropenem 500 mg/ Sodium (Chloride) 100 mls @ 100 mls/hr IVPB Q12 [facility] PRN Reason: Protocol Last Admin: 11/26/16 11:04 Dose: 100 mls/hr Oxycodone/Acetaminophen (Percocet 5/325 Mg Tab) 1 tab PO Q6 PRN PRN Reason: Pain, severe (8-10) Stop: 11/28/16 08:22 Pantoprazole Sodium (Protonix Inj) 40 mg IVP BID [facility] Last Admin: 11/26/16 08:55 Dose: 40 mg Silver Sulfadiazine (Silvadene 1% 50 Gm) 1 applic TOP BID [facility] Last Admin: 11/26/16 09:03 Dose: 1 applic - Labs Labs: - Additional Findings Additional findings: - Constitutional Appears: No Acute Distress - Head Exam Head Exam: ATRAUMATIC - Eye Exam Eye Exam: EOMI - ENT Exam ENT Exam: Normal Oropharynx - Neck Exam Neck Exam: Full ROM - Respiratory Exam Respiratory Exam: NORMAL BREATHING PATTERN Additional comments: good breath sounds b/l - Cardiovascular Exam Cardiovascular Exam: RRR, +S1, +S2 - GI/Abdominal Exam GI & Abdominal Exam: Soft, Normal Bowel Sounds Additional comments: mid-abdominal surgical site clean, dry, intact arvind in place, no erythema Drain still in place, draining community mental health social worker bilious fluid - Extremities Exam Extremities Exam: Normal Inspection - Neurological Exam Neurological Exam: Alert, Awake, Oriented x 3 Laboratory Results - last 72 hr 11/23/16 11/23/16 11/23/16 10:57 15:28 21:00 WBC RBC Hgb Hct MCV MCH MCHC RDW Plt Count Sodium Potassium Chloride Carbon Dioxide Anion Gap BUN Creatinine Est GFR ( Amer) Est GFR (Non-Af Amer) POC Glucose (mg/dL) 179 H 130 H 151 H Random Glucose Calcium Phosphorus Magnesium Total Bilirubin AST ALT Alkaline Phosphatase Total Protein Albumin Globulin Albumin/Globulin Ratio Triglycerides Cholesterol LDL Cholesterol Direct HDL Cholesterol Blood Type Antibody Screen Crossmatch BBK History Checked 11/24/16 11/24/16 11/24/16 06:23 11:42 13:10 WBC RBC Hgb Hct MCV MCH MCHC RDW Plt Count Sodium 146 Potassium 3.5 L Chloride 113 H Carbon Dioxide 23 Anion Gap 14 BUN 14 Creatinine 0.9 Est GFR ( Amer) > 60 Est GFR (Non-Af Amer) 60 POC Glucose (mg/dL) 159 H 134 H Random Glucose 116 H Calcium 7.8 L Phosphorus 2.5 Magnesium 1.6 Total Bilirubin 0.2 AST 28 ALT 26 Alkaline Phosphatase 102 Total Protein 5.3 L Albumin 2.4 L Globulin 2.9 Albumin/Globulin Ratio 0.8 L Triglycerides 269 H D Cholesterol 99 LDL Cholesterol Direct 43 HDL Cholesterol 20 L Blood Type Antibody Screen Crossmatch BBK History Checked 11/24/16 11/24/16 11/24/16 13:10 16:23 21:34 WBC 6.6 RBC 2.26 L Hgb 7.2 L Hct 22.2 L MCV 98.0 MCH 31.8 H MCHC 32.4 L RDW 19.9 H Plt Count 67 L Sodium Potassium Chloride Carbon Dioxide Anion Gap BUN Creatinine Est GFR ( Amer) Est GFR (Non-Af Amer) POC Glucose (mg/dL) 125 H 112 H Random Glucose Calcium Phosphorus Magnesium Total Bilirubin AST ALT Alkaline Phosphatase Total Protein Albumin Globulin Albumin/Globulin Ratio Triglycerides Cholesterol LDL Cholesterol Direct HDL Cholesterol Blood Type Antibody Screen Crossmatch BBK History Checked 11/25/16 11/25/16 11/25/16 05:30 05:30 05:30 WBC 5.7 RBC 2.24 L Hgb 7.1 L Hct 21.8 L MCV 97.2 MCH 31.8 H MCHC 32.7 L RDW 19.9 H Plt Count 70 L Sodium 144 Potassium 3.6 Chloride 113 H Carbon Dioxide 21 L Anion Gap 14 BUN 13 Creatinine 1.0 Est GFR ( Amer) > 60 Est GFR (Non-Af Amer) 53 POC Glucose (mg/dL) Random Glucose 119 H Calcium 7.9 L Phosphorus 2.8 Magnesium 1.6 Total Bilirubin 0.3 AST 24 ALT 29 Alkaline Phosphatase 106 Total Protein 5.4 L Albumin 2.4 L Globulin 3.0 Albumin/Globulin Ratio 0.8 L Triglycerides 177 H D Cholesterol 100 LDL Cholesterol Direct 49 HDL Cholesterol 22 L Blood Type Antibody Screen Crossmatch BBK History Checked 11/25/16 11/25/16 11/25/16 06:11 12:13 16:10 WBC RBC Hgb Hct MCV MCH MCHC RDW Plt Count Sodium Potassium Chloride Carbon Dioxide Anion Gap BUN Creatinine Est GFR ( Amer) Est GFR (Non-Af Amer) POC Glucose (mg/dL) 139 H 112 H 111 H Random Glucose Calcium Phosphorus Magnesium Total Bilirubin AST ALT Alkaline Phosphatase Total Protein Albumin Globulin Albumin/Globulin Ratio Triglycerides Cholesterol LDL Cholesterol Direct HDL Cholesterol Blood Type Antibody Screen Crossmatch BBK History Checked 11/25/16 11/25/16 11/26/16 19:35 21:47 05:35 WBC 5.1 RBC 2.13 L Hgb 6.9 L Hct 20.7 L MCV 96.9 MCH 32.2 H MCHC 33.3 RDW 19.3 H Plt Count 89 L Sodium Potassium Chloride Carbon Dioxide Anion Gap BUN Creatinine Est GFR ( Amer) Est GFR (Non-Af Amer) POC Glucose (mg/dL) 136 H Random Glucose Calcium Phosphorus Magnesium Total Bilirubin AST ALT Alkaline Phosphatase Total Protein Albumin Globulin Albumin/Globulin Ratio Triglycerides Cholesterol LDL Cholesterol Direct HDL Cholesterol Blood Type O POSITIVE Antibody Screen Negative Crossmatch See Detail BBK History Checked Patient has bt 11/26/16 11/26/16 11/26/16 05:35 06:46 07:37 WBC RBC Hgb Hct MCV MCH MCHC RDW Plt Count Sodium 143 Potassium 3.7 Chloride 112 H Carbon Dioxide 23 Anion Gap 12 BUN 14 Creatinine 1.0 Est GFR ( Amer) > 60 Est GFR (Non-Af Amer) 53 POC Glucose (mg/dL) 144 H Random Glucose 127 H Calcium 7.9 L Phosphorus 3.0 Magnesium 1.6 Total Bilirubin 0.4 AST 24 ALT 25 Alkaline Phosphatase 103 Total Protein 5.4 L Albumin 2.4 L Globulin 3.0 Albumin/Globulin Ratio 0.8 L Triglycerides 145 Cholesterol 101 LDL Cholesterol Direct 52 HDL Cholesterol 20 L Blood Type Antibody Screen Crossmatch BBK History Checked 11/26/16 10:45 WBC RBC Hgb Hct MCV MCH MCHC RDW Plt Count Sodium Potassium Chloride Carbon Dioxide Anion Gap BUN Creatinine Est GFR ( Amer) Est GFR (Non-Af Amer) POC Glucose (mg/dL) 120 H Random Glucose Calcium Phosphorus Magnesium Total Bilirubin AST ALT Alkaline Phosphatase Total Protein Albumin Globulin Albumin/Globulin Ratio Triglycerides Cholesterol LDL Cholesterol Direct HDL Cholesterol Blood Type Antibody Screen Crossmatch BBK History Checked Microbiology 11/22/16 09:04 Naris MRSA Culture (Admit) - Final MRSA NOT DETECTED 11/17/16 17:00 Blood-Venous Blood Culture - Final NO GROWTH AFTER 5 DAYS 11/17/16 17:00 Blood-Venous Gram Stain - Final TEST NOT PERFORMED 11/17/16 17:30 Blood-Venous Blood Culture - Final NO GROWTH AFTER 5 DAYS 11/17/16 17:30 Blood-Venous Gram Stain - Final TEST NOT PERFORMED 11/15/16 13:20 Blood Blood Culture - Final NO GROWTH AFTER 5 DAYS 11/15/16 13:20 Blood Gram Stain - Final TEST NOT PERFORMED 11/15/16 13:05 Blood Blood Culture - Final NO GROWTH AFTER 5 DAYS 11/15/16 13:05 Blood Gram Stain - Final TEST NOT PERFORMED 11/16/16 20:00 Other: Please Indicate Gram Stain - Final 11/16/16 20:00 Other: Please Indicate Wound Culture - Final Escherichia Coli 11/16/16 20:00 Other: Please Indicate Gram Stain - Final 11/16/16 20:00 Other: Please Indicate Wound Culture - Final Escherichia Coli 11/16/16 09:40 Naris MRSA Culture (Admit) - Final MRSA NOT DETECTED 11/15/16 23:30 Urine,Catheterized Urine Culture - Final No Growth (<1,000 CFU/ML) Assessment and Plan (1) Gastric out let obstruction Status: Acute (2) Leukopenia Status: Acute (3) Pneumoperitoneum Status: Acute (4) Severe sepsis Status: Acute (5) Vulvar cancer Status: Chronic - Assessment and Plan (Free Text) Assessment: A/P- 86 year old female with vulvar cancer undergoing chemo and radiation was admitted with sudden sharp abdominal pain , found to have high lactate underwent ex-lap and found to have perforated duodenal ulcer is s/p duodenal patch and samy drain . clinically better POD #10 afebrile no longer neutropenic wound cx- E.Coli x 2 (pansensitive) Blood cx- neg x 4 plan- advise to continue with IV meropenem day #10. advise 2 more days of meropenem. has completed 10 days of empiric IV vancomycin. advise to d/c vancomycin at this time, since pt. no longer neutropenic. advise to also continue with antifungal day #10, since pt. is on TPB and still has drain in place and had duodenal perf. drain management as per surgical team. upper GI series with gastrograffin as per GI rec for further evaluation. Violetta jensen d/w patient and she verbalizes full understanding of all above.
--- NOTE | 2016-11-26 12:10 | CP.PCM.PN ---
<Libby Mendoza - Last Filed: 11/26/16 13:37> Subjective - Date & Time of Evaluation Date of Evaluation: 11/26/16 Time of Evaluation: 08:00 - Subjective Subjective: GI Fellow PGY4 Progress Note Pt seen and examined at bedside, pt doing well s/p duodenal perforation POD#10. Pt reports mild abdominal discomfort and says she has a small BM daily with flatus. Pt denies fevers, chills, nausea or vomiting. Pt has a tim drain with yellow serous fluid 360cc/daily. We were reconsulted for any further recommendations regarding large amount of ouput from tim drain. Per surgery, pt had a lot of inflammation during the ex- lap and had to place a Mak patch. Pt is currently NPO on TPN and plan for PICC line, Abx and 2U PRBCs. ROS: A 12pt ROS was obtained and was negative except as above. Objective - Vital Signs/Intake and Output Vital Signs (last 24 hours): Temp Pulse Resp BP Pulse Ox 98.2 F 69 17 125/66 99 11/26/16 09:00 11/26/16 09:00 11/26/16 09:00 11/26/16 09:00 11/26/16 09:00 Intake and Output: 11/26/16 11/26/16 06:59 18:59 Intake Total 1104 Output Total 115 Balance 989 - Medications Medications: Current Medications Acetaminophen (Tylenol 650mg/20.3ml Solution Ud) 650 mg PO Q6 PRN PRN Reason: fever >100.4 Benzocaine/Menthol (Cepacol Sore Throat) 1 chantel PO Q2 PRN PRN Reason: Sore Throat Cyanocobalamin (Vitamin B12 1000 Mcg/Ml Inj) 1,000 mcg IM DAILY [facility] Last Admin: 11/26/16 10:52 Dose: 1,000 mcg Vancomycin HCl 1 gm/ Sodium (Chloride) 250 mls @ 166.667 mls/hr IVPB DAILY [facility] Last Admin: 11/26/16 08:55 Dose: 166.667 mls/hr Fluconazole (Diflucan Iv 100 Mg/50 Ml Ns) 50 mls @ 50 mls/hr IVPB DAILY [facility] Last Admin: 11/26/16 08:54 Dose: 50 mls/hr Multivitamins/Vitamin C 10 ml/Chromium/Copper/Manganese/Zinc 3 ml/ Amino Acids/ Electrolytes/Dextrose 1,013 mls @ 42 mls/hr IV .Q24H ONE Stop: 11/26/16 12:59 Last Admin: 11/25/16 17:14 Dose: 42 mls/hr Potassium Chloride/Dextrose (Potassium Chl 20 Meq In D5w) 1,000 mls @ 50 mls/ hr IV .Q20H [facility] Stop: 11/26/16 22:57 Last Admin: 11/25/16 23:01 Dose: 50 mls/hr Meropenem 500 mg/ Sodium (Chloride) 100 mls @ 100 mls/hr IVPB Q12 [facility] PRN Reason: Protocol Last Admin: 11/26/16 11:04 Dose: 100 mls/hr Oxycodone/Acetaminophen (Percocet 5/325 Mg Tab) 1 tab PO Q6 PRN PRN Reason: Pain, severe (8-10) Stop: 11/28/16 08:22 Pantoprazole Sodium (Protonix Inj) 40 mg IVP BID [facility] Last Admin: 11/26/16 08:55 Dose: 40 mg Silver Sulfadiazine (Silvadene 1% 50 Gm) 1 applic TOP BID [facility] Last Admin: 11/26/16 09:03 Dose: 1 applic - Labs Labs: 11/26/16 05:35 11/26/16 05:35 PT 10.5 Seconds (9.8-13.1) 11/15/16 13:05 INR 1.0 (0.9-1.2) 11/15/16 13:05 APTT 22.3 Seconds (25.6-37.1) L 11/15/16 13:05 - Constitutional Appears: Non-toxic, No Acute Distress - Head Exam Head Exam: ATRAUMATIC, NORMAL INSPECTION, NORMOCEPHALIC - Eye Exam Eye Exam: EOMI, Normal appearance, PERRL Pupil Exam: PERRL - ENT Exam ENT Exam: Mucous Membranes Moist, Normal Exam - Respiratory Exam Respiratory Exam: Decreased Breath Sounds, NORMAL BREATHING PATTERN - Cardiovascular Exam Cardiovascular Exam: RRR, +S1, +S2 - GI/Abdominal Exam GI & Abdominal Exam: Soft, Tenderness, Normal Bowel Sounds. absent: Organomegaly Additional comments: Surgical incision with arvind and Tim drain with yellowish fluid - Rectal Exam Rectal Exam: Deferred - Extremities Exam Extremities Exam: Normal Inspection - Back Exam Back Exam: NORMAL INSPECTION - Neurological Exam Neurological Exam: Alert, Awake, Oriented x3 - Psychiatric Exam Psychiatric exam: Normal Affect, Normal Mood - Skin Skin Exam: Dry, Intact, Normal Color, Warm Assessment and Plan - Assessment and Plan (Free Text) Assessment: This is a 86yF who presented with abdominal pain, hypotension and was found to have duodenal perforation. 1. Duodenal perforation s/p ex lap with Mak patch 2. Anemia 3. Vulvar cancer s/p chemoradiation therapy Plan: -Recommend upper GI series with gastrograffin and based on results will make further recommendations -Continue abx therapy per ID -Advance diet per surgery -Anemia receiving 2UPRBCs, monitor H/H -Will Continue to follow closely <Daniel Campos MD - Last Filed: 11/26/16 16:05> Objective - Vital Signs/Intake and Output Vital Signs (last 24 hours): Temp Pulse Resp BP Pulse Ox 98.1 F 75 18 128/71 96 11/26/16 15:47 11/26/16 15:47 11/26/16 15:47 11/26/16 15:47 11/26/16 15:47 Intake and Output: 11/26/16 11/26/16 06:59 18:59 Intake Total 1104 Output Total 115 Balance 989 - Medications Medications: Current Medications Acetaminophen (Tylenol 650mg/20.3ml Solution Ud) 650 mg PO Q6 PRN PRN Reason: fever >100.4 Benzocaine/Menthol (Cepacol Sore Throat) 1 chantel PO Q2 PRN PRN Reason: Sore Throat Cyanocobalamin (Vitamin B12 1000 Mcg/Ml Inj) 1,000 mcg IM DAILY [facility] Last Admin: 11/26/16 10:52 Dose: 1,000 mcg Fluconazole (Diflucan Iv 100 Mg/50 Ml Ns) 50 mls @ 50 mls/hr IVPB DAILY [facility] Last Admin: 11/26/16 08:54 Dose: 50 mls/hr Potassium Chloride/Dextrose (Potassium Chl 20 Meq In D5w) 1,000 mls @ 50 mls/ hr IV .Q20H [facility] Stop: 11/26/16 22:57 Last Admin: 11/25/16 23:01 Dose: 50 mls/hr Meropenem 500 mg/ Sodium (Chloride) 100 mls @ 100 mls/hr IVPB Q12 [facility] PRN Reason: Protocol Last Admin: 11/26/16 11:04 Dose: 100 mls/hr Oxycodone/Acetaminophen (Percocet 5/325 Mg Tab) 1 tab PO Q6 PRN PRN Reason: Pain, severe (8-10) Stop: 11/28/16 08:22 Pantoprazole Sodium (Protonix Inj) 40 mg IVP BID [facility] Last Admin: 11/26/16 08:55 Dose: 40 mg Silver Sulfadiazine (Silvadene 1% 50 Gm) 1 applic TOP BID [facility] Last Admin: 11/26/16 09:03 Dose: 1 applic - Labs Labs: 11/26/16 05:35 11/26/16 05:35 PT 10.5 Seconds (9.8-13.1) 11/15/16 13:05 INR 1.0 (0.9-1.2) 11/15/16 13:05 APTT 22.3 Seconds (25.6-37.1) L 11/15/16 13:05 Attending/Attestation - Attestation I have personally seen and examined this patient.: Yes I have fully participated in the care of the patient.: Yes I have reviewed all pertinent clinical information, including history, physical exam and plan: Yes Notes (Text): 11/26/16 16:02 This is a 86 yr old F who presented with abdominal pain, hypotension and was found to have duodenal perforation s/p ex lap with Mak patch History of vulvar cancer s/p chemoradiation therapy. Recommend upper GI series with gastrograffin and based on results will make further recommendations. Continue abx therapy per ID. Advance diet per surgery. Anemia receiving 2 U PRBCs, monitor H/H. Will Continue to follow closely
--- NOTE | 2016-11-26 14:45 | PN ---
DATE: 11/26/2016 SUBJECTIVE: The patient is seen and examined. Interim events noted. Consults noted and appreciated. Surgical followup and intervention noted and appreciated. The patient remains in regular medical floor. The patient feels okay. Denies any specific complaint of chest pain or shortness of breath. Abdominal pain is controlled. The patient had some ice chips, but no food. No chest pain. No shortness of breath. PHYSICAL EXAMINATION: GENERAL: The patient is in no acute distress. VITAL SIGNS: Stable. HEART: S1 and S2, normal and regular. LUNGS: Good bilateral air exchange. ABDOMEN: Soft, nontender. No organomegaly. No fluids. Bowel sounds are plus. No sign of acute abdomen. No guarding. No rigidity. No rebound. EDUARDO tube is still draining and drained about 150 mL in the last 24 hours. DIAGNOSTIC DATA: Available diagnostic data reviewed. Hemoglobin is down to 6.9. The patient is supposed to get 2 units of packed cells. The patient is also scheduled for PICC line today. ASSESSMENT AND PLAN: Overall, the patient is recovering slowly and hemodynamically stable. Plan as ordered. Case and plan discussed with the patient. Russ Taylor MD
[2016-11-26] MEDS ORDERED: Lidocaine 1% Inj (20ml) ONE (14:59)
--- NOTE | 2016-11-26 15:21 | PCM.SURG1 ---
Surgeon's Initial Post Op Note - Surgeon's Notes Surgeon: Darrin Snow MD Service Support Representative: None Type of Anesthesia: Local Pre-Operative Diagnosis: Poor venous access Operative Findings: Patent right basilic vein. Post-Operative Diagnosis: Poor venous access Operation Performed: Single lumen picc placement right basilic vein, 35 cm. Tip is in the SVC. Specimen/Specimens Removed: None Estimated Blood Loss: EBL {In ML}: 2 Blood Products Given: N/A Drains Used: No Drains Post-Op Condition: Fair Date of Surgery/Procedure: 11/26/16 Time of Surgery/Procedure: 15:15
[2016-11-26] MEDS: Multivitamin (MVI) 10 ML, Chromium/Copper/Manganese/Zinc 3 ML in Amino/Dex E 4.25/25 10... IV ONE ×2 (16:37→17:24)
[2016-11-27 06:31] LABS: HEMATOCRIT 27.9 % (34.0-47.0); MEAN CELL VOLUME 95.2 fl (81.0-99.0); MEAN CORPUSCULAR HEMOGLOBIN 31.7 pg (27.0-31.0); MEAN CORPUSCULAR HGB CONC 33.3 g/dL (33.0-37.0); RED CELL DISTRIBUTION WIDTH 17.8 % (11.5-14.5)
[2016-11-27 07:00] LABS: ALB/GLOB RATIO 0.7 (1.0-2.1); ALKALINE PHOSPHATASE 115 U/L (38-126); ALT/SGPT 28 U/L (9-52); AST/SGOT 29 U/L (14-36); BILIRUBIN,TOTAL 0.8 mg/dl (0.2-1.3); BLOOD UREA NITROGEN 14 mg/dl (7-17); CARBON DIOXIDE 23 mmol/L (22-30); CHLORIDE 112 mmol/L (98-107); GFR AFRICAN-AMERICAN > 60; GLUCOSE,RANDOM 131 mg/dL (65-105); POTASSIUM 3.6 MMOL/L (3.6-5.0); SODIUM 144 mmol/l (132-148); TOTAL PROTEIN 5.7 G/DL (6.3-8.2)
--- NOTE | 2016-11-27 07:01 | VASCULAR ---
PROCEDURE: Date of procedure: 11/26/2016 Procedure: 1. Placement of a right arm PICC with ultrasound and fluoroscopic guidance, CPT 06017 2. PICC tip confirmation with spot radiograph and is in the superior vena cava Medications: 1 percent lidocaine Total Fluoro time: 7.3 seconds Radiation: 0.84 MGy EBL: 2 cc HISTORY: Poor venous access TECHNIQUE: Following informed consent and procedure time-out, the patient was placed supine on the interventional table and the right arm prepped and draped in the usual sterile fashion. Ultrasound showed a patent and compressible right brachial vein. After the skin was anesthetized with lidocaine, the brachial vein was accessed with micro micropuncture technique using ultrasound guidance. A guidewire was then advanced under fluoroscopic guidance into the superior vena cava. An image documenting ultrasound guidance for vascular access was permanently saved. The length of the single-lumen 4 Danish PICC was trimmed to 35 centimeters and advanced through a peel-away sheath. The PICC was position with tip of PICC confirm a spot radiograph the superior vena cava. The PICC was secured to the patient's skin. The PICC was flushed. A biopatch and sterile dressing was applied. IMPRESSION: Placement of a single-lumen 4 Danish PICC trimmed to 35 centimeters via right brachial vein. The tip of the PICC is confirmed with spot radiograph and is in the superior vena cava.
[2016-11-27 08:01] LABS: CHOLESTEROL 119 mg/dL (0-199)
--- NOTE | 2016-11-27 08:06 | CP.PCM.PN ---
Subjective - Date & Time of Evaluation Date of Evaluation: 11/27/16 Time of Evaluation: 06:30 - Subjective Subjective: Patient seen and examined this AM. NAEO. Patient denies any pain, nausea, vomiting, or any other symptoms. Objective - Vital Signs/Intake and Output Vital Signs (last 24 hours): Temp Pulse Resp BP Pulse Ox 97.4 F L 72 19 148/78 98 11/27/16 00:33 11/27/16 00:33 11/27/16 00:33 11/27/16 00:33 11/27/16 00:33 Intake and Output: 11/27/16 11/27/16 06:59 18:59 Output Total 305 Balance -305 - Medications Medications: Current Medications Acetaminophen (Tylenol 650mg/20.3ml Solution Ud) 650 mg PO Q6 PRN PRN Reason: fever >100.4 Benzocaine/Menthol (Cepacol Sore Throat) 1 chantel PO Q2 PRN PRN Reason: Sore Throat Cyanocobalamin (Vitamin B12 1000 Mcg/Ml Inj) 1,000 mcg IM DAILY [facility] Last Admin: 11/26/16 10:52 Dose: 1,000 mcg Fluconazole (Diflucan Iv 100 Mg/50 Ml Ns) 50 mls @ 50 mls/hr IVPB DAILY [facility] Last Admin: 11/26/16 08:54 Dose: 50 mls/hr Meropenem 500 mg/ Sodium (Chloride) 100 mls @ 100 mls/hr IVPB Q12 [facility] PRN Reason: Protocol Last Admin: 11/26/16 21:00 Dose: 100 mls/hr Multivitamins/Vitamin C 10 ml/Chromium/Copper/Manganese/Zinc 3 ml/ Amino Acids/ Electrolytes/Dextrose 1,013 mls @ 50 mls/hr IV .[id number] [facility] Stop: 11/27/16 12:45 Last Admin: 11/26/16 17:24 Dose: 50 mls/hr Oxycodone/Acetaminophen (Percocet 5/325 Mg Tab) 1 tab PO Q6 PRN PRN Reason: Pain, severe (8-10) Stop: 11/28/16 08:22 Pantoprazole Sodium (Protonix Inj) 40 mg IVP BID [facility] Last Admin: 11/26/16 18:18 Dose: 40 mg Silver Sulfadiazine (Silvadene 1% 50 Gm) 1 applic TOP BID [facility] Last Admin: 11/26/16 16:34 Dose: 1 applic - Labs Labs: 11/27/16 05:30 11/27/16 05:30 PT 10.5 Seconds (9.8-13.1) 11/15/16 13:05 INR 1.0 (0.9-1.2) 11/15/16 13:05 APTT 22.3 Seconds (25.6-37.1) L 11/15/16 13:05 - Constitutional Appears: Non-toxic, No Acute Distress - Head Exam Head Exam: ATRAUMATIC, NORMOCEPHALIC - Eye Exam Eye Exam: Normal appearance. absent: Conjunctival injection, Scleral icterus - ENT Exam ENT Exam: Mucous Membranes Moist, Normal Oropharynx - Respiratory Exam Respiratory Exam: NORMAL BREATHING PATTERN. absent: Accessory Muscle Use, Respiratory Distress - GI/Abdominal Exam GI & Abdominal Exam: Soft. absent: Distended, Tenderness Additional comments: herbert drain with minimal light yellow serous output. Incision well approximated , no drainage or bleeding. - Extremities Exam Extremities Exam: absent: Calf Tenderness, Pedal Edema, Tenderness - Neurological Exam Neurological Exam: Alert, Awake, Oriented x3 - Psychiatric Exam Psychiatric exam: Normal Affect, Normal Mood - Skin Skin Exam: Dry, Normal Color, Warm Assessment and Plan - Assessment and Plan (Free Text) Assessment: 86F POD#11 s/p grahmpatch for duodenal perforation Plan: - Continue to monitor herbert drain output - Follow up upper GI series today - Continue to trend CBC and CMP with lipids - Continue TPN - IVF, IV antibiotics and antifungals - PRN pain and nausea medication - Continue NPO pending results of the upper GI series - Continue therapeutic PTX - Encourage ambulation, Incentive spirometer Discussed with Dr. Shorty Mayer, PGY2
--- NOTE | 2016-11-27 08:51 | CP.PCM.PN ---
Subjective - Date & Time of Evaluation Date of Evaluation: 11/27/16 Time of Evaluation: 08:00 - Subjective Subjective: GI Fellow PGY4 Progress Note Pt seen and examined at bedside, pt doing well s/p duodenal perforation POD#11. Pt denies fevers, chills, nausea or vomiting. Pt has a tim drain with yellow serous fluid 225cc/daily. Pt is currently NPO on TPN, Abx and s/p 2U PRBCs. Pt is scheduled for Upper GI series today. ROS: A 12pt ROS was obtained and was negative except as above. Objective - Vital Signs/Intake and Output Vital Signs (last 24 hours): Temp Pulse Resp BP Pulse Ox 98.0 F 69 18 126/66 97 11/27/16 08:30 11/27/16 08:30 11/27/16 08:30 11/27/16 08:30 11/27/16 08:30 Intake and Output: 11/27/16 11/27/16 06:59 18:59 Output Total 305 225 Balance -305 -225 - Medications Medications: Current Medications Acetaminophen (Tylenol 650mg/20.3ml Solution Ud) 650 mg PO Q6 PRN PRN Reason: fever >100.4 Benzocaine/Menthol (Cepacol Sore Throat) 1 chantel PO Q2 PRN PRN Reason: Sore Throat Cyanocobalamin (Vitamin B12 1000 Mcg/Ml Inj) 1,000 mcg IM DAILY [facility] Last Admin: 11/26/16 10:52 Dose: 1,000 mcg Fluconazole (Diflucan Iv 100 Mg/50 Ml Ns) 50 mls @ 50 mls/hr IVPB DAILY [facility] Last Admin: 11/26/16 08:54 Dose: 50 mls/hr Meropenem 500 mg/ Sodium (Chloride) 100 mls @ 100 mls/hr IVPB Q12 [facility] PRN Reason: Protocol Last Admin: 11/26/16 21:00 Dose: 100 mls/hr Multivitamins/Vitamin C 10 ml/Chromium/Copper/Manganese/Zinc 3 ml/ Amino Acids/ Electrolytes/Dextrose 1,013 mls @ 50 mls/hr IV .[id number] ONE Stop: 11/27/16 12:45 Last Admin: 11/26/16 17:24 Dose: 50 mls/hr Oxycodone/Acetaminophen (Percocet 5/325 Mg Tab) 1 tab PO Q6 PRN PRN Reason: Pain, severe (8-10) Stop: 11/28/16 08:22 Pantoprazole Sodium (Protonix Inj) 40 mg IVP BID [facility] Last Admin: 11/26/16 18:18 Dose: 40 mg Silver Sulfadiazine (Silvadene 1% 50 Gm) 1 applic TOP BID [facility] Last Admin: 11/26/16 16:34 Dose: 1 applic - Labs Labs: 11/27/16 05:30 11/27/16 05:30 PT 10.5 Seconds (9.8-13.1) 11/15/16 13:05 INR 1.0 (0.9-1.2) 11/15/16 13:05 APTT 22.3 Seconds (25.6-37.1) L 11/15/16 13:05 - Constitutional Appears: Non-toxic, No Acute Distress - Head Exam Head Exam: ATRAUMATIC, NORMAL INSPECTION, NORMOCEPHALIC - Eye Exam Eye Exam: EOMI, Normal appearance, PERRL Pupil Exam: PERRL - ENT Exam ENT Exam: Mucous Membranes Moist, Normal Exam - Neck Exam Neck Exam: Full ROM, Normal Inspection - Respiratory Exam Respiratory Exam: Decreased Breath Sounds, NORMAL BREATHING PATTERN - Cardiovascular Exam Cardiovascular Exam: RRR, +S1, +S2 - GI/Abdominal Exam GI & Abdominal Exam: Soft, Normal Bowel Sounds. absent: Tenderness, Organomegaly Additional comments: Tim drain with yellow fluid, surgical scar healing with arvind - Rectal Exam Rectal Exam: Deferred - Extremities Exam Extremities Exam: Full ROM, Normal Inspection. absent: Pedal Edema - Back Exam Back Exam: NORMAL INSPECTION - Neurological Exam Neurological Exam: Alert, Awake, Oriented x3 - Psychiatric Exam Psychiatric exam: Normal Affect, Normal Mood - Skin Skin Exam: Dry, Intact, Normal Color, Warm Assessment and Plan - Assessment and Plan (Free Text) Assessment: This is a 86yF who presented with abdominal pain, hypotension and was found to have duodenal perforation. 1. Duodenal perforation s/p ex lap with Mak patch 2. Anemia 3. Vulvar cancer s/p chemoradiation therapy Plan: -Follow up with upper GI series with gastrograffin today and based on results will make further recommendations -Continue abx therapy per ID -Advance diet per surgery -Anemia s/p 2UPRBCs, monitor H/H, Hgb 9.3 -Will Continue to follow closely
[2016-11-27] MEDS: Meropenem 500 MG in Sodium Chloride 0.9% 100 ML IVPB SCH ×2 (09:09→21:31)
[2016-11-27] MEDS: Fluconazole IV 100mg/50 ml NS 50 ML IVPB SCH (09:09)
[2016-11-27] MEDS: Silver Sulfadiazine 1% CREAM (50 gm) TOP SCH ×2 (09:30→17:10)
[2016-11-27] MEDS ORDERED: Diatriz Meglumine/Diatriz Sod 30 ML BOTTLE PO ONE (11:42)
[2016-11-27] MEDS ORDERED: Amino Acids/Dextrose 1,000 ML IV ONE ×2 (13:15)
--- NOTE | 2016-11-27 13:16 | PN ---
DATE: 11/27/2016 SUBJECTIVE: Patient is seen and examined. Interim events noted. Consults noted and appreciated. Gastroenterology and Surgery followup and interventions noted and appreciated. Patient remains on the regular medical floor, on TPN. Feels okay. No abdominal pain. No nausea, vomiting, or diarrhea. No chest pain. No shortness of breath. PHYSICAL EXAMINATION: GENERAL: Patient is in no acute distress. VITAL SIGNS: Stable. HEART: S1 and S2, normal and regular. LUNGS: Good bilateral air exchange. ABDOMEN: Soft, nontender. EXTREMITIES: No edema. No calf swelling. No tenderness. No acute ischemia. CENTRAL NERVOUS SYSTEM: Essentially unchanged. SKIN: EDUARDO drain is in good position and functioning. No overt sign of complication. DIAGNOSTIC DATA: Available diagnostic data reviewed. ASSESSMENT AND PLAN: Overall, the patient's general medical condition is stable. Plan is as ordered. Russ Taylor MD
--- NOTE | 2016-11-27 13:46 | RAD ---
PROCEDURE: Upper GI series HISTORY: poss. persistant leak at prior duodenal perf COMPARISON: Not available TECHNIQUE: A limited upper GI series was performed utilizing water soluble contrast material. FINDINGS: A corporate securities research analyst radiograph of the abdomen demonstrates the bowel gas pattern to be unremarkable. A surgical drain is seen in the right upper quadrant of the abdomen. There are surgical arvind in the right lower quadrant of the abdomen. There is retained oral contrast material within diverticular throughout much of the colon. Gastrografin was administered orally under fluoroscopic monitoring. The visualized portions of the esophagus are grossly unremarkable. Normal propulsive peristalsis was observed. The stomach is significant for a small diverticulum of the gastric cardia. The mucosal pattern is suboptimally evaluated due to lack of adequate distention. No filling defect is identified. There is leakage of contrast material from the duodenum at approximately the junction of the 1st and 2nd portions. Contrast material was observed to extravasated from the duodenum towards the surgical drain and anterior the surgical drain. There is a diverticulum of the 3rd portion of the duodenum incidentally noted. IMPRESSION: Duodenal perforation at approximately the junction of the 1st and 2nd portions of the duodenum, with extravasation of water-soluble contrast material. Minor findings as above.
--- NOTE | 2016-11-27 19:29 | CP.PCM.PN ---
Subjective - Date & Time of Evaluation Date of Evaluation: 11/26/16 Time of Evaluation: 08:00 - Subjective Subjective: No complaints. Objective - Vital Signs/Intake and Output Vital Signs (last 24 hours): Temp Pulse Resp BP Pulse Ox 98.2 F 75 20 125/80 98 11/27/16 17:02 11/27/16 17:02 11/27/16 17:02 11/27/16 17:02 11/27/16 17:02 Intake and Output: 11/27/16 11/28/16 18:59 06:59 Output Total 225 Balance -225 - Medications Medications: Current Medications Acetaminophen (Tylenol 650mg/20.3ml Solution Ud) 650 mg PO Q6 PRN PRN Reason: fever >100.4 Benzocaine/Menthol (Cepacol Sore Throat) 1 chantel PO Q2 PRN PRN Reason: Sore Throat Cyanocobalamin (Vitamin B12 1000 Mcg/Ml Inj) 1,000 mcg IM DAILY [facility] Last Admin: 11/27/16 09:10 Dose: 1,000 mcg Fluconazole (Diflucan Iv 100 Mg/50 Ml Ns) 50 mls @ 50 mls/hr IVPB DAILY [facility] Last Admin: 11/27/16 09:09 Dose: 50 mls/hr Meropenem 500 mg/ Sodium (Chloride) 100 mls @ 100 mls/hr IVPB Q12 [facility] PRN Reason: Protocol Last Admin: 11/27/16 09:09 Dose: 100 mls/hr Amino Acids (Clinimix 4.25%-25% 1000 Ml) 1,000 mls @ 50 mls/hr IV .Q20H ONE Stop: 11/28/16 09:14 Last Admin: 11/27/16 17:10 Dose: 50 mls/hr Oxycodone/Acetaminophen (Percocet 5/325 Mg Tab) 1 tab PO Q6 PRN PRN Reason: Pain, severe (8-10) Stop: 11/28/16 08:22 Pantoprazole Sodium (Protonix Inj) 40 mg IVP BID [facility] Last Admin: 11/27/16 17:08 Dose: 40 mg Silver Sulfadiazine (Silvadene 1% 50 Gm) 1 applic TOP BID [facility] Last Admin: 11/27/16 17:10 Dose: 1 applic - Labs Labs: 11/27/16 05:30 11/27/16 05:30 PT 10.5 Seconds (9.8-13.1) 11/15/16 13:05 INR 1.0 (0.9-1.2) 11/15/16 13:05 APTT 22.3 Seconds (25.6-37.1) L 11/15/16 13:05 - Head Exam Head Exam: ATRAUMATIC - Eye Exam Eye Exam: Normal appearance - ENT Exam ENT Exam: Mucous Membranes Dry - Respiratory Exam Respiratory Exam: NORMAL BREATHING PATTERN - Cardiovascular Exam Cardiovascular Exam: +S1, +S2 - GI/Abdominal Exam GI & Abdominal Exam: Normal Bowel Sounds - Extremities Exam Extremities Exam: Normal Inspection Assessment and Plan (1) Anemia Assessment & Plan: anemia of chronic disease, recent chemo and surgery to receive 2U PRBC Status: Acute (2) Thrombocytopenia Assessment & Plan: improving secondary to chemotherapy Status: Acute (3) Vulvar cancer Assessment & Plan: outpatient treatment with primary oncologist Status: Chronic
--- NOTE | 2016-11-27 19:31 | CP.PCM.PN ---
Subjective - Date & Time of Evaluation Date of Evaluation: 11/27/16 Time of Evaluation: 10:30 - Subjective Subjective: No complaints s/p 2U PRBC Objective - Vital Signs/Intake and Output Vital Signs (last 24 hours): Temp Pulse Resp BP Pulse Ox 98.2 F 75 20 125/80 98 11/27/16 17:02 11/27/16 17:02 11/27/16 17:02 11/27/16 17:02 11/27/16 17:02 Intake and Output: 11/27/16 11/28/16 18:59 06:59 Output Total 225 Balance -225 - Medications Medications: Current Medications Acetaminophen (Tylenol 650mg/20.3ml Solution Ud) 650 mg PO Q6 PRN PRN Reason: fever >100.4 Benzocaine/Menthol (Cepacol Sore Throat) 1 chantel PO Q2 PRN PRN Reason: Sore Throat Cyanocobalamin (Vitamin B12 1000 Mcg/Ml Inj) 1,000 mcg IM DAILY [facility] Last Admin: 11/27/16 09:10 Dose: 1,000 mcg Fluconazole (Diflucan Iv 100 Mg/50 Ml Ns) 50 mls @ 50 mls/hr IVPB DAILY [facility] Last Admin: 11/27/16 09:09 Dose: 50 mls/hr Meropenem 500 mg/ Sodium (Chloride) 100 mls @ 100 mls/hr IVPB Q12 [facility] PRN Reason: Protocol Last Admin: 11/27/16 09:09 Dose: 100 mls/hr Amino Acids (Clinimix 4.25%-25% 1000 Ml) 1,000 mls @ 50 mls/hr IV .Q20H ONE Stop: 11/28/16 09:14 Last Admin: 11/27/16 17:10 Dose: 50 mls/hr Oxycodone/Acetaminophen (Percocet 5/325 Mg Tab) 1 tab PO Q6 PRN PRN Reason: Pain, severe (8-10) Stop: 11/28/16 08:22 Pantoprazole Sodium (Protonix Inj) 40 mg IVP BID [facility] Last Admin: 11/27/16 17:08 Dose: 40 mg Silver Sulfadiazine (Silvadene 1% 50 Gm) 1 applic TOP BID [facility] Last Admin: 11/27/16 17:10 Dose: 1 applic - Labs Labs: 11/27/16 05:30 11/27/16 05:30 PT 10.5 Seconds (9.8-13.1) 11/15/16 13:05 INR 1.0 (0.9-1.2) 11/15/16 13:05 APTT 22.3 Seconds (25.6-37.1) L 11/15/16 13:05 - Head Exam Head Exam: ATRAUMATIC - Eye Exam Eye Exam: Normal appearance - ENT Exam ENT Exam: Mucous Membranes Dry - Respiratory Exam Respiratory Exam: NORMAL BREATHING PATTERN - Cardiovascular Exam Cardiovascular Exam: +S1, +S2 - GI/Abdominal Exam GI & Abdominal Exam: Normal Bowel Sounds - Extremities Exam Extremities Exam: Normal Inspection Assessment and Plan (1) Anemia Assessment & Plan: chronic disease, recent chemotherapy and surgery s/p 2U PRBC Status: Acute (2) Thrombocytopenia Assessment & Plan: improving secondary to chemotherapy Status: Acute (3) Vulvar cancer Assessment & Plan: outpatient treatment with primary traffic administrator Status: Chronic
[2016-11-28 06:19] LABS: HEMATOCRIT 27.2 % (34.0-47.0); MEAN CELL VOLUME 93.5 fl (81.0-99.0); MEAN CORPUSCULAR HEMOGLOBIN 31.1 pg (27.0-31.0); MEAN CORPUSCULAR HGB CONC 33.3 g/dL (33.0-37.0); RED CELL DISTRIBUTION WIDTH 17.9 % (11.5-14.5)
[2016-11-28 06:37] LABS: ALB/GLOB RATIO 0.7 (1.0-2.1); ALKALINE PHOSPHATASE 119 U/L (38-126); ALT/SGPT 31 U/L (9-52); AST/SGOT 41 U/L (14-36); BILIRUBIN,TOTAL 0.5 mg/dl (0.2-1.3); BLOOD UREA NITROGEN 15 mg/dl (7-17); CALCIUM 8.2 mg/dL (8.4-10.2); CARBON DIOXIDE 23 mmol/L (22-30); CHLORIDE 112 mmol/L (98-107); CHOLESTEROL 115 mg/dL (0-199); GFR AFRICAN-AMERICAN > 60; GLUCOSE,RANDOM 135 mg/dL (65-105); MAGNESIUM 1.7 MG/DL (1.6-2.3); PHOSPHOROUS 2.4 mg/dl (2.5-4.5); POTASSIUM 3.2 MMOL/L (3.6-5.0); SODIUM 145 mmol/l (132-148)
--- NOTE | 2016-11-28 08:08 | CP.PCM.PN ---
<Anirudh Diggs - Last Filed: 11/28/16 08:20> Subjective - Date & Time of Evaluation Date of Evaluation: 11/28/16 Time of Evaluation: 08:01 - Subjective Subjective: - Patient was seen and examined with Dr. Taylor at bedside. Patient appears to be doing well. Patient had 3 loose stools over night. Patient is scheduled for endoscopy today. Objective - Vital Signs/Intake and Output Vital Signs (last 24 hours): Temp Pulse Resp BP Pulse Ox 97.5 F L 66 20 144/79 96 11/28/16 07:48 11/28/16 07:48 11/28/16 07:48 11/28/16 07:48 11/28/16 07:48 Intake and Output: 11/28/16 11/28/16 06:59 18:59 Intake Total 700 Output Total 365 Balance 335 - Medications Medications: Current Medications Acetaminophen (Tylenol 650mg/20.3ml Solution Ud) 650 mg PO Q6 PRN PRN Reason: fever >100.4 Benzocaine/Menthol (Cepacol Sore Throat) 1 chantel PO Q2 PRN PRN Reason: Sore Throat Cyanocobalamin (Vitamin B12 1000 Mcg/Ml Inj) 1,000 mcg IM DAILY [facility] Last Admin: 11/27/16 09:10 Dose: 1,000 mcg Fluconazole (Diflucan Iv 100 Mg/50 Ml Ns) 50 mls @ 50 mls/hr IVPB DAILY [facility] Last Admin: 11/27/16 09:09 Dose: 50 mls/hr Meropenem 500 mg/ Sodium (Chloride) 100 mls @ 100 mls/hr IVPB Q12 [facility] PRN Reason: Protocol Last Admin: 11/27/16 21:31 Dose: 100 mls/hr Amino Acids (Clinimix 4.25%-25% 1000 Ml) 1,000 mls @ 50 mls/hr IV .Q20H ONE Stop: 11/28/16 09:14 Last Admin: 11/27/16 17:10 Dose: 50 mls/hr Oxycodone/Acetaminophen (Percocet 5/325 Mg Tab) 1 tab PO Q6 PRN PRN Reason: Pain, severe (8-10) Stop: 11/28/16 08:22 Pantoprazole Sodium (Protonix Inj) 40 mg IVP BID [facility] Last Admin: 11/27/16 17:08 Dose: 40 mg Silver Sulfadiazine (Silvadene 1% 50 Gm) 1 applic TOP BID [facility] Last Admin: 11/27/16 17:10 Dose: 1 applic - Labs Labs: 11/28/16 05:30 11/28/16 05:30 PT 10.5 Seconds (9.8-13.1) 11/15/16 13:05 INR 1.0 (0.9-1.2) 11/15/16 13:05 APTT 22.3 Seconds (25.6-37.1) L 11/15/16 13:05 - Constitutional Appears: No Acute Distress - Head Exam Head Exam: NORMAL INSPECTION - Eye Exam Eye Exam: Normal appearance - Respiratory Exam Respiratory Exam: Clear to Ausculation Bilateral - Cardiovascular Exam Cardiovascular Exam: REGULAR RHYTHM, +S1, +S2 - GI/Abdominal Exam GI & Abdominal Exam: Normal Bowel Sounds - Neurological Exam Neurological Exam: Alert, Awake, Oriented x3 Assessment and Plan - Assessment and Plan (Free Text) Assessment: 1) Perforated duodenal ulcer POD #12 s/p ex lap w/ Mak patch Continue TPN Continue IV fluids encouraged ambulation and sitting in chair Continue with Meropenem, vancomycin and fluconazole Patient scheduled for Endoscopy today 2) Anemia - chronic disease, recent chemotherapy and surgery s/p 2U PRBC - heme onc consult appreciated 3) Thrombocytopenia - Secondary to chemotherapy - improving 4)Prophylactic measures IV protonix SCD Encourage patient to get out of bed to chair with assistance <Russ Taylor K - Last Filed: 11/29/16 15:47> Objective - Vital Signs/Intake and Output Vital Signs (last 24 hours): Temp Pulse Resp BP Pulse Ox 97.7 F 72 22 123/65 100 11/29/16 08:07 11/29/16 08:07 11/29/16 08:07 11/29/16 08:07 11/29/16 08:07 Intake and Output: 11/29/16 11/29/16 06:59 18:59 Intake Total 300 Output Total 310 Balance -10 - Medications Medications: Current Medications Acetaminophen (Tylenol 650mg/20.3ml Solution Ud) 650 mg PO Q6 PRN PRN Reason: fever >100.4 Acetaminophen (Tylenol 325mg Tab) 650 mg PO Q6 PRN PRN Reason: Pain, moderate (4-7) Last Admin: 11/28/16 22:03 Dose: 650 mg Bacitracin (Bacitracin) 1 ea TOP TID [facility] Last Admin: 11/29/16 13:29 Dose: 1 ea Benzocaine/Menthol (Cepacol Sore Throat) 1 chantel PO Q2 PRN PRN Reason: Sore Throat Cyanocobalamin (Vitamin B12 1000 Mcg/Ml Inj) 1,000 mcg IM DAILY [facility] Last Admin: 11/29/16 08:34 Dose: 1,000 mcg Fluconazole (Diflucan Iv 100 Mg/50 Ml Ns) 50 mls @ 50 mls/hr IVPB DAILY [facility] Last Admin: 11/29/16 13:26 Dose: 50 mls/hr Meropenem 500 mg/ Sodium (Chloride) 100 mls @ 100 mls/hr IVPB Q12 [facility] PRN Reason: Protocol Sodium Chloride 35 meq/ Sodium Acetate 70 meq/ Potassium Chloride 40 meq/ Potassium Phosphate 20 mmole/ Magnesium Sulfate 5 meq/ Calcium Gluconate 4.5 meq /Multivitamins/Vitamin C 10 ml/Chromium/Copper/Manganese/Zinc 3 ml/ Amino Acids 1,094.3256 mls @ 42 mls/hr IV .Q24H ONE Stop: 11/30/16 13:44 Pantoprazole Sodium (Protonix Inj) 40 mg IVP BID [facility] Last Admin: 11/29/16 08:30 Dose: 40 mg Silver Sulfadiazine (Silvadene 1% 50 Gm) 1 applic TOP BID [facility] Last Admin: 11/28/16 17:05 Dose: 1 applic - Labs Labs: 11/29/16 05:45 11/29/16 05:45 PT 10.5 Seconds (9.8-13.1) 11/15/16 13:05 INR 1.0 (0.9-1.2) 11/15/16 13:05 APTT 22.3 Seconds (25.6-37.1) L 11/15/16 13:05 Assessment and Plan - Assessment and Plan (Free Text) Assessment: Patient was personally seen and examined by me in rounds with residents. Available labs and diagnostic data reviewed. Case, Patients's condition and management plan discussed with residents in rounds. Agree with residents's progress note. Plan: As ordered.
--- NOTE | 2016-11-28 08:14 | CP.PCM.PN ---
Subjective - Date & Time of Evaluation Date of Evaluation: 11/28/16 Time of Evaluation: 06:40 - Subjective Subjective: Patient seen and examined this AM. NAEO. Patient reports mild upper abdominal pain and diarrhea last night. No diarrhea this AM. No nausea, vomiting, chest pain, or fevers Objective - Vital Signs/Intake and Output Vital Signs (last 24 hours): Temp Pulse Resp BP Pulse Ox 97.5 F L 66 20 144/79 96 11/28/16 07:48 11/28/16 07:48 11/28/16 07:48 11/28/16 07:48 11/28/16 07:48 Intake and Output: 11/28/16 11/28/16 06:59 18:59 Intake Total 700 Output Total 365 Balance 335 - Medications Medications: Current Medications Acetaminophen (Tylenol 650mg/20.3ml Solution Ud) 650 mg PO Q6 PRN PRN Reason: fever >100.4 Benzocaine/Menthol (Cepacol Sore Throat) 1 chantel PO Q2 PRN PRN Reason: Sore Throat Cyanocobalamin (Vitamin B12 1000 Mcg/Ml Inj) 1,000 mcg IM DAILY [facility] Last Admin: 11/27/16 09:10 Dose: 1,000 mcg Fluconazole (Diflucan Iv 100 Mg/50 Ml Ns) 50 mls @ 50 mls/hr IVPB DAILY [facility] Last Admin: 11/27/16 09:09 Dose: 50 mls/hr Meropenem 500 mg/ Sodium (Chloride) 100 mls @ 100 mls/hr IVPB Q12 [facility] PRN Reason: Protocol Last Admin: 11/27/16 21:31 Dose: 100 mls/hr Amino Acids (Clinimix 4.25%-25% 1000 Ml) 1,000 mls @ 50 mls/hr IV .Q20H ONE Stop: 11/28/16 09:14 Last Admin: 11/27/16 17:10 Dose: 50 mls/hr Oxycodone/Acetaminophen (Percocet 5/325 Mg Tab) 1 tab PO Q6 PRN PRN Reason: Pain, severe (8-10) Stop: 11/28/16 08:22 Pantoprazole Sodium (Protonix Inj) 40 mg IVP BID [facility] Last Admin: 11/27/16 17:08 Dose: 40 mg Silver Sulfadiazine (Silvadene 1% 50 Gm) 1 applic TOP BID [facility] Last Admin: 11/27/16 17:10 Dose: 1 applic - Labs Labs: 11/28/16 05:30 11/28/16 05:30 PT 10.5 Seconds (9.8-13.1) 11/15/16 13:05 INR 1.0 (0.9-1.2) 11/15/16 13:05 APTT 22.3 Seconds (25.6-37.1) L 11/15/16 13:05 - Constitutional Appears: Non-toxic, No Acute Distress - Head Exam Head Exam: ATRAUMATIC, NORMOCEPHALIC - Eye Exam Eye Exam: Normal appearance. absent: Conjunctival injection, Scleral icterus - ENT Exam ENT Exam: Mucous Membranes Moist, Normal Oropharynx - Respiratory Exam Respiratory Exam: NORMAL BREATHING PATTERN. absent: Accessory Muscle Use, Respiratory Distress - Cardiovascular Exam Cardiovascular Exam: RRR - GI/Abdominal Exam GI & Abdominal Exam: Soft, Tenderness (mild RUQ and LUQ tenderness). absent: Distended, Rebound Additional comments: herbert in the RUQ with minimal clear yellow tinged fluid. Midline incision well approximated with arvind, no erythema or drainage - Extremities Exam Extremities Exam: absent: Calf Tenderness, Pedal Edema, Tenderness - Neurological Exam Neurological Exam: Alert, Awake, Oriented x3 - Psychiatric Exam Psychiatric exam: Normal Affect, Normal Mood - Skin Skin Exam: Dry, Normal Color, Warm Assessment and Plan - Assessment and Plan (Free Text) Assessment: 86F POD#12 s/p grahmpatch for duodenal perforation, persistent leak Plan: - Continue to monitor herbert drain output--520cc's/24 hours - Upper GI series yesterday showed an extravasation of the contrast in the duodenum--GI team to take for endoscopy today to evaluate duodenum - Continue to trend CBC and CMP with lipids - Continue TPN - IVF, IV antibiotics and antifungals - PRN pain and nausea medication - Continue NPO - Continue therapeutic PTX - Encourage ambulation, Incentive spirometer Discussed with Dr. Shorty Mayer, PGY2
[2016-11-28] MEDS: Meropenem 500 MG in Sodium Chloride 0.9% 100 ML IVPB SCH ×2 (09:52→20:42)
[2016-11-28] MEDS: Fluconazole IV 100mg/50 ml NS 50 ML IVPB SCH (09:52)
[2016-11-28] MEDS: Silver Sulfadiazine 1% CREAM (50 gm) TOP SCH ×2 (09:57→17:05)
[2016-11-28] MEDS ORDERED: [UNRECOGNIZED DRUG - OTHER] IV ONE (10:30)
[2016-11-28] MEDS ORDERED: POTASSIUM CHLORIDE IV ONE (10:30)
[2016-11-28] MEDS ORDERED: SODIUM ACETATE IV ONE (10:30)
[2016-11-28] MEDS ORDERED: SODIUM CHLORIDE IV ONE (10:30)
[2016-11-28] MEDS ORDERED: Lactated Ringer's 500 ML IV ONE (12:24)
[2016-11-28] MEDS ORDERED: Propofol 10 mg/ml Inj (20 ML) ONE (12:35)
[2016-11-28] MEDS ORDERED: Etomidate 20 mg/10ml Inj IV ONE (12:35)
[2016-11-28] MEDS ORDERED: Succinylcholine 200 mg/10 ml Inj IV ONE (12:43)
[2016-11-28] MEDS ORDERED: EPINEPHrine 1 mg/ml (1:1000) Inj ONE (13:33)
[2016-11-29 06:31] LABS: HEMATOCRIT 26.1 % (34.0-47.0); MEAN CELL VOLUME 94.9 fl (81.0-99.0); MEAN CORPUSCULAR HGB CONC 33.7 g/dL (33.0-37.0); RED CELL DISTRIBUTION WIDTH 17.6 % (11.5-14.5); WHITE BLOOD COUNT 4.8 K/uL (4.8-10.8)
[2016-11-29 06:34] LABS: ALB/GLOB RATIO 0.7 (1.0-2.1); BILIRUBIN,TOTAL 0.4 mg/dl (0.2-1.3); CALCIUM 7.7 mg/dL (8.4-10.2); MAGNESIUM 1.6 MG/DL (1.6-2.3); PHOSPHOROUS 3.2 mg/dl (2.5-4.5); POTASSIUM 3.4 MMOL/L (3.6-5.0); TOTAL PROTEIN 6.1 G/DL (6.3-8.2)
[2016-11-29] MEDS: Meropenem 500 MG in Sodium Chloride 0.9% 100 ML IVPB SCH ×2 (08:30→21:24)
--- NOTE | 2016-11-29 08:48 | CP.PCM.PN ---
<RejiLibby - Last Filed: 11/29/16 09:52> Subjective - Date & Time of Evaluation Date of Evaluation: 11/29/16 Time of Evaluation: 08:20 - Subjective Subjective: GI Fellow PGY4 Progress Note Pt seen and examined at bedside, pt s/p duodenal perforation POD#13. Pt denies fevers, chills, nausea or vomiting. Pt has a herbert drain with yellow serous fluid 310cc/daily. Pt is currently NPO on TPN, Abx, antifungal. Upper GI series with duodenal leak. Pt is s/p EGD and jejunal feeding tube, unable to close site of duodenal leak with large ulcer at site of perforation. Loosened PEJ button today from 3.5 to 4.5 ROS: A 12pt ROS was obtained and was negative except as above. Objective - Vital Signs/Intake and Output Vital Signs (last 24 hours): Temp Pulse Resp BP Pulse Ox 97.7 F 72 22 123/65 100 11/29/16 08:07 11/29/16 08:07 11/29/16 08:07 11/29/16 08:07 11/29/16 08:07 Intake and Output: 11/29/16 11/29/16 06:59 18:59 Intake Total 300 Output Total 310 Balance -10 - Medications Medications: Current Medications Acetaminophen (Tylenol 650mg/20.3ml Solution Ud) 650 mg PO Q6 PRN PRN Reason: fever >100.4 Acetaminophen (Tylenol 325mg Tab) 650 mg PO Q6 PRN PRN Reason: Pain, moderate (4-7) Last Admin: 11/28/16 22:03 Dose: 650 mg Bacitracin (Bacitracin) 1 ea TOP TID [facility] Benzocaine/Menthol (Cepacol Sore Throat) 1 chantel PO Q2 PRN PRN Reason: Sore Throat Cyanocobalamin (Vitamin B12 1000 Mcg/Ml Inj) 1,000 mcg IM DAILY [facility] Last Admin: 11/29/16 08:34 Dose: 1,000 mcg Fluconazole (Diflucan Iv 100 Mg/50 Ml Ns) 50 mls @ 50 mls/hr IVPB DAILY [facility] Last Admin: 11/28/16 09:52 Dose: 50 mls/hr Meropenem 500 mg/ Sodium (Chloride) 100 mls @ 100 mls/hr IVPB Q12 [facility] PRN Reason: Protocol Last Admin: 11/29/16 08:30 Dose: 100 mls/hr Pantoprazole Sodium (Protonix Inj) 40 mg IVP BID [facility] Last Admin: 11/29/16 08:30 Dose: 40 mg Silver Sulfadiazine (Silvadene 1% 50 Gm) 1 applic TOP BID [facility] Last Admin: 11/28/16 17:05 Dose: 1 applic - Labs Labs: 11/29/16 05:45 11/29/16 05:45 PT 10.5 Seconds (9.8-13.1) 11/15/16 13:05 INR 1.0 (0.9-1.2) 11/15/16 13:05 APTT 22.3 Seconds (25.6-37.1) L 11/15/16 13:05 - Constitutional Appears: Non-toxic, No Acute Distress - Head Exam Head Exam: ATRAUMATIC, NORMAL INSPECTION, NORMOCEPHALIC - Eye Exam Eye Exam: EOMI, Normal appearance, PERRL Pupil Exam: PERRL - ENT Exam ENT Exam: Mucous Membranes Dry - Neck Exam Neck Exam: Full ROM, Normal Inspection - Respiratory Exam Respiratory Exam: Decreased Breath Sounds, NORMAL BREATHING PATTERN - Cardiovascular Exam Cardiovascular Exam: RRR, +S1, +S2 - GI/Abdominal Exam GI & Abdominal Exam: Soft, Tenderness, Normal Bowel Sounds. absent: Distended, Guarding, Rigid, Organomegaly - Rectal Exam Rectal Exam: Deferred - Extremities Exam Extremities Exam: Normal Inspection - Back Exam Back Exam: NORMAL INSPECTION - Neurological Exam Neurological Exam: Alert, Awake, Oriented x3 - Psychiatric Exam Psychiatric exam: Normal Affect, Normal Mood - Skin Skin Exam: Dry, Intact, Normal Color, Warm Assessment and Plan - Assessment and Plan (Free Text) Assessment: This is a 86yF who presented with abdominal pain, hypotension and was found to have duodenal perforation. 1. Duodenal perforation s/p ex lap with Mak patch 2. Duodenal Leak 3. Severe Esophagitis with ulceration is lower esophagus 4. PUD 5. Jejunal feeding tube 6. Anemia 7. Vulvar cancer s/p chemoradiation therapy Plan: -S/p EGD and PEJ, unable to close site of duodenal leak, too large of an area with crated ulcer, pt may need further surgical intervention will defer to surgery team -Continue abx and antifungal therapy per ID -Continue dressing changes of PEJ site, no signs of infection, button loosened to 4.5 -Recommend discontinuing TPN and start tube feeds today with PEJ, diet/ nutritional consult appreciated for TF recommendations -Continue IV PPI BID for severe esophagitis/ulcerations and duodenal ulcer -Awaiting pathology results of ulcer biopsy to r/o H.pylori -Will Continue to follow closely <Daniel Campos MD - Last Filed: 11/29/16 11:22> Objective - Vital Signs/Intake and Output Vital Signs (last 24 hours): Temp Pulse Resp BP Pulse Ox 97.7 F 72 22 123/65 100 11/29/16 08:07 11/29/16 08:07 11/29/16 08:07 11/29/16 08:07 11/29/16 08:07 Intake and Output: 11/29/16 11/29/16 06:59 18:59 Intake Total 300 Output Total 310 Balance -10 - Medications Medications: Current Medications Acetaminophen (Tylenol 650mg/20.3ml Solution Ud) 650 mg PO Q6 PRN PRN Reason: fever >100.4 Acetaminophen (Tylenol 325mg Tab) 650 mg PO Q6 PRN PRN Reason: Pain, moderate (4-7) Last Admin: 11/28/16 22:03 Dose: 650 mg Bacitracin (Bacitracin) 1 ea TOP TID [facility] Benzocaine/Menthol (Cepacol Sore Throat) 1 chantel PO Q2 PRN PRN Reason: Sore Throat Cyanocobalamin (Vitamin B12 1000 Mcg/Ml Inj) 1,000 mcg IM DAILY [facility] Last Admin: 11/29/16 08:34 Dose: 1,000 mcg Fluconazole (Diflucan Iv 100 Mg/50 Ml Ns) 50 mls @ 50 mls/hr IVPB DAILY [facility] Last Admin: 11/28/16 09:52 Dose: 50 mls/hr Meropenem 500 mg/ Sodium (Chloride) 100 mls @ 100 mls/hr IVPB Q12 [facility] PRN Reason: Protocol Last Admin: 11/29/16 08:30 Dose: 100 mls/hr Pantoprazole Sodium (Protonix Inj) 40 mg IVP BID [facility] Last Admin: 11/29/16 08:30 Dose: 40 mg Silver Sulfadiazine (Silvadene 1% 50 Gm) 1 applic TOP BID [facility] Last Admin: 11/28/16 17:05 Dose: 1 applic - Labs Labs: 11/29/16 05:45 11/29/16 05:45 PT 10.5 Seconds (9.8-13.1) 11/15/16 13:05 INR 1.0 (0.9-1.2) 11/15/16 13:05 APTT 22.3 Seconds (25.6-37.1) L 11/15/16 13:05 Attending/Attestation - Attestation I have personally seen and examined this patient.: Yes I have fully participated in the care of the patient.: Yes I have reviewed all pertinent clinical information, including history, physical exam and plan: Yes Notes (Text): 11/29/16 11:12 Patient seen with GI fellow. This is a 86 yr old F who presented with abdominal pain, hypotension and was found to have duodenal perforation s/p mak patch with EDUARDO drain draining significant amount s/p EGD and PEJ, unable to close site of duodenal leak, too large of an area with crated ulcer s/p biopsy. Continue antibiotics and antifungal therapy per ID. May start pej feeds at 20 cc and advance as tolerated. Continue dressing changes of PEJ site, no signs of infection, button loosened to 4.5. Recommend discontinuing TPN. Continue IV PPI BID for severe esophagitis/ulcerations and duodenal ulcer. Follow pathology results of ulcer biopsy to r/o H.pylori. Will Continue to follow closely
[2016-11-29] MEDS: Silver Sulfadiazine 1% CREAM (50 gm) TOP SCH ×3 (09:00→18:32)
[2016-11-29] MEDS: Bacitracin 500 Units/gm Oint Foilpak UD TOP SCH ×3 (09:30→16:52)
--- NOTE | 2016-11-29 11:43 | CP.PCM.PN ---
Subjective - Date & Time of Evaluation Date of Evaluation: 11/29/16 Time of Evaluation: 08:00 - Subjective Subjective: Patient seen and examined this AM. NAEO. Patient reports some pain, but denies nausea, vomiting, diarrhea, or any other symptoms. Objective - Vital Signs/Intake and Output Vital Signs (last 24 hours): Temp Pulse Resp BP Pulse Ox 97.7 F 72 22 123/65 100 11/29/16 08:07 11/29/16 08:07 11/29/16 08:07 11/29/16 08:07 11/29/16 08:07 Intake and Output: 11/29/16 11/29/16 06:59 18:59 Intake Total 300 Output Total 310 Balance -10 - Medications Medications: Current Medications Acetaminophen (Tylenol 650mg/20.3ml Solution Ud) 650 mg PO Q6 PRN PRN Reason: fever >100.4 Acetaminophen (Tylenol 325mg Tab) 650 mg PO Q6 PRN PRN Reason: Pain, moderate (4-7) Last Admin: 11/28/16 22:03 Dose: 650 mg Bacitracin (Bacitracin) 1 ea TOP TID [facility] Benzocaine/Menthol (Cepacol Sore Throat) 1 chantel PO Q2 PRN PRN Reason: Sore Throat Cyanocobalamin (Vitamin B12 1000 Mcg/Ml Inj) 1,000 mcg IM DAILY [facility] Last Admin: 11/29/16 08:34 Dose: 1,000 mcg Fluconazole (Diflucan Iv 100 Mg/50 Ml Ns) 50 mls @ 50 mls/hr IVPB DAILY [facility] Last Admin: 11/28/16 09:52 Dose: 50 mls/hr Meropenem 500 mg/ Sodium (Chloride) 100 mls @ 100 mls/hr IVPB Q12 [facility] PRN Reason: Protocol Last Admin: 11/29/16 08:30 Dose: 100 mls/hr Pantoprazole Sodium (Protonix Inj) 40 mg IVP BID [facility] Last Admin: 11/29/16 08:30 Dose: 40 mg Silver Sulfadiazine (Silvadene 1% 50 Gm) 1 applic TOP BID [facility] Last Admin: 11/28/16 17:05 Dose: 1 applic - Labs Labs: 11/29/16 05:45 11/29/16 05:45 PT 10.5 Seconds (9.8-13.1) 11/15/16 13:05 INR 1.0 (0.9-1.2) 11/15/16 13:05 APTT 22.3 Seconds (25.6-37.1) L 11/15/16 13:05 - Constitutional Appears: Non-toxic, No Acute Distress - Head Exam Head Exam: ATRAUMATIC, NORMOCEPHALIC - Eye Exam Eye Exam: Normal appearance. absent: Conjunctival injection, Scleral icterus - ENT Exam ENT Exam: Mucous Membranes Moist, Normal Oropharynx - Respiratory Exam Respiratory Exam: Respiratory Distress. absent: Accessory Muscle Use, NORMAL BREATHING PATTERN - Cardiovascular Exam Cardiovascular Exam: RRR - GI/Abdominal Exam GI & Abdominal Exam: Distended (mild), Soft, Tenderness (LLQ around J-Tube) Additional comments: herbert drain in the RUQ with moderate amount of yellow clear fluid. Midline incision well approximated by arvind with mild amount of serosanguinous drainage in the inferior pole. No erythema - Extremities Exam Extremities Exam: absent: Calf Tenderness, Pedal Edema, Tenderness - Neurological Exam Neurological Exam: Alert, Awake, Oriented x3 - Psychiatric Exam Psychiatric exam: Normal Affect, Normal Mood - Skin Skin Exam: Dry, Normal Color, Warm Assessment and Plan - Assessment and Plan (Free Text) Assessment: 86F POD#13 s/p grahmpatch for duodenal perforation, persistent leak Plan: - Continue to monitor herbert drain output--380cc's/24 hours - Patient underwent EGD yesterday with jejunostomy placement. The omental patch was in place but they were unable to approximate the edges of the duodenal perforation. - Continue to trend CBC and CMP with lipids, acquire a pre-albumin - Begin administering tube feeds per nutrition recs with close monitoring for residuals. Taper TPN - IVF, IV antibiotics and antifungals - PRN pain and nausea medication - Continue NPO - Continue therapeutic PTX - Encourage ambulation, Incentive spirometer\ - If leak persists, may consider further surgical intervention. Continue attempt to optimize medical and nutritional status at this point Discussed with Dr. Oro, further recs per him Dannielle Mayer, PGY2
[2016-11-29] MEDS: Fluconazole IV 100mg/50 ml NS 50 ML IVPB SCH (13:26)
[2016-11-29] MEDS ORDERED: SODIUM ACETATE IV ONE (13:45)
[2016-11-29] MEDS ORDERED: [UNRECOGNIZED DRUG - OTHER] IV ONE (13:45)
[2016-11-29] MEDS ORDERED: POTASSIUM CHLORIDE IV ONE (13:45)
[2016-11-29] MEDS ORDERED: SODIUM CHLORIDE IV ONE (13:45)
--- NOTE | 2016-11-29 15:51 | PN ---
DATE: 11/29/2016 SUBJECTIVE: Patient seen and examined. Interim events noted. Consults noted and appreciated. Gastroenterology and Surgery followup and intervention noted and appreciated. Patient is status post endoscopy . Patient also has a J-tube placement. Patient feels okay, just a little discomfort at the J-tube site. No chest pain. No shortness of breath. PHYSICAL EXAMINATION: GENERAL: Patient is in no acute distress. VITAL SIGNS: Stable. HEART: S1 and S2, normal and regular. LUNGS: Good bilateral air exchange. ABDOMEN: Soft and nontender. Abdominal exam does not reveal any sign of acute abdomen or complication. No guarding. No rigidity. No rebound. J-tube and drainage tube is in good position and function. EXTREMITIES: No edema. No calf swelling. No tenderness. No acute ischemia. CENTRAL NERVOUS SYSTEM: Essentially unchanged. ASSESSMENT AND PLAN: Overall, patient is medically stable. Patient might require TPN until J-tube feeding started. Plan as ordered. Case and plan discussed with patient. Russ Taylor MD
--- NOTE | 2016-11-29 18:08 | CP.PCM.PN ---
Subjective - Date & Time of Evaluation Date of Evaluation: 11/28/16 Time of Evaluation: 11:00 - Subjective Subjective: No complaints, for endoscopy today. Objective - Vital Signs/Intake and Output Vital Signs (last 24 hours): Temp Pulse Resp BP Pulse Ox 97.9 F 79 20 116/69 99 11/29/16 17:00 11/29/16 16:39 11/29/16 16:39 11/29/16 16:39 11/29/16 16:39 Intake and Output: 11/29/16 11/29/16 06:59 18:59 Intake Total 300 Output Total 310 Balance -10 - Medications Medications: Current Medications Acetaminophen (Tylenol 650mg/20.3ml Solution Ud) 650 mg PO Q6 PRN PRN Reason: fever >100.4 Acetaminophen (Tylenol 325mg Tab) 650 mg PO Q6 PRN PRN Reason: Pain, moderate (4-7) Last Admin: 11/28/16 22:03 Dose: 650 mg Bacitracin (Bacitracin) 1 ea TOP TID [facility] Last Admin: 11/29/16 16:52 Dose: 1 ea Benzocaine/Menthol (Cepacol Sore Throat) 1 chantel PO Q2 PRN PRN Reason: Sore Throat Cyanocobalamin (Vitamin B12 1000 Mcg/Ml Inj) 1,000 mcg IM DAILY [facility] Last Admin: 11/29/16 08:34 Dose: 1,000 mcg Fluconazole (Diflucan Iv 100 Mg/50 Ml Ns) 50 mls @ 50 mls/hr IVPB DAILY [facility] Last Admin: 11/29/16 13:26 Dose: 50 mls/hr Meropenem 500 mg/ Sodium (Chloride) 100 mls @ 100 mls/hr IVPB Q12 [facility] PRN Reason: Protocol Sodium Chloride 35 meq/ Sodium Acetate 70 meq/ Potassium Chloride 40 meq/ Potassium Phosphate 20 mmole/ Magnesium Sulfate 5 meq/ Calcium Gluconate 4.5 meq /Multivitamins/Vitamin C 10 ml/Chromium/Copper/Manganese/Zinc 3 ml/ Amino Acids 1,094.3256 mls @ 42 mls/hr IV .Q24H ONE Stop: 11/30/16 13:44 Last Admin: 11/29/16 17:04 Dose: 42 mls/hr Pantoprazole Sodium (Protonix Inj) 40 mg IVP BID [facility] Last Admin: 11/29/16 16:52 Dose: 40 mg Silver Sulfadiazine (Silvadene 1% 50 Gm) 1 applic TOP BID [facility] Last Admin: 11/28/16 17:05 Dose: 1 applic - Labs Labs: 11/29/16 05:45 11/29/16 05:45 PT 10.5 Seconds (9.8-13.1) 11/15/16 13:05 INR 1.0 (0.9-1.2) 11/15/16 13:05 APTT 22.3 Seconds (25.6-37.1) L 11/15/16 13:05 - Head Exam Head Exam: ATRAUMATIC - Eye Exam Eye Exam: Normal appearance - ENT Exam ENT Exam: Mucous Membranes Dry - Respiratory Exam Respiratory Exam: NORMAL BREATHING PATTERN - Cardiovascular Exam Cardiovascular Exam: +S1, +S2 - GI/Abdominal Exam GI & Abdominal Exam: Normal Bowel Sounds - Extremities Exam Extremities Exam: Normal Inspection Assessment and Plan (1) Anemia Assessment & Plan: chronic disease, recent chemotherapy s/p 2U PRBC Status: Acute (2) Thrombocytopenia Assessment & Plan: resolving Status: Acute (3) Vulvar cancer Assessment & Plan: outpatient treatment Status: Chronic
--- NOTE | 2016-11-29 18:11 | CP.PCM.PN ---
Subjective - Date & Time of Evaluation Date of Evaluation: 11/29/16 Time of Evaluation: 13:00 - Subjective Subjective: No complaints. Objective - Vital Signs/Intake and Output Vital Signs (last 24 hours): Temp Pulse Resp BP Pulse Ox 97.9 F 79 20 116/69 99 11/29/16 17:00 11/29/16 16:39 11/29/16 16:39 11/29/16 16:39 11/29/16 16:39 Intake and Output: 11/29/16 11/29/16 06:59 18:59 Intake Total 300 Output Total 310 Balance -10 - Medications Medications: Current Medications Acetaminophen (Tylenol 650mg/20.3ml Solution Ud) 650 mg PO Q6 PRN PRN Reason: fever >100.4 Acetaminophen (Tylenol 325mg Tab) 650 mg PO Q6 PRN PRN Reason: Pain, moderate (4-7) Last Admin: 11/28/16 22:03 Dose: 650 mg Bacitracin (Bacitracin) 1 ea TOP TID [facility] Last Admin: 11/29/16 16:52 Dose: 1 ea Benzocaine/Menthol (Cepacol Sore Throat) 1 chantel PO Q2 PRN PRN Reason: Sore Throat Cyanocobalamin (Vitamin B12 1000 Mcg/Ml Inj) 1,000 mcg IM DAILY [facility] Last Admin: 11/29/16 08:34 Dose: 1,000 mcg Fluconazole (Diflucan Iv 100 Mg/50 Ml Ns) 50 mls @ 50 mls/hr IVPB DAILY [facility] Last Admin: 11/29/16 13:26 Dose: 50 mls/hr Meropenem 500 mg/ Sodium (Chloride) 100 mls @ 100 mls/hr IVPB Q12 [facility] PRN Reason: Protocol Sodium Chloride 35 meq/ Sodium Acetate 70 meq/ Potassium Chloride 40 meq/ Potassium Phosphate 20 mmole/ Magnesium Sulfate 5 meq/ Calcium Gluconate 4.5 meq /Multivitamins/Vitamin C 10 ml/Chromium/Copper/Manganese/Zinc 3 ml/ Amino Acids 1,094.3256 mls @ 42 mls/hr IV .Q24H ONE Stop: 11/30/16 13:44 Last Admin: 11/29/16 17:04 Dose: 42 mls/hr Pantoprazole Sodium (Protonix Inj) 40 mg IVP BID [facility] Last Admin: 11/29/16 16:52 Dose: 40 mg Silver Sulfadiazine (Silvadene 1% 50 Gm) 1 applic TOP BID [facility] Last Admin: 11/28/16 17:05 Dose: 1 applic - Labs Labs: 11/29/16 05:45 11/29/16 05:45 PT 10.5 Seconds (9.8-13.1) 11/15/16 13:05 INR 1.0 (0.9-1.2) 11/15/16 13:05 APTT 22.3 Seconds (25.6-37.1) L 11/15/16 13:05 - Head Exam Head Exam: ATRAUMATIC - Eye Exam Eye Exam: Normal appearance - ENT Exam ENT Exam: Mucous Membranes Dry - Respiratory Exam Respiratory Exam: NORMAL BREATHING PATTERN - Cardiovascular Exam Cardiovascular Exam: +S1, +S2 - GI/Abdominal Exam GI & Abdominal Exam: Normal Bowel Sounds - Extremities Exam Extremities Exam: Normal Inspection Assessment and Plan (1) Anemia Assessment & Plan: chronic disease, recent chemotherapy s/p PRBC transfusion Status: Acute (2) Vulvar cancer Assessment & Plan: outpatient treatment with primary oncologist. Status: Chronic (3) Thrombocytopenia Assessment & Plan: resolved Status: Acute
[2016-11-30 06:31] LABS: HEMATOCRIT 29.4 % (34.0-47.0); MEAN CELL VOLUME 94.5 fl (81.0-99.0); MEAN CORPUSCULAR HEMOGLOBIN 32.3 pg (27.0-31.0); MEAN CORPUSCULAR HGB CONC 34.2 g/dL (33.0-37.0); WHITE BLOOD COUNT 5.3 K/uL (4.8-10.8)
[2016-11-30 08:03] LABS: ALB/GLOB RATIO 0.7 (1.0-2.1); BILIRUBIN,TOTAL 0.4 mg/dl (0.2-1.3); CALCIUM 7.9 mg/dL (8.4-10.2); MAGNESIUM 1.8 MG/DL (1.6-2.3); PHOSPHOROUS 3.3 mg/dl (2.5-4.5); POTASSIUM 4.1 MMOL/L (3.6-5.0); TOTAL PROTEIN 6.6 G/DL (6.3-8.2)
--- NOTE | 2016-11-30 08:36 | CP.PCM.PN ---
Subjective - Date & Time of Evaluation Date of Evaluation: 11/30/16 Time of Evaluation: 08:33 - Subjective Subjective: Surgery: Dr. Oro Patient doing well today. denies pain in her abdomen. J tube feeds started yesterday and she is tolerating. Per nursing, no residuals overnight. Tim output in the right upper quadrant w/ 130cc/cloudy carr fluid overnight. Objective - Vital Signs/Intake and Output Vital Signs (last 24 hours): Temp Pulse Resp BP Pulse Ox 97.8 F 72 20 126/75 96 11/30/16 08:17 11/30/16 08:17 11/30/16 08:17 11/30/16 08:17 11/30/16 08:17 Intake and Output: 11/30/16 11/30/16 06:59 18:59 Intake Total 844 Output Total 170 Balance 674 - Medications Medications: Current Medications Acetaminophen (Tylenol 650mg/20.3ml Solution Ud) 650 mg PO Q6 PRN PRN Reason: fever >100.4 Acetaminophen (Tylenol 325mg Tab) 650 mg PO Q6 PRN PRN Reason: Pain, moderate (4-7) Last Admin: 11/28/16 22:03 Dose: 650 mg Bacitracin (Bacitracin) 1 ea TOP TID [facility] Last Admin: 11/29/16 16:52 Dose: 1 ea Benzocaine/Menthol (Cepacol Sore Throat) 1 chantel PO Q2 PRN PRN Reason: Sore Throat Cyanocobalamin (Vitamin B12 1000 Mcg/Ml Inj) 1,000 mcg IM DAILY [facility] Last Admin: 11/29/16 08:34 Dose: 1,000 mcg Fluconazole (Diflucan Iv 100 Mg/50 Ml Ns) 50 mls @ 50 mls/hr IVPB DAILY [facility] Last Admin: 11/29/16 13:26 Dose: 50 mls/hr Meropenem 500 mg/ Sodium (Chloride) 100 mls @ 100 mls/hr IVPB Q12 [facility] PRN Reason: Protocol Last Admin: 11/29/16 21:24 Dose: 100 mls/hr Sodium Chloride 35 meq/ Sodium Acetate 70 meq/ Potassium Chloride 40 meq/ Potassium Phosphate 20 mmole/ Magnesium Sulfate 5 meq/ Calcium Gluconate 4.5 meq /Multivitamins/Vitamin C 10 ml/Chromium/Copper/Manganese/Zinc 3 ml/ Amino Acids 1,094.3256 mls @ 42 mls/hr IV .Q24H ONE Stop: 11/30/16 13:44 Last Admin: 11/29/16 17:04 Dose: 42 mls/hr Pantoprazole Sodium (Protonix Inj) 40 mg IVP BID [facility] Last Admin: 11/29/16 16:52 Dose: 40 mg Silver Sulfadiazine (Silvadene 1% 50 Gm) 1 applic TOP BID [facility] Last Admin: 11/29/16 18:32 Dose: 1 applic - Labs Labs: 11/30/16 05:30 11/30/16 05:30 PT 10.5 Seconds (9.8-13.1) 11/15/16 13:05 INR 1.0 (0.9-1.2) 11/15/16 13:05 APTT 22.3 Seconds (25.6-37.1) L 11/15/16 13:05 - Constitutional Appears: Non-toxic, No Acute Distress, Chronically Ill - Head Exam Head Exam: ATRAUMATIC, NORMOCEPHALIC - Eye Exam Eye Exam: EOMI, Normal appearance - ENT Exam ENT Exam: Mucous Membranes Moist - Respiratory Exam Respiratory Exam: NORMAL BREATHING PATTERN. absent: Respiratory Distress - Cardiovascular Exam Cardiovascular Exam: REGULAR RHYTHM. absent: Tachycardia - GI/Abdominal Exam GI & Abdominal Exam: Soft. absent: Distended, Guarding, Tenderness Additional comments: J tube in LUQ w/ tube feeds at 20cc/hr, no residuals. Tim in RUQ w/ carr cloud fluid output apprx. 130cc/12hrs midline abdominal incisions CD w/ staple closure - Neurological Exam Neurological Exam: Alert, Awake, Oriented x3 - Psychiatric Exam Psychiatric exam: Normal Affect, Normal Mood Assessment and Plan - Assessment and Plan (Free Text) Assessment: 86 y/o female w/ perforated duodenum s/p ex lap w/ Mak patch POD14 now w/ endoscopy placed J-tube Plan: -cont enteral feeds per GI and as tolerated -can wean TPN -OOB -IS use -PT -monitor tim output -may need further surgical repair of duodenum, optimize nutritional status prior -d/w Dr. Shorty Arenas PGY3
[2016-11-30] MEDS: Fluconazole IV 100mg/50 ml NS 50 ML IVPB SCH (08:59)
[2016-11-30] MEDS: Bacitracin 500 Units/gm Oint Foilpak UD TOP SCH ×3 (09:00→17:23)
[2016-11-30] MEDS: Silver Sulfadiazine 1% CREAM (50 gm) TOP SCH ×2 (09:02→17:27)
--- NOTE | 2016-11-30 09:09 | CP.PCM.PN ---
<Libby Mendoza - Last Filed: 11/30/16 09:39> Subjective - Date & Time of Evaluation Date of Evaluation: 11/30/16 Time of Evaluation: 08:00 - Subjective Subjective: GI Fellow PGY4 Progress Note Pt seen and examined at bedside, pt is doing well with TF, denies abdominal pain. Pt denies fevers, chills, nausea or vomiting. Pt has a herbert drain with yellow serous fluid 200cc overnight. No other issues overnight per nursing. ROS: A 12pt ROS was obtained and was negative except as above. Objective - Vital Signs/Intake and Output Vital Signs (last 24 hours): Temp Pulse Resp BP Pulse Ox 97.8 F 72 20 126/75 96 11/30/16 08:17 11/30/16 08:17 11/30/16 08:17 11/30/16 08:17 11/30/16 08:17 Intake and Output: 11/30/16 11/30/16 06:59 18:59 Intake Total 844 Output Total 170 Balance 674 - Medications Medications: Current Medications Acetaminophen (Tylenol 650mg/20.3ml Solution Ud) 650 mg PO Q6 PRN PRN Reason: fever >100.4 Acetaminophen (Tylenol 325mg Tab) 650 mg PO Q6 PRN PRN Reason: Pain, moderate (4-7) Last Admin: 11/28/16 22:03 Dose: 650 mg Bacitracin (Bacitracin) 1 ea TOP TID ON LICENSE OF [facility] Last Admin: 11/29/16 16:52 Dose: 1 ea Benzocaine/Menthol (Cepacol Sore Throat) 1 chantel PO Q2 PRN PRN Reason: Sore Throat Cyanocobalamin (Vitamin B12 1000 Mcg/Ml Inj) 1,000 mcg IM DAILY ON LICENSE OF [facility] Last Admin: 11/29/16 08:34 Dose: 1,000 mcg Fluconazole (Diflucan Iv 100 Mg/50 Ml Ns) 50 mls @ 50 mls/hr IVPB DAILY ON LICENSE OF [facility] Last Admin: 11/30/16 08:59 Dose: 50 mls/hr Meropenem 500 mg/ Sodium (Chloride) 100 mls @ 100 mls/hr IVPB Q12 [facility] PRN Reason: Protocol Last Admin: 11/29/16 21:24 Dose: 100 mls/hr Sodium Chloride 35 meq/ Sodium Acetate 70 meq/ Potassium Chloride 40 meq/ Potassium Phosphate 20 mmole/ Magnesium Sulfate 5 meq/ Calcium Gluconate 4.5 meq /Multivitamins/Vitamin C 10 ml/Chromium/Copper/Manganese/Zinc 3 ml/ Amino Acids 1,094.3256 mls @ 42 mls/hr IV .Q24H ONE Stop: 11/30/16 13:44 Last Admin: 11/29/16 17:04 Dose: 42 mls/hr Pantoprazole Sodium (Protonix Inj) 40 mg IVP BID ON LICENSE OF [facility] Last Admin: 11/30/16 09:00 Dose: 40 mg Silver Sulfadiazine (Silvadene 1% 50 Gm) 1 applic TOP BID ON LICENSE OF [facility] Last Admin: 11/30/16 09:02 Dose: 1 applic - Labs Labs: 11/30/16 05:30 11/30/16 05:30 PT 10.5 Seconds (9.8-13.1) 11/15/16 13:05 INR 1.0 (0.9-1.2) 11/15/16 13:05 APTT 22.3 Seconds (25.6-37.1) L 11/15/16 13:05 - Constitutional Appears: Non-toxic, No Acute Distress - Head Exam Head Exam: ATRAUMATIC, NORMAL INSPECTION, NORMOCEPHALIC - Eye Exam Eye Exam: EOMI, Normal appearance, PERRL - ENT Exam ENT Exam: Mucous Membranes Dry - Neck Exam Neck Exam: Normal Inspection - Respiratory Exam Respiratory Exam: Decreased Breath Sounds, NORMAL BREATHING PATTERN - Cardiovascular Exam Cardiovascular Exam: RRR - GI/Abdominal Exam GI & Abdominal Exam: Soft, Normal Bowel Sounds. absent: Guarding, Rigid, Tenderness, Organomegaly - Rectal Exam Rectal Exam: Deferred - Extremities Exam Extremities Exam: Normal Inspection - Back Exam Back Exam: NORMAL INSPECTION - Neurological Exam Neurological Exam: Alert, Awake, Oriented x3 - Psychiatric Exam Psychiatric exam: Normal Affect, Normal Mood - Skin Skin Exam: Dry, Intact, Normal Color, Warm Assessment and Plan - Assessment and Plan (Free Text) Assessment: This is a 86yF who presented with abdominal pain, hypotension and was found to have duodenal perforation. 1. Duodenal perforation s/p ex lap with Mak patch 2. Duodenal Leak 3. Severe Esophagitis with ulceration is lower esophagus 4. PUD 5. Jejunal feeding tube 6. Anemia 7. Vulvar cancer s/p chemoradiation therapy Plan: -Continue supportive care with IV abx and antifungal therapy per ID -Continue dressing changes of PEJ site, no signs of infection, button loosened to 4.5 -Tolerating TF with PEJ, diet/nutritional consult appreciated for TF recommendations, currently on 20cc/hr can increase TF today -Recommend dc TPN -Continue IV PPI BID for severe esophagitis/ulcerations and duodenal ulcer -Awaiting pathology results of ulcer biopsy to r/o H.pylori -S/p EGD and PEJ, unable to close site of duodenal leak, too large of an area with crated ulcer, pt may need further surgical intervention will defer to surgery team -Please call with any questions or concerns. <Daniel Campos MD - Last Filed: 11/30/16 10:57> Objective - Vital Signs/Intake and Output Vital Signs (last 24 hours): Temp Pulse Resp BP Pulse Ox 97.8 F 72 20 126/75 96 11/30/16 08:17 11/30/16 08:17 11/30/16 08:17 11/30/16 08:17 11/30/16 08:17 Intake and Output: 11/30/16 11/30/16 06:59 18:59 Intake Total 844 Output Total 170 Balance 674 - Medications Medications: Current Medications Acetaminophen (Tylenol 650mg/20.3ml Solution Ud) 650 mg PO Q6 PRN PRN Reason: fever >100.4 Acetaminophen (Tylenol 325mg Tab) 650 mg PO Q6 PRN PRN Reason: Pain, moderate (4-7) Last Admin: 11/28/16 22:03 Dose: 650 mg Bacitracin (Bacitracin) 1 ea TOP TID ON LICENSE OF [facility] Last Admin: 11/29/16 16:52 Dose: 1 ea Benzocaine/Menthol (Cepacol Sore Throat) 1 chantel PO Q2 PRN PRN Reason: Sore Throat Cyanocobalamin (Vitamin B12 1000 Mcg/Ml Inj) 1,000 mcg IM DAILY ON [facility] OF [facility] Last Admin: 11/29/16 08:34 Dose: 1,000 mcg Fluconazole (Diflucan Iv 100 Mg/50 Ml Ns) 50 mls @ 50 mls/hr IVPB DAILY ON LICENSE OF [facility] Last Admin: 11/30/16 08:59 Dose: 50 mls/hr Meropenem 500 mg/ Sodium (Chloride) 100 mls @ 100 mls/hr IVPB Q12 [facility] PRN Reason: Protocol Last Admin: 11/29/16 21:24 Dose: 100 mls/hr Sodium Chloride 35 meq/ Sodium Acetate 70 meq/ Potassium Chloride 40 meq/ Potassium Phosphate 20 mmole/ Magnesium Sulfate 5 meq/ Calcium Gluconate 4.5 meq /Multivitamins/Vitamin C 10 ml/Chromium/Copper/Manganese/Zinc 3 ml/ Amino Acids 1,094.3256 mls @ 42 mls/hr IV .Q24H ONE Stop: 11/30/16 13:44 Last Admin: 11/29/16 17:04 Dose: 42 mls/hr Pantoprazole Sodium (Protonix Inj) 40 mg IVP BID ON [facility] OF [facility] Last Admin: 11/30/16 09:00 Dose: 40 mg Silver Sulfadiazine (Silvadene 1% 50 Gm) 1 applic TOP BID ON LICENSE OF [facility] Last Admin: 11/30/16 09:02 Dose: 1 applic - Labs Labs: 11/30/16 05:30 11/30/16 05:30 PT 10.5 Seconds (9.8-13.1) 11/15/16 13:05 INR 1.0 (0.9-1.2) 11/15/16 13:05 APTT 22.3 Seconds (25.6-37.1) L 11/15/16 13:05 Attending/Attestation - Attestation I have personally seen and examined this patient.: Yes I have fully participated in the care of the patient.: Yes I have reviewed all pertinent clinical information, including history, physical exam and plan: Yes Notes (Text): 11/30/16 10:56 Patient seen with GI fellow. This is a 86 yr old F who presented with abdominal pain, hypotension and was found to have duodenal perforation s/p mak patch with EDUARDO drain draining significant amount s/p EGD and PEJ, unable to close site of duodenal leak, too large of an area with crated ulcer s/p biopsy. Continue antibiotics and antifungal therapy per ID. Tolerated 20 cc feeds overnight which can be advanced to 40 cc today. Continue dressing changes of PEJ site, no signs of infection, button loosened to 4.5. Recommend discontinuing TPN. Continue IV PPI BID for severe esophagitis/ulcerations and duodenal ulcer. Follow pathology results of ulcer biopsy to r/o H.pylori. Will sign off now. Thank you for letting us participate in the care of your patient
[2016-11-30] MEDS: Meropenem 500 MG in Sodium Chloride 0.9% 100 ML IVPB SCH ×2 (10:00→21:27)
--- NOTE | 2016-11-30 12:38 | CP.PCM.PN ---
Subjective - Date & Time of Evaluation Date of Evaluation: 11/30/16 Time of Evaluation: 12:38 - Subjective Subjective: ID Note- Pt. seen and examined today. pt. is in good spirits. she is sitting in chair and denies any abd. pain and sattes the output from her drain is much less today. pt. is also s/p EGD and PEJ tube placement and so far tolerating the PeJ tube feeds. denies any nausea. Objective - Vital Signs/Intake and Output Vital Signs (last 24 hours): Temp Pulse Resp BP Pulse Ox 97.8 F 72 20 126/75 96 11/30/16 08:17 11/30/16 08:17 11/30/16 08:17 11/30/16 08:17 11/30/16 08:17 Intake and Output: 11/30/16 11/30/16 06:59 18:59 Intake Total 844 Output Total 170 Balance 674 - Medications Medications: Current Medications Acetaminophen (Tylenol 650mg/20.3ml Solution Ud) 650 mg PO Q6 PRN PRN Reason: fever >100.4 Acetaminophen (Tylenol 325mg Tab) 650 mg PO Q6 PRN PRN Reason: Pain, moderate (4-7) Last Admin: 11/28/16 22:03 Dose: 650 mg Bacitracin (Bacitracin) 1 ea TOP TID [facility] Last Admin: 11/29/16 16:52 Dose: 1 ea Benzocaine/Menthol (Cepacol Sore Throat) 1 chantel PO Q2 PRN PRN Reason: Sore Throat Cyanocobalamin (Vitamin B12 1000 Mcg/Ml Inj) 1,000 mcg IM DAILY [facility] Last Admin: 11/29/16 08:34 Dose: 1,000 mcg Fluconazole (Diflucan Iv 100 Mg/50 Ml Ns) 50 mls @ 50 mls/hr IVPB DAILY [facility] Last Admin: 11/30/16 08:59 Dose: 50 mls/hr Meropenem 500 mg/ Sodium (Chloride) 100 mls @ 100 mls/hr IVPB Q12 [facility] PRN Reason: Protocol Last Admin: 11/29/16 21:24 Dose: 100 mls/hr Sodium Chloride 35 meq/ Sodium Acetate 70 meq/ Potassium Chloride 40 meq/ Potassium Phosphate 20 mmole/ Magnesium Sulfate 5 meq/ Calcium Gluconate 4.5 meq /Multivitamins/Vitamin C 10 ml/Chromium/Copper/Manganese/Zinc 3 ml/ Amino Acids 1,094.3256 mls @ 42 mls/hr IV .Q24H ONE Stop: 11/30/16 13:44 Last Admin: 11/29/16 17:04 Dose: 42 mls/hr Pantoprazole Sodium (Protonix Inj) 40 mg IVP BID [facility] Last Admin: 11/30/16 09:00 Dose: 40 mg Silver Sulfadiazine (Silvadene 1% 50 Gm) 1 applic TOP BID [facility] Last Admin: 11/30/16 09:02 Dose: 1 applic - Labs Labs: - Additional Findings Additional findings: - Constitutional Appears: No Acute Distress - Head Exam Head Exam: ATRAUMATIC - Eye Exam Eye Exam: EOMI - ENT Exam ENT Exam: Normal Oropharynx - Neck Exam Neck Exam: Full ROM - Respiratory Exam Respiratory Exam: NORMAL BREATHING PATTERN Additional comments: good breath sounds b/l - Cardiovascular Exam Cardiovascular Exam: RRR, +S1, +S2 - GI/Abdominal Exam GI & Abdominal Exam: Soft, Normal Bowel Sounds Additional comments: mid-abdominal surgical site clean, dry, intact arvind in place, no erythema Drain still in place, draining light yellow fluid PEJ tube in place and site clean no tenderness - Extremities Exam Extremities Exam: Normal Inspection - Neurological Exam Neurological Exam: Alert, Awake, Oriented x 3 Laboratory Results - last 72 hr 11/27/16 11/27/16 11/28/16 16:53 21:46 04:57 WBC RBC Hgb Hct MCV MCH MCHC RDW Plt Count Sodium Potassium Chloride Carbon Dioxide Anion Gap BUN Creatinine Est GFR ( Amer) Est GFR (Non-Af Amer) POC Glucose (mg/dL) 174 H 166 H 111 H Random Glucose Calcium Phosphorus Magnesium Total Bilirubin AST ALT Alkaline Phosphatase Total Protein Albumin Globulin Albumin/Globulin Ratio Triglycerides Cholesterol LDL Cholesterol Direct HDL Cholesterol 11/28/16 11/28/16 11/28/16 05:30 05:30 11:21 WBC 6.0 RBC 2.90 L Hgb 9.0 L Hct 27.2 L MCV 93.5 MCH 31.1 H MCHC 33.3 RDW 17.9 H Plt Count 137 Sodium 145 Potassium 3.2 L Chloride 112 H Carbon Dioxide 23 Anion Gap 13 BUN 15 Creatinine 1.0 Est GFR ( Amer) > 60 Est GFR (Non-Af Amer) 53 POC Glucose (mg/dL) 97 Random Glucose 135 H Calcium 8.2 L Phosphorus 2.4 L Magnesium 1.7 Total Bilirubin 0.5 AST 41 H D ALT 31 Alkaline Phosphatase 119 Total Protein 6.0 L Albumin 2.5 L Globulin 3.5 Albumin/Globulin Ratio 0.7 L Triglycerides 211 H Cholesterol 115 LDL Cholesterol Direct 60 HDL Cholesterol 19 L 11/28/16 11/28/16 11/29/16 16:12 21:30 05:45 WBC 4.8 RBC 2.75 L Hgb 8.8 L Hct 26.1 L MCV 94.9 MCH 32.0 H MCHC 33.7 RDW 17.6 H Plt Count 152 Sodium Potassium Chloride Carbon Dioxide Anion Gap BUN Creatinine Est GFR ( Amer) Est GFR (Non-Af Amer) POC Glucose (mg/dL) 141 H 138 H Random Glucose Calcium Phosphorus Magnesium Total Bilirubin AST ALT Alkaline Phosphatase Total Protein Albumin Globulin Albumin/Globulin Ratio Triglycerides Cholesterol LDL Cholesterol Direct HDL Cholesterol 11/29/16 11/29/16 11/29/16 05:45 05:55 10:56 WBC RBC Hgb Hct MCV MCH MCHC RDW Plt Count Sodium 145 Potassium 3.4 L Chloride 113 H Carbon Dioxide 25 Anion Gap 10 BUN 18 H Creatinine 1.1 Est GFR ( Amer) 57 Est GFR (Non-Af Amer) 47 POC Glucose (mg/dL) 123 H 144 H Random Glucose 119 H Calcium 7.7 L Phosphorus 3.2 Magnesium 1.6 Total Bilirubin 0.4 AST 52 H D ALT 32 Alkaline Phosphatase 120 Total Protein 6.1 L Albumin 2.5 L Globulin 3.6 Albumin/Globulin Ratio 0.7 L Triglycerides 231 H Cholesterol 113 LDL Cholesterol Direct 54 HDL Cholesterol 19 L 11/29/16 11/29/16 11/30/16 16:07 21:40 05:30 WBC 5.3 RBC 3.11 L Hgb 10.0 L Hct 29.4 L MCV 94.5 MCH 32.3 H MCHC 34.2 RDW 18.0 H Plt Count 181 Sodium Potassium Chloride Carbon Dioxide Anion Gap BUN Creatinine Est GFR ( Amer) Est GFR (Non-Af Amer) POC Glucose (mg/dL) 145 H 123 H Random Glucose Calcium Phosphorus Magnesium Total Bilirubin AST ALT Alkaline Phosphatase Total Protein Albumin Globulin Albumin/Globulin Ratio Triglycerides Cholesterol LDL Cholesterol Direct HDL Cholesterol 11/30/16 11/30/1611/30/17 05:30 06:47 11:22 WBC RBC Hgb Hct MCV MCH MCHC RDW Plt Count Sodium 147 Potassium 4.1 Chloride 115 H Carbon Dioxide 22 Anion Gap 14 BUN 18 H Creatinine 1.1 Est GFR ( Amer) 57 Est GFR (Non-Af Amer) 47 POC Glucose (mg/dL) 114 H 106 Random Glucose 99 Calcium 7.9 L Phosphorus 3.3 Magnesium 1.8 Total Bilirubin 0.4 AST 45 H ALT 31 Alkaline Phosphatase 146 H D Total Protein 6.6 Albumin 2.8 L Globulin 3.8 Albumin/Globulin Ratio 0.7 L Triglycerides 244 H Cholesterol 124 LDL Cholesterol Direct 63 HDL Cholesterol 18 L Microbiology 11/22/16 09:04 Naris MRSA Culture (Admit) - Final MRSA NOT DETECTED 11/17/16 17:00 Blood-Venous Blood Culture - Final NO GROWTH AFTER 5 DAYS 11/17/16 17:00 Blood-Venous Gram Stain - Final TEST NOT PERFORMED 11/17/16 17:30 Blood-Venous Blood Culture - Final NO GROWTH AFTER 5 DAYS 11/17/16 17:30 Blood-Venous Gram Stain - Final TEST NOT PERFORMED 11/15/16 13:20 Blood Blood Culture - Final NO GROWTH AFTER 5 DAYS 11/15/16 13:20 Blood Gram Stain - Final TEST NOT PERFORMED 11/15/16 13:05 Blood Blood Culture - Final NO GROWTH AFTER 5 DAYS 11/15/16 13:05 Blood Gram Stain - Final TEST NOT PERFORMED 11/16/16 20:00 Other: Please Indicate Gram Stain - Final 11/16/16 20:00 Other: Please Indicate Wound Culture - Final Escherichia Coli 11/16/16 20:00 Other: Please Indicate Gram Stain - Final 11/16/16 20:00 Other: Please Indicate Wound Culture - Final Escherichia Coli 11/16/16 09:40 Naris MRSA Culture (Admit) - Final MRSA NOT DETECTED 11/15/16 23:30 Urine,Catheterized Urine Culture - Final No Growth (<1,000 CFU/ML) Assessment and Plan (1) Gastric out let obstruction Status: Acute (2) Leukopenia Status: Acute (3) Pneumoperitoneum Status: Acute (4) Severe sepsis Status: Acute (5) Vulvar cancer Status: Chronic - Assessment and Plan (Free Text) Assessment: A/P- 86 year old female with vulvar cancer undergoing chemo and radiation was admitted with sudden sharp abdominal pain , found to have high lactate underwent ex-lap and found to have perforated duodenal ulcer is s/p duodenal patch and samy drain . s/p EGD and PEJ tube placement clinically much better POD #14 afebrile no longer neutropenic wound cx- E.Coli x 2 (pansensitive) Blood cx- neg x 4 plan- advise to continue with IV meropenem day #14 since she still has the EDUARDO drain in place and perforation still not completely sealed bassed on Gi radiology reports. advise to also continue with antifungal day #14, since pt. is on TPN still and still has drain in place and had duodenal perf. drain management as per surgical team. if patient is tolerating Pej tube feeds then would advise to d/c TPN as it can lead to line infection. all above d/w patient's nurse and UPSET OPERATOR .
[2016-11-30] MEDS ORDERED: Multivitamin (MVI) 10 ML, Trace Elements-Cr/Cu/Mn/Zn 3 ML in Amino/Dex E 4.25/25 1000ml... IV ONE (14:15)
[2016-11-30] MEDS ORDERED: Amino Acids/Dextrose 1,000 ML IV ONE (14:30)
[2016-12-01 07:10] LABS: HEMATOCRIT 26.6 % (34.0-47.0); MEAN CELL VOLUME 95.5 fl (81.0-99.0); MEAN CORPUSCULAR HEMOGLOBIN 32.1 pg (27.0-31.0); MEAN CORPUSCULAR HGB CONC 33.6 g/dL (33.0-37.0); WHITE BLOOD COUNT 5.1 K/uL (4.8-10.8)
[2016-12-01 07:11] LABS: ALB/GLOB RATIO 0.7 (1.0-2.1); BILIRUBIN,TOTAL 0.3 mg/dl (0.2-1.3); CALCIUM 7.7 mg/dL (8.4-10.2); MAGNESIUM 1.8 MG/DL (1.6-2.3); PHOSPHOROUS 2.7 mg/dl (2.5-4.5); POTASSIUM 4.5 MMOL/L (3.6-5.0); TOTAL PROTEIN 6.4 G/DL (6.3-8.2)
[2016-12-01] MEDS: Meropenem 500 MG in Sodium Chloride 0.9% 100 ML IVPB SCH ×2 (08:18→20:02)
[2016-12-01] MEDS: Silver Sulfadiazine 1% CREAM (50 gm) TOP SCH ×2 (08:20→17:07)
[2016-12-01] MEDS: Bacitracin 500 Units/gm Oint Foilpak UD TOP SCH ×3 (08:28→17:07)
[2016-12-01] MEDS: Fluconazole IV 100mg/50 ml NS 50 ML IVPB SCH (10:10)
--- NOTE | 2016-12-01 10:36 | CP.PCM.PN ---
Subjective - Date & Time of Evaluation Date of Evaluation: 12/01/16 Time of Evaluation: 09:12 - Subjective Subjective: Patient seen and examined this AM. Patient reports persist pain in the LLQ around the Jejunostomy tube well controlled, no nausea, vomiting, fevers, chills , or any other symptoms. Objective - Vital Signs/Intake and Output Vital Signs (last 24 hours): Temp Pulse Resp BP Pulse Ox 98.5 F 80 18 130/77 100 12/01/16 08:00 12/01/16 08:00 12/01/16 08:00 12/01/16 08:00 12/01/16 08:00 Intake and Output: 12/01/16 12/01/16 06:59 18:59 Intake Total 1050 Output Total 1020 Balance 30 - Medications Medications: Current Medications Acetaminophen (Tylenol 650mg/20.3ml Solution Ud) 650 mg PO Q6 PRN PRN Reason: fever >100.4 Acetaminophen (Tylenol 325mg Tab) 650 mg PO Q6 PRN PRN Reason: Pain, moderate (4-7) Last Admin: 11/28/16 22:03 Dose: 650 mg Bacitracin (Bacitracin) 1 ea TOP TID [facility] Last Admin: 12/01/16 08:28 Dose: 1 ea Benzocaine/Menthol (Cepacol Sore Throat) 1 chantel PO Q2 PRN PRN Reason: Sore Throat Cyanocobalamin (Vitamin B12 1000 Mcg/Ml Inj) 1,000 mcg IM DAILY [facility] Last Admin: 12/01/16 08:27 Dose: 1,000 mcg Fluconazole (Diflucan Iv 100 Mg/50 Ml Ns) 50 mls @ 50 mls/hr IVPB DAILY [facility] Last Admin: 12/01/16 10:10 Dose: 50 mls/hr Meropenem 500 mg/ Sodium (Chloride) 100 mls @ 100 mls/hr IVPB Q12 [facility] PRN Reason: Protocol Last Admin: 12/01/16 08:18 Dose: 100 mls/hr Amino Acids (Clinimix 4.25%-25% 1000 Ml) 1,000 mls @ 42 mls/hr IV .[id number] ONE Stop: 12/01/16 14:18 Last Admin: 11/30/16 19:54 Dose: 42 mls/hr Pantoprazole Sodium (Protonix Inj) 40 mg IVP BID [facility] Last Admin: 12/01/16 08:21 Dose: 40 mg Silver Sulfadiazine (Silvadene 1% 50 Gm) 1 applic TOP BID [facility] Last Admin: 12/01/16 08:20 Dose: 1 applic - Labs Labs: 12/01/16 05:30 12/01/16 05:30 PT 10.5 Seconds (9.8-13.1) 11/15/16 13:05 INR 1.0 (0.9-1.2) 11/15/16 13:05 APTT 22.3 Seconds (25.6-37.1) L 11/15/16 13:05 - Constitutional Appears: Non-toxic, No Acute Distress - Head Exam Head Exam: ATRAUMATIC, NORMOCEPHALIC - Eye Exam Eye Exam: Normal appearance. absent: Conjunctival injection, Scleral icterus - ENT Exam ENT Exam: Mucous Membranes Dry, Normal Oropharynx - Respiratory Exam Respiratory Exam: NORMAL BREATHING PATTERN. absent: Accessory Muscle Use, Respiratory Distress - Cardiovascular Exam Cardiovascular Exam: RRR - GI/Abdominal Exam GI & Abdominal Exam: Distended (mild), Soft, Tenderness (LLQ round the jejunostomy tube) Additional comments: incision well approximated by arvind, mild sero-sanguinous drainage in the inferior pole. Tim drain in RUQ with clear yellow output - Extremities Exam Extremities Exam: absent: Calf Tenderness, Pedal Edema, Tenderness - Neurological Exam Neurological Exam: Alert, Awake, Oriented x3 - Psychiatric Exam Psychiatric exam: Normal Affect, Normal Mood - Skin Skin Exam: Dry, Normal Color, Warm Assessment and Plan - Assessment and Plan (Free Text) Assessment: 86 y/o female w/ perforated duodenum s/p ex lap w/ Mak patch POD15 now w/ endoscopically placed J-tube Plan: -cont enteral feeds per GI and nutritioninst as tolerated. Monitor closely for residuals -can wean TPN -OOB -IS use -PT -monitor tim output -Continue to trend CBC/CMP -may need further surgical repair of duodenum, optimize nutritional status prior d/w Dr. Shorty Mayer PGY2
--- NOTE | 2016-12-01 15:48 | PN ---
DATE: 12/01/2016 SUBJECTIVE: Patient is seen and examined. Interim events noted. Consults noted and appreciated. Gastroenterology, Infectious Disease, and Surgery followup and intervention noted and appreciated. The patient remains in regular medical floor with EDUARDO tube and jejunostomy tube for feeding. Tolerating feeding very well. No chest pain. No shortness of breath. PHYSICAL EXAMINATION GENERAL: The patient is in no acute distress. VITAL SIGNS: Stable. HEART: S1 and S2, normal and regular. LUNGS: Good bilateral air exchange. ABDOMEN: Soft, nontender. EDUARDO tube is in good position and still draining significant amount of drainage, 230 mL. Jejunostomy tube is in good position and functioning. The patient is tolerating feeding very well. No sign of acute abdomen. No guarding. No rigidity. No rebound. EXTREMITIES: No edema. No calf swelling. No tenderness. No acute ischemia. CENTRAL NERVOUS SYSTEM: Essentially unchanged. DIAGNOSTIC DATA: Available diagnostic data . ASSESSMENT AND PLAN: . Plan as ordered. Russ Taylor MD
--- NOTE | 2016-12-01 21:30 | CP.PCM.PN ---
Subjective - Date & Time of Evaluation Date of Evaluation: 11/30/16 Time of Evaluation: 10:00 - Subjective Subjective: No complaints. Objective - Vital Signs/Intake and Output Vital Signs (last 24 hours): Temp Pulse Resp BP Pulse Ox 97.8 F 72 20 127/71 99 12/01/16 17:00 12/01/16 17:00 12/01/16 17:00 12/01/16 17:00 12/01/16 17:00 Intake and Output: 12/01/16 12/02/16 18:59 06:59 Intake Total 240 720 Output Total 500 180 Balance -260 540 - Medications Medications: Current Medications Acetaminophen (Tylenol 650mg/20.3ml Solution Ud) 650 mg PO Q6 PRN PRN Reason: fever >100.4 Acetaminophen (Tylenol 325mg Tab) 650 mg PO Q6 PRN PRN Reason: Pain, moderate (4-7) Last Admin: 11/28/16 22:03 Dose: 650 mg Bacitracin (Bacitracin) 1 ea TOP TID [facility] Last Admin: 12/01/16 17:07 Dose: 1 ea Benzocaine/Menthol (Cepacol Sore Throat) 1 chantel PO Q2 PRN PRN Reason: Sore Throat Cyanocobalamin (Vitamin B12 1000 Mcg/Ml Inj) 1,000 mcg IM DAILY [facility] Last Admin: 12/01/16 08:27 Dose: 1,000 mcg Fluconazole (Diflucan Iv 100 Mg/50 Ml Ns) 50 mls @ 50 mls/hr IVPB DAILY [facility] Last Admin: 12/01/16 10:10 Dose: 50 mls/hr Meropenem 500 mg/ Sodium (Chloride) 100 mls @ 100 mls/hr IVPB Q12 [facility] PRN Reason: Protocol Last Admin: 12/01/16 08:18 Dose: 100 mls/hr Pantoprazole Sodium (Protonix Inj) 40 mg IVP BID [facility] Last Admin: 12/01/16 17:07 Dose: 40 mg Silver Sulfadiazine (Silvadene 1% 50 Gm) 1 applic TOP BID [facility] Last Admin: 12/01/16 17:07 Dose: 1 applic - Labs Labs: 12/01/16 05:30 12/01/16 05:30 PT 10.5 Seconds (9.8-13.1) 11/15/16 13:05 INR 1.0 (0.9-1.2) 11/15/16 13:05 APTT 22.3 Seconds (25.6-37.1) L 11/15/16 13:05 - Head Exam Head Exam: ATRAUMATIC - Eye Exam Eye Exam: Normal appearance - ENT Exam ENT Exam: Mucous Membranes Dry - Respiratory Exam Respiratory Exam: NORMAL BREATHING PATTERN - Cardiovascular Exam Cardiovascular Exam: +S1, +S2 - GI/Abdominal Exam GI & Abdominal Exam: Normal Bowel Sounds - Extremities Exam Extremities Exam: Normal Inspection Assessment and Plan (1) Anemia Assessment & Plan: chronic disease, recent chemo s/p PRBC transfusion Status: Acute (2) Vulvar cancer Assessment & Plan: outpatient treatment with primary oncologist Status: Chronic
--- NOTE | 2016-12-01 21:31 | CP.PCM.PN ---
Subjective - Date & Time of Evaluation Date of Evaluation: 12/01/16 Time of Evaluation: 13:00 - Subjective Subjective: No complaints. Objective - Vital Signs/Intake and Output Vital Signs (last 24 hours): Temp Pulse Resp BP Pulse Ox 97.8 F 72 20 127/71 99 12/01/16 17:00 12/01/16 17:00 12/01/16 17:00 12/01/16 17:00 12/01/16 17:00 Intake and Output: 12/01/16 12/02/16 18:59 06:59 Intake Total 240 720 Output Total 500 180 Balance -260 540 - Medications Medications: Current Medications Acetaminophen (Tylenol 650mg/20.3ml Solution Ud) 650 mg PO Q6 PRN PRN Reason: fever >100.4 Acetaminophen (Tylenol 325mg Tab) 650 mg PO Q6 PRN PRN Reason: Pain, moderate (4-7) Last Admin: 11/28/16 22:03 Dose: 650 mg Bacitracin (Bacitracin) 1 ea TOP TID [facility] Last Admin: 12/01/16 17:07 Dose: 1 ea Benzocaine/Menthol (Cepacol Sore Throat) 1 chantel PO Q2 PRN PRN Reason: Sore Throat Cyanocobalamin (Vitamin B12 1000 Mcg/Ml Inj) 1,000 mcg IM DAILY [facility] Last Admin: 12/01/16 08:27 Dose: 1,000 mcg Fluconazole (Diflucan Iv 100 Mg/50 Ml Ns) 50 mls @ 50 mls/hr IVPB DAILY [facility] Last Admin: 12/01/16 10:10 Dose: 50 mls/hr Meropenem 500 mg/ Sodium (Chloride) 100 mls @ 100 mls/hr IVPB Q12 [facility] PRN Reason: Protocol Last Admin: 12/01/16 08:18 Dose: 100 mls/hr Pantoprazole Sodium (Protonix Inj) 40 mg IVP BID [facility] Last Admin: 12/01/16 17:07 Dose: 40 mg Silver Sulfadiazine (Silvadene 1% 50 Gm) 1 applic TOP BID [facility] Last Admin: 12/01/16 17:07 Dose: 1 applic - Labs Labs: 12/01/16 05:30 12/01/16 05:30 PT 10.5 Seconds (9.8-13.1) 11/15/16 13:05 INR 1.0 (0.9-1.2) 11/15/16 13:05 APTT 22.3 Seconds (25.6-37.1) L 11/15/16 13:05 - Head Exam Head Exam: ATRAUMATIC - Eye Exam Eye Exam: Normal appearance - ENT Exam ENT Exam: Mucous Membranes Dry - Respiratory Exam Respiratory Exam: NORMAL BREATHING PATTERN - Cardiovascular Exam Cardiovascular Exam: +S1, +S2 - GI/Abdominal Exam GI & Abdominal Exam: Normal Bowel Sounds - Extremities Exam Extremities Exam: Normal Inspection Assessment and Plan (1) Anemia Assessment & Plan: chronic disease, recent chemotherapy Status: Acute (2) Vulvar cancer Assessment & Plan: outpatient treatment with primary oncologist Status: Chronic
[2016-12-02 06:55] LABS: HEMATOCRIT 26.5 % (34.0-47.0); MEAN CELL VOLUME 95.1 fl (81.0-99.0); MEAN CORPUSCULAR HEMOGLOBIN 31.3 pg (27.0-31.0); MEAN CORPUSCULAR HGB CONC 32.9 g/dL (33.0-37.0); RED CELL DISTRIBUTION WIDTH 17.4 % (11.5-14.5); WHITE BLOOD COUNT 5.2 K/uL (4.8-10.8)
[2016-12-02 06:56] LABS: ALB/GLOB RATIO 0.7 (1.0-2.1); BILIRUBIN,TOTAL 0.3 mg/dl (0.2-1.3); CALCIUM 7.4 mg/dL (8.4-10.2); MAGNESIUM 1.7 MG/DL (1.6-2.3); PHOSPHOROUS 2.8 mg/dl (2.5-4.5); POTASSIUM 4.2 MMOL/L (3.6-5.0); TOTAL PROTEIN 6.3 G/DL (6.3-8.2)
--- NOTE | 2016-12-02 09:34 | CP.PCM.PN ---
Subjective - Date & Time of Evaluation Date of Evaluation: 12/02/16 Time of Evaluation: 07:20 - Subjective Subjective: Patient s/e at bedside. NAEO. States that she is doing very well, no nausea, vomiting, had a small BM yesterday. Patient states she has slight upper abdominal pain when she sits up. Objective - Vital Signs/Intake and Output Vital Signs (last 24 hours): Temp Pulse Resp BP Pulse Ox 98.1 F 76 19 112/72 98 12/02/16 07:59 12/02/16 07:59 12/02/16 07:59 12/02/16 07:59 12/02/16 07:59 Intake and Output: 12/02/16 12/02/16 06:59 18:59 Intake Total 720 Output Total 180 Balance 540 - Medications Medications: Current Medications Acetaminophen (Tylenol 650mg/20.3ml Solution Ud) 650 mg PO Q6 PRN PRN Reason: fever >100.4 Acetaminophen (Tylenol 325mg Tab) 650 mg PO Q6 PRN PRN Reason: Pain, moderate (4-7) Last Admin: 11/28/16 22:03 Dose: 650 mg Bacitracin (Bacitracin) 1 ea TOP TID [facility] Last Admin: 12/01/16 17:07 Dose: 1 ea Benzocaine/Menthol (Cepacol Sore Throat) 1 chantel PO Q2 PRN PRN Reason: Sore Throat Cyanocobalamin (Vitamin B12 1000 Mcg/Ml Inj) 1,000 mcg IM DAILY [facility] Last Admin: 12/01/16 08:27 Dose: 1,000 mcg Fluconazole (Diflucan Iv 100 Mg/50 Ml Ns) 50 mls @ 50 mls/hr IVPB DAILY [facility] Last Admin: 12/01/16 10:10 Dose: 50 mls/hr Meropenem 500 mg/ Sodium (Chloride) 100 mls @ 100 mls/hr IVPB Q12 [facility] PRN Reason: Protocol Last Admin: 12/01/16 20:02 Dose: 100 mls/hr Pantoprazole Sodium (Protonix Inj) 40 mg IVP BID [facility] Last Admin: 12/01/16 17:07 Dose: 40 mg Silver Sulfadiazine (Silvadene 1% 50 Gm) 1 applic TOP BID [facility] Last Admin: 12/01/16 17:07 Dose: 1 applic - Labs Labs: 12/02/16 05:30 12/02/16 05:30 PT 10.5 Seconds (9.8-13.1) 11/15/16 13:05 INR 1.0 (0.9-1.2) 11/15/16 13:05 APTT 22.3 Seconds (25.6-37.1) L 11/15/16 13:05 - Constitutional Appears: Non-toxic, No Acute Distress - Head Exam Head Exam: ATRAUMATIC, NORMOCEPHALIC - Eye Exam Eye Exam: Normal appearance. absent: Conjunctival injection, Scleral icterus - ENT Exam ENT Exam: Mucous Membranes Moist, Normal Oropharynx - Respiratory Exam Respiratory Exam: NORMAL BREATHING PATTERN. absent: Accessory Muscle Use, Respiratory Distress - Cardiovascular Exam Cardiovascular Exam: RRR - GI/Abdominal Exam GI & Abdominal Exam: Soft, Tenderness (LUQ/LLQ round jejunostomy). absent: Distended Additional comments: midline surgical incision well approximated with arvind. Small amount of serosanguinous drainage in the inferior pole, no fluctuance, erythema, or induration. - Extremities Exam Extremities Exam: absent: Calf Tenderness, Pedal Edema, Tenderness - Neurological Exam Neurological Exam: Alert, Awake, Oriented x3 - Psychiatric Exam Psychiatric exam: Normal Affect, Normal Mood - Skin Skin Exam: Dry, Normal Color, Warm Assessment and Plan - Assessment and Plan (Free Text) Assessment: 86 y/o female w/ perforated duodenum s/p ex lap w/ Mak patch POD16 now w/ endoscopically placed J-tube Plan: -continue enteral feeds per GI and nutritioninst as tolerated. Monitor closely for residuals -Tim output slightly decreased with 280cc/24 hours. Continue to monitor closely -OOB -IS use -PT -Continue to trend CBC/CMP -may need further surgical repair of duodenum depending on tim drain outputs and clinical status. Optimize nutritional status prior -Continue IV abx/antifungals per ID recs d/w Dr. Shorty Mayer PGY2
[2016-12-02] MEDS: Fluconazole IV 100mg/50 ml NS 50 ML IVPB SCH (09:41)
[2016-12-02] MEDS: Bacitracin 500 Units/gm Oint Foilpak UD TOP SCH ×3 (09:41→16:35)
[2016-12-02] MEDS: Silver Sulfadiazine 1% CREAM (50 gm) TOP SCH ×2 (09:41→16:36)
[2016-12-02] MEDS: Meropenem 500 MG in Sodium Chloride 0.9% 100 ML IVPB SCH ×2 (10:57→20:41)
--- NOTE | 2016-12-02 13:03 | PN ---
DATE: 12/02/2016 SUBJECTIVE: The patient is seen and examined. Interim events noted. Consults noted and appreciated. Surgery and Gastroenterology followup and interventions noted and appreciated. The patient remains on a regular medical floor. The patient is sleepy, arousable, feels okay. Abdominal pain is well controlled. No chest pain. No shortness of breath. PHYSICAL EXAMINATION: GENERAL: The patient is in no acute distress. VITAL SIGNS: Stable. HEART: S1 and S2, normal and regular. LUNGS: Good bilateral air exchange. ABDOMEN: Soft and nontender. Jejunostomy tube is in good position and functioning. EDUARDO drainage is still draining. No sign of acute abdomen. No guarding, no rigidity, no rebound. Bowel sounds are present and normal. EXTREMITIES: No edema. No calf swelling. No tenderness. No acute ischemia. CENTRAL NERVOUS SYSTEM: Essentially unchanged. DIAGNOSTIC DATA: Available diagnostic data reviewed. ASSESSMENT AND PLAN: Overall, the patient's general medical condition is slowly improving and the patient is hemodynamically stable. Plan as ordered. Russ Taylor MD
[2016-12-03 06:37] LABS: HEMATOCRIT 25.7 % (34.0-47.0); MEAN CELL VOLUME 94.6 fl (81.0-99.0); MEAN CORPUSCULAR HEMOGLOBIN 30.7 pg (27.0-31.0); MEAN CORPUSCULAR HGB CONC 32.4 g/dL (33.0-37.0); RED CELL DISTRIBUTION WIDTH 17.4 % (11.5-14.5); WHITE BLOOD COUNT 4.9 K/uL (4.8-10.8)
[2016-12-03 06:59] LABS: ALB/GLOB RATIO 0.7 (1.0-2.1); BILIRUBIN,TOTAL 0.3 mg/dl (0.2-1.3); CALCIUM 7.9 mg/dL (8.4-10.2); MAGNESIUM 1.9 MG/DL (1.6-2.3); PHOSPHOROUS 3.3 mg/dl (2.5-4.5); POTASSIUM 4.1 MMOL/L (3.6-5.0); TOTAL PROTEIN 6.5 G/DL (6.3-8.2)
--- NOTE | 2016-12-03 07:15 | CP.PCM.PN ---
Subjective - Date & Time of Evaluation Date of Evaluation: 12/03/16 Time of Evaluation: 06:30 - Subjective Subjective: Patient seen and examined at bedside this AM. NAEO. Patient denies any pain, nausea, vomiting, but is passing gas and having bowel movements Objective - Vital Signs/Intake and Output Vital Signs (last 24 hours): Temp Pulse Resp BP Pulse Ox 97.7 F 74 18 107/60 100 12/03/16 00:00 12/03/16 00:00 12/03/16 00:00 12/03/16 00:00 12/03/16 00:00 - Medications Medications: Current Medications Acetaminophen (Tylenol 650mg/20.3ml Solution Ud) 650 mg PO Q6 PRN PRN Reason: fever >100.4 Acetaminophen (Tylenol 325mg Tab) 650 mg PO Q6 PRN PRN Reason: Pain, moderate (4-7) Last Admin: 11/28/16 22:03 Dose: 650 mg Bacitracin (Bacitracin) 1 ea TOP TID [facility] Last Admin: 12/02/16 16:35 Dose: 1 ea Benzocaine/Menthol (Cepacol Sore Throat) 1 chantel PO Q2 PRN PRN Reason: Sore Throat Cyanocobalamin (Vitamin B12 1000 Mcg/Ml Inj) 1,000 mcg IM DAILY [facility] Last Admin: 12/02/16 09:40 Dose: 1,000 mcg Fluconazole (Diflucan Iv 100 Mg/50 Ml Ns) 50 mls @ 50 mls/hr IVPB DAILY [facility] Last Admin: 12/02/16 09:41 Dose: 50 mls/hr Meropenem 500 mg/ Sodium (Chloride) 100 mls @ 100 mls/hr IVPB Q12 [facility] PRN Reason: Protocol Last Admin: 12/02/16 20:41 Dose: 100 mls/hr Pantoprazole Sodium (Protonix Inj) 40 mg IVP BID [facility] Last Admin: 12/02/16 16:35 Dose: 40 mg Silver Sulfadiazine (Silvadene 1% 50 Gm) 1 applic TOP BID [facility] Last Admin: 12/02/16 16:36 Dose: 1 applic - Labs Labs: 12/03/16 05:30 12/02/16 05:30 PT 10.5 Seconds (9.8-13.1) 11/15/16 13:05 INR 1.0 (0.9-1.2) 11/15/16 13:05 APTT 22.3 Seconds (25.6-37.1) L 11/15/16 13:05 - Constitutional Appears: Non-toxic, No Acute Distress - Head Exam Head Exam: ATRAUMATIC, NORMOCEPHALIC - Eye Exam Eye Exam: Normal appearance. absent: Conjunctival injection, Scleral icterus - ENT Exam ENT Exam: Mucous Membranes Moist, Normal Oropharynx - Respiratory Exam Respiratory Exam: NORMAL BREATHING PATTERN. absent: Accessory Muscle Use, Respiratory Distress - Cardiovascular Exam Cardiovascular Exam: RRR - GI/Abdominal Exam GI & Abdominal Exam: Soft. absent: Distended, Tenderness Additional comments: Midline incision well approximated with arvind, small amount of sero- sanguinous drainage from the inferior pole with no surrounding fluctuance or erythema, J-tube in place, tim drain with minimal yellow fluid output. - Extremities Exam Extremities Exam: absent: Calf Tenderness, Pedal Edema, Tenderness - Neurological Exam Neurological Exam: Alert, Awake, Oriented x3 - Psychiatric Exam Psychiatric exam: Normal Affect, Normal Mood - Skin Skin Exam: Dry, Normal Color, Warm Assessment and Plan - Assessment and Plan (Free Text) Assessment: 86 y/o female w/ perforated duodenum s/p ex lap w/ Mak patch POD17 now w/ endoscopically placed J-tube Plan: -continue enteral feeds per institutional asset manager recs as tolerated. Monitor closely for residuals -Tim output slightly decreased to 20cc/24 hours -Will repeat Upper GI series tomorrow -Continue IV abx/antifungals per ID recs -Continue to trend CBC/CMP. Transfuse as needed for anemia per heme/onc recs -OOB/PT -IS use -May need further surgical repair of duodenum depending on results of upper GI series. Optimize nutritional status prior d/w Dr. Shorty Mayer PGY2
--- NOTE | 2016-12-03 08:55 | PN ---
DATE: 11/30/2016 SUBJECTIVE: Patient seen and examined. Interim events noted. Consults noted and appreciated. Surgical followup and intervention noted and appreciated. Patient remains in regular medical floor. Started J-tube feeding yesterday, tolerating very well. Feels better. No chest pain. No shortness of breath. Abdominal pain resolved. PHYSICAL EXAMINATION: GENERAL: Patient is in no acute distress. VITAL SIGNS: Stable. HEART: S1 and S2, normal and regular. LUNGS: Good bilateral air exchange. ABDOMEN: Soft, nontender. Jejunostomy and drain is working fine without any complication. EXTREMITIES: No edema. No calf swelling. No tenderness. No acute ischemia. CENTRAL NERVOUS SYSTEM: Essentially unchanged. DIAGNOSTIC DATA: Available diagnostic data reviewed. ASSESSMENT AND PLAN: Overall, patient's general . Russ Taylor MD
[2016-12-03] MEDS: Bacitracin 500 Units/gm Oint Foilpak UD TOP SCH ×3 (09:11→17:17)
[2016-12-03] MEDS: Meropenem 500 MG in Sodium Chloride 0.9% 100 ML IVPB SCH ×2 (09:13→20:21)
[2016-12-03] MEDS: Silver Sulfadiazine 1% CREAM (50 gm) TOP SCH ×2 (09:15→17:17)
[2016-12-03] MEDS: Fluconazole IV 100mg/50 ml NS 50 ML IVPB SCH (11:16)
--- NOTE | 2016-12-03 13:39 | PN ---
DATE: 12/03/2016 SUBJECTIVE: Patient is seen and examined. Interim events noted. Consults noted and appreciated. Surgical followup noted and appreciated. Patient remains in regular medical floor with EDUARDO tube and jejunostomy tube for feeding. Patient feels okay. Pain is adequately controlled. No chest pain. No shortness of breath. PHYSICAL EXAMINATION: GENERAL: Patient is in no acute distress. VITAL SIGNS: Stable. HEART: S1 and S2, normal and regular. LUNGS: Good bilateral air exchange. ABDOMEN: Soft, nontender. EXTREMITIES: No edema. No calf swelling. No tenderness. No acute ischemia. CENTRAL NERVOUS SYSTEM: Essentially unchanged. DIAGNOSTIC DATA: Jejunostomy tube and EDUARDO tube is in good position, although EDUARDO tube drainage is much less, but patient was just evaluated by surgeon. ASSESSMENT AND PLAN: Overall, patient's general medical condition is stable. Plan as ordered. Russ Taylor MD
--- NOTE | 2016-12-03 15:03 | CP.PCM.PN ---
Subjective - Date & Time of Evaluation Date of Evaluation: 12/03/16 Time of Evaluation: 15:03 - Subjective Subjective: ID note- Pt. seen and examined today. Pt. in good spirits. denies any nausea. states has been having BM, not diarrhea. denies any abdominal pain. has been tolerating feeds vis J tube well. Objective - Vital Signs/Intake and Output Vital Signs (last 24 hours): Temp Pulse Resp BP Pulse Ox 97.5 F L 70 20 104/67 97 12/03/16 08:15 12/03/16 08:15 12/03/16 08:15 12/03/16 08:15 12/03/16 08:15 Intake and Output: 12/03/16 12/03/16 06:59 18:59 Output Total 5 Balance -5 - Medications Medications: Current Medications Acetaminophen (Tylenol 650mg/20.3ml Solution Ud) 650 mg PO Q6 PRN PRN Reason: fever >100.4 Acetaminophen (Tylenol 325mg Tab) 650 mg PO Q6 PRN PRN Reason: Pain, moderate (4-7) Last Admin: 11/28/16 22:03 Dose: 650 mg Bacitracin (Bacitracin) 1 ea TOP TID [facility] Last Admin: 12/03/16 09:11 Dose: 1 ea Benzocaine/Menthol (Cepacol Sore Throat) 1 chantel PO Q2 PRN PRN Reason: Sore Throat Cyanocobalamin (Vitamin B12 1000 Mcg/Ml Inj) 1,000 mcg IM DAILY [facility] Last Admin: 12/03/16 11:17 Dose: 1,000 mcg Fluconazole (Diflucan Iv 100 Mg/50 Ml Ns) 50 mls @ 50 mls/hr IVPB DAILY [facility] Last Admin: 12/03/16 11:16 Dose: 50 mls/hr Meropenem 500 mg/ Sodium (Chloride) 100 mls @ 100 mls/hr IVPB Q12 [facility] PRN Reason: Protocol Last Admin: 12/03/16 09:13 Dose: 100 mls/hr Pantoprazole Sodium (Protonix Inj) 40 mg IVP BID [facility] Last Admin: 12/03/16 09:13 Dose: 40 mg Silver Sulfadiazine (Silvadene 1% 50 Gm) 1 applic TOP BID [facility] Last Admin: 12/03/16 09:15 Dose: 1 applic - Labs Labs: - Additional Findings Additional findings: - Constitutional Appears: No Acute Distress - Head Exam Head Exam: ATRAUMATIC - Eye Exam Eye Exam: EOMI - ENT Exam ENT Exam: Normal Oropharynx - Neck Exam Neck Exam: Full ROM - Respiratory Exam Respiratory Exam: NORMAL BREATHING PATTERN Additional comments: good breath sounds b/l - Cardiovascular Exam Cardiovascular Exam: RRR, +S1, +S2 - GI/Abdominal Exam GI & Abdominal Exam: Soft, Normal Bowel Sounds Additional comments: mid-abdominal surgical site clean, dry, intact arvind in place, no erythema Drain still in place, draining light yellow fluid but scant PEJ tube in place and site clean no tenderness, no distention - Extremities Exam Extremities Exam: Normal Inspection - Neurological Exam Neurological Exam: Alert, Awake, Oriented x 3 Laboratory Results - last 72 hr 11/30/16 11/30/16 12/01/16 15:57 21:24 05:30 WBC 5.1 RBC 2.79 L Hgb 8.9 L Hct 26.6 L MCV 95.5 MCH 32.1 H MCHC 33.6 RDW 18.0 H Plt Count 184 Sodium Potassium Chloride Carbon Dioxide Anion Gap BUN Creatinine Est GFR ( Amer) Est GFR (Non-Af Amer) POC Glucose (mg/dL) 123 H 155 H Random Glucose Calcium Phosphorus Magnesium Total Bilirubin AST ALT Alkaline Phosphatase Total Protein Albumin Globulin Albumin/Globulin Ratio Triglycerides Cholesterol LDL Cholesterol Direct HDL Cholesterol 12/01/16 12/01/16 12/01/16 05:30 05:32 11:00 WBC RBC Hgb Hct MCV MCH MCHC RDW Plt Count Sodium 147 Potassium 4.5 Chloride 114 H Carbon Dioxide 24 Anion Gap 14 BUN 19 H Creatinine 1.1 Est GFR ( Amer) 57 Est GFR (Non-Af Amer) 47 POC Glucose (mg/dL) 142 H 142 H Random Glucose 132 H Calcium 7.7 L Phosphorus 2.7 Magnesium 1.8 Total Bilirubin 0.3 AST 44 H ALT 34 Alkaline Phosphatase 146 H Total Protein 6.4 Albumin 2.6 L Globulin 3.8 Albumin/Globulin Ratio 0.7 L Triglycerides 265 H Cholesterol 120 LDL Cholesterol Direct 64 HDL Cholesterol 18 L 12/01/16 12/01/16 12/02/16 16:06 21:42 05:25 WBC RBC Hgb Hct MCV MCH MCHC RDW Plt Count Sodium Potassium Chloride Carbon Dioxide Anion Gap BUN Creatinine Est GFR ( Amer) Est GFR (Non-Af Amer) POC Glucose (mg/dL) 130 H 110 120 H Random Glucose Calcium Phosphorus Magnesium Total Bilirubin AST ALT Alkaline Phosphatase Total Protein Albumin Globulin Albumin/Globulin Ratio Triglycerides Cholesterol LDL Cholesterol Direct HDL Cholesterol 12/02/16 12/02/16 12/02/16 05:30 05:30 10:49 WBC 5.2 RBC 2.78 L Hgb 8.7 L Hct 26.5 L MCV 95.1 MCH 31.3 H MCHC 32.9 L RDW 17.4 H Plt Count 172 Sodium 147 Potassium 4.2 Chloride 113 H Carbon Dioxide 25 Anion Gap 13 BUN 20 H Creatinine 1.1 Est GFR ( Amer) 57 Est GFR (Non-Af Amer) 47 POC Glucose (mg/dL) 117 H Random Glucose 103 Calcium 7.4 L Phosphorus 2.8 Magnesium 1.7 Total Bilirubin 0.3 AST 68 H D ALT 44 Alkaline Phosphatase 165 H Total Protein 6.3 Albumin 2.5 L Globulin 3.8 Albumin/Globulin Ratio 0.7 L Triglycerides 231 H Cholesterol 109 LDL Cholesterol Direct 55 HDL Cholesterol 18 L 12/02/16 12/02/16 12/03/16 15:56 21:41 05:30 WBC 4.9 RBC 2.71 L Hgb 8.3 L Hct 25.7 L MCV 94.6 MCH 30.7 MCHC 32.4 L RDW 17.4 H Plt Count 164 Sodium Potassium Chloride Carbon Dioxide Anion Gap BUN Creatinine Est GFR ( Amer) Est GFR (Non-Af Amer) POC Glucose (mg/dL) 96 108 Random Glucose Calcium Phosphorus Magnesium Total Bilirubin AST ALT Alkaline Phosphatase Total Protein Albumin Globulin Albumin/Globulin Ratio Triglycerides Cholesterol LDL Cholesterol Direct HDL Cholesterol 12/03/16 12/03/16 12/03/16 05:30 05:31 10:52 WBC RBC Hgb Hct MCV MCH MCHC RDW Plt Count Sodium 145 Potassium 4.1 Chloride 114 H Carbon Dioxide 24 Anion Gap 11 BUN 20 H Creatinine 1.2 Est GFR ( Amer) 52 Est GFR (Non-Af Amer) 43 POC Glucose (mg/dL) 107 121 H Random Glucose 110 H Calcium 7.9 L Phosphorus 3.3 Magnesium 1.9 Total Bilirubin 0.3 AST 52 H D ALT 43 Alkaline Phosphatase 167 H Total Protein 6.5 Albumin 2.7 L Globulin 3.8 Albumin/Globulin Ratio 0.7 L Triglycerides 325 H D Cholesterol 128 LDL Cholesterol Direct 60 HDL Cholesterol 17 L Microbiology 11/22/16 09:04 Naris MRSA Culture (Admit) - Final MRSA NOT DETECTED 11/17/16 17:00 Blood-Venous Blood Culture - Final NO GROWTH AFTER 5 DAYS 11/17/16 17:00 Blood-Venous Gram Stain - Final TEST NOT PERFORMED 11/17/16 17:30 Blood-Venous Blood Culture - Final NO GROWTH AFTER 5 DAYS 11/17/16 17:30 Blood-Venous Gram Stain - Final TEST NOT PERFORMED 11/15/16 13:20 Blood Blood Culture - Final NO GROWTH AFTER 5 DAYS 11/15/16 13:20 Blood Gram Stain - Final TEST NOT PERFORMED 11/15/16 13:05 Blood Blood Culture - Final NO GROWTH AFTER 5 DAYS 11/15/16 13:05 Blood Gram Stain - Final TEST NOT PERFORMED 11/16/16 20:00 Other: Please Indicate Gram Stain - Final 11/16/16 20:00 Other: Please Indicate Wound Culture - Final Escherichia Coli 11/16/16 20:00 Other: Please Indicate Gram Stain - Final 11/16/16 20:00 Other: Please Indicate Wound Culture - Final Escherichia Coli 11/16/16 09:40 Naris MRSA Culture (Admit) - Final MRSA NOT DETECTED 11/15/16 23:30 Urine,Catheterized Urine Culture - Final No Growth (<1,000 CFU/ML) Assessment and Plan (1) Gastric out let obstruction Status: Acute (2) Leukopenia Status: Acute (3) Pneumoperitoneum Status: Acute (4) Severe sepsis Status: Acute (5) Vulvar cancer Status: Chronic - Assessment and Plan (Free Text) Assessment: A/P- 86 year old female with vulvar cancer undergoing chemo and radiation was admitted with sudden sharp abdominal pain , found to have high lactate underwent ex-lap and found to have perforated duodenal ulcer is s/p duodenal patch and samy drain . s/p EGD and PEJ tube placement clinically much better POD #17 afebrile no longer neutropenic wound cx- E.Coli x 2 (pansensitive) Blood cx- neg x 4 plan- advise to continue with IV meropenem day #17 since she still has the EDUARDO drain in place and perforation still not completely sealed based on GI radiology reports. advise to also continue with antifungal day #17. drain management as per surgical team. await repeat imaging result and if the perforation is sealed/closed may be able to d/c antibiotics and antifungal.
[2016-12-04 06:39] LABS: HEMATOCRIT 25.7 % (34.0-47.0); MEAN CELL VOLUME 95.4 fl (81.0-99.0); MEAN CORPUSCULAR HEMOGLOBIN 31.8 pg (27.0-31.0); MEAN CORPUSCULAR HGB CONC 33.3 g/dL (33.0-37.0); RED CELL DISTRIBUTION WIDTH 17.6 % (11.5-14.5); WHITE BLOOD COUNT 5.1 K/uL (4.8-10.8)
[2016-12-04 06:53] LABS: ALB/GLOB RATIO 0.7 (1.0-2.1); BILIRUBIN,TOTAL 0.3 mg/dl (0.2-1.3); CALCIUM 8.1 mg/dL (8.4-10.2); POTASSIUM 4.7 MMOL/L (3.6-5.0); TOTAL PROTEIN 6.8 G/DL (6.3-8.2)
--- NOTE | 2016-12-04 07:42 | CP.PCM.PN ---
Subjective - Date & Time of Evaluation Date of Evaluation: 12/04/16 Time of Evaluation: 07:10 - Subjective Subjective: Patient seen and examined at bedside. NAEO. Patient denies any nausea, vomiting , but reports mild pain in her RUQ/LUQ. Patient is having regular bowel movements. Objective - Vital Signs/Intake and Output Vital Signs (last 24 hours): Temp Pulse Resp BP Pulse Ox 97.2 F L 68 20 124/98 H 98 12/04/16 00:38 12/04/16 00:38 12/04/16 00:38 12/04/16 00:38 12/04/16 00:38 Intake and Output: 12/04/16 12/04/16 06:59 18:59 Intake Total 552 Output Total 10 Balance 542 - Medications Medications: Current Medications Acetaminophen (Tylenol 650mg/20.3ml Solution Ud) 650 mg PO Q6 PRN PRN Reason: fever >100.4 Acetaminophen (Tylenol 325mg Tab) 650 mg PO Q6 PRN PRN Reason: Pain, moderate (4-7) Last Admin: 11/28/16 22:03 Dose: 650 mg Bacitracin (Bacitracin) 1 ea TOP TID [facility] Last Admin: 12/03/16 17:17 Dose: 1 ea Benzocaine/Menthol (Cepacol Sore Throat) 1 chantel PO Q2 PRN PRN Reason: Sore Throat Cyanocobalamin (Vitamin B12 1000 Mcg/Ml Inj) 1,000 mcg IM DAILY [facility] Last Admin: 12/03/16 11:17 Dose: 1,000 mcg Fluconazole (Diflucan Iv 100 Mg/50 Ml Ns) 50 mls @ 50 mls/hr IVPB DAILY [facility] Last Admin: 12/03/16 11:16 Dose: 50 mls/hr Meropenem 500 mg/ Sodium (Chloride) 100 mls @ 100 mls/hr IVPB Q12 [facility] PRN Reason: Protocol Last Admin: 12/03/16 20:21 Dose: 100 mls/hr Pantoprazole Sodium (Protonix Inj) 40 mg IVP BID [facility] Last Admin: 12/03/16 17:17 Dose: 40 mg Silver Sulfadiazine (Silvadene 1% 50 Gm) 1 applic TOP BID [facility] Last Admin: 12/03/16 17:17 Dose: 1 applic - Labs Labs: 12/04/16 06:25 12/04/16 06:25 PT 10.5 Seconds (9.8-13.1) 11/15/16 13:05 INR 1.0 (0.9-1.2) 11/15/16 13:05 APTT 22.3 Seconds (25.6-37.1) L 11/15/16 13:05 - Constitutional Appears: Non-toxic, No Acute Distress - Head Exam Head Exam: ATRAUMATIC, NORMOCEPHALIC - Eye Exam Eye Exam: Normal appearance. absent: Conjunctival injection, Scleral icterus - ENT Exam ENT Exam: Mucous Membranes Moist, Normal Oropharynx - Respiratory Exam Respiratory Exam: NORMAL BREATHING PATTERN. absent: Accessory Muscle Use, Respiratory Distress - Cardiovascular Exam Cardiovascular Exam: RRR - GI/Abdominal Exam GI & Abdominal Exam: Soft, Tenderness (RUQ and LUQ mild tenderness). absent: Distended Additional comments: midline incision with mild serosanguinous drainage from the inferior pole. Intact J tube in the LLQ, Tim drain in the RUQ with minimal serous output - Extremities Exam Extremities Exam: absent: Calf Tenderness, Pedal Edema, Tenderness - Neurological Exam Neurological Exam: Alert, Awake, Oriented x3 - Psychiatric Exam Psychiatric exam: Normal Affect, Normal Mood - Skin Skin Exam: Dry, Normal Color, Warm Assessment and Plan - Assessment and Plan (Free Text) Assessment: 86 y/o female w/ perforated duodenum s/p ex lap w/ Mak patch POD18 now w/ endoscopically placed J-tube Plan: -continue enteral feeds per director of compliance recs as tolerated. Monitor closely for residuals -Tim output continues to decrease -Repeat Upper GI series today -Continue IV abx/antifungals per ID recs -Continue to trend CBC/CMP. Transfuse as needed for anemia per heme/onc recs -OOB/PT -IS use -May need further surgical repair of duodenum depending on results of upper GI series. Optimize nutritional status prior d/w Dr. Shorty Mayer PGY2
--- NOTE | 2016-12-04 08:34 | CP.PCM.PN ---
Subjective - Date & Time of Evaluation Date of Evaluation: 12/04/16 Time of Evaluation: 08:30 - Subjective Subjective: - Patient seen and examined at bedside with Dr. Taylor. Patient states she is doing well. Denies any nausea, vomiting, abdominal pain. Denies any overnight events. Had scant output in drain overnight. Objective - Vital Signs/Intake and Output Vital Signs (last 24 hours): Temp Pulse Resp BP Pulse Ox 97.5 F L 69 19 124/66 100 12/04/16 07:56 12/04/16 07:56 12/04/16 07:56 12/04/16 07:56 12/04/16 07:56 Intake and Output: 12/04/16 12/04/16 06:59 18:59 Intake Total 552 Output Total 10 Balance 542 - Medications Medications: Current Medications Acetaminophen (Tylenol 650mg/20.3ml Solution Ud) 650 mg PO Q6 PRN PRN Reason: fever >100.4 Acetaminophen (Tylenol 325mg Tab) 650 mg PO Q6 PRN PRN Reason: Pain, moderate (4-7) Last Admin: 11/28/16 22:03 Dose: 650 mg Bacitracin (Bacitracin) 1 ea TOP TID [facility] Last Admin: 12/03/16 17:17 Dose: 1 ea Benzocaine/Menthol (Cepacol Sore Throat) 1 chantel PO Q2 PRN PRN Reason: Sore Throat Cyanocobalamin (Vitamin B12 1000 Mcg/Ml Inj) 1,000 mcg IM DAILY [facility] Last Admin: 12/03/16 11:17 Dose: 1,000 mcg Fluconazole (Diflucan Iv 100 Mg/50 Ml Ns) 50 mls @ 50 mls/hr IVPB DAILY [facility] Last Admin: 12/03/16 11:16 Dose: 50 mls/hr Meropenem 500 mg/ Sodium (Chloride) 100 mls @ 100 mls/hr IVPB Q12 [facility] PRN Reason: Protocol Last Admin: 12/03/16 20:21 Dose: 100 mls/hr Pantoprazole Sodium (Protonix Inj) 40 mg IVP BID [facility] Last Admin: 12/03/16 17:17 Dose: 40 mg Silver Sulfadiazine (Silvadene 1% 50 Gm) 1 applic TOP BID [facility] Last Admin: 12/03/16 17:17 Dose: 1 applic - Labs Labs: 12/04/16 06:25 12/04/16 06:25 PT 10.5 Seconds (9.8-13.1) 11/15/16 13:05 INR 1.0 (0.9-1.2) 11/15/16 13:05 APTT 22.3 Seconds (25.6-37.1) L 11/15/16 13:05 - Constitutional Appears: No Acute Distress - Head Exam Head Exam: NORMAL INSPECTION - Eye Exam Eye Exam: Normal appearance - ENT Exam ENT Exam: Mucous Membranes Moist - Respiratory Exam Respiratory Exam: Clear to Ausculation Bilateral, NORMAL BREATHING PATTERN. absent: Rhonchi, Wheezes - Cardiovascular Exam Cardiovascular Exam: REGULAR RHYTHM, +S1, +S2 - GI/Abdominal Exam GI & Abdominal Exam: Soft, Tenderness, Normal Bowel Sounds Additional comments: Slight tenderness around jejostomy tube. Tim drain RUQ with scant clear yellow fluid - Extremities Exam Extremities Exam: Normal Inspection - Neurological Exam Neurological Exam: Alert, Awake, CN II-XII Intact, Oriented x3 Assessment and Plan - Assessment and Plan (Free Text) Assessment: 1) Perforated duodenal ulcer POD #18 s/p ex lap w/ Mak patch continue enteral feeds per semi driver recs as tolerated. encouraged ambulation and sitting in chair -Continue IV abx/antifungals per ID recs Patient scheduled for repeat GI series today 2) Anemia - chronic disease, recent chemotherapy and surgery - Hb stable at 8.6 - heme onc consult appreciated, follow up with recommendations 3)Prophylactic measures IV protonix SCD Encourage patient to get out of bed to chair with assistance
[2016-12-04] MEDS: Bacitracin 500 Units/gm Oint Foilpak UD TOP SCH (09:03)
[2016-12-04] MEDS: Meropenem 500 MG in Sodium Chloride 0.9% 100 ML IVPB SCH ×2 (09:03→21:46)
[2016-12-04] MEDS: Silver Sulfadiazine 1% CREAM (50 gm) TOP SCH ×2 (09:04→16:41)
[2016-12-04] MEDS ORDERED: Diatriz Meglumine/Diatriz Sod 30 ML BOTTLE PO ONE ×2 (09:41→10:15)
[2016-12-04] MEDS ORDERED: Diatrizoate Meglumine 120 ML SOLN PO ONE (10:15)
[2016-12-04] MEDS: Fluconazole IV 100mg/50 ml NS 50 ML IVPB SCH (11:28)
--- NOTE | 2016-12-04 15:56 | RAD ---
HISTORY: Status post duodenal patch post perforation. COMPARISON: 11/27/2016. TECHNIQUE: Single-contrast limited upper GI series was performed using water-soluble contrast Gastroview. FINDINGS: The patient ingested oral contrast. Patient tolerated procedure well. [employer] radiograph demonstrates nonspecific bowel gas pattern. There is oral contrast in the colon from prior ingestion with demonstration of extensive colonic diverticulosis. A surgical drain is identified overlying the right upper quadrant. There are skin arvind in the right paramedian abdomen. There is smooth passage of water-soluble contrast from the esophagus into the stomach. There is redemonstration of leakage of extraluminal contrast from the superior aspect of the duodenal cap with a linear tract to was the to the surgical drain. Incidental note is made of a diverticulum in the second portion of the duodenum. OTHER FINDINGS: The total fluoroscopic time was 3.6 minutes. IMPRESSION: Persistent leakage of contrast from the superior portion of the duodenum cap with a linear tract extending to the surgical drain.
[2016-12-05 06:29] LABS: HEMATOCRIT 26.3 % (34.0-47.0); MEAN CELL VOLUME 94.7 fl (81.0-99.0); MEAN CORPUSCULAR HEMOGLOBIN 31.4 pg (27.0-31.0); MEAN CORPUSCULAR HGB CONC 33.2 g/dL (33.0-37.0); RED CELL DISTRIBUTION WIDTH 17.3 % (11.5-14.5); WHITE BLOOD COUNT 5.4 K/uL (4.8-10.8)
[2016-12-05 06:35] LABS: ALB/GLOB RATIO 0.7 (1.0-2.1); BILIRUBIN,TOTAL 0.3 mg/dl (0.2-1.3); CALCIUM 8.6 mg/dL (8.4-10.2); MAGNESIUM 2.1 MG/DL (1.6-2.3); PHOSPHOROUS 3.4 mg/dl (2.5-4.5)
--- NOTE | 2016-12-05 07:23 | CP.PCM.PN ---
Subjective - Date & Time of Evaluation Date of Evaluation: 12/05/16 Time of Evaluation: 07:21 - Subjective Subjective: - PAtient seen and examined at bedside appears to be doing well . Denies any overnight events. However minimal output via drain. Denies any nausea or vomiting. Upper GI series was done yesterday which indicates a leak. Spoke with surg today, will repeat CT scan and possible surgical intervention. Objective - Vital Signs/Intake and Output Vital Signs (last 24 hours): Temp Pulse Resp BP Pulse Ox 97.8 F 69 20 130/79 96 12/05/16 00:29 12/05/16 00:29 12/05/16 00:29 12/05/16 00:29 12/05/16 00:29 Intake and Output: 12/05/16 12/05/16 06:59 18:59 Output Total 5 Balance -5 - Medications Medications: Current Medications Acetaminophen (Tylenol 650mg/20.3ml Solution Ud) 650 mg PO Q6 PRN PRN Reason: fever >100.4 Acetaminophen (Tylenol 325mg Tab) 650 mg PO Q6 PRN PRN Reason: Pain, moderate (4-7) Last Admin: 11/28/16 22:03 Dose: 650 mg Benzocaine/Menthol (Cepacol Sore Throat) 1 chantel PO Q2 PRN PRN Reason: Sore Throat Cyanocobalamin (Vitamin B12 1000 Mcg/Ml Inj) 1,000 mcg IM DAILY [facility] Last Admin: 12/04/16 09:02 Dose: 1,000 mcg Fluconazole (Diflucan Iv 100 Mg/50 Ml Ns) 50 mls @ 50 mls/hr IVPB DAILY [facility] Last Admin: 12/04/16 11:28 Dose: 50 mls/hr Meropenem 500 mg/ Sodium (Chloride) 100 mls @ 100 mls/hr IVPB Q12 [facility] PRN Reason: Protocol Last Admin: 12/04/16 21:46 Dose: 100 mls/hr Pantoprazole Sodium (Protonix Inj) 40 mg IVP BID [facility] Last Admin: 12/04/16 16:41 Dose: 40 mg Silver Sulfadiazine (Silvadene 1% 50 Gm) 1 applic TOP BID [facility] Last Admin: 12/04/16 16:41 Dose: 1 applic - Labs Labs: 12/05/16 05:30 12/05/16 05:30 PT 10.5 Seconds (9.8-13.1) 11/15/16 13:05 INR 1.0 (0.9-1.2) 11/15/16 13:05 APTT 22.3 Seconds (25.6-37.1) L 11/15/16 13:05 - Constitutional Appears: No Acute Distress - Head Exam Head Exam: NORMAL INSPECTION - Eye Exam Eye Exam: Normal appearance - Respiratory Exam Respiratory Exam: Clear to Ausculation Bilateral. absent: Rhonchi, Wheezes - Cardiovascular Exam Cardiovascular Exam: REGULAR RHYTHM, +S1, +S2 - GI/Abdominal Exam GI & Abdominal Exam: Soft, Normal Bowel Sounds - Exam Additional comments: Intact J tube in LLQ - Minimal output in herbert drain in RUQ - Neurological Exam Neurological Exam: Alert, Awake, CN II-XII Intact, Oriented x3 Assessment and Plan - Assessment and Plan (Free Text) Assessment: 1) Perforated duodenal ulcer POD #19 s/p ex lap w/ Mak patch continue enteral feeds per assembler trim recs as tolerated. encouraged ambulation and sitting in chair -Continue IV abx/antifungals per ID recs Upper GI series was done yesterday which indicates a leak. Spoke with surg today, will repeat CT scan and possible surgical intervention 2) Anemia - chronic disease, recent chemotherapy and surgery - Hb stable at 8.7 - heme onc consult appreciated, follow up with recommendations 3)Prophylactic measures IV protonix SCD Encourage patient to get out of bed to chair with assistance
[2016-12-05] MEDS: Meropenem 500 MG in Sodium Chloride 0.9% 100 ML IVPB SCH ×2 (09:11→21:37)
[2016-12-05] MEDS: Silver Sulfadiazine 1% CREAM (50 gm) TOP SCH ×2 (09:13→17:05)
--- NOTE | 2016-12-05 09:58 | CP.PCM.PN ---
Subjective - Date & Time of Evaluation Date of Evaluation: 12/05/16 Time of Evaluation: 06:40 - Subjective Subjective: Patient seen and examined at bedside this AM. NAEO. Patient denies pain, nausea , vomiting, or any other symptoms. Objective - Vital Signs/Intake and Output Vital Signs (last 24 hours): Temp Pulse Resp BP Pulse Ox 97.2 F L 77 18 126/81 97 12/05/16 08:11 12/05/16 08:11 12/05/16 08:11 12/05/16 08:11 12/05/16 08:11 Intake and Output: 12/05/16 12/05/16 06:59 18:59 Output Total 5 Balance -5 - Medications Medications: Current Medications Acetaminophen (Tylenol 650mg/20.3ml Solution Ud) 650 mg PO Q6 PRN PRN Reason: fever >100.4 Acetaminophen (Tylenol 325mg Tab) 650 mg PO Q6 PRN PRN Reason: Pain, moderate (4-7) Last Admin: 11/28/16 22:03 Dose: 650 mg Benzocaine/Menthol (Cepacol Sore Throat) 1 chantel PO Q2 PRN PRN Reason: Sore Throat Cyanocobalamin (Vitamin B12 1000 Mcg/Ml Inj) 1,000 mcg IM DAILY [facility] Last Admin: 12/05/16 09:12 Dose: 1,000 mcg Diatrizoate Meglum/Diatrizoate Sod (RachaelGastroview 66-10% (30 Ml)) 30 ml PO ONCE ONE Stop: 12/05/16 10:01 Fluconazole (Diflucan Iv 100 Mg/50 Ml Ns) 50 mls @ 50 mls/hr IVPB DAILY [facility] Last Admin: 12/04/16 11:28 Dose: 50 mls/hr Meropenem 500 mg/ Sodium (Chloride) 100 mls @ 100 mls/hr IVPB Q12 [facility] PRN Reason: Protocol Last Admin: 12/05/16 09:11 Dose: 100 mls/hr Pantoprazole Sodium (Protonix Inj) 40 mg IVP BID [facility] Last Admin: 12/05/16 09:12 Dose: 40 mg Silver Sulfadiazine (Silvadene 1% 50 Gm) 1 applic TOP BID [facility] Last Admin: 12/05/16 09:13 Dose: 1 applic - Labs Labs: 12/05/16 05:30 12/05/16 05:30 PT 10.5 Seconds (9.8-13.1) 11/15/16 13:05 INR 1.0 (0.9-1.2) 11/15/16 13:05 APTT 22.3 Seconds (25.6-37.1) L 11/15/16 13:05 - Constitutional Appears: Non-toxic, No Acute Distress - Head Exam Head Exam: ATRAUMATIC, NORMOCEPHALIC - Eye Exam Eye Exam: Normal appearance. absent: Conjunctival injection, Scleral icterus - ENT Exam ENT Exam: Mucous Membranes Moist, Normal Oropharynx - Respiratory Exam Respiratory Exam: NORMAL BREATHING PATTERN. absent: Accessory Muscle Use, Respiratory Distress - Neurological Exam Neurological Exam: Alert, Awake, Oriented x3 - Psychiatric Exam Psychiatric exam: Normal Affect, Normal Mood - Skin Skin Exam: Dry, Normal Color, Warm Assessment and Plan - Assessment and Plan (Free Text) Assessment: 86 y/o female w/ perforated duodenum s/p ex lap w/ Mak patch POD19 now w/ endoscopically placed J-tube Plan: -Tim output continues to decrease -Repeat Upper GI showing persistent extravasation of contrast, attain a CT with PO contrast to assess for collection -Continue IV abx/antifungals per ID recs -continue enteral feeds per nitro man recs as tolerated. Monitor closely for residuals -Continue to trend CBC/CMP. Transfuse as needed for anemia per heme/onc recs -OOB/PT -IS use -May need further surgical repair of duodenum depending on results of CT scan. Continue to Optimize nutritional status prior d/w Dr. Shorty Mayer PGY2
[2016-12-05] MEDS ORDERED: Diatriz Meglumine/Diatriz Sod 30 ML BOTTLE PO ONE (10:00)
[2016-12-05] MEDS: Fluconazole IV 100mg/50 ml NS 50 ML IVPB SCH (10:36)
--- NOTE | 2016-12-05 13:55 | CT ---
PROCEDURE: CT Abdomen and Pelvis with contrast HISTORY: r/o intra-abdominal fluid collection, comparison COMPARISON: 11/22/2016. TECHNIQUE: CT scan of the abdomen and pelvis was performed without administration of intravenous contrast. Oral contrast was administered. Coronal and sagittal reformatted images were obtained. Radiation dose: Total exam DLP = 884.94 mGy-cm. This CT exam was performed using one or more of the following dose reduction techniques: Automated exposure control, adjustment of the mA and/or kV according to patient size, and/or use of iterative reconstruction technique. FINDINGS: LOWER THORAX: There is dependent atelectasis in the visualized lungs. LIVER: The liver is normal in size. No gross lesion or ductal dilatation. GALLBLADDER AND BILE DUCTS: There are no calcified gallstones. PANCREAS: The pancreas is normal in size. There is mild fullness in the head of the pancreas which may be reactive related to inflammatory changes in the duodenal cap. No gross lesion or ductal dilatation. SPLEEN: The spleen is normal in size. ADRENALS: No discrete adrenal nodule. There is mild thickening of the left adrenal gland without discrete nodule. KIDNEYS AND URETERS: There is a punctate nonobstructing stone in the upper pole of the right kidney. Both kidneys are normal in size without hydronephrosis or left nephrolithiasis. There is faint cortical calcification in both kidneys. There are simple cysts in the left kidney. VASCULATURE: No aortic aneurysm. BOWEL: Right-sided surgical drain terminates in the right upper quadrant. There is a linear tract containing air from the lateral margin of the duodenal cap leading to the surgical drain. There is air within the duodenal tract. There is also mild diffuse thickening of the gastric antral wall likely reactive in etiology. There are some inflammatory changes surrounding the duodenal cap. The proximal small bowel loops are normal in caliber. There is extensive left colonic diverticulosis without CT evidence for acute diverticulitis. APPENDIX: Normal appendix. PERITONEUM: No free fluid. No free air. LYMPH NODES: No enlarged lymph nodes. BLADDER: Unremarkable. REPRODUCTIVE: Unremarkable. BONES: No acute fracture. Diffuse bone demineralization and multilevel degenerative disc disease. OTHER FINDINGS: There is a small sliding hiatal hernia. There are postsurgical changes in the supraumbilical abdominal wall and multiple skin arvind related to medial laparotomy. IMPRESSION: 1. Status poor still wendy duodenal packed for duodenal perforation, apparent linear tract extending from the lateral margin of the duodenal wall to the surgical drain likely corresponds to the tract of the leaked contrast material demonstrated on GI series. Reactive inflammatory changes surrounding the duodenal cap and in the gastric antrum. 2. Additional chronic findings as described above.
[2016-12-06 06:26] LABS: HEMATOCRIT 25.1 % (34.0-47.0); MEAN CELL VOLUME 94.4 fl (81.0-99.0); MEAN CORPUSCULAR HEMOGLOBIN 30.9 pg (27.0-31.0); MEAN CORPUSCULAR HGB CONC 32.8 g/dL (33.0-37.0); RED CELL DISTRIBUTION WIDTH 17.7 % (11.5-14.5); WHITE BLOOD COUNT 4.7 K/uL (4.8-10.8)
[2016-12-06 06:30] LABS: ALB/GLOB RATIO 0.7 (1.0-2.1); BILIRUBIN,TOTAL 0.3 mg/dl (0.2-1.3); CALCIUM 8.1 mg/dL (8.4-10.2); MAGNESIUM 1.9 MG/DL (1.6-2.3); PHOSPHOROUS 3.4 mg/dl (2.5-4.5); POTASSIUM 4.1 MMOL/L (3.6-5.0); TOTAL PROTEIN 6.8 G/DL (6.3-8.2)
--- NOTE | 2016-12-06 07:12 | CP.PCM.PN ---
Subjective - Date & Time of Evaluation Date of Evaluation: 12/06/16 Time of Evaluation: 19:00 - Subjective Subjective: No complaints, CT scan results noted. Objective - Vital Signs/Intake and Output Vital Signs (last 24 hours): Temp Pulse Resp BP Pulse Ox 97.4 F L 70 20 133/73 100 12/06/16 00:29 12/06/16 00:29 12/06/16 00:29 12/06/16 00:29 12/06/16 00:29 - Medications Medications: Current Medications Acetaminophen (Tylenol 650mg/20.3ml Solution Ud) 650 mg PO Q6 PRN PRN Reason: fever >100.4 Acetaminophen (Tylenol 325mg Tab) 650 mg PO Q6 PRN PRN Reason: Pain, moderate (4-7) Last Admin: 11/28/16 22:03 Dose: 650 mg Benzocaine/Menthol (Cepacol Sore Throat) 1 chantel PO Q2 PRN PRN Reason: Sore Throat Cyanocobalamin (Vitamin B12 1000 Mcg/Ml Inj) 1,000 mcg IM DAILY [facility] Last Admin: 12/05/16 09:12 Dose: 1,000 mcg Fluconazole (Diflucan Iv 100 Mg/50 Ml Ns) 50 mls @ 50 mls/hr IVPB DAILY [facility] Last Admin: 12/05/16 10:36 Dose: 50 mls/hr Meropenem 500 mg/ Sodium (Chloride) 100 mls @ 100 mls/hr IVPB Q12 [facility] PRN Reason: Protocol Last Admin: 12/05/16 21:37 Dose: 100 mls/hr Pantoprazole Sodium (Protonix Inj) 40 mg IVP BID [facility] Last Admin: 12/05/16 17:05 Dose: 40 mg Silver Sulfadiazine (Silvadene 1% 50 Gm) 1 applic TOP BID [facility] Last Admin: 12/05/16 17:05 Dose: 1 applic - Labs Labs: 12/06/16 05:35 12/06/16 05:35 PT 10.5 Seconds (9.8-13.1) 11/15/16 13:05 INR 1.0 (0.9-1.2) 11/15/16 13:05 APTT 22.3 Seconds (25.6-37.1) L 11/15/16 13:05 - Head Exam Head Exam: ATRAUMATIC - Eye Exam Eye Exam: Normal appearance - ENT Exam ENT Exam: Mucous Membranes Dry - Respiratory Exam Respiratory Exam: NORMAL BREATHING PATTERN - Cardiovascular Exam Cardiovascular Exam: +S1, +S2 - GI/Abdominal Exam GI & Abdominal Exam: Normal Bowel Sounds - Extremities Exam Extremities Exam: Normal Inspection Assessment and Plan (1) Anemia Assessment & Plan: chronic disease, recent chemotherapy s/p PRBC transfusion Status: Acute (2) Vulvar cancer Assessment & Plan: outpatient treatment with primary oncologist. Status: Chronic
[2016-12-06 07:24] VITALS: RESP 18
[2016-12-06] MEDS: Meropenem 500 MG in Sodium Chloride 0.9% 100 ML IVPB SCH ×2 (08:58→20:58)
[2016-12-06] MEDS: Silver Sulfadiazine 1% CREAM (50 gm) TOP SCH ×2 (08:58→16:49)
[2016-12-06] MEDS: Fluconazole IV 100mg/50 ml NS 50 ML IVPB SCH (10:18)
--- NOTE | 2016-12-06 11:06 | CP.PCM.PN ---
Subjective - Date & Time of Evaluation Date of Evaluation: 12/06/16 Time of Evaluation: 08:00 - Subjective Subjective: - 86 YO F was seen at bedside with Dr. Taylor. Patient appears to be doing well. Has minimal output in the drain. CT was done which showed no fluid collection around the duodenum, contrast extravasating out of the duodenum but draining well into the tim drain. Surgery has signed off of the case and is clearing patient to transfer to TCU. Objective - Vital Signs/Intake and Output Vital Signs (last 24 hours): Temp Pulse Resp BP Pulse Ox 97.6 F 68 18 128/68 98 12/06/16 07:24 12/06/16 07:24 12/06/16 07:24 12/06/16 07:24 12/06/16 07:24 - Medications Medications: Current Medications Acetaminophen (Tylenol 650mg/20.3ml Solution Ud) 650 mg PO Q6 PRN PRN Reason: fever >100.4 Acetaminophen (Tylenol 325mg Tab) 650 mg PO Q6 PRN PRN Reason: Pain, moderate (4-7) Last Admin: 11/28/16 22:03 Dose: 650 mg Benzocaine/Menthol (Cepacol Sore Throat) 1 chantel PO Q2 PRN PRN Reason: Sore Throat Cyanocobalamin (Vitamin B12 1000 Mcg/Ml Inj) 1,000 mcg IM DAILY [facility] Last Admin: 12/06/16 08:59 Dose: 1,000 mcg Fluconazole (Diflucan Iv 100 Mg/50 Ml Ns) 50 mls @ 50 mls/hr IVPB DAILY [facility] Last Admin: 12/06/16 10:18 Dose: 50 mls/hr Meropenem 500 mg/ Sodium (Chloride) 100 mls @ 100 mls/hr IVPB Q12 [facility] PRN Reason: Protocol Last Admin: 12/06/16 08:58 Dose: 100 mls/hr Pantoprazole Sodium (Protonix Inj) 40 mg IVP BID [facility] Last Admin: 12/06/16 08:59 Dose: 40 mg Silver Sulfadiazine (Silvadene 1% 50 Gm) 1 applic TOP BID [facility] Last Admin: 12/06/16 08:58 Dose: 1 applic - Labs Labs: 12/06/16 05:35 12/06/16 05:35 PT 10.5 Seconds (9.8-13.1) 11/15/16 13:05 INR 1.0 (0.9-1.2) 11/15/16 13:05 APTT 22.3 Seconds (25.6-37.1) L 11/15/16 13:05 - Constitutional Appears: No Acute Distress - Head Exam Head Exam: NORMAL INSPECTION - Respiratory Exam Respiratory Exam: Clear to Ausculation Bilateral, NORMAL BREATHING PATTERN. absent: Rhonchi, Wheezes - Cardiovascular Exam Cardiovascular Exam: REGULAR RHYTHM, +S1, +S2 - GI/Abdominal Exam GI & Abdominal Exam: Soft, Normal Bowel Sounds. absent: Tenderness Additional comments: j tube in LLQ Tim drain in RUQ with minimal output - Extremities Exam Extremities Exam: Normal Inspection - Neurological Exam Neurological Exam: Alert, Awake, CN II-XII Intact, Oriented x3 Assessment and Plan - Assessment and Plan (Free Text) Assessment: 1) Perforated duodenal ulcer POD #20 s/p ex lap w/ Mak patch continue enteral feeds per help desk manager recs as tolerated. encouraged ambulation and sitting in chair -Continue IV abx/antifungals per ID recs - Repeat CT scan with PO contrast: No fluid collection around the duodenum, contrast extravasating out of the duodenum but draining well into the tim drain. - Repeat CT in 2 weeks - Possible transfer to TCU 2) Anemia - chronic disease, recent chemotherapy and surgery - Hb 8.2 - heme onc consult appreciated, follow up with recommendations 3)Prophylactic measures IV protonix SCD Encourage patient to get out of bed to chair with assistance
--- NOTE | 2016-12-06 11:26 | CP.PCM.PN ---
Subjective - Date & Time of Evaluation Date of Evaluation: 12/06/16 Time of Evaluation: 11:25 - Subjective Subjective: Surgery: Dr. Oro Patient doing well today. Sitting in chair at bedside. NO complaints. Objective - Vital Signs/Intake and Output Vital Signs (last 24 hours): Temp Pulse Resp BP Pulse Ox 97.6 F 68 18 128/68 98 12/06/16 07:24 12/06/16 07:24 12/06/16 07:24 12/06/16 07:24 12/06/16 07:24 - Medications Medications: Current Medications Acetaminophen (Tylenol 650mg/20.3ml Solution Ud) 650 mg PO Q6 PRN PRN Reason: fever >100.4 Acetaminophen (Tylenol 325mg Tab) 650 mg PO Q6 PRN PRN Reason: Pain, moderate (4-7) Last Admin: 11/28/16 22:03 Dose: 650 mg Benzocaine/Menthol (Cepacol Sore Throat) 1 chantel PO Q2 PRN PRN Reason: Sore Throat Cyanocobalamin (Vitamin B12 1000 Mcg/Ml Inj) 1,000 mcg IM DAILY [facility] Last Admin: 12/06/16 08:59 Dose: 1,000 mcg Heparin Sodium (Porcine) (Heparin) 5,000 units SC Q12 [facility] PRN Reason: Protocol Fluconazole (Diflucan Iv 100 Mg/50 Ml Ns) 50 mls @ 50 mls/hr IVPB DAILY [facility] Last Admin: 12/06/16 10:18 Dose: 50 mls/hr Meropenem 500 mg/ Sodium (Chloride) 100 mls @ 100 mls/hr IVPB Q12 [facility] PRN Reason: Protocol Last Admin: 12/06/16 08:58 Dose: 100 mls/hr Pantoprazole Sodium (Protonix Inj) 40 mg IVP BID [facility] Last Admin: 12/06/16 08:59 Dose: 40 mg Silver Sulfadiazine (Silvadene 1% 50 Gm) 1 applic TOP BID [facility] Last Admin: 12/06/16 08:58 Dose: 1 applic - Labs Labs: 12/06/16 05:35 12/06/16 05:35 PT 10.5 Seconds (9.8-13.1) 11/15/16 13:05 INR 1.0 (0.9-1.2) 11/15/16 13:05 APTT 22.3 Seconds (25.6-37.1) L 11/15/16 13:05 - Constitutional Appears: Non-toxic, No Acute Distress - Head Exam Head Exam: ATRAUMATIC - Eye Exam Eye Exam: EOMI, Normal appearance - ENT Exam ENT Exam: Mucous Membranes Moist - Respiratory Exam Respiratory Exam: NORMAL BREATHING PATTERN. absent: Respiratory Distress - Cardiovascular Exam Cardiovascular Exam: REGULAR RHYTHM. absent: Tachycardia Assessment and Plan - Assessment and Plan (Free Text) Assessment: 86 y/o female w/ perforated duodenum s/p ex lap w/ Mak patch POD19 now w/ endoscopically placed J-tube Plan: -patient cleared for rehab/TCU from surgical standpoint -keep Tim drain in place -keep NPO and cont J tube feeds -will repeat imaging in about 7-10 days to reassess perforation, appears to be healing -d/w Dr. Shorty Arenas PGY3
[2016-12-06 16:19] VITALS: BP 129/78; PULSE 82; O2SAT 100
[2016-12-06 17:52] VITALS: TEMP 98
--- NOTE | 2016-12-07 08:34 | CP.PCM.DIS ---
Provider - Provider Date of Admission: 11/15/16 16:03 Attending physician: Russ Taylor MD Time Spent in preparation of Discharge (in minutes): 30 Diagnosis - Discharge Diagnosis (1) Perforated duodenal ulcer Status: Acute Hospital Course - Lab Results Lab Results: Micro Results 11/22/16 09:04 Naris MRSA Culture (Admit) - Final MRSA NOT DETECTED 11/17/16 17:00 Blood-Venous Blood Culture - Final NO GROWTH AFTER 5 DAYS 11/17/16 17:00 Blood-Venous Gram Stain - Final TEST NOT PERFORMED 11/17/16 17:30 Blood-Venous Blood Culture - Final NO GROWTH AFTER 5 DAYS 11/17/16 17:30 Blood-Venous Gram Stain - Final TEST NOT PERFORMED 11/15/16 13:20 Blood Blood Culture - Final NO GROWTH AFTER 5 DAYS 11/15/16 13:20 Blood Gram Stain - Final TEST NOT PERFORMED 11/15/16 13:05 Blood Blood Culture - Final NO GROWTH AFTER 5 DAYS 11/15/16 13:05 Blood Gram Stain - Final TEST NOT PERFORMED 11/16/16 20:00 Other: Please Indicate Gram Stain - Final 11/16/16 20:00 Other: Please Indicate Wound Culture - Final Escherichia Coli 11/16/16 20:00 Other: Please Indicate Gram Stain - Final 11/16/16 20:00 Other: Please Indicate Wound Culture - Final Escherichia Coli 11/16/16 09:40 Naris MRSA Culture (Admit) - Final MRSA NOT DETECTED 11/15/16 23:30 Urine,Catheterized Urine Culture - Final No Growth (<1,000 CFU/ML) Most Recent Lab Values WBC 4.7 K/uL (4.8-10.8) L 12/06/16 05:35 RBC 2.66 Mil/uL (3.80-5.20) L 12/06/16 05:35 Hgb 8.2 g/dL (12.0-16.0) L 12/06/16 05:35 Hct 25.1 % (34.0-47.0) L 12/06/16 05:35 MCV 94.4 fl (81.0-99.0) 12/06/16 05:35 MCH 30.9 pg (27.0-31.0) 12/06/16 05:35 MCHC 32.8 g/dL (33.0-37.0) L 12/06/16 05:35 RDW 17.7 % (11.5-14.5) H 12/06/16 05:35 Plt Count 196 K/uL (130-400) 12/06/16 05:35 MPV 9.8 fl (7.2-11.7) 11/23/16 06:10 Neut % (Auto) 86.6 % (50.0-75.0) H 11/23/16 06:10 Lymph % (Auto) 7.6 % (20.0-40.0) L 11/23/16 06:10 [place] % (Auto) 4.9 % (0.0-10.0) 11/23/16 06:10 Eos % (Auto) 0.6 % (0.0-4.0) 11/23/16 06:10 Baso % (Auto) 0.3 % (0.0-2.0) 11/23/16 06:10 Neut # 7.9 K/uL (1.8-7.0) H 11/23/16 06:10 Lymph # 0.7 K/uL (1.0-4.3) L 11/23/16 06:10 [place] # 0.4 K/uL (0.0-0.8) 11/23/16 06:10 Eos # 0.1 K/uL (0.0-0.7) 11/23/16 06:10 Baso # 0.0 K/uL (0.0-0.2) 11/23/16 06:10 Neutrophils % (Manual) 85 % (42-75) H 11/23/16 06:10 Band Neutrophils % 4 % (0-2) H 11/23/16 06:10 Lymphocytes % (Manual) 6 % (20-50) L 11/23/16 06:10 Reactive Lymphs % 1 % (0-0) H 11/23/16 06:10 Monocytes % (Manual) 4 % (0-10) 11/23/16 06:10 Eosinophils % (Manual) 2 % (0-7) 11/20/16 04:15 Toxic Granulation Present 11/20/16 04:15 Platelet Estimate Decreased (NORMAL) L 11/23/16 06:10 Large Platelets Present 11/20/16 04:15 Hypochromasia (manual) Slight 11/23/16 06:10 Poikilocytosis (manual Slight 11/23/16 06:10 Anisocytosis (manual) Slight 11/23/16 06:10 Ovalocytes Slight 11/23/16 06:10 PT 10.5 Seconds (9.8-13.1) 11/15/16 13:05 INR 1.0 (0.9-1.2) 11/15/16 13:05 APTT 22.3 Seconds (25.6-37.1) L 11/15/16 13:05 pCO2 31 mm/Hg (35-45) L 11/17/16 05:00 pO2 143 mm/Hg (80-100) H 11/17/16 05:00 HCO3 21.5 mmol/L (21-28) 11/17/16 05:00 ABG pH 7.41 (7.35-7.45) 11/17/16 05:00 ABG Total CO2 20.6 mmol/L (22-28) L 11/17/16 05:00 ABG O2 Saturation 98.8 % (95-98) H 11/17/16 05:00 ABG O2 Content 12.2 ML/dL (15-23) L 11/17/16 05:00 ABG Base Excess -4.4 mmol/L (-2.0-3.0) L 11/17/16 05:00 ABG Hemoglobin 8.7 g/dL (11.7-17.4) L 11/17/16 05:00 ABG Carboxyhemoglobin 0.3 % (0.5-1.5) L 11/17/16 05:00 POC ABG HHb (Measured) 1.2 % (0.0-5.0) 11/17/16 05:00 ABG Methemoglobin 1.6 % (0.0-3.0) 11/17/16 05:00 ABG O2 Capacity 12.3 mL/dL (16-24) L 11/17/16 05:00 Heriberto Test Yes 11/17/16 05:00 A-a O2 Difference 531.0 mm/Hg 11/17/16 05:00 Hgb O2 Saturation 96.9 % (95.0-98.0) 11/17/16 05:00 Vent Mode Prvc(ac 11/16/16 22:04 Mechanical Rate 12 09/30/17 05:00 FiO2 100.0 % 11/17/16 05:00 Tidal Volume 400 11/17/16 05:00 PEEP 5 11/17/16 05:00 Sodium 147 mmol/l (132-148) 12/06/16 05:35 Potassium 4.1 MMOL/L (3.6-5.0) 12/06/16 05:35 Chloride 116 mmol/L (98-107) H 12/06/16 05:35 Carbon Dioxide 24 mmol/L (22-30) 12/06/16 05:35 Anion Gap 11 (10-20) 12/06/16 05:35 BUN 15 mg/dl (7-17) 12/06/16 05:35 Creatinine 1.1 mg/dL (0.7-1.2) 12/06/16 05:35 Est GFR ( Amer) 57 12/06/16 05:35 Est GFR (Non-Af Amer) 47 12/06/16 05:35 POC Glucose (mg/dL) 107 mg/dL (65-110) 12/06/16 21:18 Random Glucose 109 mg/dL (65-105) H 12/06/16 05:35 Lactic Acid 1.4 MMOL/L (0.7-2.1) 11/17/16 08:30 Calcium 8.1 mg/dL (8.4-10.2) L 12/06/16 05:35 Phosphorus 3.4 mg/dl (2.5-4.5) 12/06/16 05:35 Magnesium 1.9 MG/DL (1.6-2.3) 12/06/16 05:35 Total Bilirubin 0.3 mg/dl (0.2-1.3) 12/06/16 05:35 AST 34 U/L (14-36) 12/06/16 05:35 ALT 27 U/L (9-52) 12/06/16 05:35 Alkaline Phosphatase 150 U/L (38-126) H 12/06/16 05:35 Troponin I 0.0200 ng/mL (0.00-0.120) 11/15/16 13:05 Total Protein 6.8 G/DL (6.3-8.2) 12/06/16 05:35 Albumin 2.8 g/dL (3.5-5.0) L 12/06/16 05:35 Globulin 4.0 gm/dL (2.2-3.9) H 12/06/16 05:35 Albumin/Globulin Ratio 0.7 (1.0-2.1) L 12/06/16 05:35 Prealbumin 8.0 mg/dL (17.6-36.0) L 11/30/16 05:30 Triglycerides 221 mg/DL (0-149) H 12/06/16 05:35 Cholesterol 143 mg/dL (0-199) 12/06/16 05:35 LDL Cholesterol Direct 90 mg/dL (0-129) 12/06/16 05:35 HDL Cholesterol 22 MG/DL (30-70) L 12/06/16 05:35 Lipase 73 U/L (23-300) 11/16/16 04:15 Vitamin B12 269 pg/mL (239-931) 11/16/16 04:15 TSH 3rd Generation 0.48 mIU/ML (0.46-4.68) 11/16/16 04:15 Urine Color Yellow (YELLOW) 11/15/16 19:39 Urine Clarity Clear (Clear) 11/15/16 19:39 Urine pH 6.0 (5.0-8.0) 11/15/16 19:39 Ur Specific [place] 1.005 (1.003-1.030) 11/15/16 19:39 Urine Protein 100 mg/dL (NEGATIVE) 11/15/16 19:39 Urine Glucose (UA) Neg mg/dL (Normal) 11/15/16 19:39 Urine Ketones Negative mg/dL (NEGATIVE) 11/15/16 19:39 Urine Blood Negative (NEGATIVE) 11/15/16 19:39 Urine Nitrate Negative (NEGATIVE) 11/15/16 19:39 Urine Bilirubin Negative (NEGATIVE) 11/15/16 19:39 Urine Urobilinogen 0.2-1.0 mg/dL (0.2-1.0) 11/15/16 19:39 Ur Leukocyte Esterase Neg Emmanuel/uL (Negative) 11/15/16 19:39 Urine RBC (Auto) 3 /hpf (0-3) 11/15/16 19:39 Urine Microscopic WBC 1 /hpf (0-5) 11/15/16 19:39 Vancomycin Trough 11.4 ug/mL (5.0-10.0) H 11/23/16 10:20 Blood Type O POSITIVE 11/25/16 19:35 Blood Type Confirm O POSITIVE 11/16/16 14:14 Antibody Screen Negative 11/25/16 19:35 Crossmatch See Detail 11/25/16 19:35 BBK History Checked Patient has bt 11/25/16 19:35 - Hospital Course Hospital Course: 86 y/o female with PMHx remarkale for HTN, HLD, and vulvar cancer presented to [facility] ED with a complaint of abrupt onset abdominal pain on morning of admission and syncopal episode. - PAtient was found to have a perforated duodenal ulcer and had a Mak patch. She as intialy on TPN, now getting enteral feeds. Surg and ID are on board. Patient had a drain inserted which has been showing minimal ouput. Repeat CT scan was done with PO contrast: which showed No fluid collection around the duodenum, contrast extravasating out of the duodenum but draining well into the tim drain. Patient has been transfered to TCU. Will repat CT in 2 weeks. Discharge Exam - Head Exam Head Exam: ATRAUMATIC - Eye Exam Eye Exam: Normal appearance - Respiratory Exam Respiratory Exam: Clear to PA & Lateral. absent: Rales, Wheezes - Cardiovascular Exam Cardiovascular Exam: REGULAR RHYTHM, +S1, +S2 - GI/Abdominal Exam GI & Abdominal Exam: Normal Bowel Sounds Additional comments: j tube in LLQ - Tim drain in RUQ w/ minimal drainage - Skin Skin Exam: Normal Color, Warm Discharge Plan - Discharge Medications Prescriptions: Fluconazole IV 100mg/50 ml NS [Diflucan IV 100 mg/50 ml NS] 100 mg IVPB DAILY # 7 vial Meropenem [Merrem IV] 500 mg IVPB Q12 #14 vial - Follow Up Plan Condition: GUARDED Disposition: REHAB FACILITY/REHAB UNIT Instructions: Tube Feeding (DC)
== END 2016-12-06 21:30 | DRG 853 ==
LOC: H.ER 12:41 → H.ERHOLD 16:03 → H.TEL 19:25 → H.ICU/CCU 11-16 20:39 → H.MEDSURG1 11-22 22:03
PROVIDERS: ADMIT Internal Medicine; ATTEND Internal Medicine
PROC: 0DU907Z Supplement Duodenum with Autologous Tissue Substitute, Open Approach (ICD-10-PCS; principal; 2016-11-16 15:00)
PROC: 3E0336Z Introduction of Nutritional Substance into Peripheral Vein, Percutaneous Approach (ICD-10-PCS; 2016-11-23)
PROC: 02HV33Z Insertion of Infusion Device into Superior Vena Cava, Percutaneous Approach (ICD-10-PCS; 2016-11-26)
PROC: B518ZZA Fluoroscopy of Superior Vena Cava, Guidance (ICD-10-PCS; 2016-11-26)
PROC: B548ZZA Ultrasonography of Superior Vena Cava, Guidance (ICD-10-PCS; 2016-11-26)
PROC: 3E04329 Introduction of Other Anti-infective into Central Vein, Percutaneous Approach (ICD-10-PCS; 2016-11-26)
PROC: 30233N1 Transfusion of Nonautologous Red Blood Cells into Peripheral Vein, Percutaneous Approach (ICD-10-PCS; 2016-11-26)
PROC: 0DD98ZX Extraction of Duodenum, Via Natural or Artificial Opening Endoscopic, Diagnostic (ICD-10-PCS; 2016-11-28)
PROC: 0DHA8UZ Insertion of Feeding Device into Jejunum, Via Natural or Artificial Opening Endoscopic (ICD-10-PCS; 2016-11-28)
PROC: 3E0H76Z Introduction of Nutritional Substance into Lower GI, Via Natural or Artificial Opening (ICD-10-PCS; 2016-11-28)
DX: A41.9 Sepsis, unspecified organism (principal); K26.1 Acute duodenal ulcer with perforation; N17.9 Acute kidney failure, unspecified; K31.1 Adult hypertrophic pyloric stenosis; D70.1 Agranulocytosis secondary to cancer chemotherapy; K31.5 Obstruction of duodenum; E87.5 Hyperkalemia; K66.8 Other specified disorders of peritoneum; C51.9 Malignant neoplasm of vulva, unspecified; K22.10 Ulcer of esophagus without bleeding; R65.20 Severe sepsis without septic shock; D64.81 Anemia due to antineoplastic chemotherapy; I95.81 Postprocedural hypotension; E86.1 Hypovolemia; I51.7 Cardiomegaly; T45.1X5A Adverse effect of antineoplastic and immunosuppressive drugs, initial encounter; D63.8 Anemia in other chronic diseases classified elsewhere; E78.5 Hyperlipidemia, unspecified; I10 Essential (primary) hypertension; K57.10 Diverticulosis of small intestine without perforation or abscess without bleeding; K44.9 Diaphragmatic hernia without obstruction or gangrene; E11.9 Type 2 diabetes mellitus without complications; K29.50 Unspecified chronic gastritis without bleeding; E86.0 Dehydration; Z85.42 Personal history of malignant neoplasm of other parts of uterus; Z92.21 Personal history of antineoplastic chemotherapy; Z92.3 Personal history of irradiation; Z90.710 Acquired absence of both cervix and uterus; Z79.82 Long term (current) use of aspirin